=== PATIENT | male | born 1995 | race Two or more races ===

== ENCOUNTER 2019-10-04 07:34 | Inpatient (IN) | payer BC ==
[2019-10-04] VITALS (23 sets, daily range): BP systolic 122–168; BP diastolic 50–92
[~2019-10-04] VITALS: Ht 180.3 cm; Wt 71.7 kg
[2019-10-04] MEDS ORDERED: Bacitracin 50000 Units Vial ONE (09:02)
[2019-10-04] MEDS ORDERED: NeoSporin Gu Irrig 1ml Amp IRRIG ONE (09:02)
[2019-10-04] MEDS ORDERED: Lidocaine 1% 10mg/ml/Epi 0.005mg/ml 30ml vial INJ ONE ×4 (09:03→11:22)
[2019-10-04] MEDS ORDERED: fentaNYL 100 mcg/2 mL IV ONE ×2 (09:04→11:32)
[2019-10-04] MEDS ORDERED: Midazolam 2mg/2ml Inj ONE (09:05)
[2019-10-04] MEDS ORDERED: Lidocaine 1% MPF 10mg/ml 5ml ONE (09:07)
--- NOTE | 2019-10-04 09:14 | Pre-Procedure Note/Attestation ---
Pre-Procedure Note/Attestation Complete Prior to Procedure Planned Procedure: bilateral Procedure Narrative: Bilateral groin, perineal, thigh excision of hidradenitis and flap elevation. Attestation I attest that I discussed the nature of the procedure; its benefits; risks and complications; and alternatives (and the risks and benefits of such alternatives ), prior to the procedure, with the patient (or the patient's legal field service representative). I attest that, if there was a reasonable possibility of needing a blood transfusion, the patient (or the patient's legal field service representative) was given the [facility] standardized written summary, pursuant to the [place] Blood Safety Act ([place] Health and Safety Code # 1645, as amended). I attest that I re-evaluated the patient just prior to the surgery and that there has been no change in the patient's H&P, except as documented below: Jl Vazquez MD Oct 04, 2019 09:14
[2019-10-04] MEDS ORDERED: PCA Education Pamphlet MISC ONE ×2 (09:15→10:45)
[2019-10-04] MEDS ORDERED: Rate Change PCA 1 Each MISC PRN ×2 (09:15→10:45)
[2019-10-04] MEDS ORDERED: Zolpidem 5mg tab ORAL PRN (09:15)
[2019-10-04] MEDS ORDERED: Succinylcholine 20mg/ml 10ml vial ONE (09:18)
[2019-10-04] MEDS ORDERED: Rocuronium Bromide 100mg/10ml Inj IV ONE (09:18)
[2019-10-04] MEDS ORDERED: Acetaminophen (Non formulary) 100 ML IV ONE (09:30)
[2019-10-04] MEDS ORDERED: NS Irrig 2000ml IRRIG ONE (10:00)
[2019-10-04] MEDS ORDERED: NS Irrig 1000ml ONE (10:00)
[2019-10-04] MEDS ORDERED: Sterile Water Irrig 1000ml IRRIG ONE (10:00)
[2019-10-04] MEDS ORDERED: Neostigmine 1mg/ml 10ml Inj ONE (10:00)
[2019-10-04] MEDS ORDERED: NORCO 7.5-3251 EACH ORAL (10:17)
[2019-10-04] MEDS ORDERED: Sodium Chloride 10ml vial INJ ONE (10:31)
[2019-10-04] MEDS ORDERED: Glycopyrrolate 0.2mg/ml 1ml Vial ONE (10:31)
[2019-10-04] MEDS ORDERED: Morphine Sulfate 10mg/ml Inj ONE (10:31)
[2019-10-04] MEDS ORDERED: Ketorolac 30mg Inj ONE (10:32)
--- NOTE | 2019-10-04 10:43 | Anethesia Preoperative Eval ---
Anesthesia Pre-op PMH/ROS General Date of Evaluation: Oct 04, 2019 Time of Evaluation: 09:30 Anesthesiologist: Libby ASA Score: ASA 2 Mallampati Score Class I : Soft palate, uvula, fauces, pillars visible Class II: Soft palate, uvula, fauces visible Class III: Soft palate, base of uvula visible Class IV: Only hard plate visible Mallampati Classification: Class II Surgeon: Taylor Diagnosis: Bilateral groin HS Surgical Procedure: Excision of bilateral groin HS Anesthesia History: none Family History: no anesthesia problems Allergies: Coded Allergies: PEANUT (Verified Allergy, Severe, anaphylactic, 10/04/19) HYDROMORPHONE (Verified Allergy, Intermediate, severe nausea, 10/04/19) Medications: see eMAR Patient NPO?: Yes Past Medical History Cardiovascular: Denies: HTN, CAD, CT, valve dz, arrhythmia, other Pulmonary: Denies: asthma, COPD, DEBBIE, other Gastrointestinal/Genitourinary: Reports: GERD - mild; Denies: CRI, ESRD, other Neurologic/Psychiatric: Reports: depression/anxiety; Denies: dementia, CVA, TIA, other Endocrine: Denies: DM, hypothyroidism, steroids, other HEENT: Denies: cataract (L), cataract (R), glaucoma, [place] (L), [place] (R), other Hematology/Immune: Reports: anemia - mild; Denies: DVT, bleeding disorder, other Musculoskeletal/Integumentary: Reports: other - axillary and groin HS; Denies: OA, RA, DJD, DDD, edema PMH Narrative: as above PSxH Narrative: Surgical treatment of HS Anesthesia Pre-op Phys. Exam Physician Exam Last Vital Signs Date Time Temp Pulse Resp B/P (MAP) Pulse Ox O2 Delivery O2 Flow Rate FiO2 10/04/19 10:02 Room Air 10/04/19 09:27 97.5 97 18 128/50 (76) 97 Constitutional: NAD Neurologic: CN 2-12 intact Cardiovascular: RRR, no M/R/G Respiratory: CTA Gastrointestinal: S/NT/ND Airway Exam Mallampati Score: Class II MO: full Neck: flexible ROM: full Teeth: intact Dentures: no upper, no lower Anesthesia Pre-op A/P Risk Assessment & Plan Assessment: ASA 2 Plan: GA with ETT Status Change Before Surgery: No Pre-Antibiotics Drug: Ancef 1gr Given Within 1 Hr of Incision: Yes Time Given: 10:12 Jordon Souza MD Oct 04, 2019 10:43
[2019-10-04] MEDS ORDERED: LR 1000ml 1,000 ML IVLG SCH (10:44)
[2019-10-04] MEDS ORDERED: Meperidine 25mg/0.5ml Inj (FOR RIGORS ONLY) IV PRN (10:45)
[2019-10-04] MEDS ORDERED: Midazolam 2mg/2ml Inj IVP PRN (10:45)
[2019-10-04] MEDS ORDERED: fentaNYL 100 mcg/2 mL IV PRN (10:45)
[2019-10-04] MEDS ORDERED: DiphenhydrAMINE 50mg/ml Inj IVP PRN (10:45)
[2019-10-04] MEDS ORDERED: Ketorolac 30mg Inj IV PRN (10:45)
[2019-10-04] MEDS ORDERED: Metoclopramide 10mg/2ml Inj IVP PRN (10:45)
[2019-10-04] MEDS ORDERED: PCA Morphine 1mg/ml 30 ML IV PRN (12:18)
--- NOTE | 2019-10-04 12:24 | Operative Note - PDOC ---
Operative Note Operative Note Pre-op Diagnosis: Bilateral groin, thigh, and perineal hidradenitis Post-op Diagnosis: same as pre-op Surgeon: Taylor Floors Buffer: Jodee Anesthesia: general Specimen: yes Complications: none Condition: stable Estimated Blood Loss: none Drains: none Implant(s) used?: No Jl Vazquez MD Oct 04, 2019 12:24
[2019-10-04] MEDS ORDERED: Morphine Sulfate 2mg/ml Inj(IV/IM USE ONLY) IVP PRN (12:30)
[2019-10-04] MEDS ORDERED: Milk of Magnesia 30ml Ud ORAL PRN (12:30)
[2019-10-04] MEDS ORDERED: Miralax 17gm pkt ORAL PRN (12:30)
[2019-10-04 12:39] LABS: HEMATOCRIT 23.7 % (42.0-52.0); HEMOGLOBIN 7.3 G/DL (14.2-18.0); MEAN CORPUSCULAR VOLUME 73 FL (80-99); PLATELET COUNT 333 K/UL (150-450); RED BLOOD COUNT 3.23 M/UL (4.70-6.10); WHITE BLOOD COUNT 15.8 K/UL (4.8-10.8)
--- NOTE | 2019-10-04 12:44 | Immediate Post-Op Evaluation ---
Immediate Post-Op Evalulation Immediate Post-Op Evalulation Procedure: Excision of bilateral groin hydradenitis Date of Evaluation: Oct 04, 2019 Time of Evaluation: 12:42 IV Fluids: 1800 Blood Products: none Estimated Blood Loss: 200 Urinary Output: 150 Blood Pressure Systolic: 146 Blood Pressure Diastolic: 74 Pulse Rate: 73 Respiratory Rate: 18 O2 Sat by Pulse Oximetry: 99 Temperature (Fahrenheit): 97.6 Pain Score (1-10): 1 Nausea: No Vomiting: No Complications none Patient Status: reacts, patent, extubated, none Hydration Status: adequate Jordon Souza MD Oct 04, 2019 12:44
[2019-10-04 13:45] LABS: HEMATOCRIT 24.9 % (42.0-52.0); HEMOGLOBIN 7.6 G/DL (14.2-18.0); MEAN CORPUSCULAR VOLUME 74 FL (80-99); PLATELET COUNT 386 K/UL (150-450); RED BLOOD COUNT 3.35 M/UL (4.70-6.10); WHITE BLOOD COUNT 21.2 K/UL (4.8-10.8)
--- NOTE | 2019-10-04 14:07 | History and Physical ---
History of Present Illness General Date patient seen: Oct 04, 2019 Time patient seen: 13:41 Reason for Hospitalization: Acute blood loss anemia, intractable pain, SSTI Present Illness HPI 24 year old gentleman with no significant PMH present today with acute blood loss anemia after surgery with Dr. Vazquez for excision of bilateral hydradenitis with flap elevation. Estimated blood loss during the surgery was 200cc. CBC after surgery showed and a hemiglobin of 7.3 and a Hct of 23.7. Currently patient is in post of recovery resting comfortably and pain is well controlled. Pateint victor manuel be admitted to med surg floor for close monitoring of H/ H, pain control and IV antibiotics for SSTI s/p surgical intervention. Allergies: Coded Allergies: PEANUT (Verified Allergy, Severe, anaphylactic, 10/04/19) HYDROMORPHONE (Verified Allergy, Intermediate, severe nausea, 10/04/19) COVID-19 Screening Contact w/high risk pt: No Experienced COVID-19 symptoms?: No Medication History Scheduled PRN Hydrocodone Bit/Acetaminophen 7.5-325* ([place] 7.5-325*), 1 TAB ORAL Q6H PRN for For Pain, (Reported) Patient History History Provided By: Patient Healthcare decision maker Resuscitation status Advanced Directive on File Review of Systems Constitutional: Reports: no symptoms; Denies: chills, sweats, fever, malaise Eye: Reports: no symptoms ENT: Reports: no symptoms Respiratory: Reports: no symptoms; Denies: cough Cardiovascular: Reports: no symptoms; Denies: chest pain Gastrointestinal: Reports: no symptoms; Denies: abdominal pain Genitourinary: Denies: retention, incontinence, urgency Skin: Reports: lesions, other - surgical wound with drainage Psychiatric: Reports: no symptoms Neurological: Reports: no symptoms Endocrine: Reports: no symptoms Hematologic/Lymphatic: Reports: anemia All Other Systems: negative except mentioned in HPI Physical Exam General Appearance: no apparent distress, alert, lethargic, alert oriented x3 Lines, tubes and drains: peripheral HEENT: normocephalic, atraumatic Neck: normal alignment, supple, normal inspection Respiratory/Chest: lungs clear, normal breath sounds, no respiratory distress, no accessory muscle use Cardiovascular/Chest: normal peripheral pulses, normal rate, regularly irregular, no gallop/murmur Abdomen: non tender, soft, no organomegaly, no mass Genitourinary/Rectal: normal genital exam Extremities: non-tender, normal inspection Skin Exam: other - surgical wound in inguinal area Neurologic: cable television access coordinator II-XII grossly normal, alert, oriented x 3, responsive, normal mood/affect Last 24 Hour Vital Signs Date Time Temp Pulse Resp B/P (MAP) Pulse Ox O2 Delivery O2 Flow Rate FiO2 10/04/19 13:30 14 10/04/19 13:30 86 14 147/81 100 Nasal Cannula 3 10/04/19 13:25 75 12 156/80 100 Nasal Cannula 3 10/04/19 13:23 13 10/04/19 13:15 71 13 146/85 100 Nasal Cannula 3 10/04/19 13:05 65 11 158/80 100 Simple Mask 6 10/04/19 12:55 89 10 168/92 100 Simple Mask 6 10/04/19 12:45 68 10 141/73 100 Simple Mask 6 10/04/19 12:44 73 18 99 10/04/19 12:40 69 11 155/91 100 Simple Mask 6 10/04/19 12:35 97.4 69 10 144/88 100 Simple Mask 6 10/04/19 10:02 Room Air 10/04/19 09:27 97.5 97 18 128/50 (76) 97 Laboratory Tests Test 10/04/19 12:14 White Blood Count 15.8 K/UL (4.8-10.8) H Red Blood Count 3.23 M/UL (4.70-6.10) L Hemoglobin 7.3 G/DL (14.2-18.0) L Hematocrit 23.7 % (42.0-52.0) L Mean Corpuscular Volume 73 FL (80-99) L Mean Corpuscular Hemoglobin 22.6 PG (27.0-31.0) L Mean Corpuscular Hemoglobin Concent 30.8 G/DL (32.0-36.0) L Red Cell Distribution Width 16.0 % (11.6-14.8) H Platelet Count 333 K/UL (150-450) Mean Platelet Volume 7.5 FL (6.5-10.1) Neutrophils (%) (Auto) % (45.0-75.0) Lymphocytes (%) (Auto) % (20.0-45.0) Monocytes (%) (Auto) % (1.0-10.0) Eosinophils (%) (Auto) % (0.0-3.0) Basophils (%) (Auto) % (0.0-2.0) Differential Total Cells Counted 100 Neutrophils % (Manual) 60 % (45-75) Lymphocytes % (Manual) 30 % (20-45) Monocytes % (Manual) 7 % (1-10) Eosinophils % (Manual) 3 % (0-3) Basophils % (Manual) 0 % (0-2) Band Neutrophils 0 % (0-8) Platelet Estimate Adequate Platelet Morphology Normal Hypochromasia 1+ Anisocytosis 1+ Microcytosis 1+ Height (Feet): 6 Height (Inches): 0.00 Weight (Pounds): 150 Medications Current Medications Medications (Trade) Dose Ordered Sig/Flavia Route PRN Reason Start Time Stop Time Status Last Admin Dose Admin Acetaminophen (Tylenol) 325 mg ONCE ONCE ORAL 10/04/19 14:30 10/04/19 14:31 Acetaminophen (Tylenol) 650 mg Q4H PRN ORAL FEVER 10/04/19 09:15 11/03/19 09:14 Acetaminophen (Tylenol) 650 mg Q4H PRN ORAL Mild Pain (Pain Scale 1-3) 10/04/19 12:30 11/03/19 12:29 UNV Acetaminophen (Tylenol) 650 mg Q4H PRN ORAL Temp >100.5 10/04/19 12:30 11/03/19 12:29 UNV Bisacodyl (Dulcolax) 10 mg HSPRN PRN RECTAL Constipation 10/04/19 12:30 01/02/20 12:29 UNV Cefazolin Sodium (Ancef) 1 gm Q8HR IM 10/04/19 14:00 10/11/19 13:59 UNV Dextrose (Dextrose 50%) 25 ml Q30M PRN IV Hypoglycemia 10/04/19 12:30 01/02/20 12:29 UNV Dextrose (Dextrose 50%) 50 ml Q30M PRN IV Hypoglycemia 10/04/19 12:30 01/02/20 12:29 UNV Diphenhydramine HCl (Benadryl) 25 mg Q15M PRN IVP Itching 10/04/19 10:45 10/04/19 21:00 Famotidine (Pepcid) 40 mg DAILY ORAL 10/05/19 09:00 01/03/20 08:59 UNV Fentanyl Citrate (Sublimaze 100 mcg/2 mL) 50 mcg Q10M PRN IV Moderate Pain (Pain Scale 4-6) 10/04/19 10:45 10/04/19 21:00 Heparin Sodium (Porcine) (Heparin 5000 units/ml) 5,000 units EVERY 12 HOURS SUBQ 10/04/19 21:00 11/18/19 20:59 Ketorolac Tromethamine (Toradol 30mg) 30 mg Q1H PRN IV Severe Breakthru Pain (>7) 10/04/19 10:45 10/04/19 21:00 Magnesium Hydroxide (Mom) 30 ml HSPRN PRN ORAL Constipation 10/04/19 12:30 11/03/19 12:29 UNV Meperidine HCl (Demerol) 25 mg Q15M PRN IV Shivering 10/04/19 10:45 10/04/19 21:00 Metoclopramide HCl (Reglan) 10 mg Q1H PRN IVP Nausea & Vomiting 10/04/19 10:45 10/04/19 21:00 Midazolam HCl (Versed 2mg/2ml vial) 1 mg Q15M PRN IVP For Anxiety 10/04/19 10:45 10/04/19 21:00 Miscellaneous Medication (PHOTO LAB MANAGER Rate Change) 1 ea DAILY PRN MISC rate change 10/04/19 10:45 10/06/19 10:44 Miscellaneous Medication (PHOTO LAB MANAGER shift volume) 1 ea Q12HR@0700,1900 MISC 10/04/19 19:00 10/06/19 18:59 Morphine Sulfate 30 ml @ 0 mls/hr Q24H PRN IV For Pain 10/04/19 12:18 10/06/19 12:17 10/04/19 13:23 Morphine Sulfate (Morphine Sulfate) 2 mg EVERY 4 HOURS PRN IVP Moderate Pain (Pain Scale 4-6) 10/04/19 12:30 10/11/19 12:29 UNV Ondansetron HCl (Zofran) 4 mg Q6H PRN IVP Nausea & Vomiting 10/04/19 09:15 11/03/19 09:14 Ondansetron HCl (Zofran) 4 mg Q6H PRN IVP Nausea & Vomiting 10/04/19 12:30 11/03/19 12:29 UNV Polyethylene Glycol (Miralax) 17 gm HSPRN PRN ORAL Constipation 10/04/19 12:30 11/03/19 12:29 UNV Sodium Chloride 1,000 ml @ 10 mls/hr Q24H IV 10/04/19 14:20 11/03/19 14:19 Zolpidem Tartrate (Ambien) 5 mg DAILYPRN PRN ORAL Insomnia 10/04/19 09:15 10/11/19 09:14 Assessment/Plan Problem List: (1) Acute blood loss anemia ICD Codes: D62 - Acute posthemorrhagic anemia SNOMED: 669201119 (2) Uncontrolled pain ICD Codes: R52 - Pain, unspecified SNOMED: 97590417699370430 (3) Hidradenitis suppurativa ICD Codes: L73.2 - Hidradenitis suppurativa SNOMED: 11227138 (4) Hypoxia ICD Codes: R09.02 - Hypoxemia SNOMED: 768443648 (5) Hypoalbuminemia ICD Codes: E88.09 - Other disorders of plasma-protein metabolism, not elsewhere classified SNOMED: 974234390 (6) Hyperglycemia ICD Codes: R73.9 - Hyperglycemia, unspecified SNOMED: 39862577 Status: doing well, stable Assessment/Plan: 24 year old gentleman with no significant PMH presents with acute blood loss anemia after surgery for hydradenitis. #Acute blood loss anemia -Trend CBC closely - Transfuse 2 units pRBC 10/04/2019 - Iron studies - Holding DVT ppx till H/H stabilize #Hydradenitis s/p surgical intervention -Ancef 1g IV q8hrs -f/u intra op cultures -Wound care -Pain control with PCN pump -Surgical recommendations -Likely will return for second surgery in near future. #Hypoalbuminemia -Encourage high protein diet to promote wound healting -Neutrition consult for supplimentation #Hyperglycemia - Order HgA1c - ISS for accu checks - Tight glycemic control for wound healing #Post surgical hypoxia - likely lung atelectasis - Chest x-ray - O2 NC to keep sat above 92% - Incentive spirometry - Early ambulation with assist SCD given acute blood loss Regular diet I spent 75 min on this patient with face to face time and coordinating with the surgeon. Discussed plan of care with nursing and charge nurse. Literature review on Hydradenitis and SSTI. Dangelo Metzger M.D. Oct 04, 2019 14:07
[2019-10-04 14:30] LABS: ALANINE AMINOTRANSFERASE 15 U/L (12-78); ALBUMIN/GLOBULIN RATIO 0.4 (1.0-2.7); ALKALINE PHOSPHATASE 65 U/L (46-116); ANION GAP 7 mmol/L (5-15); ASPARTATE AMINO TRANSFERASE 18 U/L (15-37); BILIRUBIN,TOTAL < 0.1 MG/DL (0.2-1.0); BLOOD UREA NITROGEN 12 mg/dL (7-18); CALCIUM 7.9 MG/DL (8.5-10.1); CARBON DIOXIDE 26 MMOL/L (21-32); CHLORIDE 105 MMOL/L (98-107); POTASSIUM 4.1 MMOL/L (3.5-5.1); SODIUM 138 MMOL/L (136-145)
--- NOTE | 2019-10-04 15:35 | NUR ---
NURSE NOTES: Received pt from PACU and report from ADDIE [place]. Pt awake but drowsy verbally responsive, alert and oriented. Breathing even and unlabored. Pt on NC 2L. FLEXIBLE MACHINING SYSTEM MACHINIST setting checked. Surgical wound dressing clean, dry and intact. Two IV intact and patent. Flores cath noted. All belongings were accounted for. Vitals stable. siderails upx2. Bed in low position and loced. Call light within reach. Will continue to monitor
--- NOTE | 2019-10-04 16:14 | Operative Note - Dictated ---
DATE OF OPERATION: 10/04/2019 PREOPERATIVE DIAGNOSIS: Advanced Gomez stage III hidradenitis suppurativa affecting bilateral groin, bilateral thighs, and perineal regions. POSTOPERATIVE DIAGNOSIS: Advanced Gomez stage III hidradenitis suppurativa affecting bilateral groin, bilateral thighs, and perineal regions. PROCEDURES: 1. Radical excision of left groin and thigh tissue bearing hidradenitis suppurativa resulting in a defect that measured 20 x 15 cm. 2. Radical excision of right groin and thigh tissue bearing hidradenitis suppurativa resulting in a defect that measured 25 x 15 cm. 3. Radical excision of perineal hidradenitis suppurativa leaving a defect that resulted in the 10 x 8 cm wound. 4. Elevation of a fasciocutaneous anterior abdominal wall flap for a staged closure of groin and thigh wounds. 5. Elevation of a scrotal fasciocutaneous flap for staged closure of groin wounds. 6. Elevation of a medial thigh flap on the right side for a staged closure of right thigh and groin wounds. 7. Medial thigh flap elevation on the left side for staged closure of left thigh and groin wounds. SURGEON: Jl Vazquez MD. ELEMENTARY ART TEACHER: Alicia Ellsworth MD. ANESTHESIA: General. DRAINS: None. COMPLICATIONS: None. ESTIMATED BLOOD LOSS: Approximately 150 mL. DISPOSITION: Stable to the recovery room. INDICATIONS FOR SURGERY: This is a 24-year-old male, who presented to me last week with advanced Gomez stage III hidradenitis suppurativa involving his bilateral groin, thigh, and perineal regions as well as bilateral axillary regions. He has been a patient at [facility] where they were following him for his perineal and groin disease and apparently operated on his bilateral axillary disease; however, he persisted in having symptoms in the axilla as well as having terrible symptoms associated such as pain and drainage constantly from his perineal and groin region. We discussed the need for treatment of all regions including the axilla, which he had had taken care of at the outside hospital, but given the exorbitant amount of disease and infection present within his groin and thigh regions, we decided to first address that area with surgical treatment. The patient preoperatively had labs done, which revealed a white count of nearly 17 and an albumin of 3.5 and otherwise unremarkable labs. Given the level of disease and the widespread nature of the disease, I explained to him that it would be impossible to perform a 1 stage reconstruction as well as removal of the hidradenitis, and so we discussed that there would need to be a potential staged treatment for his condition. The level of the infection was quite significant in the wounds, which was consistent with elevated white count, which was seen preoperatively. As such, he was consented to undergo this operation of radical excision of disease bearing tissue in his left groin and right groin as well as perineum with flap elevations needed for eventual staged closure of these wounds. Given the size of the wound that we anticipated, we also discussed the possibility of the need for a spilt thickness skin graft in addition to the flaps that would be needed to allow for definitive wound closure of his groin wounds. He understood the risks and benefits of surgery. These risks include infection, bleeding, need for further surgery, the recurrence of hidradenitis, and the risks of anesthesia, but were not limited to these risks. He understood all of these and agreed to proceed. DETAILS OF THE OPERATION: The patient was brought to the operating room and laid in the lithotomy position on the operating room table. His groin and perineal regions were all prepped and draped in a sterile and usual fashion in addition to prepping his upper thighs and lower abdomen. Once this was done, a marking pen was used to delineate the extent of disease. This was a very intense level of disease present in this patient and there was a very irregular distribution of the disease noted. The marking pen was used to encompass the entire extent of the disease; however, traditionally where as unable to remove each side as 1 piece of en bloc tissue, this had to be divided into sub units to allow for complete excision of the tissue given the level of scarring and infection present. We first began on the left side by following the markings that were made on the left groin and thigh regions. A #10 blade was used to make the incision through the skin and then electrocautery was used to remove the first piece of the left thigh disease bearing tissue, which resulted in a large defect. Subsequent to that, we proceeded to use the #10 blade to remove the more medial tissue adjacent to the scrotum and that resulted in a larger defect. There was also disease involving the lateral aspects of the scrotum on that side, which also required excision with the #10 blade and electrocautery. All in all, the resulting defect in the left groin resulted in a defect that measured 20 x 15 cm. Subsequent to that, we proceeded to the right groin and thigh area where a marking pen was used to delineate the extent of the disease as well. In a similar fashion, using the concept of sub units, these areas of disease were removed. I first began on the medial thigh disease bearing skin. A #10 blade was used to make the incision around the disease resulting in a large defect and subsequent to that, a more medial part of the disease bearing tissue as well as the scrotal area that was affected were then subsequently removed using a #10 blade and electrocautery. This resulted in a large defect that measured 25 x 15 cm. Lastly with respect to the excision of the disease, the area and the perineum was also delineated using a marking pen and a #10 blade was then used to excise the tissue in its entirety leaving a defect that measured 10 x 8 cm. Once this was done, the wound was copiously irrigated with pulse lavage and hemostasis was achieved and this left a quite large defect that measured 20 x 15 on the left side, 25 x 15 cm on the right side as well as 10 x 8 cm defect in the perineum resulting in a defect that was nearly 800 square cm that required reconstruction. As such, it was pretty evident that this could not be definitively closed at this operation given the size of the defect as well as the infection present, but also it was apparent that given the size, that there would need to be a combination of flap elevation along with skin grafts to allow for definitive closure. Knowing this reconstructive approach, we first began by elevating an abdominal wall fasciocutaneous flap using the skin notes to elevate the abdominal flap just above the level of the Brigitte's fascia. This was based off of perforators of the superficial epigastric artery and as the flap was elevated further, we noted that we needed to make a counter incision just above the area of the mons to allow for further mobilization of the flap. As such, a triangular type of incision was created just in the region of the mons to allow for a bilateral abdominal flap elevation again both flaps based on the superficial epigastric artery as the source of perfusion. Once these bilateral flaps were elevated off the abdomen, we noted that there needed to be mobilization of medial thigh flaps as well. This was done with skin hooks using to elevate the medial thigh flap skin first on the left with dissection carried over the adductor fascia with significant mobilization of the flap based off of perforators of the superficial femoral artery. This was then followed by elevating the flap on the contralateral side where we were able to perform significant flap mobilization above the adductor fascia with blood supply coming from the superficial femoral artery as well. This flap elevation in conjunction with the bilateral abdominal flap elevations allowed us to tentatively be able to close the superior aspect of the thigh and groin wounds. The resulting perineal defect and the lower groin defects were not quite amenable for closure using the flaps and I feel that will likely require skin graft reconstruction in these areas. Lastly, we were able to elevate the scrotal flap on both the left and the right just above the tunica albuginea. A fasciocutaneous flap was elevated on both sides. This was based off of perforators off the pudendal artery emanating from just below the penile shaft. As far as the perforators perfusing the scrotal skin, these flaps were elevated on the left and the right to allow for closure of the medial aspects of the groin defects. All in all, we were able to elevate the bilateral abdominal flaps, scrotal flaps as well as medial thigh flaps for staged closure of the wound. The wound was again copiously irrigated with pulse lavage. Hemostasis was achieved and given the defect and the level of infection present as stated earlier it was not clinically prudent or safe to perform definitive closure of the wound at this time. As such, the patient will require a period of wound care with IV antibiotics followed by definitive complete closure of these wounds using a combination of flap advancement as well as skin grafting. The patient tolerated the procedure well. All needle and sponge counts were correct at the end of the case and there was no complications. Jl Vazquez M.D. DR: ASPEN JOB#: [id number] CC: JONATHON
[2019-10-04] MEDS: NovoLOG Insulin Flexpen SUBQ SCH ×2 (16:30→21:00)
[2019-10-04] MEDS ORDERED: PCA shift volume MISC SCH (19:00)
[2019-10-04] MEDS: PCA shift volume MISC SCH (19:00)
--- NOTE | 2019-10-04 19:46 | NUR ---
HAND-OFF: Report given to Veronika.
[2019-10-04] MEDS: Heparin 5000 units/ml inj SUBQ SCH ×2 (21:00→22:00)
--- NOTE | 2019-10-04 21:30 | NUR ---
NURSE NOTES: Patient refused Heparin SQ. Risks were discussed with patient.
[2019-10-04] MEDS: ceFAZolin 1gm in D5W 55ml IVPB SCH (22:17)
--- NOTE | 2019-10-04 22:30 | NUR ---
NURSE NOTES: Blood transfusion done. All VS post blood transfusion are stable. Patient denies any pain as of the moment. Dressings are clean and dry.
[2019-10-04 23:41] LABS: HEMATOCRIT 28.5 % (42.0-52.0); HEMOGLOBIN 9.3 G/DL (14.2-18.0); MEAN CORPUSCULAR VOLUME 76 FL (80-99); PLATELET COUNT 260 K/UL (150-450); RED BLOOD COUNT 3.75 M/UL (4.70-6.10); RED CELL DISTRIBUTION WIDTH 15.9 % (11.6-14.8); WHITE BLOOD COUNT 20.7 K/UL (4.8-10.8)
[2019-10-05] VITALS: BP 124/80
[2019-10-05 04:00] VITALS: BP 113/61
[2019-10-05] MEDS: ceFAZolin 1gm in D5W 55ml IVPB SCH ×3 (05:30→21:08)
[2019-10-05 05:49] LABS: HEMATOCRIT 28.9 % (42.0-52.0); HEMOGLOBIN 9.2 G/DL (14.2-18.0); MEAN CORPUSCULAR VOLUME 77 FL (80-99); PLATELET COUNT 254 K/UL (150-450); RED BLOOD COUNT 3.77 M/UL (4.70-6.10); WHITE BLOOD COUNT 17.9 K/UL (4.8-10.8)
[2019-10-05] MEDS: NovoLOG Insulin Flexpen SUBQ SCH (06:11)
[2019-10-05 07:05] LABS: ANION GAP 5 mmol/L (5-15); BLOOD UREA NITROGEN 9 mg/dL (7-18); CALCIUM 8.2 MG/DL (8.5-10.1); CARBON DIOXIDE 28 MMOL/L (21-32); CHLORIDE 104 MMOL/L (98-107); CREATININE 0.8 MG/DL (0.55-1.30); SODIUM 137 MMOL/L (136-145)
[2019-10-05 07:23] LABS: % IRON SATURATION 41 % (15-50); IRON 57 ug/dL (50-175); TOTAL IRON BINDING CAPACITY 139 ug/dL (250-450)
[2019-10-05] MEDS: PCA shift volume MISC SCH ×2 (07:24→19:00)
--- NOTE | 2019-10-05 07:26 | NUR ---
HAND-OFF: Report given to Lindsey Saenz. RN. Patient in stable condition .
--- NOTE | 2019-10-05 07:45 | NUR ---
NURSE NOTES: Received report from ADDIE Durán. Pt awake, alert and oriented. No acute distress noted. Breathing even and unlabored. Pain is manageable. two IV intact. Flores draining clear yellow urine. Dressing clean and intact. STUDENT OUTREACH COORDINATOR setting checked. Call light within reach. Will continue to monitor.
[2019-10-05 08:00] VITALS: BP 105/60
--- NOTE | 2019-10-05 08:51 | NUR ---
RD ASSESSMENT & RECOMMENDATIONS SEE CARE ACTIVITY FOR COMPLETE ASSESSMENT DAILY ESTIMATED NEEDS: Needs based on Surgery 72kg 25-35 kcals/kg 4395-7162 total kcals 1-2 g protein/kg 72-144 g total protein 25-30 mL/kg 9117-9413 total fluid mLs NUTRITION DIAGNOSIS: Increased protein needs r/t surgical wound healing as evidenced by pt w/ Hidradenitis suppurativa, s/p radical excision of HS sites. CURRENT DIET: Now Regular PO DIET RECOMMENDATIONS: Regular diet as tolerated ADDITIONAL RECOMMENDATIONS: 1) Maintain accuchecks, bedside BG checks to maintain good glycemic control for maximum wound healing 2) Wound care: add JUAN LUIS BID as tolerated, Vit C 500mg qdaily + MVI w/ min qdaily 3) Diet edu provided for appropriate pro intake 4) Bowel regimen
[2019-10-05] MEDS: Heparin 5000 units/ml inj SUBQ SCH ×2 (08:58→21:08)
--- NOTE | 2019-10-05 09:23 | NUR ---
CASE MANAGEMENT:Note CM recieved a call from Carlyle Marie [place] [facility] Jo T:[phone] ~Any D/C needs please communicate with [place] [facility]
--- NOTE | 2019-10-05 11:09 | Diagnostic Imaging Report ---
Indication: Chest pain. Postop Technique: XRAY Chest 1v Comparison: None Findings: Heart size and mediastinal contours are within normal limits for AP technique. There is no focal airspace consolidation, pneumothorax or pleural effusion. Osseous structures demonstrate no acute abnormality. Impression: No radiographic evidence of acute cardiopulmonary disease.
--- NOTE | 2019-10-05 11:11 | General Progress Note ---
Assessment/Plan Problem List: (1) Acute blood loss anemia ICD Codes: D62 - Acute posthemorrhagic anemia SNOMED: 561148150 (2) Uncontrolled pain ICD Codes: R52 - Pain, unspecified SNOMED: 75234542473013690 (3) Hidradenitis suppurativa ICD Codes: L73.2 - Hidradenitis suppurativa SNOMED: 40959210 (4) Hypoalbuminemia ICD Codes: E88.09 - Other disorders of plasma-protein metabolism, not elsewhere classified SNOMED: 942774134 Status: doing well, stable Assessment/Plan: 24 year old gentleman with no significant PMH presents with acute blood loss anemia after surgery for hydradenitis. #Acute blood loss anemia - improving -Trend CBC closely - S/P 2 units pRBC 10/04/2019 - Iron studies reviewd - Starting DVT ppx #Hydradenitis s/p surgical intervention -Ancef 1g IV q8hrs -f/u intra op cultures -Wound care -Pain control with PCN pump -Surgical recommendations -Likely will return for second surgery in near future. #Hypoalbuminemia -Encourage high protein diet to promote wound healting -Neutrition consult for supplimentation #Hyperglycemia - resolved -HgA1c 5.7 -DC ISS -Tight glycemic control for wound healing #Post surgical hypoxia - RESOLVED - Incentive spirometry - Early ambulation with assist SQ heparing 5000 q12 Advance diet as tolerated OOBTC I spent 40 min on this patient with 15 face to face time.Coordinating with the surgeon multiple times. Discussed plan of care with nursing and charge nurse. Subjective Date patient seen: Oct 05, 2019 Time patient seen: 08:30 ROS Limited/Unobtainable: No Constitutional: Denies: chills, diaphoresis, fever HEENT: Reports: no symptoms Cardiovascular: Denies: chest pain, edema, irregular heart rate Respiratory: Reports: no symptoms; Denies: cough, shortness of breath Gastrointestinal/Abdominal: Reports: no symptoms Genitourinary: Reports: no symptoms Neurologic/Psychiatric: Reports: no symptoms Endocrine: Reports: no symptoms Hematologic/Lymphatic: Reports: no symptoms, anemia Allergies: Coded Allergies: PEANUT (Verified Allergy, Severe, anaphylactic, 10/04/19) HYDROMORPHONE (Verified Allergy, Intermediate, severe nausea, 10/04/19) All Systems: reviewed and negative except above Subjective Patient say pain is well controlled on LEAD INFORMATICA DEVELOPER pump. His Flores is uncomfortable to him. Objective Last 24 Hour Vital Signs Date Time Temp Pulse Resp B/P (MAP) Pulse Ox O2 Delivery O2 Flow Rate FiO2 10/05/19 09:00 Room Air 10/05/19 08:00 99.2 81 18 105/60 (75) 97 10/05/19 08:00 75 15 97 10/05/19 04:00 75 15 98 10/05/19 04:00 98.5 75 18 113/61 (78) 98 10/05/19 00:00 98.6 69 15 124/80 (95) 100 10/05/19 00:00 69 14 99 10/04/19 21:00 Nasal Cannula 2.0 10/04/19 20:00 97.7 67 15 124/65 (84) 100 10/04/19 20:00 67 15 100 10/04/19 18:00 97.5 68 12 126/69 (88) 100 10/04/19 17:00 97.5 65 14 123/73 (90) 100 10/04/19 16:00 97.8 69 14 122/75 (91) 100 10/04/19 15:30 69 14 100 10/04/19 15:30 97.8 69 14 124/74 100 Nasal Cannula 3 10/04/19 15:30 97.6 69 14 126/72 (90) 100 10/04/19 15:15 62 12 142/69 100 Nasal Cannula 3 10/04/19 15:00 12 10/04/19 15:00 64 11 139/69 100 Nasal Cannula 3 10/04/19 14:50 62 12 138/77 100 Nasal Cannula 3 10/04/19 14:40 97.3 63 11 134/84 100 Nasal Cannula 3 10/04/19 14:35 68 10 135/81 100 Nasal Cannula 3 10/04/19 14:30 97.7 63 12 138/61 100 Nasal Cannula 3 10/04/19 14:30 12 10/04/19 14:15 62 12 135/74 100 Nasal Cannula 3 10/04/19 14:00 13 10/04/19 14:00 71 13 129/77 100 Nasal Cannula 3 10/04/19 13:53 97.3 10/04/19 13:45 17 10/04/19 13:45 77 17 156/83 100 Nasal Cannula 3 10/04/19 13:30 14 10/04/19 13:30 86 14 147/81 100 Nasal Cannula 3 10/04/19 13:25 75 12 156/80 100 Nasal Cannula 3 10/04/19 13:23 13 10/04/19 13:15 71 13 146/85 100 Nasal Cannula 3 10/04/19 13:05 65 11 158/80 100 Simple Mask 6 10/04/19 12:55 89 10 168/92 100 Simple Mask 6 10/04/19 12:45 68 10 141/73 100 Simple Mask 6 10/04/19 12:44 73 18 99 10/04/19 12:40 69 11 155/91 100 Simple Mask 6 10/04/19 12:35 97.4 69 10 144/88 100 Simple Mask 6 Intake and Output 10/04/19 10/05/19 19:00 07:00 Intake Total 2300 ml 650 ml Output Total 700 ml 450 ml Balance 1600 ml 200 ml Intake Oral 0 ml 650 ml IV Total 2300 ml Output Urine Total 500 ml 450 ml Estimated Blood Loss 200 ml # Voids 1 Laboratory Tests 10/04/19 12:14: White Blood Count 15.8H, Red Blood Count 3.23L, Hemoglobin 7.3L, Hematocrit 23.7L, Mean Corpuscular Volume 73L, Mean Corpuscular Hemoglobin 22.6L, Mean Corpuscular Hemoglobin Concent 30.8L, Red Cell Distribution Width 16.0H, Platelet Count 333, Mean Platelet Volume 7.5, Neutrophils (%) (Auto) , Lymphocytes (%) (Auto) , Monocytes (%) (Auto) , Eosinophils (%) (Auto) , Basophils (%) (Auto) , Differential Total Cells Counted 100, Neutrophils % ( Manual) 60, Lymphocytes % (Manual) 30, Monocytes % (Manual) 7, Eosinophils % ( Manual) 3, Basophils % (Manual) 0, Band Neutrophils 0, Platelet Estimate Adequate, Platelet Morphology Normal, Hypochromasia 1+, Anisocytosis 1+, Microcytosis 1+, Hemoglobin A1c 5.7 10/04/19 13:35: White Blood Count 21.2H, Red Blood Count 3.35L, Hemoglobin 7.6L, Hematocrit 24.9L, Mean Corpuscular Volume 74L, Mean Corpuscular Hemoglobin 22.7L, Mean Corpuscular Hemoglobin Concent 30.5L, Red Cell Distribution Width 16.0H, Platelet Count 386, Mean Platelet Volume 6.4L, Neutrophils (%) (Auto) , Lymphocytes (%) (Auto) , Monocytes (%) (Auto) , Eosinophils (%) (Auto) , Basophils (%) (Auto) , Differential Total Cells Counted 100, Neutrophils % ( Manual) 60, Lymphocytes % (Manual) 28, Monocytes % (Manual) 9, Eosinophils % ( Manual) 3, Basophils % (Manual) 0, Band Neutrophils 0, Platelet Estimate Adequate, Platelet Morphology Normal, Hypochromasia 1+, Anisocytosis 1+, Microcytosis 1+, Sodium Level 138, Potassium Level 4.1, Chloride Level 105, Carbon Dioxide Level 26, Anion Gap 7, Blood Urea Nitrogen 12, Creatinine 1.0, Estimat Glomerular Filtration Rate > 60, Glucose Level 190H, Calcium Level 7.9L , Total Bilirubin < 0.1L, Aspartate Amino Transf (AST/SGOT) 18, Alanine Aminotransferase (ALT/SGPT) 15, Alkaline Phosphatase 65, Total Protein 7.5, Albumin 2.0L, Globulin 5.5, Albumin/Globulin Ratio 0.4L 10/04/19 16:22: POC Whole Blood Glucose [Pending] 10/04/19 21:54: POC Whole Blood Glucose 71L 10/04/19 23:30: White Blood Count 20.7H, Red Blood Count 3.75L, Hemoglobin 9.3L, Hematocrit 28.5L, Mean Corpuscular Volume 76L, Mean Corpuscular Hemoglobin 24.7L, Mean Corpuscular Hemoglobin Concent 32.4, Red Cell Distribution Width 15.9H, Platelet Count 260, Mean Platelet Volume 7.3, Neutrophils (%) (Auto) , Lymphocytes (%) (Auto) , Monocytes (%) (Auto) , Eosinophils (%) (Auto) , Basophils (%) (Auto) , Differential Total Cells Counted 100, Neutrophils % ( Manual) 78H, Lymphocytes % (Manual) 18L, Monocytes % (Manual) 4, Eosinophils % ( Manual) 0, Basophils % (Manual) 0, Band Neutrophils 0, Platelet Estimate Adequate, Platelet Morphology Normal 10/05/19 05:10: White Blood Count 17.9H, Red Blood Count 3.77L, Hemoglobin 9.2L, Hematocrit 28.9L, Mean Corpuscular Volume 77L, Mean Corpuscular Hemoglobin 24.4L, Mean Corpuscular Hemoglobin Concent 31.9L, Red Cell Distribution Width 16.0H, Platelet Count 254, Mean Platelet Volume 7.7, Neutrophils (%) (Auto) , Lymphocytes (%) (Auto) , Monocytes (%) (Auto) , Eosinophils (%) (Auto) , Basophils (%) (Auto) , Differential Total Cells Counted 100, Neutrophils % ( Manual) 92H, Lymphocytes % (Manual) 3L, Monocytes % (Manual) 4, Eosinophils % ( Manual) 1, Basophils % (Manual) 0, Band Neutrophils 0, Platelet Estimate Adequate, Platelet Morphology Normal, Hypochromasia 2+, Anisocytosis 1+, Microcytosis 1+, Sodium Level 137, Potassium Level 4.0, Chloride Level 104, Carbon Dioxide Level 28, Anion Gap 5, Blood Urea Nitrogen 9, Creatinine 0.8, Estimat Glomerular Filtration Rate > 60, Glucose Level 84#, Calcium Level 8.2L, Magnesium Level 1.7L, Iron Level 57, Total Iron Binding Capacity 139L, Percent Iron Saturation 41, Unsaturated Iron Binding 82L 10/05/19 05:33: POC Whole Blood Glucose 85 Height (Feet): 6 Height (Inches): 0.00 Weight (Pounds): 150 General Appearance: no apparent distress, lethargic, alert oriented x3 EENT: PERRL/EOMI Neck: normal alignment, supple, normal inspection Cardiovascular: normal peripheral pulses, normal rate, regular rhythm, no gallop/murmur, no JVD Respiratory/Chest: chest wall non-tender, lungs clear, normal breath sounds, no respiratory distress, no accessory muscle use Abdomen: non tender, soft Pelvis: other - surgical wounds Extremities: normal inspection, other - surgical wounds Neurologic: golf club head former II-XII grossly normal, alert, oriented x 3, responsive, normal mood/affect Skin: normal pigmentation, warm/dry Dangelo Metzger M.D. Oct 05, 2019 11:11
--- NOTE | 2019-10-05 11:46 | General Progress Note ---
Progress Note Progress Note Pt seen and examined. POD#1 and stable. Dressings are clean and dry. Flores in place and pain is controlled. Received 2U of PRBCs last night and current HCT is 29. Patient had a huge burden of disease with purulent fluid within the excised tissue. The resulting defect was very large. Given these factors will need to delay definitve closure of the wounds until early next week. This will allow the patient to get some local wound care along with the IV abx in the interim. Continue current care and will have patient sit up in chair. MD Taylor Briceño Amir MD Oct 05, 2019 11:46
[2019-10-05 12:00] VITALS: BP 106/60
--- NOTE | 2019-10-05 15:46 | NUR ---
CASE MANAGEMENT: INITIAL REVIEW 24YR OLD MALE HERE FOR SCHEDULE SURGERY CC: HYDRADENITIS SI: BILATERAL GROIN HYDRADENITIS . ANEMIA 97.5 97 18 128/50 97% ON RA WBC 15.8-21.2 H/H 7.3/23.7 BG 190 CA+7.9 ALB 2.0 IS:IN SURGERY NOW BILATERAL GROIN, PERINEAL, THIGH EXCISION OF HIDRADENITIS AND FLAP ELEVATION \: 3E MED SURG UNIT DCP: HOME WHEN STABLE PLAN: ENCOURAGE AMULATION WHEN PERMITTED ENCOURAGE INCENTIVE SPIROMETER USE CASE MANAGEMENT:REVIEW 10/05/19 SI: S/P BILATERAL GROIN, PERINEAL, THIGH EXCISION OF HIDRADENITIS AND FLAP ELEVATION BILATERAL GROIN HYDRADENITIS . ANEMIA 99.2 81 18 105/60 97% ON RA WBC 17.9 H/H 9.2/28.9 CA+ 8.2 MG 1.7 IS:IV ANCEF TID METAL FURRER MORPHINE SULFATE \: 3E MED SURG UNIT DCP: HOME WHEN STABLE PLAN: ENCOURAGE AMULATION WHEN PERMITTED ENCOURAGE INCENTIVE SPIROMETER USE CONTROL PAIN MONITOR WBC
[2019-10-05 16:00] VITALS: BP_SYST 106; BP_SYST 99; BP_DIAS 52; BP_DIAS 60
--- NOTE | 2019-10-05 16:49 | NUR ---
NURSE NOTES: Spoke to regarding admitting doctor and Change admitting doctor to . Order noted and carried out.
--- NOTE | 2019-10-05 17:03 | NUR ---
NURSE NOTES: Temp. 100.5 Tylenol 650mg given as ordered. encouraged to drink more water. pt verbalized understanding. cool pack applied on forehead.
--- NOTE | 2019-10-05 19:20 | NUR ---
NURSE NOTES: received report from giselle bradfodr rn. patient is on bed, awake and verbally responsive. room air. no sob. afebrile. noted with electronics engineering technologist morphine running on the right hand. right forearm, saline lock. benavidez catheter draining well with light yellow urine. unable to check the dressing on the groin patient having a hard time moving and turning. with dressing on the bilateral armpits. reiterated to call and ask for assistance. call light and light button within easy reach. bed locked and in lowest position. will continue plan of care.
--- NOTE | 2019-10-05 19:30 | NUR ---
HAND-OFF: Report given to ADDIE Campo.
[2019-10-05 20:00] VITALS: BP 117/73
[2019-10-06] VITALS (7 sets, daily range): BP systolic 109–120; BP diastolic 66–76
[2019-10-06] MEDS: ceFAZolin 1gm in D5W 55ml IVPB SCH ×3 (05:17→21:10)
[2019-10-06] MEDS: PCA shift volume MISC SCH ×2 (07:00→19:06)
--- NOTE | 2019-10-06 07:16 | NUR ---
NURSE NOTES: Report received from Jahaira REAL, rounds made. Patient resting in semi-fowlers position in bed. No distress on RA. Respirations even/unlabored. Dressing to bilateral axillary CDI. Dressing to bilateral groin, perineal, thigh, buttocks area drainage noted to chux pad, will provide skin care and dressing change. IV NS TKO with LEAVE MANAGER (Morphine) to right hand. RFA heplock intact, IV sites asymptomatic. Bilateral SCDs on. Encouraged IS, ankle rotation. Call light in reach, bed in lowest position, will continue to monitor.
--- NOTE | 2019-10-06 07:31 | NUR ---
HAND-OFF: Report given to riky westbrook.
[2019-10-06] MEDS: Heparin 5000 units/ml inj SUBQ SCH ×2 (08:09→21:11)
--- NOTE | 2019-10-06 10:00 | NUR ---
NURSE NOTES: Temperature 100.4, administered Tylenol 650 mg at 0810, encouraged PO fluid intake. Instructed on purpose of IS, verbalized understanding. Rechecked temperature, 99.0, will continue to monitor.
--- NOTE | 2019-10-06 10:07 | General Progress Note ---
Progress Note Progress Note Pt seen and examined. POD# 2. Stable and pain controlled. Dressing intact. Patient is eating. Will check CBC today to assess WBC. Plan for definitive reconstruction of wounds with a combination of flap advancements and skin grafts. The patient also has very limited motion of the arms due to active disease in the bilateral axillae with more severe restriction on the R. Will need an excision of the disease in these areas with release of the contractures followed by outpatient PT or at a rehab facility. Plan for OR reconstruction of groin and perineal wounds on Tuesday. MD Taylor Briceño Amir MD Oct 06, 2019 10:07
[2019-10-06 11:23] LABS: BASOPHILS % (AUTO) 0.3 % (0.0-2.0); EOSINOPHILS % (AUTO) 1.8 % (0.0-3.0); HEMATOCRIT 28.8 % (42.0-52.0); HEMOGLOBIN 9.1 G/DL (14.2-18.0); LYMPHOCYTES % (AUTO) 10.9 % (20.0-45.0); MEAN CORPUSCULAR VOLUME 78 FL (80-99); MONOCYTES % (AUTO) 5.9 % (1.0-10.0); NEUTROPHILS % (AUTO) 81.1 % (45.0-75.0); PLATELET COUNT 256 K/UL (150-450); RED BLOOD COUNT 3.69 M/UL (4.70-6.10); RED CELL DISTRIBUTION WIDTH 16.6 % (11.6-14.8); WHITE BLOOD COUNT 17.7 K/UL (4.8-10.8)
--- NOTE | 2019-10-06 11:24 | General Progress Note ---
Assessment/Plan Problem List: (1) Acute blood loss anemia ICD Codes: D62 - Acute posthemorrhagic anemia SNOMED: 604962283 (2) Uncontrolled pain ICD Codes: R52 - Pain, unspecified SNOMED: 23356813622630069 (3) Hidradenitis suppurativa ICD Codes: L73.2 - Hidradenitis suppurativa SNOMED: 90225405 (4) Hypoalbuminemia ICD Codes: E88.09 - Other disorders of plasma-protein metabolism, not elsewhere classified SNOMED: 910962688 Status: doing well, stable Assessment/Plan: 24 year old gentleman with no significant PMH presents with acute blood loss anemia after surgery for hydradenitis. #Acute blood loss anemia - improving -Trend CBC closely - S/P 2 units pRBC 10/04/2019 - Iron studies reviewd - Starting DVT ppx #Hydradenitis s/p surgical intervention #Post-op fever -Ancef 1g IV q8hrs -f/u intra op cultures -Follow up UA -CXR unremarkable -Wound care -Pain control with PCN pump -Surgical recommendations -Likely will return for second surgery on Sunday 10/08 #Hypoalbuminemia - improving -Encourage high protein diet to promote wound healting -Neutrition consult for supplimentation #Hyperglycemia - resolved -HgA1c 5.7 -DC ISS -Tight glycemic control for wound healing #Post surgical hypoxia - RESOLVED - Incentive spirometry - Early ambulation with assist -CXR reviewed SQ heparing 5000 q12 Advance diet as tolerated OOBTC I spent 40 min on this patient with 15 face to face time.Coordinating with the surgeon. Discussed plan of care with nursing and charge nurse. Subjective Date patient seen: Oct 06, 2019 Time patient seen: 11:19 ROS Limited/Unobtainable: No Constitutional: Reports: chills, fever; Denies: no symptoms HEENT: Reports: no symptoms Cardiovascular: Reports: no symptoms Gastrointestinal/Abdominal: Reports: no symptoms Genitourinary: Reports: no symptoms Neurologic/Psychiatric: Reports: no symptoms Endocrine: Reports: no symptoms Hematologic/Lymphatic: Reports: no symptoms Allergies: Coded Allergies: PEANUT (Verified Allergy, Severe, anaphylactic, 10/04/19) HYDROMORPHONE (Verified Allergy, Intermediate, severe nausea, 10/04/19) Subjective Patient states he has night sweats. Has not had a bowel movement yet. Objective Last 24 Hour Vital Signs Date Time Temp Pulse Resp B/P (MAP) Pulse Ox O2 Delivery O2 Flow Rate FiO2 10/06/19 08:40 99.0 10/06/19 08:00 90 16 98 10/06/19 07:58 100.4 90 16 111/66 (81) 98 10/06/19 04:00 80 20 98 10/06/19 04:00 98.3 80 20 109/71 (84) 98 10/06/19 00:00 75 20 98 10/06/19 00:00 98.6 75 19 115/70 (85) 98 10/05/19 21:00 Room Air 10/05/19 20:00 79 19 98 10/05/19 20:00 98.7 79 18 117/73 (88) 98 10/05/19 16:58 100.0 10/05/19 16:00 100.5 75 18 99/52 (68) 98 10/05/19 16:00 75 13 98 10/05/19 12:00 99.1 81 18 106/60 (75) 98 10/05/19 12:00 75 13 98 Intake and Output 10/05/19 10/06/19 19:00 07:00 Intake Total 310 ml Output Total 390 ml 600 ml Balance -390 ml -290 ml Intake Oral 200 ml IV Total 110 ml Output Urine Total 390 ml 600 ml Laboratory Tests 10/06/19 11:00: White Blood Count [Pending], Red Blood Count [Pending], Hemoglobin [Pending], Hematocrit [Pending], Mean Corpuscular Volume [Pending], Mean Corpuscular Hemoglobin [Pending], Mean Corpuscular Hemoglobin Concent [Pending], Red Cell Distribution Width [Pending], Platelet Count [Pending], Mean Platelet Volume [ Pending], Neutrophils (%) (Auto) [Pending], Lymphocytes (%) (Auto) [Pending], Monocytes (%) (Auto) [Pending], Eosinophils (%) (Auto) [Pending], Basophils (%) (Auto) [Pending], Sodium Level [Pending], Potassium Level [Pending], Chloride Level [Pending], Carbon Dioxide Level [Pending], Blood Urea Nitrogen [Pending], Creatinine [Pending], Estimat Glomerular Filtration Rate [Pending], Glucose Level [Pending], Calcium Level [Pending], Magnesium Level [Pending], Total Bilirubin [Pending], Aspartate Amino Transf (AST/SGOT) [Pending], Alanine Aminotransferase (ALT/SGPT) [Pending], Alkaline Phosphatase [Pending], Total Protein [Pending], Albumin [Pending], Globulin [Pending] Height (Feet): 6 Height (Inches): 0.00 Weight (Pounds): 150 General Appearance: no apparent distress, alert EENT: PERRL/EOMI, normal ENT inspection Neck: non-tender, normal alignment, supple Cardiovascular: normal peripheral pulses, normal rate, regular rhythm, no gallop/murmur, no JVD Respiratory/Chest: chest wall non-tender, lungs clear, normal breath sounds, no respiratory distress Abdomen: non tender, soft, no organomegaly, no mass Genitourinary/Rectal: other - benavidez in place Extremities: normal range of motion, non-tender Neurologic: vocational rehabilitation counselor II-XII grossly normal, alert, oriented x 3 Skin: other - no drainage from wounds Dangelo Metzger M.D. Oct 06, 2019 11:24
[2019-10-06 11:57] LABS: ALANINE AMINOTRANSFERASE 11 U/L (12-78); ALBUMIN 1.9 G/DL (3.4-5.0); ALBUMIN/GLOBULIN RATIO 0.3 (1.0-2.7); ALKALINE PHOSPHATASE 60 U/L (46-116); ANION GAP 7 mmol/L (5-15); ASPARTATE AMINO TRANSFERASE 14 U/L (15-37); BILIRUBIN,TOTAL 0.3 MG/DL (0.2-1.0); BLOOD UREA NITROGEN 7 mg/dL (7-18); CALCIUM 8.1 MG/DL (8.5-10.1); CARBON DIOXIDE 28 MMOL/L (21-32); CHLORIDE 102 MMOL/L (98-107); CREATININE 0.9 MG/DL (0.55-1.30); POTASSIUM 3.7 MMOL/L (3.5-5.1); SODIUM 137 MMOL/L (136-145)
--- NOTE | 2019-10-06 14:15 | NUR ---
NURSE NOTES: Patient assisted to roll from side to side with x2 assist. Buttocks/perineal area dressing partial removed (due to medipore taping connected to groin dressing, which was not to be changed per Dr. Vazquez), old ABD saturated with serosanguineous drainage. Applied x4 new ABD with medipore to lower buttocks and perineal area, secured with medipore tape. Skin care provided. Encouraged AVIATION PROGRAM MANAGER use prior and during dressing change. Instructed patient to keep hydrated throughout shift, tolerating PO fluids well (drank all protein shake this AM with breakfast), no NV. Demonstrates IS use correctly, inspires 1500, encouraged coughing and to perform 10x/hr and ankle rotation (bilateral SCDs remain in place), verbalized understanding. Addendum: 10/06/19 at 1648 by Kim Spangler RN Urine specimen obtained from and sent down to lab at 1415.
[2019-10-06 14:23] LABS: APPEARANCE,URINE CLEAR; BILIRUBIN, URINE NEGATIVE (NEGATIVE); COLOR,URINE PALE YELLOW; GLUCOSE, URINE (UA) NEGATIVE (NEGATIVE); KETONES,URINE NEGATIVE (NEGATIVE); LEUKOCYTE ESTERASE ,URINE NEGATIVE (NEGATIVE); NITRITE,URINE NEGATIVE (NEGATIVE); PH,URINE 6 (4.5-8.0); PROTEIN,URINE NEGATIVE (NEGATIVE); UROBILINOGEN,URINE NORMAL MG/DL (0.0-1.0)
[2019-10-06] MEDS ORDERED: PCA Education Pamphlet MISC ONE (16:30)
[2019-10-06] MEDS ORDERED: Naloxone 0.4mg/ml Inj IVP PRN (16:30)
[2019-10-06] MEDS ORDERED: Rate Change PCA 1 Each MISC PRN (16:30)
--- NOTE | 2019-10-06 16:32 | NUR ---
NURSE NOTES: Dr. Vazquez notified that LICENSED VETERINARY TECHNICIAN Morphine order has , order received to renew as previously ordered.
--- NOTE | 2019-10-06 16:57 | NUR ---
CASE MANAGEMENT:REVIEW SI;ADVANCED JAMES STAGE III HIDRADENITIS SUPPURATIVA. POD #1 RADICAL EXCISION OF LEFT GROIN & THIGH TISSUE 100.4 90 18 120/66 97% ON RA WBC 17.7 H/H 9.1/28.8 ALB 1.9 IS;MEAT SEAFOOD ASSOCIATE FOR PAIN MANAGEMENT HEPARIN SUBQ Q12 CEFAZOLIN IV Q8 PEPCID PO 3E MED SURG STATUS DCP;FROM HOME
[2019-10-06] MEDS: PCA Morphine 1mg/ml 30 ML IV PRN (17:32)
--- NOTE | 2019-10-06 19:05 | NUR ---
HAND-OFF: Report given to Jahaira REAL, rounds made. Patient stable.
--- NOTE | 2019-10-06 19:20 | NUR ---
NURSE NOTES: received report from riky westbrook. patient is on bed, awake and verbally responsive. on room air. no sob. with iv line on the right forearm, saline locked and right hand. Noted with FAMILY DAY CARER. with benavidez catheter. denies any pain or discomfort at the moment. per dariana," dressing was changed today". noted with dry and intact dressing. re-heated the meal (dinner) of the patient. head of bed elevated. encouraged patient to drink a lot of water. patient verbalized understanding. reiterated to call and ask for assistance. call light and light button within easy reach. bed locked and in lowest position. encouraged to sit on the chair as ordered. patient states " not now, i just wanna rest at the moment". will continue plan of care.
[2019-10-07] VITALS (8 sets, daily range): BP systolic 106–116; BP diastolic 58–76
[2019-10-07] MEDS: ceFAZolin 1gm in D5W 55ml IVPB SCH ×3 (05:07→21:05)
--- NOTE | 2019-10-07 07:10 | NUR ---
NURSE NOTES: Report received from Jahaira REAL, rounds made. Patient sleeping in semi-fowlers position in bed, awakens easily. No distress on RA. Respirations even/unlabored. Dressing to bilateral axillary lightly stained. Dressing to bilateral groin, perineal, thigh, buttocks area remains CDI. IV NS TKO with CONTACT LENS BLOCKER (Morphine) to right hand. RFA heplock intact, IV sites asymptomatic. Bilateral SCDs on. Encouraged IS, ankle rotation. Call light in reach, bed in lowest position, will continue to monitor.
[2019-10-07] MEDS: PCA shift volume MISC SCH ×2 (07:15→19:13)
--- NOTE | 2019-10-07 07:17 | NUR ---
HAND-OFF: Report given to riky westbrook. patient is asleep. no sob. call light and light button within easy reach. plan of care endorsed.
[2019-10-07] MEDS: Heparin 5000 units/ml inj SUBQ SCH ×2 (10:29→21:18)
--- NOTE | 2019-10-07 10:57 | General Progress Note ---
Assessment/Plan Problem List: (1) Acute blood loss anemia ICD Codes: D62 - Acute posthemorrhagic anemia SNOMED: 182710653 (2) Uncontrolled pain ICD Codes: R52 - Pain, unspecified SNOMED: 76982204056154849 (3) Hidradenitis suppurativa ICD Codes: L73.2 - Hidradenitis suppurativa SNOMED: 11318767 (4) Hypoalbuminemia ICD Codes: E88.09 - Other disorders of plasma-protein metabolism, not elsewhere classified SNOMED: 683919325 Status: doing well, stable Assessment/Plan: 24 year old gentleman with no significant PMH presents with acute blood loss anemia after surgery for hydradenitis. #Acute blood loss anemia - improving -Trend CBC closely - S/P 2 units pRBC 10/04/2019 - Iron studies reviewd - Starting DVT ppx #Hydradenitis s/p surgical intervention #Post-op fever -Ancef 1g IV q8hrs -f/u intra op cultures -Follow up UA -CXR unremarkable -Wound care -Pain control with PCN pump -Surgical recommendations -Likely will return for second surgery on Sunday 10/08 #Hypoalbuminemia - improving -Encourage high protein diet to promote wound healting -Neutrition consult for supplimentation #Hyperglycemia - resolved -HgA1c 5.7 -DC ISS -Tight glycemic control for wound healing #Post surgical hypoxia - RESOLVED - Incentive spirometry - Early ambulation with assist -CXR reviewed SQ heparing 5000 q12 DC i day before surgery Advance diet as tolerated OOBTC I spent 40 min on this patient with 15 face to face time.Coordinating with the surgeon. Discussed plan of care with nursing and charge nurse. Subjective Date patient seen: Oct 07, 2019 Time patient seen: 10:54 Constitutional: Reports: no symptoms HEENT: Reports: no symptoms Cardiovascular: Reports: no symptoms Respiratory: Reports: no symptoms Gastrointestinal/Abdominal: Reports: no symptoms Genitourinary: Reports: no symptoms Neurologic/Psychiatric: Reports: no symptoms Endocrine: Reports: no symptoms Hematologic/Lymphatic: Reports: no symptoms Allergies: Coded Allergies: PEANUT (Verified Allergy, Severe, anaphylactic, 10/04/19) HYDROMORPHONE (Verified Allergy, Intermediate, severe nausea, 10/04/19) Subjective Patients pain is controlled. No night sweats today. Objective Last 24 Hour Vital Signs Date Time Temp Pulse Resp B/P (MAP) Pulse Ox O2 Delivery O2 Flow Rate FiO2 10/07/19 08:00 94 16 98 10/07/19 08:00 99.6 94 16 116/71 (86) 98 10/07/19 04:00 87 19 98 10/07/19 04:00 98.6 87 18 115/76 (89) 98 10/07/19 00:00 99.5 90 19 116/76 (89) 98 10/07/19 00:00 90 19 98 10/06/19 21:00 Room Air 10/06/19 20:00 89 19 98 10/06/19 20:00 99.7 89 18 117/73 (88) 98 10/06/19 16:00 86 18 97 10/06/19 16:00 98.9 86 18 119/76 (90) 97 10/06/19 12:00 80 17 99 10/06/19 12:00 98.5 80 17 120/66 (84) 99 Intake and Output 10/06/19 10/07/19 19:00 07:00 Intake Total 576 ml 910 ml Output Total 1270 ml 650 ml Balance -694 ml 260 ml Intake Oral 576 ml 800 ml IV Total 110 ml Output Urine Total 1270 ml 650 ml Laboratory Tests 10/06/19 11:00: White Blood Count 17.7H, Red Blood Count 3.69L, Hemoglobin 9.1L, Hematocrit 28.8L, Mean Corpuscular Volume 78L, Mean Corpuscular Hemoglobin 24.5L, Mean Corpuscular Hemoglobin Concent 31.4L, Red Cell Distribution Width 16.6H, Platelet Count 256, Mean Platelet Volume 7.5, Neutrophils (%) (Auto) 81.1H, Lymphocytes (%) (Auto) 10.9L, Monocytes (%) (Auto) 5.9, Eosinophils (%) (Auto) 1.8, Basophils (%) (Auto) 0.3, Sodium Level 137, Potassium Level 3.7, Chloride Level 102, Carbon Dioxide Level 28, Anion Gap 7, Blood Urea Nitrogen 7, Creatinine 0.9, Estimat Glomerular Filtration Rate > 60, Glucose Level 101, Calcium Level 8.1L, Magnesium Level 1.9, Total Bilirubin 0.3, Aspartate Amino Transf (AST/SGOT) 14L, Alanine Aminotransferase (ALT/SGPT) 11L, Alkaline Phosphatase 60, Total Protein 7.4, Albumin 1.9L, Globulin 5.5, Albumin/Globulin Ratio 0.3L 10/06/19 13:50: Urine Color Pale yellow, Urine Appearance Clear, Urine pH 6, Urine Specific [place] 1.015, Urine Protein Negative, Urine Glucose (UA) Negative, Urine Ketones Negative, Urine Blood 3+H, Urine Nitrite Negative, Urine Bilirubin Negative, Urine Urobilinogen Normal, Urine Leukocyte Esterase Negative, Urine RBC 20-30H, Urine WBC 2-4, Urine Squamous Epithelial Cells Occasional, Urine Bacteria Occasional Height (Feet): 6 Height (Inches): 0.00 Weight (Pounds): 150 General Appearance: no apparent distress, alert, thin, alert oriented x3 Cardiovascular: normal peripheral pulses, normal rate, regular rhythm, no gallop/murmur, no JVD Respiratory/Chest: chest wall non-tender, normal breath sounds, no respiratory distress, no accessory muscle use Abdomen: non tender, soft, no organomegaly, no mass Genitourinary/Rectal: other - minimal drainage fromsurgical site Extremities: non-tender, normal inspection Edema: no edema noted Arm (L), no edema noted Arm (R), no edema noted Leg (L), no edema noted Leg (R), no edema noted Pedal (L), no edema noted Pedal (R), no edema noted Generalized Skin: normal pigmentation, warm/dry, other - inquinl surgical wounds Dangelo Metzger M.D. Oct 07, 2019 10:56
[2019-10-07 11:42] LABS: HEMATOCRIT 28.5 % (42.0-52.0); HEMOGLOBIN 8.9 G/DL (14.2-18.0); MEAN CORPUSCULAR VOLUME 78 FL (80-99); PLATELET COUNT 288 K/UL (150-450); RED BLOOD COUNT 3.67 M/UL (4.70-6.10); RED CELL DISTRIBUTION WIDTH 16.9 % (11.6-14.8); WHITE BLOOD COUNT 20.8 K/UL (4.8-10.8)
--- NOTE | 2019-10-07 12:15 | NUR ---
NURSE NOTES: Patient repositioned with 2 assist to right side. Tolerated for 30 minutes, then returned to back laying position, pillow beneath calves.
--- NOTE | 2019-10-07 14:30 | NUR ---
NURSE NOTES: Encouraged patient to reposition again to right side (his preferred side), but refused. Reinforced IS and ankle rotations, bilateral SCDs remain in place.
[2019-10-07] MEDS ORDERED: Tubing IV Secondary IV ONE (17:36)
[2019-10-07] MEDS: PCA Morphine 1mg/ml 30 ML IV PRN (17:46)
--- NOTE | 2019-10-07 19:12 | NUR ---
HAND-OFF: Report given to Leila REAL, rounds made, patient stable.
--- NOTE | 2019-10-07 19:15 | NUR ---
NURSE NOTES: Report received from ADDIE Alvarez. AAO x 4, on room air. Pain controlled with FOURDRINIER WIRE WEAVER. Dressing on bilateral axillary, groin, perineal, thigh, buttocks area remains c/d/i. IV sites intact and patent. Bed locked, lowest position, alarm on, side rails up, call light within reach. will continue to monitor.
[2019-10-08] VITALS (10 sets, daily range): BP systolic 106–127; BP diastolic 60–72
--- NOTE | 2019-10-08 00:38 | NUR ---
NURSE NOTES: Pt has fever 101.7F and administered Tylenol. Left message Dr. Kebede. Awaiting for call back.
--- NOTE | 2019-10-08 00:45 | NUR ---
NURSE NOTES: No new order received.
[2019-10-08] MEDS: ceFAZolin 1gm in D5W 55ml IVPB SCH (05:14)
[2019-10-08 06:47] LABS: HEMATOCRIT 25.5 % (42.0-52.0); MEAN CORPUSCULAR VOLUME 78 FL (80-99); PLATELET COUNT 290 K/UL (150-450); RED BLOOD COUNT 3.26 M/UL (4.70-6.10); RED CELL DISTRIBUTION WIDTH 16.8 % (11.6-14.8); WHITE BLOOD COUNT 19.6 K/UL (4.8-10.8)
[2019-10-08] MEDS: PCA shift volume MISC SCH ×2 (07:00→19:19)
--- NOTE | 2019-10-08 07:16 | NUR ---
NURSE NOTES: Wound dressings were saturated a lot. Changed L arm dressings, reinforced on R arm, applied ABD on buttock. Pt denied to change R arm dressing.
--- NOTE | 2019-10-08 07:35 | NUR ---
HAND-OFF: Report given to ADDIE Mojica. Addendum: 10/08/19 at 0736 by NAVA VALERA RN RN Error. Report given to ADDIE Thomas
--- NOTE | 2019-10-08 08:43 | NUR ---
NURSE NOTES: Received report from Leila REAL. Patient is awake and oriented, in no apparent distress, reporting pain rated 4/10, per patient most of his pain is in right right axilla. Surgical site dressings assessed with serosanguinous drainage noted, dressings reinforced, benavidez catheter to gravity drainage. IV intact, patent, DELI BAKERY CLERK settings checked and verified against order. SCD's in place. Dr. Metzger notified of WBC 19.6, Hbg 8.0 and notified of surgical wound drainage, no new orders received. Patient updated on plan of care. Side rails upx2, bed low and locked, call light within reach.
--- NOTE | 2019-10-08 08:54 | NUR ---
NURSE NOTES: Patient has had no BM in 4 days. Patient was offered PRN milk of magnesia per order but patient refused medication. Dr. Metzger notified and aware.
[2019-10-08] MEDS: Heparin 5000 units/ml inj SUBQ SCH (09:09)
--- NOTE | 2019-10-08 09:47 | NUR ---
NURSE NOTES: Received call from Dr. Vazquez. MD gave order to remove surgical dressings from groin and leave open to air so MD can evaluate surgical site. Will carry out as ordered.
--- NOTE | 2019-10-08 11:33 | General Progress Note ---
Progress Note Progress Note Pt seen and examined. Dressings removed and groin wounds look clean with no evidence of infection. WBC elevated however to 19.6. He still has active disease in the bilateral axillae and this is the likely source. The initial plan was to reconstruct his groin and thigh wounds tomorrow, however given the leukocytosis and presence of infection in the axillae, will plan debriding/excising the active disease present in the axillae instead. The plan will be to delay the definitive groin reconstruction for a more few days. NPO after MN and consent. Jl Fletcher MD, MD Oct 08, 2019 11:33
--- NOTE | 2019-10-08 12:10 | General Progress Note ---
Assessment/Plan Problem List: (1) Acute blood loss anemia ICD Codes: D62 - Acute posthemorrhagic anemia SNOMED: 505012378 (2) Uncontrolled pain ICD Codes: R52 - Pain, unspecified SNOMED: 46739210294402538 (3) Hidradenitis suppurativa ICD Codes: L73.2 - Hidradenitis suppurativa SNOMED: 92812695 (4) Hypoalbuminemia ICD Codes: E88.09 - Other disorders of plasma-protein metabolism, not elsewhere classified SNOMED: 631736134 Status: doing well, stable Assessment/Plan: 24 year old gentleman with no significant PMH presents with acute blood loss anemia after surgery for hydradenitis. #Acute blood loss anemia -Trend CBC closely - S/P 2 units pRBC 10/04/2019 - Transfuse 1 unti 10/07 - Iron studies reviewd - Holding DVT ppx #Hydradenitis s/p surgical intervention #Fever #Leukocytosis #Post surgical wound drainage -Ancef 1g IV q8hrs discontinued on 10/07 -Start Vanco and Zosyn - ID consult appreciate recs -intra op cultures reviewed -Follow up UA -CXR unremarkable -Wound care -Pain control with PCN pump -Surgical recommendations -surgery on Sunday 10/08 for axillary dx #Hypoalbuminemia - improving -Encourage high protein diet to promote wound healting -Neutrition consult for supplimentation #Hyperglycemia - resolved -HgA1c 5.7 -DC ISS -Tight glycemic control for wound healing #Post surgical hypoxia - RESOLVED - Incentive spirometry - Early ambulation with assist -CXR reviewed SQ heparing 5000 q12 DC for surgery Advance diet as tolerated OOBTC I spent 40 min on this patient with 15 face to face time.Coordinating with the surgeon. Discussed plan of care with nursing and charge nurse. Subjective Date patient seen: Oct 08, 2019 Time patient seen: 07:30 Constitutional: Reports: chills, diaphoresis, fever HEENT: Reports: no symptoms Cardiovascular: Reports: no symptoms Respiratory: Reports: no symptoms Gastrointestinal/Abdominal: Reports: constipated Genitourinary: Reports: no symptoms Neurologic/Psychiatric: Reports: no symptoms Endocrine: Reports: no symptoms Hematologic/Lymphatic: Reports: anemia; Denies: no symptoms Allergies: Coded Allergies: PEANUT (Verified Allergy, Severe, anaphylactic, 10/04/19) HYDROMORPHONE (Verified Allergy, Intermediate, severe nausea, 10/04/19) Subjective Patients pain is controlled. Had fever and night sweats. No BM today. Objective Last 24 Hour Vital Signs Date Time Temp Pulse Resp B/P (MAP) Pulse Ox O2 Delivery O2 Flow Rate FiO2 10/08/19 08:00 18 10/08/19 08:00 97.5 75 18 110/61 (77) 99 10/08/19 04:00 98.7 83 22 114/69 (84) 98 10/08/19 04:00 83 22 98 10/08/19 00:44 99.6 10/08/19 00:00 97 16 98 10/07/19 23:55 101.7 97 20 106/61 (76) 98 10/07/19 20:55 Room Air 10/07/19 20:00 98.3 83 20 113/63 (80) 98 10/07/19 20:00 83 20 98 10/07/19 16:00 82 16 98 10/07/19 16:00 97.7 82 16 112/66 (81) 98 10/07/19 13:40 99.0 Intake and Output 10/07/19 10/08/19 19:00 07:00 Intake Total 600 ml Output Total 700 ml 650 ml Balance -100 ml -650 ml Intake Oral 600 ml Output Urine Total 700 ml 650 ml Laboratory Tests 10/08/19 05:00: Ferritin 275 10/08/19 05:20: White Blood Count 19.6H, Red Blood Count 3.26L, Hemoglobin 8.0L, Hematocrit 25.5L, Mean Corpuscular Volume 78L, Mean Corpuscular Hemoglobin 24.5L, Mean Corpuscular Hemoglobin Concent 31.4L, Red Cell Distribution Width 16.8H, Platelet Count 290, Mean Platelet Volume 7.3, Neutrophils (%) (Auto) , Lymphocytes (%) (Auto) , Monocytes (%) (Auto) , Eosinophils (%) (Auto) , Basophils (%) (Auto) , Differential Total Cells Counted 100, Neutrophils % ( Manual) 81H, Lymphocytes % (Manual) 14L, Monocytes % (Manual) 3, Eosinophils % ( Manual) 2, Basophils % (Manual) 0, Band Neutrophils 0, Platelet Estimate Adequate, Platelet Morphology Normal, Hypochromasia 1+, Anisocytosis 1+, Microcytosis 1+ Height (Feet): 6 Height (Inches): 0.00 Weight (Pounds): 150 General Appearance: no apparent distress, alert, alert oriented x3 EENT: PERRL/EOMI Neck: non-tender, normal inspection Cardiovascular: normal peripheral pulses, normal rate, regular rhythm, no gallop/murmur, no JVD Respiratory/Chest: chest wall non-tender, lungs clear, normal breath sounds, no respiratory distress Abdomen: non tender, soft, no organomegaly, no mass Pelvis: normal external exam Extremities: normal range of motion, non-tender Edema: no edema noted Arm (L), no edema noted Arm (R), no edema noted Leg (L), no edema noted Leg (R), no edema noted Pedal (L), no edema noted Pedal (R), no edema noted Generalized Neurologic: denture model maker II-XII grossly normal, no motor/sensory deficits, alert, oriented x 3, responsive, normal mood/affect Skin: normal pigmentation, warm/dry, other - drinage from wounds Dangelo Metzger M.D. Oct 08, 2019 12:10
[2019-10-08] MEDS ORDERED: Naloxone 0.4mg/ml Inj IVP PRN (12:19)
--- NOTE | 2019-10-08 12:22 | NUR ---
NURSE NOTES: Groin surgical site dressing was removed per order and Dr. Vazquez evaluated site. New orders received, read back, and entered for CATTLE FARMER renewal, blood transfusion, NPO, and dressing change. Will carry out as ordered.
--- NOTE | 2019-10-08 12:27 | Infectious Diseases Prog Note ---
Assessment/Plan Assessment/Plan Full consult dictated: A) 1) bilateral axilla/groin hidradenitis suppurativa and wound infection 2) significant leukocytosis 3) pmh noted P) 1) zosyn and vancomycin 2) monitor labs 3) debridement per Dr. Vazquez 4) will f/u 5) thanks Subjective Allergies: Coded Allergies: PEANUT (Verified Allergy, Severe, anaphylactic, 10/04/19) HYDROMORPHONE (Verified Allergy, Intermediate, severe nausea, 10/04/19) Objective Last 24 Hour Vital Signs Date Time Temp Pulse Resp B/P (MAP) Pulse Ox O2 Delivery O2 Flow Rate FiO2 10/08/19 08:00 18 10/08/19 08:00 97.5 75 18 110/61 (77) 99 10/08/19 04:00 98.7 83 22 114/69 (84) 98 10/08/19 04:00 83 22 98 10/08/19 00:44 99.6 10/08/19 00:00 97 16 98 10/07/19 23:55 101.7 97 20 106/61 (76) 98 10/07/19 20:55 Room Air 10/07/19 20:00 98.3 83 20 113/63 (80) 98 10/07/19 20:00 83 20 98 10/07/19 16:00 82 16 98 10/07/19 16:00 97.7 82 16 112/66 (81) 98 10/07/19 13:40 99.0 Height (Feet): 6 Height (Inches): 0.00 Weight (Pounds): 150 Laboratory Tests Test 10/08/19 05:00 10/08/19 05:20 Ferritin 275 NG/ML (8-388) White Blood Count 19.6 K/UL (4.8-10.8) H Red Blood Count 3.26 M/UL (4.70-6.10) L Hemoglobin 8.0 G/DL (14.2-18.0) L Hematocrit 25.5 % (42.0-52.0) L Mean Corpuscular Volume 78 FL (80-99) L Mean Corpuscular Hemoglobin 24.5 PG (27.0-31.0) L Mean Corpuscular Hemoglobin Concent 31.4 G/DL (32.0-36.0) L Red Cell Distribution Width 16.8 % (11.6-14.8) H Platelet Count 290 K/UL (150-450) Mean Platelet Volume 7.3 FL (6.5-10.1) Neutrophils (%) (Auto) % (45.0-75.0) Lymphocytes (%) (Auto) % (20.0-45.0) Monocytes (%) (Auto) % (1.0-10.0) Eosinophils (%) (Auto) % (0.0-3.0) Basophils (%) (Auto) % (0.0-2.0) Differential Total Cells Counted 100 Neutrophils % (Manual) 81 % (45-75) H Lymphocytes % (Manual) 14 % (20-45) L Monocytes % (Manual) 3 % (1-10) Eosinophils % (Manual) 2 % (0-3) Basophils % (Manual) 0 % (0-2) Band Neutrophils 0 % (0-8) Platelet Estimate Adequate Platelet Morphology Normal Hypochromasia 1+ Anisocytosis 1+ Microcytosis 1+ Current Medications Medications (Trade) Dose Ordered Sig/Flavia Route PRN Reason Start Time Stop Time Status Last Admin Dose Admin Acetaminophen (Tylenol) 650 mg Q4H PRN ORAL FEVER 10/04/19 09:15 11/03/19 09:14 10/08/19 00:14 Acetaminophen (Tylenol) 650 mg Q4H PRN ORAL Mild Pain (Pain Scale 1-3) 10/04/19 12:30 11/03/19 12:29 Acetaminophen (Tylenol) 650 mg Q4H PRN ORAL Temp >100.5 10/04/19 15:35 11/03/19 15:34 10/05/19 16:28 Bisacodyl (Dulcolax) 10 mg HSPRN PRN RECTAL Constipation 10/04/19 15:45 01/02/20 12:29 Dextrose (Dextrose 50%) 25 ml Q30M PRN IV Hypoglycemia 10/04/19 15:45 01/02/20 15:44 Dextrose (Dextrose 50%) 50 ml Q30M PRN IV Hypoglycemia 10/04/19 15:45 01/02/20 15:44 Famotidine (Pepcid) 40 mg DAILY ORAL 10/05/19 09:00 01/03/20 08:59 10/08/19 09:08 Magnesium Hydroxide (Mom) 30 ml HSPRN PRN ORAL Constipation 10/04/19 12:30 11/03/19 12:29 Ondansetron HCl (Zofran) 4 mg Q6H PRN IVP Nausea & Vomiting 10/04/19 09:15 11/03/19 09:14 10/04/19 17:28 Piperacillin Sod/ Tazobactam Sod 3.375 gm/Sodium Chloride 110 ml @ 27.5 mls/hr EVERY 8 HOURS IVPB 10/08/19 14:00 10/13/19 13:59 Polyethylene Glycol (Miralax) 17 gm HSPRN PRN ORAL Constipation 10/04/19 12:30 11/03/19 12:29 Vancomycin HCl (Vanco pharmacy to dose) 1 ea DAILY PRN MISC Per rx protocol 10/08/19 11:00 11/07/19 10:59 Vancomycin HCl 750 mg/Sodium Chloride 275 ml @ 183.333 mls/hr Q12H IVPB 10/09/19 00:30 10/14/19 00:29 Vancomycin/Sodium Chloride 275 ml @ 183.333 mls/hr ONCE ONCE IVPB 10/08/19 12:30 10/08/19 13:59 Zolpidem Tartrate (Ambien) 5 mg DAILYPRN PRN ORAL Insomnia 10/04/19 09:15 10/11/19 09:14 Cale Tsai MD Oct 08, 2019 12:27
[2019-10-08] MEDS ORDERED: Rate Change PCA 1 Each MISC PRN (12:30)
[2019-10-08] MEDS ORDERED: Vancomycin 1.25gm/NS Premix IVPB ONE (12:30)
--- NOTE | 2019-10-08 13:46 | NUR ---
NURSE NOTES: Groin surgical site dressing applied per MD order, patient tolerated well.
--- NOTE | 2019-10-08 14:14 | NUR ---
CASE MANAGEMENT:REVIEW SI:S/P RADICAL EXCISION OF BILATERAL GROIN, BILATER AL THIGH AND PERINEAL REGIONS ADVANCED JAMES STAGE III HIDRADENITIS SUPPURATIVA. 100.4 90 18 120/66 97% ON RA WBC 17.7 H/H 9.1/28.8 ALB 1.9 IS:IV ZOSYN TID IV VANCOMYCIN BID PIZZA DELIVERY DRIVER MORPHINE SULFATE \: 3E MED SURG STATUS DCP:HOME WHEN STABLE PLAN: CONT WOUND CARE SURGERY TUESDAY FOR CLOSURE OF WOUND FLAP
[2019-10-08] MEDS: Piperacillin/Tazobactam 3.375 GM in NS 110 ML IVPB SCH ×2 (14:40→22:48)
--- NOTE | 2019-10-08 16:39 | NUR ---
NURSE NOTES: Blood transfusion started at 1615. Patient had pre-transfusion fever of 101.3. Patient remains febrile 15 minutes post start of transfusion, temperature 102.1. No s/s transfusion reaction noted, blooding running at 125mL/hr via LAC IV. Tylenol given for fever. Will continue plan of care. Addendum: 10/08/19 at 1641 by Martha Cortes RN Edit: BLOOD running
--- NOTE | 2019-10-08 17:35 | NUR ---
NURSE NOTES: Patient remains febrile s/p Tylenol administration. Temperature 101.9, cooling measures implemented. Patient denies chills, patient stated "I just feel a little warm", patient remains in stable condition, blood transfusion ongoing.
[2019-10-08] MEDS: PCA Morphine 1mg/ml 30 ML IV PRN (18:19)
--- NOTE | 2019-10-08 18:55 | NUR ---
NURSE NOTES: Blood transfusion complete. Patient tolerated well. Patient still febrile at this time.
--- NOTE | 2019-10-08 19:18 | NUR ---
HAND-OFF: Report given to Joan REAL.
--- NOTE | 2019-10-08 19:30 | NUR ---
Nurse notes Report given by Martha Pt awake alert oriented x4 no acute distress noted. pt on room air. pt able to make needs known. GAME TRAPPER to RFA administered per doctors orders. teaching reinforced Flores intact to gravity. Dressing to the axillary and groin intact. NPO after midnight enforced. will continue to monitor condition and given medications and treatment as prescribed.
[2019-10-08 20:57] LABS: HEMOGLOBIN 9.4 G/DL (14.2-18.0); MEAN CORPUSCULAR VOLUME 78 FL (80-99); PLATELET COUNT 308 K/UL (150-450); RED BLOOD COUNT 3.71 M/UL (4.70-6.10); WHITE BLOOD COUNT 21.1 K/UL (4.8-10.8)
--- NOTE | 2019-10-08 22:00 | NUR ---
Nurses Notes Stat order for blood cultures @[address] Metzger. Per Arnold in lab blood cultures was done today at 10;[address] Dr[address] Guardado services for order clarification. Dr Sanchez called back with orders to d/c blood culture stat order for 2125.
--- NOTE | 2019-10-08 22:30 | NUR ---
NURSE NOTES: Clarified blood culture order with Dr Metzger, OK with him to hold for now.
[2019-10-09] VITALS (17 sets, daily range): BP systolic 110–149; BP diastolic 63–85
[2019-10-09] MEDS: Vancomycin 750mg/NS 275ml IVPB SCH ×4 (00:20→12:48)
[2019-10-09 05:25] LABS: HEMATOCRIT 29.2 % (42.0-52.0); HEMOGLOBIN 9.5 G/DL (14.2-18.0); MEAN CORPUSCULAR VOLUME 79 FL (80-99); PLATELET COUNT 312 K/UL (150-450); RED CELL DISTRIBUTION WIDTH 16.4 % (11.6-14.8); WHITE BLOOD COUNT 20.3 K/UL (4.8-10.8)
[2019-10-09] MEDS: Piperacillin/Tazobactam 3.375 GM in NS 110 ML IVPB SCH ×3 (05:35→21:38)
[2019-10-09 05:48] LABS: ALANINE AMINOTRANSFERASE 11 U/L (12-78); ALBUMIN 1.7 G/DL (3.4-5.0); ALBUMIN/GLOBULIN RATIO 0.3 (1.0-2.7); ALKALINE PHOSPHATASE 72 U/L (46-116); ANION GAP 7 mmol/L (5-15); ASPARTATE AMINO TRANSFERASE 12 U/L (15-37); BILIRUBIN,TOTAL 0.3 MG/DL (0.2-1.0); BLOOD UREA NITROGEN 10 mg/dL (7-18); CALCIUM 8.8 MG/DL (8.5-10.1); CARBON DIOXIDE 29 MMOL/L (21-32); CHLORIDE 99 MMOL/L (98-107); CREATININE 0.8 MG/DL (0.55-1.30); SODIUM 134 MMOL/L (136-145)
[2019-10-09] MEDS: PCA shift volume MISC SCH ×2 (07:20→19:15)
--- NOTE | 2019-10-09 07:26 | NUR ---
Nurses Notes Report given to Martha REAL
--- NOTE | 2019-10-09 07:33 | NUR ---
NURSE NOTES: Received report from Joan REAL. Patient is awake and oriented, in no apparent distress, reporting pain is well managed at this time, PROFESSOR OF FLORICULTURE settings checked and verified against order. Surgical dressings intact. IV's intact. SCD's in place. NPO maintained. Patient updated and in agreement with plan of care for the day. Side rails upx2, bed low and locked, call light within reach.
--- NOTE | 2019-10-09 08:32 | 48 Hour Post Anesthesia Eval ---
Post Anesthesia Evaluation Procedure: Excision of bilateral groin hydradenitis Date of Evaluation: Oct 05, 2019 Time of Evaluation: 10:10 Blood Pressure Systolic: 108 0: 62 Pulse Rate: 78 Respiratory Rate: 20 Temperature (Fahrenheit): 97.6 O2 Sat by Pulse Oximetry: 98 Airway: patent Nausea: No Vomiting: No Pain Intensity: 2 Hydration Status: adequate Cardiopulmonary Status: stable Mental Status/LOC: patient returned to baseline Follow-up Care/Observations: n/a Post-Anesthesia Complications: none Follow-up care needed: N/A Jordon Souza MD Oct 09, 2019 08:32
[2019-10-09] MEDS ORDERED: Lidocaine 1% 10mg/ml/Epi 0.005mg/ml 30ml vial INJ ONE (09:12)
[2019-10-09] MEDS ORDERED: NeoSporin Gu Irrig 1ml Amp IRRIG ONE (09:12)
[2019-10-09] MEDS ORDERED: Bacitracin 50000 Units Vial ONE (09:12)
[2019-10-09] MEDS ORDERED: Sterile Water Irrig 1000ml IRRIG ONE (09:30)
[2019-10-09] MEDS ORDERED: NS Irrig 1000ml ONE (09:30)
[2019-10-09] MEDS ORDERED: LR 1000ml ONE (09:30)
--- NOTE | 2019-10-09 09:33 | NUR ---
NURSE NOTES: Patient sent to surgery with IV Zosyn running, CONTINUOUS TOWEL ROLLER disconnected.
[2019-10-09] MEDS ORDERED: Ketamine 500mg/10ml vial ONE (09:41)
[2019-10-09] MEDS ORDERED: Midazolam 2mg/2ml Inj ONE (09:41)
[2019-10-09] MEDS ORDERED: Morphine Sulfate 10mg/ml Inj ONE ×2 (09:42→11:21)
[2019-10-09] MEDS ORDERED: Rocuronium Bromide 100mg/10ml Inj IV ONE (09:50)
--- NOTE | 2019-10-09 09:50 | Pre-Procedure Note/Attestation ---
Pre-Procedure Note/Attestation Complete Prior to Procedure Planned Procedure: bilateral Procedure Narrative: Bilateral axillary tissue excision Indications for Procedure Pre-Operative Diagnosis: Bilateral axillary hidradenitis Attestation I attest that I discussed the nature of the procedure; its benefits; risks and complications; and alternatives (and the risks and benefits of such alternatives ), prior to the procedure, with the patient (or the patient's legal installation service representative). I attest that, if there was a reasonable possibility of needing a blood transfusion, the patient (or the patient's legal installation service representative) was given the [facility] standardized written summary, pursuant to the [employer] Luis Horacio Blood Safety Act ([place] Health and Safety Code # 1645, as amended). I attest that I re-evaluated the patient just prior to the surgery and that there has been no change in the patient's H&P, except as documented below: Jl Vazquez MD Oct 09, 2019 09:50
[2019-10-09] MEDS ORDERED: Acetaminophen (Non formulary) 100 ML IV ONE (10:00)
[2019-10-09] MEDS ORDERED: PCA Education Pamphlet MISC ONE (10:00)
[2019-10-09] MEDS ORDERED: Metoclopramide 10mg/2ml Inj IVP PRN ×2 (10:00→11:30)
[2019-10-09] MEDS ORDERED: Rate Change PCA 1 Each MISC PRN (10:00)
[2019-10-09] MEDS ORDERED: EPINEPHrine 1mg/1ml Amp ONE (10:33)
--- NOTE | 2019-10-09 10:37 | General Progress Note ---
Assessment/Plan Problem List: (1) Acute blood loss anemia ICD Codes: D62 - Acute posthemorrhagic anemia SNOMED: 841860990 (2) Uncontrolled pain ICD Codes: R52 - Pain, unspecified SNOMED: 59219244754842562 (3) Hidradenitis suppurativa ICD Codes: L73.2 - Hidradenitis suppurativa SNOMED: 67620240 (4) Hypoalbuminemia ICD Codes: E88.09 - Other disorders of plasma-protein metabolism, not elsewhere classified SNOMED: 632692029 Status: doing well, stable Assessment/Plan: 24 year old gentleman with no significant PMH presents with acute blood loss anemia after surgery for hydradenitis. #Acute blood loss anemia -Trend CBC closely - S/P 2 units pRBC 10/04/2019 - Transfuse 1 unti 10/07 - Iron studies reviewd - Holding DVT ppx #Hydradenitis s/p surgical intervention #Fever #Leukocytosis #Post surgical wound drainage -Ancef 1g IV q8hrs discontinued on 10/07 -Start Vanco and Zosyn - ID consult appreciate recs -intra op cultures reviewed -UA reviewd -CXR unremarkable -Wound care -Pain control with PCN pump -Surgical recommendations -Axillary surgery today. #Hypoalbuminemia - improving -Encourage high protein diet to promote wound healting -Neutrition consult for supplimentation #Hyperglycemia - resolved -HgA1c 5.7 -DC ISS -Tight glycemic control for wound healing #Post surgical hypoxia - RESOLVED - Incentive spirometry - Early ambulation with assist -CXR reviewed SQ heparing 5000 q12 - DC for surgery I spent 40 min on this patient with 15 face to face time.Coordinating with the surgeon. Discussed plan of care with nursing and charge nurse. Subjective Date patient seen: Oct 09, 2019 Time patient seen: 08:30 ROS Limited/Unobtainable: No Constitutional: Reports: chills, diaphoresis, fever; Denies: no symptoms HEENT: Reports: no symptoms Cardiovascular: Reports: no symptoms Respiratory: Reports: no symptoms Gastrointestinal/Abdominal: Reports: constipated, poor appetite; Denies: black stools, tarry stools, difficulty swallowing, rectal bleeding Genitourinary: Reports: no symptoms Neurologic/Psychiatric: Reports: no symptoms Endocrine: Reports: no symptoms Hematologic/Lymphatic: Reports: anemia Allergies: Coded Allergies: PEANUT (Verified Allergy, Severe, anaphylactic, 10/04/19) HYDROMORPHONE (Verified Allergy, Intermediate, severe nausea, 10/04/19) Subjective Patients pain is controlled. Had fever and night sweats again. No BM today. Objective Last 24 Hour Vital Signs Date Time Temp Pulse Resp B/P (MAP) Pulse Ox O2 Delivery O2 Flow Rate FiO2 10/09/19 09:00 Room Air 10/09/19 08:32 78 20 98 10/09/19 08:00 97.7 84 16 110/65 (80) 98 10/09/19 08:00 16 10/09/19 04:27 100.0 10/09/19 04:00 101.0 100 18 114/69 (84) 100 10/09/19 04:00 100 18 97 10/09/19 00:00 98 18 97 10/09/19 00:00 99.0 92 19 114/70 (85) 97 10/08/19 21:00 Room Air 10/08/19 20:00 99.8 94 18 115/69 (84) 97 10/08/19 20:00 94 18 97 10/08/19 18:55 101.9 99 119/70 (86) 10/08/19 18:30 101.2 97 121/70 (87) 10/08/19 17:30 101.9 102 122/70 (87) 10/08/19 16:30 102.1 91 126/72 (90) 10/08/19 16:15 18 10/08/19 16:15 101.3 93 18 108/61 (77) 99 10/08/19 12:05 18 10/08/19 12:00 98.8 91 18 127/72 (90) 99 Intake and Output 10/08/19 10/09/19 19:00 07:00 Intake Total 1435 ml 100 ml Output Total 750 ml 800 ml Balance 685 ml -700 ml Intake Oral 800 ml 100 ml IV Total 385 ml Blood Product 250 ml Output Urine Total 750 ml 800 ml Laboratory Tests 10/08/19 20:52: White Blood Count 21.1H, Red Blood Count 3.71L, Hemoglobin 9.4L, Hematocrit 29.0L, Mean Corpuscular Volume 78L, Mean Corpuscular Hemoglobin 25.4L, Mean Corpuscular Hemoglobin Concent 32.5, Red Cell Distribution Width 18.0H, Platelet Count 308, Mean Platelet Volume 7.0, Neutrophils (%) (Auto) , Lymphocytes (%) (Auto) , Monocytes (%) (Auto) , Eosinophils (%) (Auto) , Basophils (%) (Auto) , Differential Total Cells Counted 100, Neutrophils % ( Manual) 82H, Lymphocytes % (Manual) 10L, Monocytes % (Manual) 5, Eosinophils % ( Manual) 3, Basophils % (Manual) 0, Band Neutrophils 0, Platelet Estimate Adequate, Platelet Morphology Normal, Polychromasia 1+, Anisocytosis 1+, Microcytosis 1+ 10/09/19 04:45: White Blood Count 20.3H, Red Blood Count 3.70L, Hemoglobin 9.5L, Hematocrit 29.2L, Mean Corpuscular Volume 79L, Mean Corpuscular Hemoglobin 25.6L, Mean Corpuscular Hemoglobin Concent 32.4, Red Cell Distribution Width 16.4H, Platelet Count 312, Mean Platelet Volume 6.9, Neutrophils (%) (Auto) , Lymphocytes (%) (Auto) , Monocytes (%) (Auto) , Eosinophils (%) (Auto) , Basophils (%) (Auto) , Differential Total Cells Counted 100, Neutrophils % ( Manual) 81H, Lymphocytes % (Manual) 11L, Monocytes % (Manual) 5, Eosinophils % ( Manual) 3, Basophils % (Manual) 0, Band Neutrophils 0, Platelet Estimate Adequate, Platelet Morphology Normal, Polychromasia 1+, Anisocytosis 1+, Hypochromasia 1+, Sodium Level 134L, Potassium Level 4.0, Chloride Level 99, Carbon Dioxide Level 29, Anion Gap 7, Blood Urea Nitrogen 10, Creatinine 0.8, Estimat Glomerular Filtration Rate > 60, Glucose Level 88, Calcium Level 8.8, Total Bilirubin 0.3, Aspartate Amino Transf (AST/SGOT) 12L, Alanine Aminotransferase (ALT/SGPT) 11L, Alkaline Phosphatase 72, Total Protein 7.4, Albumin 1.7L, Globulin 5.7, Albumin/Globulin Ratio 0.3L Height (Feet): 5 Height (Inches): 11.00 Weight (Pounds): 154 General Appearance: WD/WN, alert, alert oriented x3 EENT: normal ENT inspection, TMs normal Neck: non-tender, normal alignment, supple Cardiovascular: normal peripheral pulses, normal rate, regular rhythm, no gallop/murmur, no JVD Respiratory/Chest: lungs clear, normal breath sounds, no respiratory distress, no accessory muscle use Abdomen: non tender, soft, no organomegaly, no mass Genitourinary/Rectal: other - drainage from surgical wounds Extremities: non-tender, normal inspection Edema: no edema noted Arm (L), no edema noted Arm (R), no edema noted Leg (L), no edema noted Leg (R), no edema noted Pedal (L), no edema noted Pedal (R), no edema noted Generalized Neurologic: crib clerk II-XII grossly normal, alert, oriented x 3, responsive, normal mood/affect Skin: normal pigmentation, other - drainage from inguinal wounds Dangelo Metzger M.D. Oct 09, 2019 10:37
[2019-10-09] MEDS ORDERED: Surgicel 4in x 8in TOPIC ONE ×3 (10:50→11:15)
[2019-10-09] MEDS ORDERED: Glycopyrrolate 0.2mg/ml 1ml Vial ONE (11:13)
[2019-10-09] MEDS ORDERED: Lidocaine 1% MPF 10mg/ml 5ml ONE (11:13)
[2019-10-09] MEDS ORDERED: Neostigmine 1mg/ml 10ml Inj ONE (11:13)
[2019-10-09] MEDS ORDERED: DiphenhydrAMINE 50mg/ml Inj IVP PRN (11:30)
[2019-10-09] MEDS ORDERED: LORazepam Inj 2mg/ml 1ml IV PRN (11:30)
[2019-10-09] MEDS ORDERED: Morphine Sulfate 2mg/ml Inj(IV/IM USE ONLY) IVP PRN (11:30)
[2019-10-09] MEDS ORDERED: Meperidine 25mg/0.5ml Inj (FOR RIGORS ONLY) IV PRN (11:30)
[2019-10-09] MEDS ORDERED: fentaNYL 100 mcg/2 mL IV PRN (11:30)
--- NOTE | 2019-10-09 11:46 | Operative Note - PDOC ---
Operative Note Operative Note Pre-op Diagnosis: Bilateral axillary hidradenitis Post-op Diagnosis: same as pre-op Surgeon: Taylor Supervisor Shed Workers: Jodee Anesthesia: general Specimen: yes Complications: none Condition: stable Estimated Blood Loss: none Drains: none Implant(s) used?: No Jl Vazquez MD Oct 09, 2019 11:45
--- NOTE | 2019-10-09 12:12 | Anethesia Preoperative Eval ---
Anesthesia Pre-op PMH/ROS General Date of Evaluation: Oct 09, 2019 Time of Evaluation: 09:40 Anesthesiologist: mary ASA Score: ASA 2 Mallampati Score Class I : Soft palate, uvula, fauces, pillars visible Class II: Soft palate, uvula, fauces visible Class III: Soft palate, base of uvula visible Class IV: Only hard plate visible Mallampati Classification: Class II Surgeon: Taylor Diagnosis: Axillary HS Surgical Procedure: Bilateral HS excision Anesthesia History: none Family History: no anesthesia problems Allergies: Coded Allergies: PEANUT (Verified Allergy, Severe, anaphylactic, 10/04/19) HYDROMORPHONE (Verified Allergy, Intermediate, severe nausea, 10/04/19) Medications: see eMAR Patient NPO?: Yes NPO Date: Oct 09, 2019 NPO Time: 00:01 Past Medical History Cardiovascular: Denies: HTN, CAD, PR, valve dz, arrhythmia, other Pulmonary: Denies: asthma, COPD, DEBBIE, other Gastrointestinal/Genitourinary: Reports: GERD; Denies: CRI, ESRD, other Neurologic/Psychiatric: Reports: depression/anxiety; Denies: dementia, CVA, TIA, other Endocrine: Denies: DM, hypothyroidism, steroids, other HEENT: Denies: cataract (L), cataract (R), glaucoma, GULKANA (L), GULKANA (R), other Hematology/Immune: Reports: anemia; Denies: DVT, bleeding disorder, other Musculoskeletal/Integumentary: Denies: OA, RA, DJD, DDD, edema, other PSxH Narrative: Excision of HS 10/05/19 s/p blood transfusion Anesthesia Pre-op Phys. Exam Physician Exam Last Vital Signs Date Time Temp Pulse Resp B/P (MAP) Pulse Ox O2 Delivery O2 Flow Rate FiO2 10/09/19 12:00 104 13 123/68 100 Simple Mask 6 10/09/19 11:50 98.1 Constitutional: NAD Neurologic: CN 2-12 intact Cardiovascular: RRR Respiratory: CTA Gastrointestinal: S/NT/ND Airway Exam Mallampati Classification 2 Mallampati Score: Class II Neck: normal ROM: full Dentures: no upper, no lower Anesthesia Pre-op A/P Labs Hematology Test 10/08/19 20:52 10/09/19 04:45 White Blood Count 21.1 K/UL (4.8-10.8) H 20.3 K/UL (4.8-10.8) H Red Blood Count 3.71 M/UL (4.70-6.10) L 3.70 M/UL (4.70-6.10) L Hemoglobin 9.4 G/DL (14.2-18.0) L 9.5 G/DL (14.2-18.0) L Hematocrit 29.0 % (42.0-52.0) L 29.2 % (42.0-52.0) L Mean Corpuscular Volume 78 FL (80-99) L 79 FL (80-99) L Mean Corpuscular Hemoglobin 25.4 PG (27.0-31.0) L 25.6 PG (27.0-31.0) L Mean Corpuscular Hemoglobin Concent 32.5 G/DL (32.0-36.0) 32.4 G/DL (32.0-36.0) Red Cell Distribution Width 18.0 % (11.6-14.8) H 16.4 % (11.6-14.8) H Platelet Count 308 K/UL (150-450) 312 K/UL (150-450) Mean Platelet Volume 7.0 FL (6.5-10.1) 6.9 FL (6.5-10.1) Neutrophils (%) (Auto) % (45.0-75.0) % (45.0-75.0) Lymphocytes (%) (Auto) % (20.0-45.0) % (20.0-45.0) Monocytes (%) (Auto) % (1.0-10.0) % (1.0-10.0) Eosinophils (%) (Auto) % (0.0-3.0) % (0.0-3.0) Basophils (%) (Auto) % (0.0-2.0) % (0.0-2.0) Differential Total Cells Counted 100 100 Neutrophils % (Manual) 82 % (45-75) H 81 % (45-75) H Lymphocytes % (Manual) 10 % (20-45) L 11 % (20-45) L Monocytes % (Manual) 5 % (1-10) 5 % (1-10) Eosinophils % (Manual) 3 % (0-3) 3 % (0-3) Basophils % (Manual) 0 % (0-2) 0 % (0-2) Band Neutrophils 0 % (0-8) 0 % (0-8) Platelet Estimate Adequate Adequate Platelet Morphology Normal Normal Polychromasia 1+ 1+ Anisocytosis 1+ 1+ Microcytosis 1+ Hypochromasia 1+ Chemistry Test 10/09/19 04:45 Sodium Level 134 MMOL/L (136-145) L Potassium Level 4.0 MMOL/L (3.5-5.1) Chloride Level 99 MMOL/L (98-107) Carbon Dioxide Level 29 MMOL/L (21-32) Anion Gap 7 mmol/L (5-15) Blood Urea Nitrogen 10 mg/dL (7-18) Creatinine 0.8 MG/DL (0.55-1.30) Estimat Glomerular Filtration Rate > 60 mL/min (>60) Glucose Level 88 MG/DL (74-106) Calcium Level 8.8 MG/DL (8.5-10.1) Total Bilirubin 0.3 MG/DL (0.2-1.0) Aspartate Amino Transf (AST/SGOT) 12 U/L (15-37) L Alanine Aminotransferase (ALT/SGPT) 11 U/L (12-78) L Alkaline Phosphatase 72 U/L (46-116) Total Protein 7.4 G/DL (6.4-8.2) Albumin 1.7 G/DL (3.4-5.0) L Globulin 5.7 g/dL Albumin/Globulin Ratio 0.3 (1.0-2.7) L Studies Pre-op Studies: EKG - ST Risk Assessment & Plan Assessment: Increase WBC; Temp normal prior to OR Plan: General ETT; possible blood transfusion Status Change Before Surgery: No Pre-Antibiotics Drug: See chart Kamilla Lemus SUSTAINABLE COMMUNITIES DESIGNER Oct 09, 2019 12:12
--- NOTE | 2019-10-09 12:16 | Immediate Post-Op Evaluation ---
Immediate Post-Op Evalulation Immediate Post-Op Evalulation Procedure: Excision of bilateral groin hydradenitis Date of Evaluation: Oct 09, 2019 Time of Evaluation: 12:00 IV Fluids: 1500 Blood Products: 0 Estimated Blood Loss: 50 Urinary Output: 100 Blood Pressure Systolic: 134 Blood Pressure Diastolic: 60 Pulse Rate: 108 Respiratory Rate: 14 O2 Sat by Pulse Oximetry: 100 Temperature (Fahrenheit): 98.1 Nausea: No Vomiting: No Patient Status: awake, reacts, patent Hydration Status: adequate Drug: vanc Given Within 1 Hr of Incision: No Time Given: 11:30 Kamilla Lemus CRNA Oct 09, 2019 12:16
[2019-10-09] MEDS ORDERED: Esmolol 100mg/10ml Inj ONE (12:18)
[2019-10-09] MEDS: PCA Morphine 1mg/ml 30 ML IV PRN (12:57)
--- NOTE | 2019-10-09 13:23 | NUR ---
RD ASSESSMENT & RECOMMENDATIONS SEE CARE ACTIVITY FOR COMPLETE ASSESSMENT DAILY ESTIMATED NEEDS: Needs based on Surgery 72kg 25-35 kcals/kg 6058-8262 total kcals 1-2 g protein/kg 72-144 g total protein 25-30 mL/kg 7810-9769 total fluid mLs NUTRITION DIAGNOSIS: Increased protein needs r/t surgical wound healing as evidenced by pt w/ Hidradenitis suppurativa, s/p radical excision of HS sites, now s/p debridement. CURRENT DIET: Now Regular PO DIET RECOMMENDATIONS: Regular diet as tolerated ADDITIONAL RECOMMENDATIONS: 1) Maintain accuchecks, bedside BG checks to maintain good glycemic control for maximum wound healing 2) Wound care: add JUAN LUIS BID as tolerated, Vit C 500mg qdaily + MVI w/ min qdaily 3) Diet edu provided for appropriate pro intake 4) Bowel regimen
--- NOTE | 2019-10-09 13:38 | NUR ---
NURSE NOTES: Patient arrived back to unit at 1315 via bed from PACU. Received report from Bonnie REAL. Patient is asleep on arrival, in no apparent distress, RR even and unlabored. SHIP LABORER settings checked and verified against order, patient on 2L NC and EtC02 monitoring, on continuous pulseox. SCD's in place. IV's intact. Surgical site dressings clean, dry, intact. Flores catheter to gravity drainage. Side rails upx3, bed low and locked, call light within reach.
--- NOTE | 2019-10-09 15:05 | NUR ---
CASE MANAGEMENT:REVIEW 10/09/19 SI:S/P RADICAL EXCISION OF BILATERAL GROIN, BILATERAL THIGH AND PERINEAL REGIONS ADVANCED JAMES STAGE III HIDRADENITIS SUPPURATIVA. 101.0 100 18 114/69 97% ON RA WBC 20.3 H/H 9.5/29.2 NA+ 134 AST/ALT 02/28 ALB 1.7 IS:IN SURGERY NOW BILATERAL AXILLARY HIDRADENITIS EXCISION IV ZOSYN TID IV VANCOMYCIN BID CITRIX LEAD MORPHINE SULFATE \: 3E MED SURG STATUS DCP:HOME WHEN STABLE PLAN: CONT WOUND CARE CONTROL FEVERS
--- NOTE | 2019-10-09 15:06 | Infectious Diseases Prog Note ---
Assessment/Plan Assessment/Plan Full consult dictated: A) 1) bilateral axilla/groin hidradenitis suppurativa and wound infection 2) significant leukocytosis 3) pmh noted P) 1) zosyn and vancomycin 2) monitor labs, f/u on bc/uc 3) s/p debridement 4) will f/u 5) thanks Subjective Constitutional: Denies: fever HEENT: Denies: congestion Respiratory: Denies: shortness of breath Cardiovascular: Denies: chest pain Gastrointestinal/Abdominal: Denies: nausea, vomiting, diarrhea Genitourinary: Reports: other - + benavidez Allergies: Coded Allergies: PEANUT (Verified Allergy, Severe, anaphylactic, 10/04/19) HYDROMORPHONE (Verified Allergy, Intermediate, severe nausea, 10/04/19) Objective Last 24 Hour Vital Signs Date Time Temp Pulse Resp B/P (MAP) Pulse Ox O2 Delivery O2 Flow Rate FiO2 10/09/19 13:27 20 10/09/19 13:15 14 10/09/19 13:12 20 10/09/19 13:10 98.8 97 23 137/73 100 Simple Mask 6 10/09/19 13:02 98.5 10/09/19 12:57 20 10/09/19 12:50 92 19 129/75 100 Simple Mask 6 10/09/19 12:35 109 16 131/73 100 Simple Mask 6 10/09/19 12:20 106 17 128/82 100 Simple Mask 6 10/09/19 12:16 108 14 100 10/09/19 12:10 120 21 138/74 100 Simple Mask 6 10/09/19 12:00 104 13 123/68 100 Simple Mask 6 10/09/19 11:55 106 13 117/63 100 Simple Mask 6 10/09/19 11:50 98.1 114 23 134/64 100 Simple Mask 6 10/09/19 09:00 Room Air 10/09/19 08:32 78 20 98 10/09/19 08:00 97.7 84 16 110/65 (80) 98 10/09/19 08:00 16 10/09/19 04:27 100.0 10/09/19 04:00 101.0 100 18 114/69 (84) 100 10/09/19 04:00 100 18 97 10/09/19 00:00 98 18 97 10/09/19 00:00 99.0 92 19 114/70 (85) 97 10/08/19 21:00 Room Air 10/08/19 20:00 99.8 94 18 115/69 (84) 97 10/08/19 20:00 94 18 97 10/08/19 18:55 101.9 99 119/70 (86) 10/08/19 18:30 101.2 97 121/70 (87) 10/08/19 17:30 101.9 102 122/70 (87) 10/08/19 16:30 102.1 91 126/72 (90) 10/08/19 16:15 18 10/08/19 16:15 101.3 93 18 108/61 (77) 99 Height (Feet): 5 Height (Inches): 11.00 Weight (Pounds): 154 General Appearance: no acute distress HEENT: normocephalic, atraumatic Respiratory/Chest: lungs clear, normal breath sounds, no respiratory distress Cardiovascular: normal rate, regular rhythm Abdomen: normal bowel sounds, soft, non tender, no organomegaly Laboratory Tests Test 10/08/19 20:52 10/09/19 04:45 White Blood Count 21.1 K/UL (4.8-10.8) H 20.3 K/UL (4.8-10.8) H Red Blood Count 3.71 M/UL (4.70-6.10) L 3.70 M/UL (4.70-6.10) L Hemoglobin 9.4 G/DL (14.2-18.0) L 9.5 G/DL (14.2-18.0) L Hematocrit 29.0 % (42.0-52.0) L 29.2 % (42.0-52.0) L Mean Corpuscular Volume 78 FL (80-99) L 79 FL (80-99) L Mean Corpuscular Hemoglobin 25.4 PG (27.0-31.0) L 25.6 PG (27.0-31.0) L Mean Corpuscular Hemoglobin Concent 32.5 G/DL (32.0-36.0) 32.4 G/DL (32.0-36.0) Red Cell Distribution Width 18.0 % (11.6-14.8) H 16.4 % (11.6-14.8) H Platelet Count 308 K/UL (150-450) 312 K/UL (150-450) Mean Platelet Volume 7.0 FL (6.5-10.1) 6.9 FL (6.5-10.1) Neutrophils (%) (Auto) % (45.0-75.0) % (45.0-75.0) Lymphocytes (%) (Auto) % (20.0-45.0) % (20.0-45.0) Monocytes (%) (Auto) % (1.0-10.0) % (1.0-10.0) Eosinophils (%) (Auto) % (0.0-3.0) % (0.0-3.0) Basophils (%) (Auto) % (0.0-2.0) % (0.0-2.0) Differential Total Cells Counted 100 100 Neutrophils % (Manual) 82 % (45-75) H 81 % (45-75) H Lymphocytes % (Manual) 10 % (20-45) L 11 % (20-45) L Monocytes % (Manual) 5 % (1-10) 5 % (1-10) Eosinophils % (Manual) 3 % (0-3) 3 % (0-3) Basophils % (Manual) 0 % (0-2) 0 % (0-2) Band Neutrophils 0 % (0-8) 0 % (0-8) Platelet Estimate Adequate Adequate Platelet Morphology Normal Normal Polychromasia 1+ 1+ Anisocytosis 1+ 1+ Microcytosis 1+ Hypochromasia 1+ Sodium Level 134 MMOL/L (136-145) L Potassium Level 4.0 MMOL/L (3.5-5.1) Chloride Level 99 MMOL/L (98-107) Carbon Dioxide Level 29 MMOL/L (21-32) Anion Gap 7 mmol/L (5-15) Blood Urea Nitrogen 10 mg/dL (7-18) Creatinine 0.8 MG/DL (0.55-1.30) Estimat Glomerular Filtration Rate > 60 mL/min (>60) Glucose Level 88 MG/DL (74-106) Calcium Level 8.8 MG/DL (8.5-10.1) Total Bilirubin 0.3 MG/DL (0.2-1.0) Aspartate Amino Transf (AST/SGOT) 12 U/L (15-37) L Alanine Aminotransferase (ALT/SGPT) 11 U/L (12-78) L Alkaline Phosphatase 72 U/L (46-116) Total Protein 7.4 G/DL (6.4-8.2) Albumin 1.7 G/DL (3.4-5.0) L Globulin 5.7 g/dL Albumin/Globulin Ratio 0.3 (1.0-2.7) L Current Medications Medications (Trade) Dose Ordered Sig/Flavia Route PRN Reason Start Time Stop Time Status Last Admin Dose Admin Acetaminophen (Tylenol) 650 mg Q4H PRN ORAL Mild Pain (Pain Scale 1-3) 10/04/19 12:30 11/03/19 12:29 Acetaminophen (Tylenol) 650 mg Q4H PRN ORAL FEVER (T>100.5F) 10/09/19 10:00 11/08/19 09:59 Bisacodyl (Dulcolax) 10 mg HSPRN PRN RECTAL Constipation 10/04/19 15:45 01/02/20 12:29 Dextrose (Dextrose 50%) 25 ml Q30M PRN IV Hypoglycemia 10/04/19 15:45 01/02/20 15:44 Dextrose (Dextrose 50%) 50 ml Q30M PRN IV Hypoglycemia 10/04/19 15:45 01/02/20 15:44 Famotidine (Pepcid) 40 mg DAILY ORAL 10/05/19 09:00 01/03/20 08:59 10/09/19 09:04 Heparin Sodium (Porcine) (Heparin 5000 units/ml) 5,000 units EVERY 12 HOURS SUBQ 10/09/19 21:00 11/23/19 20:59 Magnesium Hydroxide (Mom) 30 ml HSPRN PRN ORAL Constipation 10/04/19 12:30 11/03/19 12:29 Metoclopramide HCl (Reglan) 10 mg Q6H PRN IVP Nausea & Vomiting 10/09/19 10:00 11/08/19 09:59 Miscellaneous Medication (IMAGING SCIENCE PROFESSOR Rate Change) 1 ea DAILY PRN MISC rate change 10/09/19 10:00 10/11/19 09:59 Miscellaneous Medication (IMAGING SCIENCE PROFESSOR shift volume) 1 ea Q12HR@0700,1900 MISC 10/09/19 19:00 10/11/19 18:59 Morphine Sulfate 30 ml @ 0 mls/hr Q24H PRN IV For Pain 10/08/19 12:30 10/10/19 12:29 10/09/19 12:57 Naloxone HCl (Narcan) 0.1 mg Q1M PRN IVP RR<10/min OR SBP<90 mmHg 10/08/19 12:19 10/10/19 12:17 Ondansetron HCl (Zofran) 4 mg Q6H PRN IVP Nausea & Vomiting 10/09/19 10:00 11/08/19 09:59 Piperacillin Sod/ Tazobactam Sod 3.375 gm/Sodium Chloride 110 ml @ 27.5 mls/hr EVERY 8 HOURS IVPB 10/08/19 14:00 10/13/19 13:59 10/09/19 14:04 Polyethylene Glycol (Miralax) 17 gm HSPRN PRN ORAL Constipation 10/04/19 12:30 11/03/19 12:29 Vancomycin HCl (Vanco pharmacy to dose) 1 ea DAILY PRN MISC Per rx protocol 10/08/19 11:00 11/07/19 10:59 Vancomycin HCl 750 mg/Sodium Chloride 275 ml @ 183.333 mls/hr Q12H IVPB 10/09/19 00:30 10/14/19 00:29 10/09/19 12:48 Zolpidem Tartrate (Ambien) 5 mg DAILYPRN PRN ORAL Insomnia 10/04/19 09:15 10/11/19 09:14 Cale Tsai MD Oct 09, 2019 15:06
[2019-10-09 15:36] LABS: APPEARANCE,URINE CLEAR; BILIRUBIN, URINE NEGATIVE (NEGATIVE); GLUCOSE, URINE (UA) NEGATIVE (NEGATIVE); KETONES,URINE 1+ (NEGATIVE); LEUKOCYTE ESTERASE ,URINE NEGATIVE (NEGATIVE); NITRITE,URINE NEGATIVE (NEGATIVE); PH,URINE 5 (4.5-8.0); PROTEIN,URINE NEGATIVE (NEGATIVE); UROBILINOGEN,URINE 4 MG/DL (0.0-1.0)
[2019-10-09 15:38] LABS: COLOR,URINE YELLOW
--- NOTE | 2019-10-09 16:15 | Operative Note - Dictated ---
DATE OF OPERATION: 10/09/2019 PREOPERATIVE DIAGNOSIS: Bilateral axillary hidradenitis, status post previous attempted excision. POSTOPERATIVE DIAGNOSIS: Bilateral axillary hidradenitis, status post previous attempted excision. PROCEDURES: 1. Radical excision of right-sided hidradenitis suppurativa resulting in a defect that measured 15 x 10 cm. 2. Radical excision of left axillary hidradenitis resulting in a defect that measured 14 x 9 cm. SURGEON: Jl Vazquez MD. BUFFER MACHINE: Alicia Ellsworth MD. ANESTHESIA: General. COMPLICATIONS: None. DRAINS: None. EBL: 50 mL. DISPOSITION: Stable to the recovery room. INDICATIONS FOR SURGERY: This is a 24-year-old male with an advanced history of hidradenitis involving both his axilla as well as his groin and perineal regions, who has previously been treated by an outside facility, specifically [facility] for his axillary disease. He has undergone previous surgery by me five days ago for radical excision of his groin disease as well as flap elevation. The anticipation was to perform the reconstruction of the groin today, however, the patient has had an elevated white blood cell count over the past several days in the presence of an active HS situation in his bilateral axilla, I felt that it would be appropriate to eliminate that as a possible source of infection before committing to a definitive reconstruction of his groin, which would potentially predispose his groin to becoming infected if there was a present infection still ongoing in his body. So as such, I discussed with the patient and his parents that it would be most prudent and save to eliminate another source of infection in his body, which in this case is the bilateral axillary hidradenitis. Of note, he also had a UA as per the medical doctor following the patient which has been negative and we also have Infectious Disease on board following the patient and he has tailored the antibiotics for the patient at this time. Therefore, the patient was consented to undergo bilateral axillary disease and excision with possible wound VAC placement. DETAILS OF THE OPERATION: The patient was brought to the operating room and laid in the supine position on the operating room table. His bilateral axilla were prepped and draped in a sterile and usual fashion. We first started on the left side. A marking pen was used to delineate the area of active disease as well as previous scarring from his last surgery with a marking pen used to make this delineation. We then injected 10 mL of lidocaine with epinephrine into the wound and disease-bearing tissue. Once this was done, a #10 blade was then used to make the skin incision and dissecting down with electrocautery all the way down to the level of the axillary fascia. Given the fact that the patient had previous surgery, there was significant scarring here and as such we spent a significant amount of time dissecting the tissues to make certain that there was no vital structures that were in the way of our dissection and added benefit of removing the scar tissue as well as the recurrent disease was the increased range of motion and mobility we were able to obtain for the patient. Preoperatively, the patient was unable to abduct is his arm on the left side more than about 25 cm the following the excision of the disease and scar we gained an additional 30 to 40 degrees of range of motion. Once the scar and the disease was completely excised, we noted there was some small spots of active disease in the wound bed which were also removed. We then proceeded to use pulse lavage irrigation to irrigate the wound copiously. Hemostasis was achieved and although initially my plan was to put a wound VAC on the wound bed. I felt that given the possibility of vessel erosion with a continuous suction, that here might be a bleeding risk and I felt that given this concern that I would bypass using the wound VAC in this place with wet-to-dry dressings on the wound. The wound was then packed and we turned our attention to the contralateral right axilla. In a similar fashion, the area of disease which was much more significant on this side was delineated and marked with a marking pen after injection of 15 mL of lidocaine with epinephrine. We used a #10 blade to make the skin incision. Dissection was carried down using electrocautery in the similar fashion given the previous procedure that was done. Scarring was a concern of ours and so meticulous dissection was done to avoid any injury to vital structures and in this process we were able to completely remove the diseased tissue along with the old scar leaving a large defect behind that measured 15 x 10 cm. Of note, there was also limited range of motion on this side prior to the excision of his disease similar to the other side we gained about 40 degrees of range of motion by removing the old scar and the active disease that was present. There was also active disease in the wound bed as was noted on the other side which had to be removed following the excision of the main tissue bearing of disease, and once this was done, the wound was copiously irrigated with pulse lavage and hemostasis was then achieved. Surgicel was placed on the wound and as was done on the other side we bypassed the use of the wound VAC lest the potential erosion of the blood vessel with continuous suction. We did not want to potentially have that complication as such wet-to-dry dressings were applied. All needle and sponge counts were correct at the end of the case. Given the fact the patient will undergo reconstruction of his groin and thighs during this hospital stay, we will bypass definitive reconstruction of his axillae until about six weeks from now to allow time for him to recover and heal the groin reconstruction as well as allow some time for the physical therapy to help improve his range of motion of his axilla as well as some wound care to help the overall condition of the axillary wounds prior to definitive closure. The patient tolerated the procedure well. There were no complications. Jl Vazquez M.D. DR: OLGA JOB#: [id number] CC: JONATHON
--- NOTE | 2019-10-09 16:17 | NUR ---
*-* INSURANCE *-* ALL AVAILABLE CLINICALS AND REVIEWS HAVE BEEN FAXED TO: HIRAL F:[phone]
--- NOTE | 2019-10-09 18:45 | Consultation ---
DATE OF CONSULTATION: 10/09/2019 INFECTIOUS DISEASE CONSULTATION CONSULTING PHYSICIAN: Cale Tsai MD. ATTENDING PHYSICIAN: Felicity Kebede MD. REFERRING PHYSICIANS: 1. Felicity Kebede MD. 2. Jl Vazquez MD. 3. Dangelo Metzger MD. REASON FOR CONSULTATION: Infected wounds in a patient with hidradenitis suppurativa of the bilateral axilla and groin area, also sepsis and elevated white count. CHIEF COMPLAINT: The patient's chief complaint coming in the hospital is infected bilateral groin and axilla wounds, elevated white count, and complicated hidradenitis suppurativa. HISTORY OF PRESENT ILLNESS: This is a very pleasant 24-year-old male who has hidradenitis suppurativa. The patient presents to [facility] with multiple hidradenitis suppurativa in the bilateral thighs and groin and also axilla area. The patient had an elevated white count on admission of 15.8 that progressed to 21.1. Infectious Disease consultation requested. The patient also is possibly septic with fevers and elevated white count. Multiple organisms grew out including Citrobacter, Proteus, and Bacteroides, and Fusobacterium. The patient was on Ancef, however, the patient was switched to vancomycin and Zosyn for polymicrobial coverage. Case was discussed with Dr. Vazquez and Dr. Dangelo Metzger. I saw the patient yesterday and today and the patient had surgery today, I believe debridement of the wounds and hidradenitis suppurativa. Full operative report is still pending. I saw preliminary operative report. The patient will continue on vancomycin and Zosyn for now. MAR was noted. Orders were noted. Notes and records were reviewed. Case was discussed with the patient and the RN also. REVIEW OF SYSTEMS: CONSTITUTIONAL: The patient's main issue is postoperatively he is somewhat tired and sedated. He is responsive. When I saw him yesterday, review of systems is as follows; he had some pain around the axilla and groin bilaterally with wounds. He had fever. No obvious chills or night sweats. No weight loss mentioned. HEAD AND NECK: No head pain or neck pain. CARDIAC: No chest pain. GASTROINTESTINAL: No nausea, vomiting, or diarrhea. GENITOURINARY: Currently, he has a Flores. PULMONARY: No shortness of breath. No hemoptysis or secretions. SKIN: He has multiple wounds. No itching. No rash. NEUROLOGIC: No seizures. No new focal changes. PAST MEDICAL HISTORY: The patient has past medical history of hidradenitis suppurativa, history of surgery for the hidradenitis suppurativa. He also has a history of anemia. No history of diabetes or hypertension. ALLERGIES: Include hydromorphone and peanuts. SOCIAL HISTORY: Negative for smoking, alcohol, and drug abuse. FAMILY HISTORY: Noncontributory. MEDICATIONS: Upon reviewing the MAR, he is on following medications; on heparin. He is on Zosyn and vancomycin. He is on acetaminophen, Reglan, and Zofran p.r.n. Antibiotics of vancomycin and Zosyn. He is on morphine, famotidine, IV fluids, acetaminophen, and zolpidem. Outside medications noted and reconciliated. PHYSICAL EXAMINATION: VITAL SIGNS: Temperature 98.8, pulse rate 97, respiratory rate 23, blood pressure 137/73. Saturation 100% on simple mask. O2 flow rate is six liters. GENERAL: Right now, he is sedated, but yesterday he was alert and oriented, in no acute distress. HEAD AND NECK: Oral exam, no thrush. Eye exam, no icterus. Normocephalic. Neck is supple. HEART: Regular. No gallop or murmur. No friction rub. ABDOMEN: Soft. Positive bowel sounds. Nontender. LUNGS: Clear bilaterally. No rhonchi or rales. SKIN: No rash. Yesterday, I did see the wounds and there were some slough noted in the groin wounds, axilla wounds were covered. MUSCULOSKELETAL: No sign effusions. Legs are without cellulitis. PERIPHERAL VASCULAR: No cyanosis or gangrene. GENITOURINARY: Currently, he has a Flores. Urine is slightly cloudy. LINE SITES: Without phlebitis. NEUROLOGIC: Intact. Alert and oriented. LABORATORY DATA: Today, white count 20.3 and hemoglobin 9.5. White count yesterday 21.1. Creatinine is 0.8. LFTs noted. UA had 2 to 4 white cells. He did have some hematuria. Cultures of the groin wounds had Proteus, Citrobacter, Bacteroides and Fusobacterium. Blood cultures are pending. IMAGING STUDIES: Chest x-ray showed no acute disease. No acute cardiopulmonary disease. ASSESSMENT AND PLAN: 1. The patient has bilateral groin and axillary hidradenitis suppurativa and wound infection. Complicated hidradenitis suppurative with wound infection. The patient's culture of the groin area bilaterally had anaerobes, Citrobacter, and Proteus. The patient was I believe on Ancef, but now switched to vancomycin and Zosyn as of yesterday. This will have MRSA coverage and also gram-negative and also anaerobic coverage. Continue vancomycin and Zosyn for now. Check blood cultures. The patient could be septic with fevers and elevated white count. We will check blood cultures. We will repeat UA. Continue vancomycin and Zosyn for possible sepsis, elevated white count, and fevers. This also cover the bilateral groin and axilla infected wound and hidradenitis suppurativa. Again, wound culture of the groin has Citrobacter, anaerobes, and Proteus. The patient, I believe, just had debridement. He also had initial surgery also. The patient had excision of the hidradenitis suppurativa. The surgery today I believe was debridement, but I have to get the final operative report. But, he also could have had a reconstruction of the groin and thigh wounds today. Continue vancomycin and Zosyn for now. Check followup labs. 2. The patient has history of hidradenitis suppurativa with history of surgery. 3. Anemia. 4. No diabetes or hypertension. 5. Blood sugars have been elevated, hyperglycemia. 6. Allergies to hydromorphone and peanuts. 7. Social history is negative. 8. Family history is noncontributory. 9. MAR was noted. 10. Case was discussed with RN. 11. Case was discussed with Dr. Vazquez. 12. Case was communicated with Dr. Metzger. 13. Continue treatment as per primary consultants. 14. Wound care protocol per Dr. Vazquez. 15. Orders were noted and entered. Cale Tsai M.D. DR: BENNIE JOB#: [id number] CC:
--- NOTE | 2019-10-09 19:15 | NUR ---
HAND-OFF: Report given to Herbert REAL.
--- NOTE | 2019-10-09 19:30 | NUR ---
NURSE NOTES: Pt. received from ADDIE Thomas. Pt. AAox4, on NC at 2L, breathing even and unlabored, pain controlled with KNIFE GLAZER. IVs noted L AC 20g, right hand 18g, and right FA 20g intact and patent. Bed is low and locked, side rails x2 up, bed alarm active, and call light in reach.
[2019-10-09] MEDS: Heparin 5000 units/ml inj SUBQ SCH (20:42)
[2019-10-10] VITALS: BP 125/81
[2019-10-10] MEDS: Vancomycin 750mg/NS 275ml IVPB SCH ×4 (01:22→12:28)
[2019-10-10 04:00] VITALS: BP 125/64
[2019-10-10] MEDS: Piperacillin/Tazobactam 3.375 GM in NS 110 ML IVPB SCH (05:05)
[2019-10-10 07:13] LABS: ALANINE AMINOTRANSFERASE 16 U/L (12-78); ALBUMIN 1.6 G/DL (3.4-5.0); ALBUMIN/GLOBULIN RATIO 0.3 (1.0-2.7); ALKALINE PHOSPHATASE 68 U/L (46-116); ANION GAP 6 mmol/L (5-15); ASPARTATE AMINO TRANSFERASE 15 U/L (15-37); BILIRUBIN,TOTAL 0.3 MG/DL (0.2-1.0); BLOOD UREA NITROGEN 5 mg/dL (7-18); CALCIUM 8.8 MG/DL (8.5-10.1); CARBON DIOXIDE 31 MMOL/L (21-32); CHLORIDE 99 MMOL/L (98-107); CREATININE 0.7 MG/DL (0.55-1.30); SODIUM 136 MMOL/L (136-145)
--- NOTE | 2019-10-10 07:24 | NUR ---
HAND-OFF: Report given to ADDIE Ahmadi.
[2019-10-10] MEDS: PCA shift volume MISC SCH ×2 (07:26→19:09)
--- NOTE | 2019-10-10 07:37 | NUR ---
NURSE NOTES: Received report from Herbert RN, rounds made , pt awake a/ox4 breaths regular unlabored on 2 L NC, pt c/o pain 5/10, pt states pain is manageable with the STITCH SEPARATOR morphine , dressing on the bilateral Axilla and bilateral groin dressing intact, Pt has a Flores catheter draining clear yellow urine and anchored. Pt has Lt AC 20G locked , RT for arm 18 G with IVF and R FA 20G locked , will continue to monitor
[2019-10-10 08:00] VITALS: BP 134/75
[2019-10-10] MEDS: Heparin 5000 units/ml inj SUBQ SCH ×2 (08:44→21:02)
[2019-10-10 08:57] LABS: HEMATOCRIT 26.6 % (42.0-52.0); HEMOGLOBIN 8.7 G/DL (14.2-18.0); MEAN CORPUSCULAR VOLUME 79 FL (80-99); PLATELET COUNT 325 K/UL (150-450); RED BLOOD COUNT 3.35 M/UL (4.70-6.10); RED CELL DISTRIBUTION WIDTH 18.9 % (11.6-14.8)
[2019-10-10 09:02] LABS: WHITE BLOOD COUNT 23.5 K/UL (4.8-10.8)
--- NOTE | 2019-10-10 10:00 | General Progress Note ---
Progress Note Progress Note Pt seen and examined. POD# 1 and # 5. Looks well and comfortable. Dressings intact. WBC up to 23.5 ID on board and patient on broad spectrum abx. Current plan is to perform definitive groin/thigh reconstruction on Tuesday, assuming the WBC is trending down. However if it persists at current level with no diminution, we may need to postpone the reconstruction based on recommendations we will get from the medical and ID teams.. ID on board and will make recs. MD Taylor Briceño Amir MD Oct 10, 2019 10:00
--- NOTE | 2019-10-10 10:12 | NUR ---
NURSE NOTES: MD Vazquez notified about the elevated WBC count
--- NOTE | 2019-10-10 10:40 | NUR ---
PT EVALUATION NOTE Patient seen for initial evaluation. Patient presents with pain B shoulders and limited ROM s/p bilateral axillary hidradenitis excision. Patient will benefit from skilled inpatient PT intervention to increase bilateral shoulder ROM and strength for improved use of UEs for ADLs. Recommend discharge to ARU for continued rehab once medically cleared by MD. DME needs to be determined based on patient's progress. Addendum: 10/10/19 at 1323 by SAFIA ROD PT Amended: Links added.
--- NOTE | 2019-10-10 10:59 | 48 Hour Post Anesthesia Eval ---
Post Anesthesia Evaluation Procedure: Excision of bilateral groin hydradenitis Date of Evaluation: Oct 10, 2019 Time of Evaluation: 10:58 Blood Pressure Systolic: 125 0: 70 Pulse Rate: 87 Respiratory Rate: 14 Temperature (Fahrenheit): 98.9 O2 Sat by Pulse Oximetry: 98 Airway: patent Nausea: No Vomiting: No Hydration Status: adequate Cardiopulmonary Status: stable at this time Mental Status/LOC: patient returned to baseline Post-Anesthesia Complications: none Follow-up care needed: N/A Kamilla Lemus CRNA Oct 10, 2019 10:59
--- NOTE | 2019-10-10 11:51 | NUR ---
RADIOLOGY DEPT., CHEST X-RAY DONE.-P.DYE
[2019-10-10 12:00] VITALS: BP 128/72
--- NOTE | 2019-10-10 12:06 | General Progress Note ---
Assessment/Plan Problem List: (1) Acute blood loss anemia ICD Codes: D62 - Acute posthemorrhagic anemia SNOMED: 659967497 (2) Uncontrolled pain ICD Codes: R52 - Pain, unspecified SNOMED: 34921544006881695 (3) Hidradenitis suppurativa ICD Codes: L73.2 - Hidradenitis suppurativa SNOMED: 81015175 (4) Hypoalbuminemia ICD Codes: E88.09 - Other disorders of plasma-protein metabolism, not elsewhere classified SNOMED: 799185700 Status: doing well, stable Assessment/Plan: 24 year old gentleman with no significant PMH presents with acute blood loss anemia after surgery for hydradenitis. #Acute blood loss anemia -Trend CBC closely - S/P 2 units pRBC 10/04/2019 - Transfused 1 unit pRBC 10/07 - Iron studies reviewed - Holding DVT ppx #Hydradenitis s/p surgical intervention #Fever -resolved #Leukocytosis - worsening #Post surgical wound drainage -Ancef 1g IV q8hrs discontinued on 10/07 -Started Vanco and Zosyn 10/07 - ID consult appreciate recs -intra op cultures reviewed -UA reviewd, UA reordered -CXR unremarkable will repeat for seconday cause of fevers -Wound care -Pain control with PCN pump -Surgical recommendations -Axillary surgery today. #Hypoalbuminemia - improving -Encourage high protein diet to promote wound healing -Nutrition consult for supplementation #Hyperglycemia - resolved -HgA1c 5.7 -DC ISS -Tight glycemic control for wound healing #Post surgical hypoxia - RESOLVED - Incentive spirometry - Early ambulation with assist -CXR reviewed SQ heparing 5000 q12 held for blood loss anemia I spent 40 min on this patient with 15 face to face time.Coordinating with the surgeon. Discussed plan of care with nursing and charge nurse. Subjective Date patient seen: Oct 10, 2019 Time patient seen: 08:30 ROS Limited/Unobtainable: No Constitutional: Reports: no symptoms HEENT: Reports: no symptoms Cardiovascular: Reports: no symptoms Gastrointestinal/Abdominal: Reports: no symptoms Genitourinary: Reports: pain Neurologic/Psychiatric: Reports: no symptoms Endocrine: Reports: no symptoms Allergies: Coded Allergies: PEANUT (Verified Allergy, Severe, anaphylactic, 10/04/19) HYDROMORPHONE (Verified Allergy, Intermediate, severe nausea, 10/04/19) Subjective Patients pain is controlled. No fever and night sweats again. No BM today. Objective Last 24 Hour Vital Signs Date Time Temp Pulse Resp B/P (MAP) Pulse Ox O2 Delivery O2 Flow Rate FiO2 10/10/19 10:59 87 14 98 10/10/19 09:00 Nasal Cannula 2.0 10/10/19 08:00 18 10/10/19 08:00 98.9 86 22 134/75 (94) 100 10/10/19 04:00 18 10/10/19 04:00 99.1 89 20 125/64 (84) 100 10/10/19 00:00 99.0 78 16 125/81 (96) 100 10/10/19 00:00 16 10/09/19 21:00 Nasal Cannula 2.0 10/09/19 20:00 98 Nasal Cannula 2.0 28 10/09/19 20:00 98.4 74 18 149/80 (103) 100 10/09/19 20:00 18 10/09/19 16:15 91 14 134/85 (101) 100 10/09/19 16:00 14 10/09/19 15:15 98.5 101 12 135/85 (102) 100 10/09/19 14:45 12 10/09/19 14:15 12 10/09/19 14:15 100 12 135/85 (102) 100 10/09/19 13:45 103 14 137/85 (102) 100 10/09/19 13:45 14 10/09/19 13:30 14 10/09/19 13:27 20 10/09/19 13:15 14 10/09/19 13:15 102 14 138/85 (102) 100 10/09/19 13:12 20 10/09/19 13:10 98.8 97 23 137/73 100 Simple Mask 6 10/09/19 13:02 98.5 10/09/19 12:57 20 10/09/19 12:50 92 19 129/75 100 Simple Mask 6 10/09/19 12:35 109 16 131/73 100 Simple Mask 6 10/09/19 12:20 106 17 128/82 100 Simple Mask 6 10/09/19 12:16 108 14 100 10/09/19 12:10 120 21 138/74 100 Simple Mask 6 Intake and Output 10/09/19 10/10/19 19:00 07:00 Intake Total 2060 ml 985.000 ml Output Total 1250 ml 1000 ml Balance 810 ml -15.000 ml Intake Oral 150 ml 600 ml IV Total 1910 ml 385.000 ml Output Urine Total 1200 ml 1000 ml Estimated Blood Loss 50 ml Laboratory Tests 10/09/19 15:10: Urine Color Yellow, Urine Appearance Clear, Urine pH 5, Urine Specific [place] 1.025, Urine Protein Negative, Urine Glucose (UA) Negative, Urine Ketones 1+H, Urine Blood Negative, Urine Nitrite Negative, Urine Bilirubin Negative, Urine Urobilinogen 4H, Urine Leukocyte Esterase Negative 10/10/19 05:05: White Blood Count 23.5*H, Red Blood Count 3.35L, Hemoglobin 8.7L, Hematocrit 26.6L, Mean Corpuscular Volume 79L, Mean Corpuscular Hemoglobin 25.9L, Mean Corpuscular Hemoglobin Concent 32.6, Red Cell Distribution Width 18.9H, Platelet Count 325, Mean Platelet Volume 7.0, Neutrophils (%) (Auto) , Lymphocytes (%) (Auto) , Monocytes (%) (Auto) , Eosinophils (%) (Auto) , Basophils (%) (Auto) , Differential Total Cells Counted 100, Neutrophils % ( Manual) 84H, Lymphocytes % (Manual) 9L, Monocytes % (Manual) 6, Eosinophils % ( Manual) 1, Basophils % (Manual) 0, Band Neutrophils 0, Platelet Estimate Adequate, Platelet Morphology Normal, Red Blood Cell Morphology Normal, Sodium Level 136, Potassium Level 4.0, Chloride Level 99, Carbon Dioxide Level 31, Anion Gap 6, Blood Urea Nitrogen 5L, Creatinine 0.7, Estimat Glomerular Filtration Rate > 60, Glucose Level 87, Calcium Level 8.8, Total Bilirubin 0.3, Aspartate Amino Transf (AST/SGOT) 15, Alanine Aminotransferase (ALT/SGPT) 16, Alkaline Phosphatase 68, Total Protein 7.0, Albumin 1.6L, Globulin 5.4, Albumin/ Globulin Ratio 0.3L Height (Feet): 5 Height (Inches): 11.00 Weight (Pounds): 160 General Appearance: no apparent distress, alert, thin, alert oriented x3 EENT: PERRL/EOMI Neck: non-tender, supple Cardiovascular: normal peripheral pulses, normal rate, regular rhythm, no gallop/murmur, no JVD Respiratory/Chest: chest wall non-tender, lungs clear, normal breath sounds, no respiratory distress, no accessory muscle use Abdomen: normal bowel sounds, non tender, soft, no organomegaly, no mass Genitourinary/Rectal: other - surgical wound site drainage Extremities: normal range of motion, non-tender Edema: no edema noted Arm (L), no edema noted Arm (R), no edema noted Leg (L), no edema noted Leg (R), no edema noted Pedal (L), no edema noted Pedal (R), no edema noted Generalized Neurologic: blank driller II-XII grossly normal, no motor/sensory deficits, alert, oriented x 3, responsive, normal mood/affect Dangelo Metzger M.D. Oct 10, 2019 12:06
--- NOTE | 2019-10-10 12:44 | NUR ---
*-* INSURANCE *-* UPDATED CLINICALS HAVE BEEN FAXED TO: HIRAL F:[phone]
--- NOTE | 2019-10-10 13:08 | Diagnostic Imaging Report ---
Indication: Cough Technique: One view of the chest Comparison: 10/05/2019 Findings: Lungs and pleural spaces are clear. The heart size is normal. There is no significant interim change Impression: Negative
--- NOTE | 2019-10-10 13:19 | Infectious Diseases Prog Note ---
Assessment/Plan Assessment/Plan A) 1) bilateral axilla/groin hidradenitis suppurativa and wound infection 2) significant leukocytosis - persists, ? source, bc-negative, ua-negative, chest x-ray - nad 3) pmh noted P) 1) change abx to meropenem, vancomycin and diflucan 2) monitor wbc 3) s/p debridement 4) communicated with Dr. Vazquez 5) will f/u Subjective Constitutional: Denies: fever HEENT: Denies: congestion Respiratory: Denies: shortness of breath Cardiovascular: Denies: chest pain Gastrointestinal/Abdominal: Denies: nausea, vomiting Genitourinary: Denies: dysuria Allergies: Coded Allergies: PEANUT (Verified Allergy, Severe, anaphylactic, 10/04/19) HYDROMORPHONE (Verified Allergy, Intermediate, severe nausea, 10/04/19) Objective Last 24 Hour Vital Signs Date Time Temp Pulse Resp B/P (MAP) Pulse Ox O2 Delivery O2 Flow Rate FiO2 10/10/19 12:00 99.0 89 19 128/72 (90) 100 10/10/19 12:00 19 10/10/19 10:59 87 14 98 10/10/19 09:00 Nasal Cannula 2.0 10/10/19 08:00 18 10/10/19 08:00 98.9 86 22 134/75 (94) 100 10/10/19 04:00 18 10/10/19 04:00 99.1 89 20 125/64 (84) 100 10/10/19 00:00 99.0 78 16 125/81 (96) 100 10/10/19 00:00 16 10/09/19 21:00 Nasal Cannula 2.0 10/09/19 20:00 98 Nasal Cannula 2.0 28 10/09/19 20:00 98.4 74 18 149/80 (103) 100 10/09/19 20:00 18 10/09/19 16:15 91 14 134/85 (101) 100 10/09/19 16:00 14 10/09/19 15:15 98.5 101 12 135/85 (102) 100 10/09/19 14:45 12 10/09/19 14:15 12 10/09/19 14:15 100 12 135/85 (102) 100 10/09/19 13:45 103 14 137/85 (102) 100 10/09/19 13:45 14 10/09/19 13:30 14 10/09/19 13:27 20 Height (Feet): 5 Height (Inches): 11.00 Weight (Pounds): 160 General Appearance: WD/WN HEENT: atraumatic, anicteric Respiratory/Chest: lungs clear, normal breath sounds, no respiratory distress Cardiovascular: normal rate, regular rhythm, no JVD Abdomen: normal bowel sounds, soft, non tender, no organomegaly Skin: other - wounds - covered Microbiology Date/Time Source Procedure Growth Status 10/08/19 10:25 Blood Blood Culture - Preliminary NO GROWTH AFTER 24 HOURS Resulted 10/08/19 10:10 Blood Blood Culture - Preliminary NO GROWTH AFTER 24 HOURS Resulted Laboratory Tests Test 10/09/19 15:10 10/10/19 05:05 Urine Color Yellow Urine Appearance Clear Urine pH 5 (4.5-8.0) Urine Specific [place] 1.025 (1.005-1.035) Urine Protein Negative (NEGATIVE) Urine Glucose (UA) Negative (NEGATIVE) Urine Ketones 1+ (NEGATIVE) H Urine Blood Negative (NEGATIVE) Urine Nitrite Negative (NEGATIVE) Urine Bilirubin Negative (NEGATIVE) Urine Urobilinogen 4 MG/DL (0.0-1.0) H Urine Leukocyte Esterase Negative (NEGATIVE) White Blood Count 23.5 K/UL (4.8-10.8) *H Red Blood Count 3.35 M/UL (4.70-6.10) L Hemoglobin 8.7 G/DL (14.2-18.0) L Hematocrit 26.6 % (42.0-52.0) L Mean Corpuscular Volume 79 FL (80-99) L Mean Corpuscular Hemoglobin 25.9 PG (27.0-31.0) L Mean Corpuscular Hemoglobin Concent 32.6 G/DL (32.0-36.0) Red Cell Distribution Width 18.9 % (11.6-14.8) H Platelet Count 325 K/UL (150-450) Mean Platelet Volume 7.0 FL (6.5-10.1) Neutrophils (%) (Auto) % (45.0-75.0) Lymphocytes (%) (Auto) % (20.0-45.0) Monocytes (%) (Auto) % (1.0-10.0) Eosinophils (%) (Auto) % (0.0-3.0) Basophils (%) (Auto) % (0.0-2.0) Differential Total Cells Counted 100 Neutrophils % (Manual) 84 % (45-75) H Lymphocytes % (Manual) 9 % (20-45) L Monocytes % (Manual) 6 % (1-10) Eosinophils % (Manual) 1 % (0-3) Basophils % (Manual) 0 % (0-2) Band Neutrophils 0 % (0-8) Platelet Estimate Adequate Platelet Morphology Normal Red Blood Cell Morphology Normal Sodium Level 136 MMOL/L (136-145) Potassium Level 4.0 MMOL/L (3.5-5.1) Chloride Level 99 MMOL/L (98-107) Carbon Dioxide Level 31 MMOL/L (21-32) Anion Gap 6 mmol/L (5-15) Blood Urea Nitrogen 5 mg/dL (7-18) L Creatinine 0.7 MG/DL (0.55-1.30) Estimat Glomerular Filtration Rate > 60 mL/min (>60) Glucose Level 87 MG/DL (74-106) Calcium Level 8.8 MG/DL (8.5-10.1) Total Bilirubin 0.3 MG/DL (0.2-1.0) Aspartate Amino Transf (AST/SGOT) 15 U/L (15-37) Alanine Aminotransferase (ALT/SGPT) 16 U/L (12-78) Alkaline Phosphatase 68 U/L (46-116) Total Protein 7.0 G/DL (6.4-8.2) Albumin 1.6 G/DL (3.4-5.0) L Globulin 5.4 g/dL Albumin/Globulin Ratio 0.3 (1.0-2.7) L Current Medications Medications (Trade) Dose Ordered Sig/Flavia Route PRN Reason Start Time Stop Time Status Last Admin Dose Admin Acetaminophen (Tylenol) 650 mg Q4H PRN ORAL Mild Pain (Pain Scale 1-3) 10/04/19 12:30 11/03/19 12:29 Acetaminophen (Tylenol) 650 mg Q4H PRN ORAL FEVER (T>100.5F) 10/09/19 10:00 11/08/19 09:59 Bisacodyl (Dulcolax) 10 mg HSPRN PRN RECTAL Constipation 7/16/20 15:45 01/02/20 12:29 Dextrose (Dextrose 50%) 25 ml Q30M PRN IV Hypoglycemia 10/04/19 15:45 01/02/20 15:44 Dextrose (Dextrose 50%) 50 ml Q30M PRN IV Hypoglycemia 10/04/19 15:45 01/02/20 15:44 Famotidine (Pepcid) 40 mg DAILY ORAL 10/05/19 09:00 01/03/20 08:59 10/10/19 08:42 Heparin Sodium (Porcine) (Heparin 5000 units/ml) 5,000 units EVERY 12 HOURS SUBQ 10/09/19 21:00 11/23/19 20:59 10/10/19 08:44 Magnesium Hydroxide (Mom) 30 ml HSPRN PRN ORAL Constipation 10/04/19 12:30 11/03/19 12:29 Metoclopramide HCl (Reglan) 10 mg Q6H PRN IVP Nausea & Vomiting 10/09/19 10:00 11/08/19 09:59 Miscellaneous Medication (ROUGH RICE GRADER Rate Change) 1 ea DAILY PRN MISC rate change 10/09/19 10:00 10/11/19 09:59 Miscellaneous Medication (ROUGH RICE GRADER shift volume) 1 ea Q12HR@0700,1900 MISC 10/09/19 19:00 10/11/19 18:59 10/10/19 07:26 Ondansetron HCl (Zofran) 4 mg Q6H PRN IVP Nausea & Vomiting 10/09/19 10:00 11/08/19 09:59 Piperacillin Sod/ Tazobactam Sod 3.375 gm/Sodium Chloride 110 ml @ 27.5 mls/hr EVERY 8 HOURS IVPB 10/08/19 14:00 10/13/19 13:59 10/10/19 05:05 Polyethylene Glycol (Miralax) 17 gm HSPRN PRN ORAL Constipation 10/04/19 12:30 11/03/19 12:29 Vancomycin HCl (Vanco pharmacy to dose) 1 ea DAILY PRN MISC Per rx protocol 10/08/19 11:00 11/07/19 10:59 Vancomycin HCl 750 mg/Sodium Chloride 275 ml @ 183.333 mls/hr Q12H IVPB 10/09/19 00:30 10/14/19 00:29 10/10/19 12:28 Zolpidem Tartrate (Ambien) 5 mg DAILYPRN PRN ORAL Insomnia 10/04/19 09:15 10/11/19 09:14 Cale Tsai MD Oct 10, 2019 13:19
--- NOTE | 2019-10-10 15:30 | NUR ---
NURSE NOTES: Bilateral Groin dressing changed , pt tolerated treatment well, will continue to monitor
[2019-10-10 16:00] VITALS: BP 123/74
--- NOTE | 2019-10-10 17:21 | NUR ---
CASE MANAGEMENT:REVIEW 10/10/19 SI:S/P BILATERAL AXILLARY HIDRADENITIS EXCISION S/P RADICAL EXCISION OF BILATERAL GROIN, BILATERAL THIGH AND PERINEAL REGIONS ADVANCED JAMES STAGE III HIDRADENITIS SUPPURATIVA. 99.0 89 19 128/72 100% ON 2L NC WBC 23.5 H/H 8.7/26.6 BUN 5 ALB 1.6 IS:IV DIFLUCAN QD IV MEROPENEM TID IV VANCOMYCIN BID STUDIO DESIGNER MORPHINE SULFATE HEPARIN SQ BID \: 3E MED SURG STATUS DCP:HOME WHEN STABLE PLAN: MONITOR WBC CONT WOUND CARE PT EVAL BLOOD CX IN PROCESS
[2019-10-10] MEDS ORDERED: Naloxone 0.4mg/ml Inj IVP PRN (19:30)
[2019-10-10] MEDS ORDERED: PCA Education Pamphlet MISC ONE (19:30)
[2019-10-10] MEDS ORDERED: Rate Change PCA 1 Each MISC PRN (19:30)
[2019-10-10] MEDS ORDERED: LORazepam 1mg tab ORAL PRN (19:30)
[2019-10-10] MEDS ORDERED: DiphenhydrAMINE 50mg/ml Inj IVP PRN (19:30)
--- NOTE | 2019-10-10 19:31 | NUR ---
HAND-OFF: Report given to Pamela REAL, pt stable.
[2019-10-10] MEDS: PCA Morphine 1mg/ml 30 ML IV PRN (19:38)
--- NOTE | 2019-10-10 19:44 | NUR ---
NURSE NOTES: Received report from ADDIE Ahmadi. Pt is awake, lying semi-conner's comfortably resting. No signs of acute distress noted. Pt reports 3/10 pain in the groin and axilla. AOx4; able to make needs known. Checked IV sites, line, and rate; patent and running. Bilateral axilla dressing dry and intact. Bilateral groin dressing dry and intact. Otherwise, no erythema, bleeding, or infiltration noted. Pt oriented to room. Bed at lowest position. Brakes on. Siderails up x3. Call light within reach. Will continue to monitor.
[2019-10-10 20:00] VITALS: BP 127/74
[2019-10-11] VITALS (9 sets, daily range): BP systolic 110–127; BP diastolic 62–74
[2019-10-11] MEDS: Vancomycin 1gm/D5W 275ml IVPB SCH ×6 (00:41→20:47)
[2019-10-11 05:12] LABS: HEMATOCRIT 27.1 % (42.0-52.0); HEMOGLOBIN 8.5 G/DL (14.2-18.0); MEAN CORPUSCULAR VOLUME 81 FL (80-99); PLATELET COUNT 342 K/UL (150-450); RED BLOOD COUNT 3.36 M/UL (4.70-6.10); RED CELL DISTRIBUTION WIDTH 17.7 % (11.6-14.8); WHITE BLOOD COUNT 19.4 K/UL (4.8-10.8)
[2019-10-11 05:35] LABS: ALANINE AMINOTRANSFERASE 16 U/L (12-78); ALBUMIN 1.6 G/DL (3.4-5.0); ALBUMIN/GLOBULIN RATIO 0.3 (1.0-2.7); ALKALINE PHOSPHATASE 79 U/L (46-116); ANION GAP 6 mmol/L (5-15); ASPARTATE AMINO TRANSFERASE 16 U/L (15-37); BILIRUBIN,TOTAL 0.2 MG/DL (0.2-1.0); BLOOD UREA NITROGEN 9 mg/dL (7-18); CALCIUM 8.4 MG/DL (8.5-10.1); CARBON DIOXIDE 31 MMOL/L (21-32); CHLORIDE 99 MMOL/L (98-107); CREATININE 0.8 MG/DL (0.55-1.30); POTASSIUM 3.9 MMOL/L (3.5-5.1); SODIUM 136 MMOL/L (136-145)
--- NOTE | 2019-10-11 07:23 | NUR ---
NURSE NOTES: Report received from Pamela REAL, rounds made. Patient sleeping in semi-fowlers position in bed, awakens easily. No distress on RA. Respirations even/unlabored. Dressing to bilateral axillary saturated, drainage noted on bedding, will notify Dr. Vazquez. Dressing to bilateral groin, perineal, thigh, buttocks area remains CDI. IV NS at 30 ml/hr with PAROLE SUPERVISOR (Morphine) to left AC. RFA, NS at TKO, IV sites asymptomatic. Bilateral SCDs on. Encouraged IS, ankle rotation. Call light in reach, bed in lowest position, will continue to monitor.
[2019-10-11] MEDS: PCA shift volume MISC SCH ×2 (07:29→19:00)
--- NOTE | 2019-10-11 07:36 | NUR ---
HAND-OFF: Report given to ADDIE Alvarez. Pt is sleeping and in stable condition. Plan of care endorsed.
--- NOTE | 2019-10-11 08:25 | NUR ---
NURSE NOTES: Noted blood sugar 57 on AM labs, patient denies dizziness, no s/s of hypoglycemia, provided orange juice, tolerated all, set up breakfast eating well, no NV. Last BM (10/03), reviewed eMAR with patient, requesting Miralax, will administer, see eMAR.
[2019-10-11] MEDS: Heparin 5000 units/ml inj SUBQ SCH (09:00)
--- NOTE | 2019-10-11 09:47 | General Progress Note ---
Assessment/Plan Problem List: (1) Hidradenitis suppurativa ICD Codes: L73.2 - Hidradenitis suppurativa SNOMED: 75147385 (2) Hypoxia ICD Codes: R09.02 - Hypoxemia SNOMED: 947945685 (3) Acute blood loss anemia ICD Codes: D62 - Acute posthemorrhagic anemia SNOMED: 901366667 (4) Hypoalbuminemia ICD Codes: E88.09 - Other disorders of plasma-protein metabolism, not elsewhere classified SNOMED: 931489695 (5) Hyperglycemia ICD Codes: R73.9 - Hyperglycemia, unspecified SNOMED: 01353656 (6) Leukocytosis ICD Codes: D72.829 - Elevated white blood cell count, unspecified SNOMED: 204627350, 824485149 Status: doing well, stable Assessment/Plan: 24 year old gentleman with no significant PMH presents with acute blood loss anemia after surgery for hydradenitis, now with elevated leukocytosis #Hydradenitis s/p surgical intervention #Fever -resolved #Leukocytosis - improving #Post surgical wound drainage - Continue Fluconazole, Meropenem, Vancomycin per ID recommendations given improving WBC - ID consult appreciate recs -Wound care -Pain control with PCN pump -Surgery following, appreciate recommendations. Tentative plan for groin/thigh reconstruction with Dr. Vazquez. Discussed with Surgery and ID, plan to proceed with surgery as long as leukocytosis continues to downtrend on antibiotic therapy - NPO after midnight 10/11/2019 in case patient proceeds with surgery 10/12/2019 #Acute blood loss anemia -Trend CBC closely - S/P 2 units pRBC 10/04/2019 - Transfused 1 unit pRBC 10/07 - Iron studies reviewed - Holding DVT ppx #Hypoalbuminemia - improving -Encourage high protein diet to promote wound healing -Nutrition consult for supplementation #Hyperglycemia - resolved -HgA1c 5.7 -DC ISS -Tight glycemic control for wound healing #Post surgical hypoxia - RESOLVED - Incentive spirometry - Early ambulation with assist -CXR reviewed I spent 40 min on this patient with 20 face to face time.Coordinating with Surgery and Infectious Diseases. Discussed plan of care with nursing and charge nurse. I also spent 30 minutes reviewing the patient's chart and prior surgeries. Subjective Date patient seen: Oct 11, 2019 Genitourinary: Reports: other - stable pain from known hidradenitis surgery Allergies: Coded Allergies: PEANUT (Verified Allergy, Severe, anaphylactic, 10/04/19) HYDROMORPHONE (Verified Allergy, Intermediate, severe nausea, 10/04/19) Subjective feels well this morning. had no fevers overnight. antibiotics adjusted by ID given leukocytosis. patient denied cough, shortness of breath, dysuria. pain at his surgical sites are stable and controlled at this time Objective Last 24 Hour Vital Signs Date Time Temp Pulse Resp B/P (MAP) Pulse Ox O2 Delivery O2 Flow Rate FiO2 10/11/19 08:00 81 16 100 10/11/19 08:00 97.9 81 16 116/66 (83) 100 10/11/19 04:00 18 10/11/19 04:00 98.9 96 18 127/74 (91) 99 10/11/19 00:00 18 10/11/19 00:00 99.6 95 18 126/73 (90) 99 10/10/19 23:17 99.6 10/10/19 21:00 Room Air 10/10/19 20:10 97 Nasal Cannula 2.0 28 10/10/19 20:00 20 10/10/19 20:00 100.5 97 20 127/74 (91) 100 10/10/19 16:00 99.3 94 20 123/74 (90) 100 10/10/19 16:00 22 10/10/19 12:00 99.0 89 19 128/72 (90) 100 10/10/19 12:00 19 10/10/19 10:59 87 14 98 Intake and Output 10/10/19 10/11/19 18:59 06:59 Intake Total 1200 ml 500 ml Output Total 900 ml 900 ml Balance 300 ml -400 ml Intake Oral 1200 ml 500 ml Output Urine Total 900 ml 900 ml Laboratory Tests 10/10/19 23:36: Vancomycin Level Trough 3.6L 10/11/19 04:35: White Blood Count 19.4H, Red Blood Count 3.36L, Hemoglobin 8.5L, Hematocrit 27.1L, Mean Corpuscular Volume 81, Mean Corpuscular Hemoglobin 25.5L, Mean Corpuscular Hemoglobin Concent 31.5L, Red Cell Distribution Width 17.7H, Platelet Count 342, Mean Platelet Volume 6.0L, Neutrophils (%) (Auto) , Lymphocytes (%) (Auto) , Monocytes (%) (Auto) , Eosinophils (%) (Auto) , Basophils (%) (Auto) , Differential Total Cells Counted 100, Neutrophils % ( Manual) 78H, Lymphocytes % (Manual) 8L, Monocytes % (Manual) 10, Eosinophils % ( Manual) 3, Basophils % (Manual) 1, Band Neutrophils 0, Platelet Estimate Adequate, Platelet Morphology Normal, Hypochromasia 2+, Anisocytosis 1+, Sodium Level 136, Potassium Level 3.9, Chloride Level 99, Carbon Dioxide Level 31, Anion Gap 6, Blood Urea Nitrogen 9, Creatinine 0.8, Estimat Glomerular Filtration Rate > 60, Glucose Level 57L, Calcium Level 8.4L, Total Bilirubin 0.2 , Aspartate Amino Transf (AST/SGOT) 16, Alanine Aminotransferase (ALT/SGPT) 16, Alkaline Phosphatase 79, Total Protein 7.0, Albumin 1.6L, Globulin 5.4, Albumin/ Globulin Ratio 0.3L Height (Feet): 5 Height (Inches): 11.00 Weight (Pounds): 160 General Appearance: WD/WN, no apparent distress, alert EENT: PERRL/EOMI, pharynx normal Neck: non-tender, normal alignment, supple, normal inspection Cardiovascular: normal peripheral pulses, normal rate, regular rhythm, no JVD Respiratory/Chest: chest wall non-tender, lungs clear, normal breath sounds, no respiratory distress Abdomen: normal bowel sounds, non tender, soft, no mass Extremities: normal range of motion, normal inspection, other - post-surgical sites with dressing clean, dry, intact Edema: no edema noted Arm (L), no edema noted Arm (R), no edema noted Leg (L), no edema noted Leg (R), no edema noted Pedal (L), no edema noted Pedal (R) Neurologic: no motor/sensory deficits, alert, oriented x 3 Skin: normal pigmentation, warm/dry Jacob Wolff M.D. Oct 11, 2019 09:47
--- NOTE | 2019-10-11 11:09 | General Progress Note ---
Progress Note Progress Note Pt seen and examined. Doing well. POD# 2 and POD# 6. WBC is down to 19. If it continues to trend in that way we will proceed as planned with surgery tomorrow. ID on board and appreciate their input. NPO after MN and consent to be signed. MD Taylor Briceño Amir MD Oct 11, 2019 11:09
--- NOTE | 2019-10-11 11:30 | NUR ---
NURSE NOTES: Dr. Wolff notified of blood sugar on AM labs, 57. No further orders.
--- NOTE | 2019-10-11 11:45 | NUR ---
NURSE NOTES: Consent for OR and order for NPO at midnight, reviewed with patient, signed, verbalized understanding.
--- NOTE | 2019-10-11 12:31 | NUR ---
NURSE NOTES: Attempted to remove right axillary dressing, encouraged CHILD DEVELOPMENT TEACHER use prior to dressing change, saturated axillary with almost one liter of NS to ease the packed gauze out, unsuccessful, patient complains of severe pain. Dr. Vazquez notified, orders to leave in place and will be changed in OR tomorrow, patient updated, verbalized understanding. Applied ABD pad with medipore tape to reinforce right axillary. Patient turned side to side with x2 assist, complete bed linen changed.
--- NOTE | 2019-10-11 14:40 | Infectious Diseases Prog Note ---
Assessment/Plan Assessment/Plan ASSESSMENT AND PLAN: 1. bilateral axilla/groin/thigh wound infection/hidradenitis suppurativa, leukocytosis, ? sepsis - polymicrobial infection - meropenem, vancomycin, diflucan - leukocytosis improving - blood cultures negative - s/p excision and debridement - plan on reconstruction surgery - monitor leukocytosis - if continues on downward trend then cleared/stable for surgery from ID standpoint - d/w Dr. Vazquez and Dr. Wolff 2. The patient has history of hidradenitis suppurativa with history of surgery. 3. Anemia. 4. No diabetes or hypertension. 5. Blood sugars have been elevated, hyperglycemia. 6. Allergies to hydromorphone and peanuts. 7. Social history is negative. 8. Family history is noncontributory. 9. MAR was noted. 10. Case was discussed with RN. 11. Case was discussed with Dr. Vazquez. 12. Case was communicated with Dr. Metzger. 13. Continue treatment as per primary consultants. 14. Wound care protocol per Dr. Vazquez. 15. Orders were noted and entered. Subjective Constitutional: Denies: fever HEENT: Denies: congestion Respiratory: Denies: shortness of breath Cardiovascular: Denies: chest pain Gastrointestinal/Abdominal: Denies: nausea, vomiting Genitourinary: Denies: dysuria Neurologic: Denies: headache Psychiatric: Denies: depression Skin: Denies: rash Hematologic: Denies: bleeding Musculoskeletal: Denies: pain Allergies: Coded Allergies: PEANUT (Verified Allergy, Severe, anaphylactic, 10/04/19) HYDROMORPHONE (Verified Allergy, Intermediate, severe nausea, 10/04/19) Objective Last 24 Hour Vital Signs Date Time Temp Pulse Resp B/P (MAP) Pulse Ox O2 Delivery O2 Flow Rate FiO2 10/11/19 12:00 99.0 86 20 123/69 (87) 100 10/11/19 12:00 86 20 100 10/11/19 08:00 81 16 100 10/11/19 08:00 97.9 81 16 116/66 (83) 100 10/11/19 04:00 18 10/11/19 04:00 98.9 96 18 127/74 (91) 99 10/11/19 00:00 18 10/11/19 00:00 99.6 95 18 126/73 (90) 99 10/10/19 23:17 99.6 10/10/19 21:00 Room Air 10/10/19 20:10 97 Nasal Cannula 2.0 28 10/10/19 20:00 20 10/10/19 20:00 100.5 97 20 127/74 (91) 100 10/10/19 16:00 99.3 94 20 123/74 (90) 100 10/10/19 16:00 22 Height (Feet): 5 Height (Inches): 11.00 Weight (Pounds): 160 General Appearance: no acute distress HEENT: normocephalic, atraumatic, anicteric Respiratory/Chest: lungs clear, normal breath sounds, no respiratory distress Cardiovascular: normal rate, regular rhythm, no gallop/murmur Abdomen: normal bowel sounds, soft, non tender, no organomegaly, non distended Genitourinary: other - no benavidez Extremities: no cyanosis Skin: no rash Neurologic/Psychiatric: trumpet teacher II-XII grossly normal, alert, responsive Lymphatic: no neck adenopathy Musculoskeletal: no effusion Chest x-ray - 10/10/19 - Procedure: XRAY Chest 1v Indication: Cough Technique: One view of the chest Comparison: 10/05/2019 Findings: Lungs and pleural spaces are clear. The heart size is normal. There is no significant interim change Impression: Negative Microbiology Date/Time Source Procedure Growth Status 10/08/19 10:25 Blood Blood Culture - Preliminary NO GROWTH AFTER 48 HOURS Resulted 10/02/19 12:00 Nasopharynx Coronavirus COVID-19 PCR ([facility]) - Final Complete 10/04/19 10:26 Groin Gram Stain - Final Complete 10/04/19 10:26 Aerobic Culture - Final Citrobacter Diversus Proteus Mirabilis Usual Skin Pinky Complete 10/04/19 10:26 Anaerobic Culture - Final Bacteroides Merdae Fusobacterium Varium Complete Laboratory Tests Test 10/10/19 23:36 10/11/19 04:35 Vancomycin Level Trough 3.6 ug/mL (5.0-12.0) L White Blood Count 19.4 K/UL (4.8-10.8) H Red Blood Count 3.36 M/UL (4.70-6.10) L Hemoglobin 8.5 G/DL (14.2-18.0) L Hematocrit 27.1 % (42.0-52.0) L Mean Corpuscular Volume 81 FL (80-99) Mean Corpuscular Hemoglobin 25.5 PG (27.0-31.0) L Mean Corpuscular Hemoglobin Concent 31.5 G/DL (32.0-36.0) L Red Cell Distribution Width 17.7 % (11.6-14.8) H Platelet Count 342 K/UL (150-450) Mean Platelet Volume 6.0 FL (6.5-10.1) L Neutrophils (%) (Auto) % (45.0-75.0) Lymphocytes (%) (Auto) % (20.0-45.0) Monocytes (%) (Auto) % (1.0-10.0) Eosinophils (%) (Auto) % (0.0-3.0) Basophils (%) (Auto) % (0.0-2.0) Differential Total Cells Counted 100 Neutrophils % (Manual) 78 % (45-75) H Lymphocytes % (Manual) 8 % (20-45) L Monocytes % (Manual) 10 % (1-10) Eosinophils % (Manual) 3 % (0-3) Basophils % (Manual) 1 % (0-2) Band Neutrophils 0 % (0-8) Platelet Estimate Adequate Platelet Morphology Normal Hypochromasia 2+ Anisocytosis 1+ Sodium Level 136 MMOL/L (136-145) Potassium Level 3.9 MMOL/L (3.5-5.1) Chloride Level 99 MMOL/L (98-107) Carbon Dioxide Level 31 MMOL/L (21-32) Anion Gap 6 mmol/L (5-15) Blood Urea Nitrogen 9 mg/dL (7-18) Creatinine 0.8 MG/DL (0.55-1.30) Estimat Glomerular Filtration Rate > 60 mL/min (>60) Glucose Level 57 MG/DL (74-106) L Calcium Level 8.4 MG/DL (8.5-10.1) L Total Bilirubin 0.2 MG/DL (0.2-1.0) Aspartate Amino Transf (AST/SGOT) 16 U/L (15-37) Alanine Aminotransferase (ALT/SGPT) 16 U/L (12-78) Alkaline Phosphatase 79 U/L (46-116) Total Protein 7.0 G/DL (6.4-8.2) Albumin 1.6 G/DL (3.4-5.0) L Globulin 5.4 g/dL Albumin/Globulin Ratio 0.3 (1.0-2.7) L Current Medications Medications (Trade) Dose Ordered Sig/Flavia Route PRN Reason Start Time Stop Time Status Last Admin Dose Admin Acetaminophen (Tylenol) 650 mg Q4H PRN ORAL Mild Pain (Pain Scale 1-3) 10/04/19 12:30 11/03/19 12:29 Acetaminophen (Tylenol) 650 mg Q4H PRN ORAL FEVER (T>100.5F) 10/09/19 10:00 11/08/19 09:59 10/10/19 21:03 Bisacodyl (Dulcolax) 10 mg HSPRN PRN RECTAL Constipation 10/04/19 15:45 01/02/20 12:29 Dextrose (Dextrose 50%) 25 ml Q30M PRN IV Hypoglycemia 10/04/19 15:45 01/02/20 15:44 Dextrose (Dextrose 50%) 50 ml Q30M PRN IV Hypoglycemia 10/04/19 15:45 01/02/20 15:44 Diphenhydramine HCl (Benadryl) 25 mg Q6H PRN IVP Itching/Pruritis 10/10/19 19:30 10/12/19 19:29 Famotidine (Pepcid) 40 mg DAILY ORAL 10/05/19 09:00 01/03/20 08:59 10/11/19 09:00 Fluconazole/ Sodium Chloride 100 ml @ 100 mls/hr Q24H IV 10/10/19 16:00 10/17/19 15:59 10/10/19 16:43 Heparin Sodium (Porcine) (Heparin 5000 units/ml) 5,000 units EVERY 12 HOURS SUBQ 10/11/19 21:00 10/11/19 23:00 Lorazepam (Ativan) 1 mg Q4H PRN ORAL Muscle Spasm 10/10/19 19:30 10/12/19 19:29 Magnesium Hydroxide (Mom) 30 ml HSPRN PRN ORAL Constipation 10/04/19 12:30 11/03/19 12:29 Meropenem 1 gm/ Sodium Chloride 100 ml @ 200 mls/hr Q8H IVPB 10/10/19 15:00 10/15/19 14:59 10/11/19 07:05 Metoclopramide HCl (Reglan) 10 mg Q6H PRN IVP Nausea & Vomiting 10/09/19 10:00 11/08/19 09:59 Miscellaneous Medication (PILOT CAN ROUTER Rate Change) 1 ea DAILY PRN MISC rate change 10/10/19 19:30 10/12/19 19:29 Miscellaneous Medication (PILOT CAN ROUTER shift volume) 1 ea Q12HR@0700,1900 MISC 10/11/19 07:00 10/13/19 06:59 10/11/19 07:29 Morphine Sulfate 30 ml @ 0 mls/hr Q24H PRN IV For Pain 10/10/19 19:30 10/12/19 19:29 10/10/19 19:38 Naloxone HCl (Narcan) 0.1 mg Q1M PRN IVP RR<10/min OR SBP<90 mmHg 10/10/19 19:30 10/12/19 19:29 Ondansetron HCl (Zofran) 4 mg Q6H PRN IVP Nausea & Vomiting 10/10/19 19:30 10/12/19 19:29 Polyethylene Glycol (Miralax) 17 gm HSPRN PRN ORAL Constipation 10/04/19 12:30 11/03/19 12:29 10/11/19 09:51 Vancomycin HCl (Vanco pharmacy to dose) 1 ea DAILY PRN MISC Per rx protocol 10/08/19 11:00 11/07/19 10:59 Vancomycin HCl 1 gm/Dextrose 275 ml @ 183.708 mls/hr Q8H IVPB 10/11/19 01:00 10/16/19 00:59 10/11/19 09:00 Cale Tsai MD Oct 11, 2019 14:40
--- NOTE | 2019-10-11 14:45 | NUR ---
CASE MANAGEMENT:REVIEW 10/11/19 SI:S/P BILATERAL AXILLARY HIDRADENITIS EXCISION S/P RADICAL EXCISION OF BILATERAL GROIN, BILATERAL THIGH AND PERINEAL REGIONS ADVANCED JAMES STAGE III HIDRADENITIS SUPPURATIVA. 99.0 86 20 123/69 100% ON RA WBC 19.4 H/H 8.5/27.1 BG 57 CA+8.4 ALB 1.6 IS:IV DIFLUCAN QD IV MEROPENEM TID IV VANCOMYCIN BID VITICULTURIST MORPHINE SULFATE HEPARIN SQ BID \: 3E MED SURG STATUS DCP:HOME WHEN STABLE PLAN: MONITOR WBC ~ DECREASING CONT WOUND CARE CONTROL FEVERS NPO RETURN TO OR IN AM ENCOURAGE INCENTIVE SPIROMETER USAGE AMBULATE WITH ASSISTANCE
[2019-10-11] MEDS ORDERED: Tubing IV Blood Pump IV ONE (16:15)
[2019-10-11] MEDS ORDERED: NS Irrig 1000ml ONE (16:15)
[2019-10-11] MEDS ORDERED: NS 500ML ONE (16:15)
--- NOTE | 2019-10-11 19:44 | NUR ---
HAND-OFF: Report given to Axel REAL, rounds made, patient stable. Endorsed patient has not had a BM yet. Plans for OR tomorrow at 1300, NPO at midnight tonight 10/10. PRBC transfusion completed at 1850, no adverse reaction, vitals remained stable. Addendum: 10/11/19 at 2031 by Kim Spangler RN Also last dose of Heparin tonight, then HOLD for 10/11 AM dose.
--- NOTE | 2019-10-11 20:00 | NUR ---
NURSE NOTES: Received patient in bed,aox4, surgical wound dressings are intact. On DETECTIVE CHIEF and IV abx are infusing. Old IV access on right forearm discontinued d/t tenderness New IV access on right forearm. Will continue with plan of care.
[2019-10-11] MEDS: PCA Morphine 1mg/ml 30 ML IV PRN (20:55)
[2019-10-11] MEDS ORDERED: Heparin 5000 units/ml inj SUBQ SCH (21:00)
[2019-10-11] MEDS ORDERED: Tubing IV Secondary IV ONE (21:58)
[2019-10-11] MEDS ORDERED: NS 275ml ONE (21:58)
--- NOTE | 2019-10-11 23:04 | NUR ---
NURSE NOTES: Patient was given MOM as ordered d/t constipation. Explained to patient indications, risks and benefits and s/e of the medication, verbalized understanding.
[2019-10-12] VITALS: BP 112/67
--- NOTE | 2019-10-12 | NUR ---
NURSE NOTES: Patient is placed as NPO for procedure. Food and drinks taken away from reach. Patient verbalized understanding.
[2019-10-12] MEDS: Vancomycin 1gm/D5W 275ml IVPB SCH ×8 (02:29→20:30)
[2019-10-12 04:00] VITALS: BP 132/82
--- NOTE | 2019-10-12 04:22 | NUR ---
NURSE NOTES: Patient had large formed bowel movement. Patient archana-anal was cleaned. Offered to re-do dressing again but patient stated he wants to wait if more will come out. In the mean time, wound was cleaned from stool and fresh ABDs were applied but not yet taped as patient requested, and to wait for more BM. Will continue to monitor. Addendum: 10/12/19 at 0629 by LENORA CAMERON RN RN Offered to change entire bed linen of patient due to wound drainage, patient only allowed RN to change pads underneath, gown and blankets, not fitted sheet. Per patient, "they gonna take it all out in surgery anyway." Explained to patient re: infection prevention and further risk of worsening wounds. Verbalized understanding. Patient was able to barely tolerate dressing change on buttocks/ posterior thigh/ after bowel movement. Encouraged to use DOCUMENTATION COORDINATOR bolus.
[2019-10-12 05:48] LABS: INR 1.1 (0.9-1.1)
[2019-10-12 05:53] LABS: HEMATOCRIT 29.1 % (42.0-52.0); HEMOGLOBIN 9.4 G/DL (14.2-18.0); MEAN CORPUSCULAR VOLUME 82 FL (80-99); PLATELET COUNT 360 K/UL (150-450); RED BLOOD COUNT 3.56 M/UL (4.70-6.10); RED CELL DISTRIBUTION WIDTH 17.4 % (11.6-14.8); WHITE BLOOD COUNT 19.3 K/UL (4.8-10.8)
[2019-10-12 06:09] LABS: ALANINE AMINOTRANSFERASE 15 U/L (12-78); ALBUMIN 1.5 G/DL (3.4-5.0); ALBUMIN/GLOBULIN RATIO 0.3 (1.0-2.7); ALKALINE PHOSPHATASE 104 U/L (46-116); ANION GAP 3 mmol/L (5-15); ASPARTATE AMINO TRANSFERASE 19 U/L (15-37); BILIRUBIN,TOTAL 0.2 MG/DL (0.2-1.0); BLOOD UREA NITROGEN 7 mg/dL (7-18); CALCIUM 8.4 MG/DL (8.5-10.1); CARBON DIOXIDE 32 MMOL/L (21-32); CHLORIDE 101 MMOL/L (98-107); CREATININE 0.8 MG/DL (0.55-1.30); POTASSIUM 3.8 MMOL/L (3.5-5.1); SODIUM 136 MMOL/L (136-145)
--- NOTE | 2019-10-12 07:11 | NUR ---
NURSE NOTES: Report received from Malka REAL, rounds made. Patient sleeping in semi-fowlers position in bed, awakens easily. No distress on RA. Respirations even/unlabored. Dressing to bilateral axillary remains unchanged, right reinforced with ABD, CDI, left soiled, intact. Dressing to bilateral groin, perineal, thigh, buttocks area remains CDI. IV NS at 30 ml/hr with BLUING OVEN TENDER (Morphine) to left AC. RFA, NS at TKO, IV sites asymptomatic. Bilateral SCDs on. Encouraged IS, ankle rotation. Call light in reach, bed in lowest position, will continue to monitor.
[2019-10-12] MEDS: PCA shift volume MISC SCH ×2 (07:20→19:00)
--- NOTE | 2019-10-12 07:21 | NUR ---
HAND-OFF: Report given to Kim REAL. Patient kept NPO p midnight for procedure.
[2019-10-12 08:00] VITALS: BP 115/71
--- NOTE | 2019-10-12 08:49 | General Progress Note ---
Assessment/Plan Problem List: (1) Hidradenitis suppurativa ICD Codes: L73.2 - Hidradenitis suppurativa SNOMED: 33133079 (2) Hypoxia ICD Codes: R09.02 - Hypoxemia SNOMED: 021359062 (3) Acute blood loss anemia ICD Codes: D62 - Acute posthemorrhagic anemia SNOMED: 158079007 (4) Hypoalbuminemia ICD Codes: E88.09 - Other disorders of plasma-protein metabolism, not elsewhere classified SNOMED: 161004165 (5) Hyperglycemia ICD Codes: R73.9 - Hyperglycemia, unspecified SNOMED: 09373392 (6) Leukocytosis ICD Codes: D72.829 - Elevated white blood cell count, unspecified SNOMED: 743635420, 639492446 Status: doing well, stable Assessment/Plan: 24 year old gentleman with no significant PMH presents with acute blood loss anemia after surgery for hydradenitis, now with elevated leukocytosis #Hydradenitis s/p surgical intervention #Fever -resolved #Leukocytosis #Post surgical wound drainage - Continue Fluconazole, Meropenem, Vancomycin per ID recommendations given improving WBC - ID consult appreciate recs - given ongoing leukocytosis not improving despite broad antibiotics and without other evidence of sepsis or other infection, consult Hematology Dr. John -Wound care -Pain control with PCN pump -Surgery following, appreciate recommendations. Tentative plan for groin/thigh reconstruction with Dr. Vazquez. Discussed with Surgery and ID, will hold off on surgery given persistent leukocytosis - NPO after midnight 10/14/2019 for possible reconstruction 10/15/2019 as long as patient's leukocytosis improves #Acute blood loss anemia -Trend CBC closely - S/P 2 units pRBC 10/04/2019 - Transfused 1 unit pRBC 10/07 - Transfused 1 unit pRBC 10/11/2019 in anticipation for possible surgery 2019 with appropriate rise - Iron studies reviewed - Holding DVT ppx #Severe protein deficiency malnutrition #Hypoalbuminemia -Encourage high protein diet to promote wound healing -Nutrition consult for supplementation #Hyperglycemia - resolved -HgA1c 5.7 -DC ISS -Tight glycemic control for wound healing #Post surgical hypoxia - RESOLVED - Incentive spirometry - Early ambulation with assist -CXR reviewed I spent 40 min on this patient with 20 face to face time.Coordinating with Surgery and Infectious Diseases. Discussed plan of care with nursing and charge nurse Subjective Date patient seen: Oct 12, 2019 Time patient seen: 08:45 Constitutional: Denies: chills, fever HEENT: Denies: eye pain, throat swelling Cardiovascular: Denies: chest pain, edema, irregular heart rate Respiratory: Denies: cough, orthopnea, shortness of breath Gastrointestinal/Abdominal: Reports: constipated; Denies: abdomen distended, abdominal pain Genitourinary: Denies: burning, discharge Neurologic/Psychiatric: Denies: weakness Endocrine: Denies: unexplained weight loss Hematologic/Lymphatic: Denies: easy bleeding, easy bruising Allergies: Coded Allergies: PEANUT (Verified Allergy, Severe, anaphylactic, 10/04/19) HYDROMORPHONE (Verified Allergy, Intermediate, severe nausea, 10/04/19) All Systems: reviewed and negative except above Subjective denied fevers, cough, dysuria still. had first BM in over week last evening. pain well controlled at this time Objective Last 24 Hour Vital Signs Date Time Temp Pulse Resp B/P (MAP) Pulse Ox O2 Delivery O2 Flow Rate FiO2 10/12/19 04:00 98.8 96 18 132/82 (99) 97 10/12/19 04:00 96 18 97 10/12/19 00:00 86 18 97 10/12/19 00:00 98.8 86 18 112/67 (82) 97 10/11/19 21:00 Room Air 10/11/19 20:55 18 10/11/19 20:00 89 18 100 10/11/19 20:00 99.8 89 18 111/65 (80) 100 10/11/19 19:10 99 Room Air 21 10/11/19 18:50 99.9 92 18 110/64 (79) 98 10/11/19 17:20 99.7 95 18 115/66 (82) 98 10/11/19 16:00 99.5 90 20 118/62 (80) 100 10/11/19 16:00 90 20 100 10/11/19 15:21 99.3 81 20 120/67 (84) 100 10/11/19 12:00 99.0 86 20 123/69 (87) 100 10/11/19 12:00 86 20 100 10/11/19 09:00 Room Air 10/11/19 08:52 98 Nasal Cannula 2.0 28 Intake and Output 7/23/20 7/24/20 19:00 07:00 Intake Total 1310 ml 1210.000 ml Output Total 2900 ml 1300 ml Balance -1590 ml -90.000 ml Intake Oral 1060 ml 360 ml IV Total 850.000 ml Blood Product 250 ml Output Urine Total 2900 ml 1300 ml # Bowel Movements 1 Laboratory Tests 10/12/19 04:45: White Blood Count 19.3H, Red Blood Count 3.56L, Hemoglobin 9.4L, Hematocrit 29.1L, Mean Corpuscular Volume 82, Mean Corpuscular Hemoglobin 26.3L, Mean Corpuscular Hemoglobin Concent 32.1, Red Cell Distribution Width 17.4H, Platelet Count 360, Mean Platelet Volume 7.0, Neutrophils (%) (Auto) , Lymphocytes (%) (Auto) , Monocytes (%) (Auto) , Eosinophils (%) (Auto) , Basophils (%) (Auto) , Neutrophils % (Manual) [Pending], Lymphocytes % (Manual) [Pending], Platelet Estimate [Pending], Platelet Morphology [Pending], Prothrombin Time 12.0H, Prothromb Time International Ratio 1.1, Activated Partial Thromboplast Time 32, Sodium Level 136, Potassium Level 3.8, Chloride Level 101, Carbon Dioxide Level 32, Anion Gap 3L, Blood Urea Nitrogen 7, Creatinine 0.8, Estimat Glomerular Filtration Rate > 60, Glucose Level 99, Calcium Level 8.4L, Total Bilirubin 0.2, Aspartate Amino Transf (AST/SGOT) 19, Alanine Aminotransferase (ALT/SGPT) 15, Alkaline Phosphatase 104, Total Protein 6.9, Albumin 1.5L, Globulin 5.4, Albumin/Globulin Ratio 0.3L Height (Feet): 5 Height (Inches): 11.00 Weight (Pounds): 160 General Appearance: WD/WN, no apparent distress, alert EENT: PERRL/EOMI, normal ENT inspection, pharynx normal Neck: non-tender, normal alignment, supple, normal inspection Cardiovascular: normal peripheral pulses, normal rate, regular rhythm, no JVD Respiratory/Chest: chest wall non-tender, lungs clear, normal breath sounds, no respiratory distress Abdomen: normal bowel sounds, non tender, soft Extremities: normal range of motion, normal inspection Edema: no edema noted Arm (L), no edema noted Arm (R), no edema noted Leg (L), no edema noted Pedal (L), no edema noted Pedal (R) Neurologic: no motor/sensory deficits, alert, oriented x 3 Skin: normal pigmentation, warm/dry, other - surgical sites dressings in place and clean, intact Jacob Wolff M.D. Oct 12, 2019 08:49
--- NOTE | 2019-10-12 09:30 | General Progress Note ---
Progress Note Progress Note Pt seen and examined. POD# 3 and POD# 8. Had a large BM yesterday. Clinically stable. Wounds look clean and no evidence of cellulitis. However the WBC is still att 19. Given this, will need to postpone the surgery until Tuesday. ID aware and making further recs. Will also get hematology onboard to get their input. Can shower today and will re-assess over the weekend. Jl Pastor MD, MD Oct 12, 2019 09:30
--- NOTE | 2019-10-12 10:16 | Consultation ---
History of Present Illness Present Illness Allergies: Coded Allergies: PEANUT (Verified Allergy, Severe, anaphylactic, 10/04/19) HYDROMORPHONE (Verified Allergy, Intermediate, severe nausea, 10/04/19) Medication History Scheduled PRN Hydrocodone Bit/Acetaminophen 7.5-325* ([place] 7.5-325*), 1 TAB ORAL Q6H PRN for For Pain, (Reported) Patient History Healthcare decision maker Resuscitation status Advanced Directive on File Physical Exam Last 24 Hour Vital Signs Date Time Temp Pulse Resp B/P (MAP) Pulse Ox O2 Delivery O2 Flow Rate FiO2 10/12/19 08:00 99.4 92 19 115/71 (86) 98 10/12/19 04:00 98.8 96 18 132/82 (99) 97 10/12/19 04:00 96 18 97 10/12/19 00:00 86 18 97 10/12/19 00:00 98.8 86 18 112/67 (82) 97 10/11/19 21:00 Room Air 10/11/19 20:55 18 10/11/19 20:00 89 18 100 10/11/19 20:00 99.8 89 18 111/65 (80) 100 10/11/19 19:10 99 Room Air 21 10/11/19 18:50 99.9 92 18 110/64 (79) 98 10/11/19 17:20 99.7 95 18 115/66 (82) 98 10/11/19 16:00 99.5 90 20 118/62 (80) 100 10/11/19 16:00 90 20 100 10/11/19 15:21 99.3 81 20 120/67 (84) 100 10/11/19 12:00 99.0 86 20 123/69 (87) 100 10/11/19 12:00 86 20 100 Intake and Output 10/11/19 10/12/19 19:00 07:00 Intake Total 1310 ml 1210.000 ml Output Total 2900 ml 1300 ml Balance -1590 ml -90.000 ml Intake Oral 1060 ml 360 ml IV Total 850.000 ml Blood Product 250 ml Output Urine Total 2900 ml 1300 ml # Bowel Movements 1 Laboratory Tests Test 10/12/19 04:45 White Blood Count 19.3 K/UL (4.8-10.8) H Red Blood Count 3.56 M/UL (4.70-6.10) L Hemoglobin 9.4 G/DL (14.2-18.0) L Hematocrit 29.1 % (42.0-52.0) L Mean Corpuscular Volume 82 FL (80-99) Mean Corpuscular Hemoglobin 26.3 PG (27.0-31.0) L Mean Corpuscular Hemoglobin Concent 32.1 G/DL (32.0-36.0) Red Cell Distribution Width 17.4 % (11.6-14.8) H Platelet Count 360 K/UL (150-450) Mean Platelet Volume 7.0 FL (6.5-10.1) Neutrophils (%) (Auto) % (45.0-75.0) Lymphocytes (%) (Auto) % (20.0-45.0) Monocytes (%) (Auto) % (1.0-10.0) Eosinophils (%) (Auto) % (0.0-3.0) Basophils (%) (Auto) % (0.0-2.0) Differential Total Cells Counted 100 Neutrophils % (Manual) 75 % (45-75) Lymphocytes % (Manual) 13 % (20-45) L Monocytes % (Manual) 5 % (1-10) Eosinophils % (Manual) 7 % (0-3) H Basophils % (Manual) 0 % (0-2) Band Neutrophils 0 % (0-8) Platelet Estimate Adequate Platelet Morphology Normal Hypochromasia 1+ Anisocytosis 1+ Prothrombin Time 12.0 SEC (9.30-11.50) H Prothromb Time International Ratio 1.1 (0.9-1.1) Activated Partial Thromboplast Time 32 SEC (23-33) Sodium Level 136 MMOL/L (136-145) Potassium Level 3.8 MMOL/L (3.5-5.1) Chloride Level 101 MMOL/L (98-107) Carbon Dioxide Level 32 MMOL/L (21-32) Anion Gap 3 mmol/L (5-15) L Blood Urea Nitrogen 7 mg/dL (7-18) Creatinine 0.8 MG/DL (0.55-1.30) Estimat Glomerular Filtration Rate > 60 mL/min (>60) Glucose Level 99 MG/DL (74-106) Calcium Level 8.4 MG/DL (8.5-10.1) L Total Bilirubin 0.2 MG/DL (0.2-1.0) Aspartate Amino Transf (AST/SGOT) 19 U/L (15-37) Alanine Aminotransferase (ALT/SGPT) 15 U/L (12-78) Alkaline Phosphatase 104 U/L (46-116) Total Protein 6.9 G/DL (6.4-8.2) Albumin 1.5 G/DL (3.4-5.0) L Globulin 5.4 g/dL Albumin/Globulin Ratio 0.3 (1.0-2.7) L Height (Feet): 5 Height (Inches): 11.00 Weight (Pounds): 160 Medications Current Medications Medications (Trade) Dose Ordered Sig/Flavia Route PRN Reason Start Time Stop Time Status Last Admin Dose Admin Acetaminophen (Tylenol) 650 mg Q4H PRN ORAL Mild Pain (Pain Scale 1-3) 10/04/19 12:30 11/03/19 12:29 Acetaminophen (Tylenol) 650 mg Q4H PRN ORAL FEVER (T>100.5F) 10/09/19 10:00 11/08/19 09:59 10/10/19 21:03 Bisacodyl (Dulcolax) 10 mg HSPRN PRN RECTAL Constipation 10/04/19 15:45 01/02/20 12:29 Dextrose (Dextrose 50%) 25 ml Q30M PRN IV Hypoglycemia 10/04/19 15:45 01/02/20 15:44 Dextrose (Dextrose 50%) 50 ml Q30M PRN IV Hypoglycemia 10/04/19 15:45 01/02/20 15:44 Diphenhydramine HCl (Benadryl) 25 mg Q6H PRN IVP Itching/Pruritis 10/10/19 19:30 10/12/19 19:29 Famotidine (Pepcid) 40 mg DAILY ORAL 10/05/19 09:00 01/03/20 08:59 10/11/19 09:00 Fluconazole/ Sodium Chloride 100 ml @ 100 mls/hr Q24H IV 10/10/19 16:00 10/17/19 15:59 10/11/19 19:13 Heparin Sodium (Porcine) (Heparin 5000 units/ml) 5,000 units EVERY 12 HOURS SUBQ 10/12/19 09:00 11/26/19 08:59 Lorazepam (Ativan) 1 mg Q4H PRN ORAL Muscle Spasm 10/10/19 19:30 10/12/19 19:29 Magnesium Hydroxide (Mom) 30 ml HSPRN PRN ORAL Constipation 10/04/19 12:30 11/03/19 12:29 10/11/19 22:25 Meropenem 1 gm/ Sodium Chloride 100 ml @ 200 mls/hr Q8H IVPB 10/10/19 15:00 10/15/19 14:59 10/12/19 06:15 Metoclopramide HCl (Reglan) 10 mg Q6H PRN IVP Nausea & Vomiting 10/09/19 10:00 11/08/19 09:59 Miscellaneous Medication (CIVIL CAD DESIGNER Rate Change) 1 ea DAILY PRN MISC rate change 10/10/19 19:30 10/12/19 19:29 Miscellaneous Medication (CIVIL CAD DESIGNER shift volume) 1 ea Q12HR@0700,1900 MISC 10/11/19 07:00 10/13/19 06:59 10/12/19 07:20 Morphine Sulfate 30 ml @ 0 mls/hr Q24H PRN IV For Pain 10/10/19 19:30 10/12/19 19:29 10/11/19 20:55 Naloxone HCl (Narcan) 0.1 mg Q1M PRN IVP RR<10/min OR SBP<90 mmHg 10/10/19 19:30 10/12/19 19:29 Ondansetron HCl (Zofran) 4 mg Q6H PRN IVP Nausea & Vomiting 10/10/19 19:30 10/12/19 19:29 Polyethylene Glycol (Miralax) 17 gm DAILY ORAL 10/13/19 09:00 11/12/19 08:59 Vancomycin HCl (Vanco pharmacy to dose) 1 ea DAILY PRN MISC Per rx protocol 10/08/19 11:00 11/07/19 10:59 Vancomycin HCl 1 gm/Dextrose 275 ml @ 183.708 mls/hr Q8H IVPB 10/11/19 01:00 10/16/19 00:59 10/12/19 02:29 Assessment/Plan Assessment/Plan: Hematology Consultaiton GERTRUDE TOUSSAINT: Jacob Vazquez [facility] [place] Acute blood loss anemia, leukocytosis HPI 24 year old gentleman with no significant PMH presented few days ago with ith acute blood loss anemia after surgery with Dr. Vazquez for excision of bilateral hydradenitis with flap elevation. Estimated blood loss during the surgery was 200cc. CBC after surgery showed and a hemiglobin of 7.3 and a Hct of 23.7. Currently patient is in post of recovery resting comfortably and pain is well controlled. Pateint victor manuel be admitted to med surg floor for close monitoring of H/H, pain control and IV antibiotics for SSTI s/p surgical intervention. At this time, noted to have a elevarted wbc that has persisted, reviewed initial counts as well and has been elevated since admission, heme consulted for eval and rx. Allergies: PEANUT (Verified Allergy, Severe, anaphylactic, 10/04/19) HYDROMORPHONE (Verified Allergy, Intermediate, severe nausea, 10/04/19) COVID-19 Screening Contact w/high risk pt: No Experienced COVID-19 symptoms?: No Medication History Scheduled PRN Hydrocodone Bit/Acetaminophen 7.5-325* ([place] 7.5-325*), 1 TAB ORAL Q6H PRN for For Pain, (Reported) Patient History History Provided By: Patient Healthcare decision maker Resuscitation status Advanced Directive on File Review of Systems Constitutional: Reports: no symptoms; Denies: chills, sweats, fever, malaise Eye: Reports: no symptoms ENT: Reports: no symptoms Respiratory: Reports: no symptoms; Denies: cough Cardiovascular: Reports: no symptoms; Denies: chest pain Gastrointestinal: Reports: no symptoms; Denies: abdominal pain Genitourinary: Denies: retention, incontinence, urgency Skin: Reports: lesions, other - surgical wound with drainage Psychiatric: Reports: no symptoms Neurological: Reports: no symptoms Endocrine: Reports: no symptoms Hematologic/Lymphatic: Reports: anemia All Other Systems: negative except mentioned in HPI Physical Exam: Vitals: reviewed General: NAD HEENT: nc, at Neck: supple Chest: clear breath sounds bilaterally Cardiovascular: RRR, no s3, s4 Abdomen: soft, nontender, nd Extremities: no cce, normal range of motion Skin: normal pigmentation, warm/dry, other - surgical sites dressings in place and clean, intact Neuro: alert and oriented Labs: noted Imaging: noted Assessment and Recs # Leukocytosis/elevated white blood cell count, unspecified likely related to underlying stress reaction, smoking v more likely is from surgery and may take 2 -3 weeks to resolve, par for the course --> have reviewed peripheral smear and bandemia/neutrophilia noted --> continue antibiotics if they have been started by ID team --> monitor for resolution --> flow cytometry has been ordered --> inflammatory markers are elevated --> ID recs noted # Anemia with Acute blood loss anemia ---> Trend CBC closely --> S/P 2 units pRBC 10/04/2019 --> Transfused 1 unit pRBC 10/07, 10/10 --> Iron studies reviewed # Hydradenitis s/p surgical intervention --> per surgery ==> Fever -resolved # Post surgical wound drainage --> abx per id --> wound care --> Pain control with PCN pump --> may need reconstruction 10/14 # Severe protein deficiency malnutrition # Hypoalbuminemia # Hyperglycemia - resolved # Post surgical hypoxia - RESOLVED # Dvt ppx ambulation The timing of this note does not necessarily reflect the time of the patient was seen. Greatly appreciate consultation. Juan Alberto John MD Oct 12, 2019 10:16
--- NOTE | 2019-10-12 10:20 | NUR ---
*-* INSURANCE *-* UPDATED CLINICALS HAVE BEEN FAXED TO: HIRAL F:[phone]
[2019-10-12] MEDS: Heparin 5000 units/ml inj SUBQ SCH ×2 (10:28→21:00)
[2019-10-12 12:00] VITALS: BP 135/77
[2019-10-12] MEDS ORDERED: Lidocaine 1% Plain 30 ml INJ PRN (13:20)
[2019-10-12] MEDS ORDERED: Heparin1,000 units/500ml Premix(Conc:2 units/ml) IV PRN (13:20)
[2019-10-12] MEDS: PCA Morphine 1mg/ml 30 ML IV PRN (13:47)
--- NOTE | 2019-10-12 14:00 | NUR ---
CASE MANAGEMENT:REVIEW SI;POD #3 BILATERAL AXILLA HIDRADENITIS EXCISION S/P RADICAL EXCISION OF BILATERAL GROIN, BILATERAL THIGH AND PERINEAL REGIONS ADVANCED JAMES STAGE III HIDRADENITIS SUPPURATIVA. 99.9 96 19 132/82 98% ON RA WBC 19.3 ESR 101 CRP 21.9 ALB 1.5 IS;VANCOMYCIN IV Q8 HEPARIN SUBQ Q12 MORPHINE IV PCN MEROPENEM IV Q24 FLUCONAZOLE IV Q24 REGLAN IV Q6 PRN PEPCID PO QD 3E MED SURG STATUS DCP;FROM HOME PLAN; REPEAT SURGERY WHEN WBC DECREASE INCENTIVE SPIROMETER ENCOURAGE HIGH PROTEIN DIET TO ENCOURAGE WOUND HEALING PAIN CONTROL CONTINUE BROAD SPECTRUM ABX
[2019-10-12 16:00] VITALS: BP 116/65
--- NOTE | 2019-10-12 17:00 | NUR ---
NURSE NOTES: All dressings removed as ordered by Dr. Vazquez, prior to his rounds (814). Dr. Vazquez attempted to remove bilateral axillary dressings, only able to do partial removal due to patient c/o pain. Patient sent to shower, as ordered, with mom's help (to assist the axillary dressing removal). Unsuccessful. RN attempted to saturate axillary sites with NS using sterile bulb syringe, unsuccessful. Will attempt again and complete dressings as ordered. Patient sent down for PICC line, but was not able to have placed due to location. Dr. Wolff notified. No further orders.
--- NOTE | 2019-10-12 17:13 | NUR ---
NURSE NOTES:DR. MEDINA INFORMED RE:RADIOLOGY UNABLE TO PLACE PICC LINE ORDERED BY DR. LANDEROS SECONDARY TO PT.HAS BILATERAL AXILLARY WOUND.
--- NOTE | 2019-10-12 17:50 | NUR ---
NURSE NOTES: Patient's mother was able to extract the remaining gauze from bilateral axillary. New dressings applied to bilateral axillary as ordered (xeroform, wet to dry, ABD, medipore). New dressings applied to bilateral groin/perineal area, as ordered (wet to dry, ABD, medipore). Patient encouraged to use SLOPE TENDER prior and throughout dressing change. Patient tolerated fair.
--- NOTE | 2019-10-12 19:36 | NUR ---
HAND-OFF: Report given to Mona RN, rounds made, patient stable.
[2019-10-12 20:00] VITALS: BP 117/68
[2019-10-12] MEDS: Dyna-Hex 2% Top Sol 2oz TOPIC SCH (20:00)
--- NOTE | 2019-10-12 20:29 | NUR ---
nurse's notes: received patient asleep but easily arousable; denies any pain; bilateral axillary and groin dressing recently changed and is CDI; on CW OPERATOR Morphine; VSS; in no apparent distress; plan of care discussed with patient who verbalized understanding and agreement,.
[2019-10-13] VITALS (7 sets, daily range): BP systolic 112–130; BP diastolic 59–68
[2019-10-13] MEDS: Vancomycin 1gm/D5W 275ml IVPB SCH ×6 (04:39→20:24)
[2019-10-13 05:54] LABS: BASOPHILS % (AUTO) 0.5 % (0.0-2.0); EOSINOPHILS % (AUTO) 3.8 % (0.0-3.0); HEMATOCRIT 30.1 % (42.0-52.0); HEMOGLOBIN 9.5 G/DL (14.2-18.0); MEAN CORPUSCULAR VOLUME 82 FL (80-99); NEUTROPHILS % (AUTO) 78.7 % (45.0-75.0); PLATELET COUNT 401 K/UL (150-450); RED BLOOD COUNT 3.67 M/UL (4.70-6.10); RED CELL DISTRIBUTION WIDTH 17.6 % (11.6-14.8); WHITE BLOOD COUNT 17.3 K/UL (4.8-10.8)
--- NOTE | 2019-10-13 06:47 | NUR ---
nurse's notes: no significant changes noted this shift; dressings on the bilateral axillary and bilateral groin remains CDI; pain managed well with CONSTRUCTION SALES REPRESENTATIVE morphine; did not require anything for breakthrough pain; encouraged patient to increase activity; patient verbalized understanding but seems quite hesitant to do so; all due meds given. will continue to monitor.
[2019-10-13] MEDS ORDERED: Rate Change PCA 1 Each MISC PRN (08:00)
[2019-10-13] MEDS ORDERED: PCA Morphine 1mg/ml 30 ML IV PRN (08:00)
[2019-10-13] MEDS ORDERED: Naloxone 0.4mg/ml Inj IVP PRN (08:00)
--- NOTE | 2019-10-13 08:30 | NUR ---
NURSE NOTES: Received report from Mona REAL. Patient is awake and oriented, in no apparent distress, reporting no pain at this time. Surgical site dressings clean, dry, intact. SCD's in place. IV's intact patent. Flores to gravity drainage. Notified Dr. Vaqzuez that MANAGER STORE order , received order from MD to renew MANAGER STORE morphine at same settings. Syringe changed 10/12/[address] with settings verified against order. Per pharmacist sathya Leon to use syringe that was placed 10/12/19 at 1347. Patient updated on plan of care. Side rails upx2, bed low and locked, call light within reach.
--- NOTE | 2019-10-13 09:10 | NUR ---
NURSE NOTES: Spoke to regarding patient and new operations research manager consult order received. Order read back and carried out.
--- NOTE | 2019-10-13 09:15 | General Progress Note ---
Progress Note Progress Note Pt seen and examined. Doing well. Dressings changed yesterday after patient showered.WBC down to 17. Will proceed to OR on Tuesday for definitive closure of the perineal and groin wounds. Appreciate ID an Marli consults NPO after MN tomorrow and consent in chart. MD Taylor Briceño Amir MD Oct 13, 2019 09:15
--- NOTE | 2019-10-13 09:16 | NUR ---
NURSE NOTES: Per Dr. Vazquez, sign/witness consent for bilateral groin surgery as ordered on 10/11/19, per MD consent is the same. Surgery scheduled 10/14 at 0700 per .
[2019-10-13] MEDS: Miralax 17gm pkt ORAL SCH (09:22)
[2019-10-13] MEDS: Heparin 5000 units/ml inj SUBQ SCH ×2 (09:23→20:23)
--- NOTE | 2019-10-13 09:33 | NUR ---
NURSE NOTES: Per Dr. Vazquez, cancel daily CBC. Order entered.
--- NOTE | 2019-10-13 09:39 | Anethesia Preoperative Eval ---
Anesthesia Pre-op PMH/ROS General Date of Evaluation: Oct 13, 2019 Time of Evaluation: 09:42 Anesthesiologist: Gretel ASA Score: ASA 2 Mallampati Score Class I : Soft palate, uvula, fauces, pillars visible Class II: Soft palate, uvula, fauces visible Class III: Soft palate, base of uvula visible Class IV: Only hard plate visible Mallampati Classification: Class II Surgeon: Taylor Diagnosis: Hidradenitis Surgical Procedure: Flap Closure of Groin and Perineal Wounds Family History: no anesthesia problems Allergies: Coded Allergies: PEANUT (Verified Allergy, Severe, anaphylactic, 10/04/19) HYDROMORPHONE (Verified Allergy, Intermediate, severe nausea, 10/04/19) Medications: see eMAR Patient NPO?: Yes NPO Date: Oct 09, 2019 NPO Time: 00:01 Past Medical History Pulmonary: Reports: asthma Gastrointestinal/Genitourinary: Reports: GERD Neurologic/Psychiatric: Reports: depression/anxiety Hematology/Immune: Reports: anemia Musculoskeletal/Integumentary: Reports: other - Hidradenitis Perineum Anesthesia Pre-op Phys. Exam Physician Exam Last Vital Signs Date Time Temp Pulse Resp B/P (MAP) Pulse Ox O2 Delivery O2 Flow Rate FiO2 10/13/19 06:30 97 Room Air 21 10/13/19 04:00 98.4 83 17 130/63 (85) 10/11/19 08:52 2.0 Constitutional: NAD Neurologic: CN 2-12 intact Cardiovascular: RRR Respiratory: CTA Gastrointestinal: S/NT/ND Airway Exam Mallampati Score: Class II MO: full ROM: full Teeth: intact Anesthesia Pre-op A/P Labs Hematology Test 10/13/19 04:50 White Blood Count 17.3 K/UL (4.8-10.8) H Red Blood Count 3.67 M/UL (4.70-6.10) L Hemoglobin 9.5 G/DL (14.2-18.0) L Hematocrit 30.1 % (42.0-52.0) L Mean Corpuscular Volume 82 FL (80-99) Mean Corpuscular Hemoglobin 25.8 PG (27.0-31.0) L Mean Corpuscular Hemoglobin Concent 31.5 G/DL (32.0-36.0) L Red Cell Distribution Width 17.6 % (11.6-14.8) H Platelet Count 401 K/UL (150-450) Mean Platelet Volume 7.1 FL (6.5-10.1) Neutrophils (%) (Auto) 78.7 % (45.0-75.0) H Lymphocytes (%) (Auto) 11.0 % (20.0-45.0) L Monocytes (%) (Auto) 6.0 % (1.0-10.0) Eosinophils (%) (Auto) 3.8 % (0.0-3.0) H Basophils (%) (Auto) 0.5 % (0.0-2.0) Risk Assessment & Plan Assessment: ASA 2 Plan: GA Status Change Before Surgery: No Pre-Antibiotics Drug: Gideon De Jesus MD Oct 13, 2019 09:39
[2019-10-13] MEDS ORDERED: NS Irrig 1000ml ONE (10:12)
[2019-10-13] MEDS ORDERED: NS 500ML ONE (10:12)
--- NOTE | 2019-10-13 10:41 | General Progress Note ---
Assessment/Plan Problem List: (1) Hidradenitis suppurativa ICD Codes: L73.2 - Hidradenitis suppurativa SNOMED: 88439794 (2) Hypoxia ICD Codes: R09.02 - Hypoxemia SNOMED: 516909834 (3) Acute blood loss anemia ICD Codes: D62 - Acute posthemorrhagic anemia SNOMED: 883307604 (4) Hypoalbuminemia ICD Codes: E88.09 - Other disorders of plasma-protein metabolism, not elsewhere classified SNOMED: 139313219 (5) Hyperglycemia ICD Codes: R73.9 - Hyperglycemia, unspecified SNOMED: 77476476 (6) Leukocytosis ICD Codes: D72.829 - Elevated white blood cell count, unspecified SNOMED: 761776031, 394298919 Status: doing well, stable Assessment/Plan: 24 year old gentleman with no significant PMH presents with acute blood loss anemia after surgery for hydradenitis, now with elevated leukocytosis #Hydradenitis s/p surgical intervention #Fever -resolved #Leukocytosis - improving #Post surgical wound drainage - Continue Fluconazole, Meropenem, Vancomycin per ID recommendations given improving WBC - WBC improved to 17 on 10/13/2019 - Hematology Dr. John consulted, appreciate recommendations. Likely stress reaction, but will follow up flow cytometry - will hold off on checking repeat CBC given clinical stability at this time as well as trend of improving stress reaction - ID consult appreciate recs -Wound care -Pain control with PCN pump -Surgery following, appreciate recommendations. Tentative plan for groin/thigh reconstruction with Dr. Vazquez. Discussed with Surgery, ID, Hematology- Oncology - NPO after midnight 10/14/2019 for reconstruction 10/15/2019, confirmed with Dr. Vazquez #Acute blood loss anemia : STABLE - S/P 2 units pRBC 10/04/2019 - Transfused 1 unit pRBC 10/07 - Transfused 1 unit pRBC 10/11/2019 in anticipation for possible surgery 2019 with appropriate rise - Iron studies reviewed - Holding DVT ppx - will repeat CBC post-operatively #Severe protein deficiency malnutrition #Hypoalbuminemia -Encourage high protein diet to promote wound healing -Nutrition consult for supplementation #Hyperglycemia - resolved -HgA1c 5.7 -DC ISS -Tight glycemic control for wound healing #Post surgical hypoxia - RESOLVED - Incentive spirometry - Early ambulation with assist -CXR reviewed I spent 40 min on this patient with 20 face to face time.Coordinating with Surgery and Infectious Diseases as well as Hematology-Oncology. Discussed plan of care with nursing Subjective Date patient seen: Oct 13, 2019 Time patient seen: 08:00 Constitutional: Denies: chills, diaphoresis, fever HEENT: Denies: eye pain, blurred vision, double vision Cardiovascular: Denies: chest pain, edema, irregular heart rate Respiratory: Denies: cough, orthopnea, shortness of breath Gastrointestinal/Abdominal: Denies: abdomen distended, abdominal pain, diarrhea , nausea, vomiting Genitourinary: Denies: burning, discharge, frequency Neurologic/Psychiatric: Denies: anxiety, depressed Endocrine: Denies: unexplained weight loss Hematologic/Lymphatic: Denies: easy bleeding, easy bruising Allergies: Coded Allergies: PEANUT (Verified Allergy, Severe, anaphylactic, 10/04/19) HYDROMORPHONE (Verified Allergy, Intermediate, severe nausea, 10/04/19) All Systems: reviewed and negative except above Subjective denied fevers, cough, dysuria still. pain well controlled Objective Last 24 Hour Vital Signs Date Time Temp Pulse Resp B/P (MAP) Pulse Ox O2 Delivery O2 Flow Rate FiO2 10/13/19 08:15 16 10/13/19 08:00 98.0 72 16 112/59 (76) 95 10/13/19 06:30 97 Room Air 21 10/13/19 04:00 98.4 83 17 130/63 (85) 99 10/13/19 04:00 83 17 99 10/13/19 00:00 80 18 98 10/13/19 00:00 98.8 85 18 120/65 (83) 98 10/12/19 21:00 Room Air 10/12/19 20:00 80 18 98 10/12/19 20:00 98.6 80 18 117/68 (84) 98 10/12/19 19:06 99 Room Air 21 10/12/19 16:00 89 20 98 10/12/19 16:00 97.7 89 20 116/65 (82) 98 10/12/19 14:49 99 Room Air 21 10/12/19 12:00 86 20 97 10/12/19 12:00 98.7 86 20 135/77 (96) 97 Intake and Output 10/12/19 10/13/19 19:00 07:00 Intake Total 600 ml 1190.000 ml Output Total 1800 ml 1050 ml Balance -1200 ml 140.000 ml Intake Oral 600 ml 240 ml IV Total 950.000 ml Output Urine Total 1800 ml 1050 ml Laboratory Tests 10/13/19 04:50: White Blood Count 17.3H, Red Blood Count 3.67L, Hemoglobin 9.5L, Hematocrit 30.1L, Mean Corpuscular Volume 82, Mean Corpuscular Hemoglobin 25.8L, Mean Corpuscular Hemoglobin Concent 31.5L, Red Cell Distribution Width 17.6H, Platelet Count 401, Mean Platelet Volume 7.1, Neutrophils (%) (Auto) 78.7H, Lymphocytes (%) (Auto) 11.0L, Monocytes (%) (Auto) 6.0, Eosinophils (%) (Auto) 3.8H, Basophils (%) (Auto) 0.5 Height (Feet): 5 Height (Inches): 11.00 Weight (Pounds): 160 General Appearance: WD/WN, no apparent distress, alert EENT: PERRL/EOMI, normal ENT inspection, pharynx normal Neck: non-tender, normal alignment, supple, normal inspection Cardiovascular: normal peripheral pulses, normal rate, regular rhythm, no gallop/murmur, no JVD Respiratory/Chest: chest wall non-tender, lungs clear, normal breath sounds Abdomen: normal bowel sounds, soft, no mass Pelvis: no active bleeding Extremities: normal range of motion, normal inspection, other - inguinal and axillary post-surgical sites with dressing intact are clean, dry Edema: no edema noted Arm (L), no edema noted Arm (R), no edema noted Leg (L), no edema noted Leg (R), no edema noted Pedal (L), no edema noted Pedal (R) Neurologic: no motor/sensory deficits, alert, oriented x 3, responsive Jacob Wolff M.D. Oct 13, 2019 10:41
--- NOTE | 2019-10-13 12:11 | Hematology/Onc Progress Note ---
Assessment/Plan Assessment/Plan Assessment and Recs # Leukocytosis/elevated white blood cell count, unspecified likely related to underlying stress reaction, smoking v more likely is from surgery and may take 2 -3 weeks to resolve, par for the course --> have reviewed peripheral smear and bandemia/neutrophilia noted --> continue antibiotics if they have been started by ID team --> monitor for resolution --> flow cytometry has been ordered --> inflammatory markers are elevated --> ID recs noted --> heme end cleared for surgery --> wbc 17 # Anemia with Acute blood loss anemia ---> Trend CBC closely --> S/P 2 units pRBC 10/04/2019 --> Transfused 1 unit pRBC 10/07, 10/10 --> Iron studies reviewed --> hgb 9.5 # Hydradenitis s/p surgical intervention --> per surgery ==> Fever -resolved, and cleared by heme # Post surgical wound drainage --> abx per id --> wound care --> Pain control with PCN pump --> may need reconstruction 10/14 # Severe protein deficiency malnutrition # Hypoalbuminemia # Hyperglycemia - resolved # Post surgical hypoxia - RESOLVED # Dvt ppx ambulation The timing of this note does not necessarily reflect the time of the patient was seen. Greatly appreciate consultation. Subjective Constitutional: Denies: no symptoms, chills, fever, malaise, weakness, other HEENT: Denies: no symptoms, eye pain, blurred vision, tearing, double vision, ear pain, ear discharge, nose pain, nose congestion, throat pain, throat swelling, mouth pain, mouth swelling, other Cardiovascular: Denies: no symptoms, chest pain, edema, irregular heart rate, lightheadedness, palpitations, syncope, other Respiratory: Denies: no symptoms, cough, shortness of breath, SOB with excertion, SOB at rest, sputum, wheezing, other Gastrointestinal/Abdominal: Denies: no symptoms, abdomen distended, abdominal pain, black stools, tarry stools, blood in stool, constipated, diarrhea, difficulty swallowing, nausea, poor appetite, poor fluid intake, rectal bleeding , vomiting, other Genitourinary: Denies: no symptoms, burning, discharge, frequency, flank pain, hematuria, incontinence, pain, urgency, other Neurologic/Psychiatric: Denies: no symptoms, anxiety, depressed, emotional problems, headache, numbness, paresthesia, pre-existing deficit, seizure, tingling, tremors, weakness, other Endocrine: Denies: no symptoms, excessive sweating, flushing, intolerance to cold, intolerance to heat, increased hunger, increased thirst, increased urine, unexplained weight gain, unexplained weight loss, other Hematologic/Lymphatic: Denies: no symptoms, anemia, easy bleeding, easy bruising, adenopathy, other Allergies: Coded Allergies: PEANUT (Verified Allergy, Severe, anaphylactic, 10/04/19) HYDROMORPHONE (Verified Allergy, Intermediate, severe nausea, 10/04/19) Subjective 10/12 labs noted, clear for surgery from heme end, seen by Taylor Objective Objective Current Medications Medications (Trade) Dose Ordered Sig/Flavia Route PRN Reason Start Time Stop Time Status Last Admin Dose Admin Acetaminophen (Tylenol) 650 mg Q4H PRN ORAL Mild Pain (Pain Scale 1-3) 10/04/19 12:30 11/03/19 12:29 Acetaminophen (Tylenol) 650 mg Q4H PRN ORAL FEVER (T>100.5F) 10/09/19 10:00 11/08/19 09:59 10/10/19 21:03 Bisacodyl (Dulcolax) 10 mg HSPRN PRN RECTAL Constipation 10/04/19 15:45 01/02/20 12:29 Chlorhexidine Gluconate (Lucrecia-Hex 2%) 1 applic DAILY@1999 TOPIC 10/12/19 20:00 01/10/20 19:59 Dextrose (Dextrose 50%) 25 ml Q30M PRN IV Hypoglycemia 10/04/19 15:45 01/02/20 15:44 Dextrose (Dextrose 50%) 50 ml Q30M PRN IV Hypoglycemia 10/04/19 15:45 01/02/20 15:44 Famotidine (Pepcid) 40 mg DAILY ORAL 10/05/19 09:00 01/03/20 08:59 10/13/19 09:22 Fluconazole/ Sodium Chloride 100 ml @ 100 mls/hr Q24H IV 10/10/19 16:00 10/17/19 15:59 10/12/19 17:43 Heparin Sodium (Porcine) (Heparin 5000 units/ml) 5,000 units EVERY 12 HOURS SUBQ 10/12/19 09:00 11/26/19 08:59 10/13/19 09:23 Magnesium Hydroxide (Mom) 30 ml HSPRN PRN ORAL Constipation 10/04/19 12:30 11/03/19 12:29 10/11/19 22:25 Meropenem 1 gm/ Sodium Chloride 100 ml @ 200 mls/hr Q8H IVPB 10/10/19 15:00 10/15/19 14:59 10/13/19 06:17 Metoclopramide HCl (Reglan) 10 mg Q6H PRN IVP Nausea & Vomiting 10/09/19 10:00 11/08/19 09:59 Miscellaneous Medication (COUNSELING AIDE Rate Change) 1 ea DAILY PRN MISC rate change 10/13/19 08:00 10/15/19 07:59 Miscellaneous Medication (COUNSELING AIDE shift volume) 1 ea Q12HR@0700,1900 MISC 10/13/19 19:00 10/15/19 18:59 Morphine Sulfate 30 ml @ 0 mls/hr Q24H PRN IV For Pain 10/13/19 08:00 10/15/19 07:59 Naloxone HCl (Narcan) 0.1 mg Q1M PRN IVP RR<10/min OR SBP<90 mmHg 10/13/19 08:00 10/15/19 07:59 Polyethylene Glycol (Miralax) 17 gm DAILY ORAL 10/13/19 09:00 11/12/19 08:59 10/13/19 09:22 Vancomycin HCl (Vanco pharmacy to dose) 1 ea DAILY PRN MISC Per rx protocol 10/08/19 11:00 11/07/19 10:59 Vancomycin HCl 1 gm/Dextrose 275 ml @ 183.708 mls/hr Q8H IVPB 10/12/19 20:30 10/16/19 23:59 10/13/19 04:39 Last 24 Hour Vital Signs Date Time Temp Pulse Resp B/P (MAP) Pulse Ox O2 Delivery O2 Flow Rate FiO2 10/13/19 09:00 Room Air 10/13/19 08:15 16 10/13/19 08:00 98.0 72 16 112/59 (76) 95 10/13/19 06:30 97 Room Air 21 10/13/19 04:00 98.4 83 17 130/63 (85) 99 10/13/19 04:00 83 17 99 10/13/19 00:00 80 18 98 10/13/19 00:00 98.8 85 18 120/65 (83) 98 10/12/19 21:00 Room Air 10/12/19 20:00 80 18 98 10/12/19 20:00 98.6 80 18 117/68 (84) 98 10/12/19 19:06 99 Room Air 21 10/12/19 16:00 89 20 98 10/12/19 16:00 97.7 89 20 116/65 (82) 98 10/12/19 14:49 99 Room Air 21 10/12/19 12:00 86 20 97 10/12/19 12:00 98.7 86 20 135/77 (96) 97 10/12/19 09:00 Room Air 10/12/19 08:00 92 19 98 10/12/19 08:00 99.4 92 19 115/71 (86) 98 10/12/19 04:00 98.8 96 18 132/82 (99) 97 10/12/19 04:00 96 18 97 10/12/19 00:00 86 18 97 10/12/19 00:00 98.8 86 18 112/67 (82) 97 10/11/19 21:00 Room Air 10/11/19 20:55 18 10/11/19 20:00 89 18 100 10/11/19 20:00 99.8 89 18 111/65 (80) 100 10/11/19 19:10 99 Room Air 21 10/11/19 18:50 99.9 92 18 110/64 (79) 98 10/11/19 17:20 99.7 95 18 115/66 (82) 98 10/11/19 16:00 99.5 90 20 118/62 (80) 100 10/11/19 16:00 90 20 100 10/11/19 15:21 99.3 81 20 120/67 (84) 100 Intake and Output 10/12/19 10/13/19 19:00 07:00 Intake Total 600 ml 1190.000 ml Output Total 1800 ml 1050 ml Balance -1200 ml 140.000 ml Intake Oral 600 ml 240 ml IV Total 950.000 ml Output Urine Total 1800 ml 1050 ml Labs Test 10/10/19 23:36 10/11/19 04:35 7/24/20 04:45 10/13/19 04:50 Vancomycin Level Trough 3.6 ug/mL (5.0-12.0) White Blood Count 19.4 K/UL (4.8-10.8) 19.3 K/UL (4.8-10.8) 17.3 K/UL (4.8-10.8) Red Blood Count 3.36 M/UL (4.70-6.10) 3.56 M/UL (4.70-6.10) 3.67 M/UL (4.70-6.10) Hemoglobin 8.5 G/DL (14.2-18.0) 9.4 G/DL (14.2-18.0) 9.5 G/DL (14.2-18.0) Hematocrit 27.1 % (42.0-52.0) 29.1 % (42.0-52.0) 30.1 % (42.0-52.0) Mean Corpuscular Volume 81 FL (80-99) 82 FL (80-99) 82 FL (80-99) Mean Corpuscular Hemoglobin 25.5 PG (27.0-31.0) 26.3 PG (27.0-31.0) 25.8 PG (27.0-31.0) Mean Corpuscular Hemoglobin Concent 31.5 G/DL (32.0-36.0) 32.1 G/DL (32.0-36.0) 31.5 G/DL (32.0-36.0) Red Cell Distribution Width 17.7 % (11.6-14.8) 17.4 % (11.6-14.8) 17.6 % (11.6-14.8) Platelet Count 342 K/UL (150-450) 360 K/UL (150-450) 401 K/UL (150-450) Mean Platelet Volume 6.0 FL (6.5-10.1) 7.0 FL (6.5-10.1) 7.1 FL (6.5-10.1) Neutrophils (%) (Auto) % (45.0-75.0) % (45.0-75.0) 78.7 % (45.0-75.0) Lymphocytes (%) (Auto) % (20.0-45.0) % (20.0-45.0) 11.0 % (20.0-45.0) Monocytes (%) (Auto) % (1.0-10.0) % (1.0-10.0) 6.0 % (1.0-10.0) Eosinophils (%) (Auto) % (0.0-3.0) % (0.0-3.0) 3.8 % (0.0-3.0) Basophils (%) (Auto) % (0.0-2.0) % (0.0-2.0) 0.5 % (0.0-2.0) Differential Total Cells Counted 100 100 Neutrophils % (Manual) 78 % (45-75) 75 % (45-75) Lymphocytes % (Manual) 8 % (20-45) 13 % (20-45) Monocytes % (Manual) 10 % (1-10) 5 % (1-10) Eosinophils % (Manual) 3 % (0-3) 7 % (0-3) Basophils % (Manual) 1 % (0-2) 0 % (0-2) Band Neutrophils 0 % (0-8) 0 % (0-8) Platelet Estimate Adequate Adequate Platelet Morphology Normal Normal Hypochromasia 2+ 1+ Anisocytosis 1+ 1+ Sodium Level 136 MMOL/L (136-145) 136 MMOL/L (136-145) Potassium Level 3.9 MMOL/L (3.5-5.1) 3.8 MMOL/L (3.5-5.1) Chloride Level 99 MMOL/L (98-107) 101 MMOL/L (98-107) Carbon Dioxide Level 31 MMOL/L (21-32) 32 MMOL/L (21-32) Anion Gap 6 mmol/L (5-15) 3 mmol/L (5-15) Blood Urea Nitrogen 9 mg/dL (7-18) 7 mg/dL (7-18) Creatinine 0.8 MG/DL (0.55-1.30) 0.8 MG/DL (0.55-1.30) Estimat Glomerular Filtration Rate > 60 mL/min (>60) > 60 mL/min (>60) Glucose Level 57 MG/DL (74-106) 99 MG/DL (74-106) Calcium Level 8.4 MG/DL (8.5-10.1) 8.4 MG/DL (8.5-10.1) Total Bilirubin 0.2 MG/DL (0.2-1.0) 0.2 MG/DL (0.2-1.0) Aspartate Amino Transf (AST/SGOT) 16 U/L (15-37) 19 U/L (15-37) Alanine Aminotransferase (ALT/SGPT) 16 U/L (12-78) 15 U/L (12-78) Alkaline Phosphatase 79 U/L (46-116) 104 U/L (46-116) Total Protein 7.0 G/DL (6.4-8.2) 6.9 G/DL (6.4-8.2) Albumin 1.6 G/DL (3.4-5.0) 1.5 G/DL (3.4-5.0) Globulin 5.4 g/dL 5.4 g/dL Albumin/Globulin Ratio 0.3 (1.0-2.7) 0.3 (1.0-2.7) Erythrocyte Sedimentation Rate 101 MM/HR (0-15) Prothrombin Time 12.0 SEC (9.30-11.50) Prothromb Time International Ratio 1.1 (0.9-1.1) Activated Partial Thromboplast Time 32 SEC (23-33) C-Reactive Protein, Quantitative 21.9 mg/dL (0.00-0.90) Height (Feet): 5 Height (Inches): 11.00 Weight (Pounds): 160 Objective Physical Exam: Vitals: reviewed General: NAD HEENT: nc, at Neck: supple Chest: clear breath sounds bilaterally Cardiovascular: RRR, no s3, s4 Abdomen: soft, nontender, nd Extremities: no cce, normal range of motion Skin: normal pigmentation, warm/dry, other - surgical sites dressings in place and clean, intact Neuro: alert and oriented Juan Alberto John MD Oct 13, 2019 12:11
--- NOTE | 2019-10-13 18:00 | NUR ---
NURSE NOTES: Patient had normal, formed BM. Patient turned, cleaned, groin dressing reinforced.
--- NOTE | 2019-10-13 18:16 | Infectious Diseases Prog Note ---
Assessment/Plan Assessment/Plan ASSESSMENT AND PLAN: 1. bilateral axilla/groin/thigh wound infection/hidradenitis suppurativa, leukocytosis, ? sepsis - polymicrobial infection - meropenem, vancomycin, diflucan -day # 3 - leukocytosis improving - downward trend to 17.3 - blood cultures negative - s/p excision and debridement - plan on reconstruction surgery - patient cleared/stable for surgery from ID standpoint - monitor creatinine on abx 2. The patient has history of hidradenitis suppurativa with history of surgery. 3. Anemia. 4. No diabetes or hypertension. 5. Blood sugars have been elevated, hyperglycemia. 6. Allergies to hydromorphone and peanuts. 7. Social history is negative. 8. Family history is noncontributory. 9. MAR was noted. 10. Case was discussed with RN. 11. Case was discussed with Dr. Vazquez. 12. Case was communicated with Dr. Metzger. 13. Continue treatment as per primary consultants. 14. Wound care protocol per Dr. Vazquez. 15. Orders were noted and entered. Subjective Constitutional: Denies: fever HEENT: Denies: congestion Respiratory: Denies: shortness of breath Cardiovascular: Denies: chest pain Gastrointestinal/Abdominal: Denies: nausea Genitourinary: Denies: dysuria, hematuria Neurologic: Denies: headache, numbness Psychiatric: Denies: depression Skin: Denies: rash Hematologic: Denies: bleeding Musculoskeletal: Denies: pain Allergies: Coded Allergies: PEANUT (Verified Allergy, Severe, anaphylactic, 10/04/19) HYDROMORPHONE (Verified Allergy, Intermediate, severe nausea, 10/04/19) Objective Last 24 Hour Vital Signs Date Time Temp Pulse Resp B/P (MAP) Pulse Ox O2 Delivery O2 Flow Rate FiO2 10/13/19 16:00 98.6 83 16 115/59 (77) 98 10/13/19 16:00 16 10/13/19 12:00 99.1 83 16 123/59 (80) 99 10/13/19 12:00 16 10/13/19 09:00 Room Air 10/13/19 08:15 16 10/13/19 08:00 98.0 72 16 112/59 (76) 95 10/13/19 06:30 97 Room Air 21 10/13/19 04:00 98.4 83 17 130/63 (85) 99 10/13/19 04:00 83 17 99 10/13/19 00:00 80 18 98 10/13/19 00:00 98.8 85 18 120/65 (83) 98 10/12/19 21:00 Room Air 10/12/19 20:00 80 18 98 10/12/19 20:00 98.6 80 18 117/68 (84) 98 10/12/19 19:06 99 Room Air 21 Height (Feet): 5 Height (Inches): 11.00 Weight (Pounds): 160 General Appearance: no acute distress HEENT: normocephalic, atraumatic, anicteric, mucous membranes moist Respiratory/Chest: lungs clear, normal breath sounds, no respiratory distress, no accessory muscle use Cardiovascular: normal rate, regular rhythm, no gallop/murmur, no JVD Abdomen: normal bowel sounds, soft, non tender, no organomegaly, non distended Genitourinary: other - + foely Extremities: no cyanosis Skin: no rash Neurologic/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 The heart size is normal. There is no significant interim change Impression: Negative Microbiology Date/Time Source Procedure Growth Status 10/10/19 10:15 Blood Blood Culture - Preliminary NO GROWTH AFTER 48 HOURS Resulted 10/02/19 12:00 Nasopharynx Coronavirus COVID-19 PCR ([facility]) - Final Complete 10/04/19 10:26 Groin Gram Stain - Final Complete 10/04/19 10:26 Aerobic Culture - Final Citrobacter Diversus Proteus Mirabilis Usual Skin Pinky Complete 10/04/19 10:26 Anaerobic Culture - Final Bacteroides Merdae Fusobacterium Varium Complete Labs Test 10/10/19 23:36 10/11/19 04:35 10/12/19 04:45 10/13/19 04:50 Vancomycin Level Trough 3.6 ug/mL (5.0-12.0) White Blood Count 19.4 K/UL (4.8-10.8) 19.3 K/UL (4.8-10.8) 17.3 K/UL (4.8-10.8) Red Blood Count 3.36 M/UL (4.70-6.10) 3.56 M/UL (4.70-6.10) 3.67 M/UL (4.70-6.10) Hemoglobin 8.5 G/DL (14.2-18.0) 9.4 G/DL (14.2-18.0) 9.5 G/DL (14.2-18.0) Hematocrit 27.1 % (42.0-52.0) 29.1 % (42.0-52.0) 30.1 % (42.0-52.0) Mean Corpuscular Volume 81 FL (80-99) 82 FL (80-99) 82 FL (80-99) Mean Corpuscular Hemoglobin 25.5 PG (27.0-31.0) 26.3 PG (27.0-31.0) 25.8 PG (27.0-31.0) Mean Corpuscular Hemoglobin Concent 31.5 G/DL (32.0-36.0) 32.1 G/DL (32.0-36.0) 31.5 G/DL (32.0-36.0) Red Cell Distribution Width 17.7 % (11.6-14.8) 17.4 % (11.6-14.8) 17.6 % (11.6-14.8) Platelet Count 342 K/UL (150-450) 360 K/UL (150-450) 401 K/UL (150-450) Mean Platelet Volume 6.0 FL (6.5-10.1) 7.0 FL (6.5-10.1) 7.1 FL (6.5-10.1) Neutrophils (%) (Auto) % (45.0-75.0) % (45.0-75.0) 78.7 % (45.0-75.0) Lymphocytes (%) (Auto) % (20.0-45.0) % (20.0-45.0) 11.0 % (20.0-45.0) Monocytes (%) (Auto) % (1.0-10.0) % (1.0-10.0) 6.0 % (1.0-10.0) Eosinophils (%) (Auto) % (0.0-3.0) % (0.0-3.0) 3.8 % (0.0-3.0) Basophils (%) (Auto) % (0.0-2.0) % (0.0-2.0) 0.5 % (0.0-2.0) Differential Total Cells Counted 100 100 Neutrophils % (Manual) 78 % (45-75) 75 % (45-75) Lymphocytes % (Manual) 8 % (20-45) 13 % (20-45) Monocytes % (Manual) 10 % (1-10) 5 % (1-10) Eosinophils % (Manual) 3 % (0-3) 7 % (0-3) Basophils % (Manual) 1 % (0-2) 0 % (0-2) Band Neutrophils 0 % (0-8) 0 % (0-8) Platelet Estimate Adequate Adequate Platelet Morphology Normal Normal Hypochromasia 2+ 1+ Anisocytosis 1+ 1+ Sodium Level 136 MMOL/L (136-145) 136 MMOL/L (136-145) Potassium Level 3.9 MMOL/L (3.5-5.1) 3.8 MMOL/L (3.5-5.1) Chloride Level 99 MMOL/L (98-107) 101 MMOL/L (98-107) Carbon Dioxide Level 31 MMOL/L (21-32) 32 MMOL/L (21-32) Anion Gap 6 mmol/L (5-15) 3 mmol/L (5-15) Blood Urea Nitrogen 9 mg/dL (7-18) 7 mg/dL (7-18) Creatinine 0.8 MG/DL (0.55-1.30) 0.8 MG/DL (0.55-1.30) Estimat Glomerular Filtration Rate > 60 mL/min (>60) > 60 mL/min (>60) Glucose Level 57 MG/DL (74-106) 99 MG/DL (74-106) Calcium Level 8.4 MG/DL (8.5-10.1) 8.4 MG/DL (8.5-10.1) Total Bilirubin 0.2 MG/DL (0.2-1.0) 0.2 MG/DL (0.2-1.0) Aspartate Amino Transf (AST/SGOT) 16 U/L (15-37) 19 U/L (15-37) Alanine Aminotransferase (ALT/SGPT) 16 U/L (12-78) 15 U/L (12-78) Alkaline Phosphatase 79 U/L (46-116) 104 U/L (46-116) Total Protein 7.0 G/DL (6.4-8.2) 6.9 G/DL (6.4-8.2) Albumin 1.6 G/DL (3.4-5.0) 1.5 G/DL (3.4-5.0) Globulin 5.4 g/dL 5.4 g/dL Albumin/Globulin Ratio 0.3 (1.0-2.7) 0.3 (1.0-2.7) Erythrocyte Sedimentation Rate 101 MM/HR (0-15) Prothrombin Time 12.0 SEC (9.30-11.50) Prothromb Time International Ratio 1.1 (0.9-1.1) Activated Partial Thromboplast Time 32 SEC (23-33) C-Reactive Protein, Quantitative 21.9 mg/dL (0.00-0.90) Laboratory Tests Test 10/13/19 04:50 White Blood Count 17.3 K/UL (4.8-10.8) H Red Blood Count 3.67 M/UL (4.70-6.10) L Hemoglobin 9.5 G/DL (14.2-18.0) L Hematocrit 30.1 % (42.0-52.0) L Mean Corpuscular Volume 82 FL (80-99) Mean Corpuscular Hemoglobin 25.8 PG (27.0-31.0) L Mean Corpuscular Hemoglobin Concent 31.5 G/DL (32.0-36.0) L Red Cell Distribution Width 17.6 % (11.6-14.8) H Platelet Count 401 K/UL (150-450) Mean Platelet Volume 7.1 FL (6.5-10.1) Neutrophils (%) (Auto) 78.7 % (45.0-75.0) H Lymphocytes (%) (Auto) 11.0 % (20.0-45.0) L Monocytes (%) (Auto) 6.0 % (1.0-10.0) Eosinophils (%) (Auto) 3.8 % (0.0-3.0) H Basophils (%) (Auto) 0.5 % (0.0-2.0) Current Medications Medications (Trade) Dose Ordered Sig/Flavia Route PRN Reason Start Time Stop Time Status Last Admin Dose Admin Acetaminophen (Tylenol) 650 mg Q4H PRN ORAL Mild Pain (Pain Scale 1-3) 10/04/19 12:30 11/03/19 12:29 Acetaminophen (Tylenol) 650 mg Q4H PRN ORAL FEVER (T>100.5F) 10/09/19 10:00 11/08/19 09:59 10/10/19 21:03 Bisacodyl (Dulcolax) 10 mg HSPRN PRN RECTAL Constipation 10/04/19 15:45 01/02/20 12:29 Chlorhexidine Gluconate (Lucrecia-Hex 2%) 1 applic DAILY@2000 TOPIC 10/12/19 20:00 01/10/20 19:59 Dextrose (Dextrose 50%) 25 ml Q30M PRN IV Hypoglycemia 10/04/19 15:45 01/02/20 15:44 Dextrose (Dextrose 50%) 50 ml Q30M PRN IV Hypoglycemia 10/04/19 15:45 01/02/20 15:44 Famotidine (Pepcid) 40 mg DAILY ORAL 10/05/19 09:00 01/03/20 08:59 10/13/19 09:22 Fluconazole/ Sodium Chloride 100 ml @ 100 mls/hr Q24H IV 10/10/19 16:00 10/17/19 15:59 10/13/19 16:23 Heparin Sodium (Porcine) (Heparin 5000 units/ml) 5,000 units EVERY 12 HOURS SUBQ 10/12/19 09:00 11/26/19 08:59 10/13/19 09:23 Magnesium Hydroxide (Mom) 30 ml HSPRN PRN ORAL Constipation 10/04/19 12:30 11/03/19 12:29 10/11/19 22:25 Meropenem 1 gm/ Sodium Chloride 100 ml @ 200 mls/hr Q8H IVPB 10/10/19 15:00 10/15/19 14:59 10/13/19 15:44 Metoclopramide HCl (Reglan) 10 mg Q6H PRN IVP Nausea & Vomiting 10/09/19 10:00 11/08/19 09:59 Miscellaneous Medication (SIGNAL WORKER HELPER Rate Change) 1 ea DAILY PRN MISC rate change 10/13/19 08:00 10/15/19 07:59 Miscellaneous Medication (SIGNAL WORKER HELPER shift volume) 1 ea Q12HR@0700,1900 MISC 10/13/19 19:00 10/15/19 18:59 Morphine Sulfate 30 ml @ 0 mls/hr Q24H PRN IV For Pain 10/13/19 08:00 10/15/19 07:59 Naloxone HCl (Narcan) 0.1 mg Q1M PRN IVP RR<10/min OR SBP<90 mmHg 10/13/19 08:00 10/15/19 07:59 Polyethylene Glycol (Miralax) 17 gm DAILY ORAL 10/13/19 09:00 11/12/19 08:59 10/13/19 09:22 Vancomycin HCl (Vanco pharmacy to dose) 1 ea DAILY PRN MISC Per rx protocol 10/08/19 11:00 11/07/19 10:59 Vancomycin HCl 1 gm/Dextrose 275 ml @ 183.708 mls/hr Q8H IVPB 10/12/19 20:30 10/16/19 23:59 10/13/19 13:50 Cale Tsai MD Oct 13, 2019 18:16
[2019-10-13] MEDS: PCA shift volume MISC SCH (19:14)
--- NOTE | 2019-10-13 19:28 | NUR ---
HAND-OFF: Report given to Mona REAL.
[2019-10-13] MEDS: Dyna-Hex 2% Top Sol 2oz TOPIC SCH (20:00)
[2019-10-14] VITALS: BP 115/61
[2019-10-14 04:00] VITALS: BP 124/65
[2019-10-14 04:50] LABS: ANION GAP 5 mmol/L (5-15); BLOOD UREA NITROGEN 7 mg/dL (7-18); CALCIUM 8.3 MG/DL (8.5-10.1); CARBON DIOXIDE 31 MMOL/L (21-32); CHLORIDE 102 MMOL/L (98-107); CREATININE 0.7 MG/DL (0.55-1.30); POTASSIUM 4.1 MMOL/L (3.5-5.1); SODIUM 138 MMOL/L (136-145)
[2019-10-14] MEDS: Vancomycin 1gm/D5W 275ml IVPB SCH ×2 (05:24)
--- NOTE | 2019-10-14 06:42 | NUR ---
nurse's notes: dressing of bilateral groin changed due to soilage and moderate amount of drainage;encouraged patient to use DEFENSE ATTORNEY during procedure; tolerated well; also noted a small amount of drainage in the bilateral axillary dressing but remains intact; no other complaints received; encouraged to increase activity; patient seems hesitant to do so due to pain; vss; will continue to monitor.
[2019-10-14] MEDS: PCA shift volume MISC SCH ×2 (07:00→19:12)
--- NOTE | 2019-10-14 07:15 | NUR ---
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 Pt has Lt AC 20G locked , RT AC 20 G with IVF , will continue to monitor
[2019-10-14 08:00] VITALS: BP 119/63
[2019-10-14] MEDS: Miralax 17gm pkt ORAL SCH ×2 (08:37→08:39)
[2019-10-14] MEDS: Heparin 5000 units/ml inj SUBQ SCH ×2 (08:38→20:20)
--- NOTE | 2019-10-14 09:00 | General Progress Note ---
Assessment/Plan Problem List: (1) Hidradenitis suppurativa ICD Codes: L73.2 - Hidradenitis suppurativa SNOMED: 92471808 (2) Hypoxia ICD Codes: R09.02 - Hypoxemia SNOMED: 534486180 (3) Acute blood loss anemia ICD Codes: D62 - Acute posthemorrhagic anemia SNOMED: 755710337 (4) Hypoalbuminemia ICD Codes: E88.09 - Other disorders of plasma-protein metabolism, not elsewhere classified SNOMED: 240506966 (5) Hyperglycemia ICD Codes: R73.9 - Hyperglycemia, unspecified SNOMED: 13887358 (6) Leukocytosis ICD Codes: D72.829 - Elevated white blood cell count, unspecified SNOMED: 757134496, 544894072 Status: doing well, stable Assessment/Plan: 24 year old gentleman with no significant PMH presents with acute blood loss anemia after surgery for hydradenitis, now with elevated leukocytosis #Hydradenitis s/p surgical intervention #Fever -resolved #Leukocytosis - improving #Post surgical wound drainage - Continue Fluconazole, Meropenem, Vancomycin per ID recommendations given improving WBC - WBC improved to 17 on 10/13/2019 - Hematology Dr. John consulted, appreciate recommendations. Likely stress reaction, but will follow up flow cytometry. He is cleared to proceed with surgery from a Hematology perspective - will hold off on checking repeat CBC given clinical stability at this time as well as trend of improving stress reaction - ID consult appreciate recs -Wound care -Pain control with PCN pump -Surgery following, appreciate recommendations. Tentative plan for groin/thigh reconstruction with Dr. Vazquez. Discussed with Surgery, ID, Hematology- Oncology - NPO after midnight 10/14/2019 for reconstruction 10/15/2019, confirmed with Dr. Vazquez - will need PT evaluation as well as placement for rehab following reconstruction #Acute blood loss anemia : STABLE - S/P 2 units pRBC 10/04/2019 - Transfused 1 unit pRBC 10/07 - Transfused 1 unit pRBC 10/11/2019 in anticipation for possible surgery 2019 with appropriate rise - Iron studies reviewed - Holding DVT ppx - will repeat CBC post-operatively #Severe protein deficiency malnutrition #Hypoalbuminemia -Encourage high protein diet to promote wound healing -Nutrition consult for supplementation #Hyperglycemia - resolved -HgA1c 5.7 -DC ISS -Tight glycemic control for wound healing #Post surgical hypoxia - RESOLVED - Incentive spirometry - Early ambulation with assist -CXR reviewed #FEN/GI - NPO after midnight for surgery 10/14 - hold subQ heparin morning of 10/14, will restart 12-24 hours after surgery pending progress I spent 38 min on this patient with 20 face to face time.Coordinating with Surgery and Infectious Diseases as well as Hematology-Oncology. Discussed plan of care with nursing Subjective Date patient seen: Oct 14, 2019 Time patient seen: 07:30 Constitutional: Denies: chills, fever HEENT: Denies: eye pain, blurred vision, double vision Cardiovascular: Denies: chest pain, edema, irregular heart rate Respiratory: Denies: cough, orthopnea, shortness of breath Gastrointestinal/Abdominal: Denies: abdomen distended, abdominal pain, nausea, vomiting Genitourinary: Denies: burning, discharge, frequency Neurologic/Psychiatric: Denies: depressed, headache Endocrine: Denies: excessive sweating, intolerance to cold, intolerance to heat Hematologic/Lymphatic: Denies: easy bleeding, easy bruising Allergies: Coded Allergies: PEANUT (Verified Allergy, Severe, anaphylactic, 10/04/19) HYDROMORPHONE (Verified Allergy, Intermediate, severe nausea, 10/04/19) All Systems: reviewed and negative except above Subjective denied fevers, cough, dysuria still. pain well controlled. understands plan for surgery tomorrow morning Objective Last 24 Hour Vital Signs Date Time Temp Pulse Resp B/P (MAP) Pulse Ox O2 Delivery O2 Flow Rate FiO2 10/14/19 08:00 99.3 78 18 119/63 (81) 98 10/14/19 04:00 98.1 83 16 124/65 (84) 99 10/14/19 04:00 16 10/14/19 00:00 18 10/14/19 00:00 98.3 83 19 115/61 (79) 98 10/13/19 21:00 Room Air 10/13/19 20:16 98 Room Air 21 10/13/19 20:01 98.9 88 17 117/66 (83) 100 10/13/19 20:00 17 10/13/19 16:00 98.6 83 16 115/59 (77) 98 10/13/19 16:00 16 10/13/19 12:00 99.1 83 16 123/59 (80) 99 10/13/19 12:00 16 10/13/19 09:00 Room Air Intake and Output 10/13/19 10/14/19 19:00 07:00 Intake Total 1275 ml 715.000 ml Output Total 1650 ml 750 ml Balance -375 ml -35.000 ml Intake Oral 800 ml 240 ml IV Total 475 ml 475.000 ml Output Urine Total 1650 ml 750 ml # Bowel Movements 1 Laboratory Tests 10/14/19 04:00: Sodium Level 138, Potassium Level 4.1, Chloride Level 102, Carbon Dioxide Level 31, Anion Gap 5, Blood Urea Nitrogen 7, Creatinine 0.7, Estimat Glomerular Filtration Rate > 60, Glucose Level 98, Calcium Level 8.3L, Vancomycin Level Trough 8.1 Height (Feet): 5 Height (Inches): 11.00 Weight (Pounds): 160 General Appearance: WD/WN, no apparent distress, alert EENT: PERRL/EOMI, normal ENT inspection, pharynx normal Neck: non-tender, normal alignment, supple, normal inspection Cardiovascular: normal peripheral pulses, normal rate, regular rhythm, no JVD Respiratory/Chest: chest wall non-tender, lungs clear, normal breath sounds, no respiratory distress Abdomen: normal bowel sounds, non tender, no mass Pelvis: no active bleeding Extremities: normal range of motion, no calf tenderness Edema: no edema noted Arm (L), no edema noted Arm (R), no edema noted Leg (L), no edema noted Leg (R), no edema noted Pedal (L), no edema noted Pedal (R) Neurologic: no motor/sensory deficits, alert, oriented x 3, responsive, normal mood/affect Skin: normal pigmentation, warm/dry Jacob Wolff M.D. Oct 14, 2019 09:00
[2019-10-14] MEDS: Vancomycin 1.25gm/NS Premix IVPB SCH ×2 (11:22→20:19)
[2019-10-14 12:00] VITALS: BP 127/61
--- NOTE | 2019-10-14 12:50 | Hematology/Onc Progress Note ---
Assessment/Plan Assessment/Plan Assessment and Recs # Leukocytosis/elevated white blood cell count, unspecified likely related to underlying stress reaction, smoking v more likely is from surgery and may take 2 -3 weeks to resolve, par for the course --> have reviewed peripheral smear and bandemia/neutrophilia noted --> continue antibiotics if they have been started by ID team --> monitor for resolution --> inflammatory markers are elevated, esr 101, crp 19!! --> ID recs noted --> flow cytometry has been ordered --> wbc 17->17 --> heme end cleared for surgery # Anemia with Acute blood loss anemia ---> Trend CBC closely --> S/P 2 units pRBC 10/04/2019 --> Transfused 1 unit pRBC 10/07, 10/10 --> Iron studies reviewed --> hgb 9.5 # Hydradenitis s/p surgical intervention --> per surgery ==> Fever -resolved, and cleared by heme # Post surgical wound drainage --> abx per id --> wound care --> Pain control with PCN pump --> may need reconstruction 10/14 # Severe protein deficiency malnutrition # Hypoalbuminemia # Hyperglycemia - resolved # Post surgical hypoxia - RESOLVED # Dvt ppx ambulation The timing of this note does not necessarily reflect the time of the patient was seen. Greatly appreciate consultation. Subjective Constitutional: Denies: no symptoms, chills, fever, malaise, weakness, other HEENT: Denies: no symptoms, eye pain, blurred vision, tearing, double vision, ear pain, ear discharge, nose pain, nose congestion, throat pain, throat swelling, mouth pain, mouth swelling, other Cardiovascular: Denies: no symptoms, chest pain, edema, irregular heart rate, lightheadedness, palpitations, syncope, other Genitourinary: Denies: no symptoms, burning, discharge, frequency, flank pain, hematuria, incontinence, pain, urgency, other Neurologic/Psychiatric: Denies: no symptoms, anxiety, depressed, emotional problems, headache, numbness, paresthesia, pre-existing deficit, seizure, tingling, tremors, weakness, other Endocrine: Denies: no symptoms, excessive sweating, flushing, intolerance to cold, intolerance to heat, increased hunger, increased thirst, increased urine, unexplained weight gain, unexplained weight loss, other Allergies: Coded Allergies: PEANUT (Verified Allergy, Severe, anaphylactic, 10/04/19) HYDROMORPHONE (Verified Allergy, Intermediate, severe nausea, 10/04/19) Subjective 10/12 labs noted, clear for surgery from heme end, seen by Taylor 10/13 labs noted, no bleeding, meds noted, no hemolysis for surgery shortly Objective Objective Current Medications Medications (Trade) Dose Ordered Sig/Flavia Route PRN Reason Start Time Stop Time Status Last Admin Dose Admin Acetaminophen (Tylenol) 650 mg Q4H PRN ORAL Mild Pain (Pain Scale 1-3) 10/04/19 12:30 11/03/19 12:29 Acetaminophen (Tylenol) 650 mg Q4H PRN ORAL FEVER (T>100.5F) 10/09/19 10:00 11/08/19 09:59 10/10/19 21:03 Bisacodyl (Dulcolax) 10 mg HSPRN PRN RECTAL Constipation 10/04/19 15:45 01/02/20 12:29 Chlorhexidine Gluconate (Lucrecia-Hex 2%) 1 applic DAILY@2000 TOPIC 10/12/19 20:00 01/10/20 19:59 Dextrose (Dextrose 50%) 25 ml Q30M PRN IV Hypoglycemia 10/04/19 15:45 01/02/20 15:44 Dextrose (Dextrose 50%) 50 ml Q30M PRN IV Hypoglycemia 10/04/19 15:45 01/02/20 15:44 Famotidine (Pepcid) 40 mg DAILY ORAL 10/05/19 09:00 01/03/20 08:59 10/14/19 08:37 Fluconazole/ Sodium Chloride 100 ml @ 100 mls/hr Q24H IV 10/10/19 16:00 10/17/19 15:59 10/13/19 16:23 Heparin Sodium (Porcine) (Heparin 5000 units/ml) 5,000 units EVERY 12 HOURS SUBQ 10/14/19 09:00 10/14/19 21:00 10/14/19 08:38 Magnesium Hydroxide (Mom) 30 ml HSPRN PRN ORAL Constipation 10/04/19 12:30 11/03/19 12:29 10/11/19 22:25 Meropenem 1 gm/ Sodium Chloride 100 ml @ 200 mls/hr Q8H IVPB 10/13/19 23:00 10/18/19 22:59 10/14/19 06:33 Metoclopramide HCl (Reglan) 10 mg Q6H PRN IVP Nausea & Vomiting 10/09/19 10:00 11/08/19 09:59 Miscellaneous Medication (SOFTWARE DEVELOPMENT COORDINATOR Rate Change) 1 ea DAILY PRN MISC rate change 10/13/19 08:00 10/15/19 07:59 Miscellaneous Medication (SOFTWARE DEVELOPMENT COORDINATOR shift volume) 1 ea Q12HR@0700,1900 MISC 10/13/19 19:00 10/15/19 18:59 10/14/19 07:00 Morphine Sulfate 30 ml @ 0 mls/hr Q24H PRN IV For Pain 10/13/19 08:00 10/15/19 07:59 10/13/19 22:40 Naloxone HCl (Narcan) 0.1 mg Q1M PRN IVP RR<10/min OR SBP<90 mmHg 10/13/19 08:00 10/15/19 07:59 Polyethylene Glycol (Miralax) 17 gm DAILY ORAL 10/13/19 09:00 11/12/19 08:59 10/14/19 08:37 Vancomycin HCl (Vanco pharmacy to dose) 1 ea DAILY PRN MISC Per rx protocol 10/08/19 11:00 11/07/19 10:59 Vancomycin/Sodium Chloride 275 ml @ 183.333 mls/hr Q8HR@0400,1200,2000 IVPB 10/14/19 12:00 10/19/19 11:59 10/14/19 11:22 Last 24 Hour Vital Signs Date Time Temp Pulse Resp B/P (MAP) Pulse Ox O2 Delivery O2 Flow Rate FiO2 10/14/19 08:00 99.3 78 18 119/63 (81) 98 10/14/19 08:00 18 10/14/19 04:00 98.1 83 16 124/65 (84) 99 10/14/19 04:00 16 10/14/19 00:00 18 10/14/19 00:00 98.3 83 19 115/61 (79) 98 10/13/19 21:00 Room Air 10/13/19 20:16 98 Room Air 21 10/13/19 20:01 98.9 88 17 117/66 (83) 100 10/13/19 20:00 17 10/13/19 16:00 98.6 83 16 115/59 (77) 98 10/13/19 16:00 16 10/13/19 12:00 99.1 83 16 123/59 (80) 99 10/13/19 12:00 16 10/13/19 09:00 Room Air 10/13/19 08:15 16 10/13/19 08:00 98.0 72 16 112/59 (76) 95 10/13/19 06:30 97 Room Air 21 10/13/19 04:00 98.4 83 17 130/63 (85) 99 10/13/19 04:00 83 17 99 10/13/19 00:00 80 18 98 10/13/19 00:00 98.8 85 18 120/65 (83) 98 10/12/19 21:00 Room Air 10/12/19 20:00 80 18 98 10/12/19 20:00 98.6 80 18 117/68 (84) 98 10/12/19 19:06 99 Room Air 21 10/12/19 16:00 89 20 98 10/12/19 16:00 97.7 89 20 116/65 (82) 98 10/12/19 14:49 99 Room Air 21 Intake and Output 10/13/19 10/14/19 19:00 07:00 Intake Total 1275 ml 715.000 ml Output Total 1650 ml 750 ml Balance -375 ml -35.000 ml Intake Oral 800 ml 240 ml IV Total 475 ml 475.000 ml Output Urine Total 1650 ml 750 ml # Bowel Movements 1 Labs Test 10/12/19 04:45 10/13/19 04:50 10/14/19 04:00 White Blood Count 19.3 K/UL (4.8-10.8) 17.3 K/UL (4.8-10.8) Red Blood Count 3.56 M/UL (4.70-6.10) 3.67 M/UL (4.70-6.10) Hemoglobin 9.4 G/DL (14.2-18.0) 9.5 G/DL (14.2-18.0) Hematocrit 29.1 % (42.0-52.0) 30.1 % (42.0-52.0) Mean Corpuscular Volume 82 FL (80-99) 82 FL (80-99) Mean Corpuscular Hemoglobin 26.3 PG (27.0-31.0) 25.8 PG (27.0-31.0) Mean Corpuscular Hemoglobin Concent 32.1 G/DL (32.0-36.0) 31.5 G/DL (32.0-36.0) Red Cell Distribution Width 17.4 % (11.6-14.8) 17.6 % (11.6-14.8) Platelet Count 360 K/UL (150-450) 401 K/UL (150-450) Mean Platelet Volume 7.0 FL (6.5-10.1) 7.1 FL (6.5-10.1) Neutrophils (%) (Auto) % (45.0-75.0) 78.7 % (45.0-75.0) Lymphocytes (%) (Auto) % (20.0-45.0) 11.0 % (20.0-45.0) Monocytes (%) (Auto) % (1.0-10.0) 6.0 % (1.0-10.0) Eosinophils (%) (Auto) % (0.0-3.0) 3.8 % (0.0-3.0) Basophils (%) (Auto) % (0.0-2.0) 0.5 % (0.0-2.0) Differential Total Cells Counted 100 Neutrophils % (Manual) 75 % (45-75) Lymphocytes % (Manual) 13 % (20-45) Monocytes % (Manual) 5 % (1-10) Eosinophils % (Manual) 7 % (0-3) Basophils % (Manual) 0 % (0-2) Band Neutrophils 0 % (0-8) Platelet Estimate Adequate Platelet Morphology Normal Hypochromasia 1+ Anisocytosis 1+ Erythrocyte Sedimentation Rate 101 MM/HR (0-15) Prothrombin Time 12.0 SEC (9.30-11.50) Prothromb Time International Ratio 1.1 (0.9-1.1) Activated Partial Thromboplast Time 32 SEC (23-33) Sodium Level 136 MMOL/L (136-145) 138 MMOL/L (136-145) Potassium Level 3.8 MMOL/L (3.5-5.1) 4.1 MMOL/L (3.5-5.1) Chloride Level 101 MMOL/L (98-107) 102 MMOL/L (98-107) Carbon Dioxide Level 32 MMOL/L (21-32) 31 MMOL/L (21-32) Anion Gap 3 mmol/L (5-15) 5 mmol/L (5-15) Blood Urea Nitrogen 7 mg/dL (7-18) 7 mg/dL (7-18) Creatinine 0.8 MG/DL (0.55-1.30) 0.7 MG/DL (0.55-1.30) Estimat Glomerular Filtration Rate > 60 mL/min (>60) > 60 mL/min (>60) Glucose Level 99 MG/DL (74-106) 98 MG/DL (74-106) Calcium Level 8.4 MG/DL (8.5-10.1) 8.3 MG/DL (8.5-10.1) Total Bilirubin 0.2 MG/DL (0.2-1.0) Aspartate Amino Transf (AST/SGOT) 19 U/L (15-37) Alanine Aminotransferase (ALT/SGPT) 15 U/L (12-78) Alkaline Phosphatase 104 U/L (46-116) C-Reactive Protein, Quantitative 21.9 mg/dL (0.00-0.90) Total Protein 6.9 G/DL (6.4-8.2) Albumin 1.5 G/DL (3.4-5.0) Globulin 5.4 g/dL Albumin/Globulin Ratio 0.3 (1.0-2.7) Vancomycin Level Trough 8.1 ug/mL (5.0-12.0) Height (Feet): 5 Height (Inches): 11.00 Weight (Pounds): 160 Objective Physical Exam: Vitals: reviewed General: NAD HEENT: nc, at Neck: supple Chest: clear breath sounds bilaterally Cardiovascular: RRR, no s3, s4 Abdomen: soft, nontender, nd Extremities: no cce, normal range of motion Skin: normal pigmentation, warm/dry, other - surgical sites dressings in place and clean, intact Neuro: alert and oriented Juan Alberto John MD Oct 14, 2019 12:50
--- NOTE | 2019-10-14 15:21 | NUR ---
CASE MANAGEMENT:REVIEW 10/14/19 SI: POLYMICROBIAL INFECTION POD #10....RADICAL INCISIONS OF BILATERAL GROINS AND PERINEAL HYDRADENITIS POD #5.....RADICAL INCISION OF AXILLARY HYDRADENITIS 99.3 78 18 119/63 98% ON RA IS: IV VANCOMYCIN Q8HRS IV MEROPENEM Q8HRS IV DIFLUCAN Q24 HEPARIN SQ Q12 HEAD START TEACHER MORPHINE : MED/SURG STATUS 3 EASY DCP: FROM HOME
--- NOTE | 2019-10-14 15:52 | NUR ---
PT Note Attempted to see patient for treatment but patient was unavailable.
[2019-10-14 16:00] VITALS: BP 127/69
--- NOTE | 2019-10-14 19:32 | NUR ---
NURSE NOTES: Received report from Daiana REAL. Rounding is done. Patient is a/o x4. c/o pain 3/10 at this time. Checked FOOD EQUIPMENT SERVICE TECHNICIAN setting. No distress noted at this time. IV site is intact and patent. Flores cath is in place and draining to gravity with yellow urine. Dressing on both groin and both axillary are c/d/i. Bed is on alarm, locked, and lowest position. Call light within reach. Will continue to monitor.
--- NOTE | 2019-10-14 19:58 | NUR ---
HAND-OFF: Report given to Carl REAL.
[2019-10-14 20:00] VITALS: BP_SYST 126; BP_SYST 136; BP_DIAS 68
[2019-10-14] MEDS: Dyna-Hex 2% Top Sol 2oz TOPIC SCH (20:00)
[2019-10-15] VITALS (18 sets, daily range): BP systolic 116–166; BP diastolic 60–93
[2019-10-15] MEDS: Vancomycin 1.25gm/NS Premix IVPB SCH ×3 (04:04→20:35)
[2019-10-15] MEDS ORDERED: fentaNYL 100 mcg/2 mL IV ONE ×2 (06:25→07:54)
[2019-10-15] MEDS ORDERED: Midazolam 2mg/2ml Inj ONE (06:25)
[2019-10-15] MEDS ORDERED: Rocuronium Bromide 50mg/5ml Inj IV ONE ×2 (06:44→07:56)
[2019-10-15] MEDS ORDERED: Succinylcholine 20mg/ml 10ml vial ONE (06:44)
[2019-10-15] MEDS ORDERED: Lidocaine 1% MPF 10mg/ml 5ml ONE (06:45)
--- NOTE | 2019-10-15 06:50 | NUR ---
NURSE NOTES: Patient left the unit for surgery with stable condition.
[2019-10-15] MEDS ORDERED: NeoSporin Gu Irrig 1ml Amp IRRIG ONE (06:51)
[2019-10-15] MEDS ORDERED: Lidocaine 1% 10mg/ml/Epi 0.005mg/ml 30ml vial INJ ONE ×2 (06:51→08:15)
[2019-10-15] MEDS ORDERED: Bacitracin 50000 Units Vial ONE (06:51)
[2019-10-15] MEDS ORDERED: LR 1000ml ONE (07:00)
[2019-10-15] MEDS ORDERED: NS Irrig 1000ml ONE (07:00)
[2019-10-15] MEDS ORDERED: NS Irrig 2000ml IRRIG ONE (07:00)
[2019-10-15] MEDS ORDERED: Sterile Water Irrig 1000ml IRRIG ONE (07:00)
[2019-10-15] MEDS: PCA shift volume MISC SCH ×2 (07:00→19:20)
[2019-10-15] MEDS ORDERED: Neostigmine 1mg/ml 10ml Inj ONE (07:00)
--- NOTE | 2019-10-15 07:01 | Pre-Procedure Note/Attestation ---
Pre-Procedure Note/Attestation Complete Prior to Procedure Planned Procedure: bilateral Procedure Narrative: Bilateral groin and thigh reconstruction with flap elevation and skin graft Indications for Procedure Pre-Operative Diagnosis: Bilateral axillary hidradenitis Attestation I attest that I discussed the nature of the procedure; its benefits; risks and complications; and alternatives (and the risks and benefits of such alternatives ), prior to the procedure, with the patient (or the patient's legal consumer sales representative). I attest that, if there was a reasonable possibility of needing a blood transfusion, the patient (or the patient's legal consumer sales representative) was given the [facility] standardized written summary, pursuant to the Pedro Luis Horacio Blood Safety Act ([place] Health and Safety Code # 1645, as amended). I attest that I re-evaluated the patient just prior to the surgery and that there has been no change in the patient's H&P, except as documented below: Jl Vazquez MD Oct 15, 2019 07:01
[2019-10-15] MEDS ORDERED: PCA Education Pamphlet MISC ONE (07:15)
[2019-10-15] MEDS ORDERED: Rate Change PCA 1 Each MISC PRN (07:15)
[2019-10-15] MEDS ORDERED: Zolpidem 5mg tab ORAL PRN (07:15)
[2019-10-15] MEDS ORDERED: Surgicel 4in x 8in TOPIC ONE (07:23)
--- NOTE | 2019-10-15 07:25 | NUR ---
HAND-OFF: Report given to Laura REAL. Patient in stable condition.
--- NOTE | 2019-10-15 07:30 | NUR ---
NURSE NOTES: Patient is off unit.
[2019-10-15] MEDS ORDERED: Muri-Lube ONE ×2 (08:15→10:52)
--- NOTE | 2019-10-15 08:28 | Anethesia Preoperative Eval ---
Anesthesia Pre-op PMH/ROS General Date of Evaluation: Oct 15, 2019 Time of Evaluation: 07:00 Anesthesiologist: Libby ASA Score: ASA 2 Mallampati Score Class I : Soft palate, uvula, fauces, pillars visible Class II: Soft palate, uvula, fauces visible Class III: Soft palate, base of uvula visible Class IV: Only hard plate visible Mallampati Classification: Class II Surgeon: Taylor Diagnosis: Recurrent HS Surgical Procedure: REvision and closure of bilateral groin wounds Anesthesia History: none Family History: no anesthesia problems Allergies: Coded Allergies: PEANUT (Verified Allergy, Severe, anaphylactic, 10/04/19) HYDROMORPHONE (Verified Allergy, Intermediate, severe nausea, 10/04/19) Medications: see eMAR Patient NPO?: Yes NPO Date: Oct 09, 2019 NPO Time: 00:01 Past Medical History Cardiovascular: Denies: HTN, CAD, [place], valve dz, arrhythmia, other Pulmonary: Denies: asthma, COPD, DEBBIE, other Gastrointestinal/Genitourinary: Reports: GERD; Denies: CRI, ESRD, other Neurologic/Psychiatric: Reports: depression/anxiety; Denies: dementia, CVA, TIA, other Endocrine: Denies: DM, hypothyroidism, steroids, other HEENT: Denies: cataract (L), cataract (R), glaucoma, TANANA (L), TANANA (R), other Hematology/Immune: Reports: anemia - of chronic d-s; Denies: DVT, bleeding disorder, other Musculoskeletal/Integumentary: Reports: other - recurrent HS; Denies: OA, RA, DJD, DDD, edema PMH Narrative: as above PSxH Narrative: See H&P Anesthesia Pre-op Phys. Exam Physician Exam Last Vital Signs Date Time Temp Pulse Resp B/P (MAP) Pulse Ox O2 Delivery O2 Flow Rate FiO2 10/15/19 04:00 80 18 98 10/15/19 04:00 98.5 137/67 (90) 10/14/19 21:00 Room Air 10/14/19 19:15 21 10/11/19 08:52 2.0 Constitutional: NAD Neurologic: CN 2-12 intact Cardiovascular: RRR, no M/R/G Respiratory: CTA Gastrointestinal: S/NT/ND Airway Exam Mallampati Score: Class II MO: full Neck: Flexible ROM: full Teeth: intact Dentures: no upper, no lower Anesthesia Pre-op A/P Labs see chart Risk Assessment & Plan Assessment: ASA 2 Plan: GA with ETT possible intraoperative blood transfusion Status Change Before Surgery: No Pre-Antibiotics Drug: as scheduled Jordon Souza MD Oct 15, 2019 08:28
[2019-10-15] MEDS ORDERED: Acetaminophen (Non formulary) 100 ML IV ONE (08:30)
[2019-10-15] MEDS: Miralax 17gm pkt ORAL SCH (09:00)
--- NOTE | 2019-10-15 09:17 | NUR ---
PT NOTE Patient off floor for surgery. Laura REAL notified that MD resume order for PT will be needed following surgery, will follow.
[2019-10-15] MEDS ORDERED: DiphenhydrAMINE 50mg/ml Inj IVP ONE (09:30)
[2019-10-15] MEDS ORDERED: Morphine Sulfate 10mg/ml Inj ONE (09:31)
[2019-10-15] MEDS ORDERED: Glycopyrrolate 0.2mg/ml 1ml Vial ONE (09:32)
[2019-10-15] MEDS ORDERED: Sodium Chloride 10ml vial INJ ONE (09:32)
[2019-10-15] MEDS ORDERED: Ketorolac 30mg Inj ONE (09:32)
[2019-10-15] MEDS ORDERED: LR 1000ml 1,000 ML IVLG SCH (09:39)
[2019-10-15] MEDS ORDERED: Midazolam 2mg/2ml Inj IVP PRN (09:45)
[2019-10-15] MEDS ORDERED: DiphenhydrAMINE 50mg/ml Inj IVP PRN (09:45)
[2019-10-15] MEDS ORDERED: Metoclopramide 10mg/2ml Inj IVP PRN (09:45)
[2019-10-15] MEDS ORDERED: Meperidine 25mg/0.5ml Inj (FOR RIGORS ONLY) IV PRN (09:45)
--- NOTE | 2019-10-15 11:09 | Operative Note - PDOC ---
Operative Note Operative Note Pre-op Diagnosis: Bilateral open groin wounds Procedure: Closure of bilateral groin wounds with STSG and Adjacent tissue transfer Post-op Diagnosis: same as pre-op Surgeon: Taylor Dry Transfer Man: Jodee Anesthesia: general Specimen: yes Complications: none Condition: stable Estimated Blood Loss: none Drains: none Implant(s) used?: No Jl Vazquez MD Oct 15, 2019 11:09
--- NOTE | 2019-10-15 11:28 | Immediate Post-Op Evaluation ---
Immediate Post-Op Evalulation Immediate Post-Op Evalulation Procedure: Revision and paertial closure of bilateral groin wounds with skin grafting Date of Evaluation: Oct 15, 2019 Time of Evaluation: 11:26 IV Fluids: 1200 Blood Products: Albumin 250, PRBC 1 unit Estimated Blood Loss: 100 Urinary Output: 500 Blood Pressure Systolic: 142 Blood Pressure Diastolic: 82 Pulse Rate: 76 Respiratory Rate: 20 O2 Sat by Pulse Oximetry: 99 Temperature (Fahrenheit): 97.5 Pain Score (1-10): 1 Nausea: No Vomiting: No Complications none Patient Status: reacts, patent, extubated Hydration Status: adequate Jordon Souza MD Oct 15, 2019 11:28
--- NOTE | 2019-10-15 11:45 | Hematology/Onc Progress Note ---
Assessment/Plan Assessment/Plan Assessment and Recs # Leukocytosis/elevated white blood cell count, unspecified likely related to underlying stress reaction, smoking v more likely is from surgery and may take 2 -3 weeks to resolve, par for the course --> have reviewed peripheral smear and bandemia/neutrophilia noted --> continue antibiotics if they have been started by ID team --> monitor for resolution --> inflammatory markers are elevated, esr 101, crp 19!! --> ID recs noted --> flow cytometry has been ordered --> wbc 17->17 --> heme end cleared for surgery # Anemia with Acute blood loss anemia ---> Trend CBC closely --> S/P 2 units pRBC 10/04/2019 --> Transfused 1 unit pRBC 10/07, 10/10 --> Iron studies reviewed --> hgb 9.5 # Hydradenitis s/p surgical intervention --> per surgery ==> Fever -resolved, and cleared by heme # Post surgical wound drainage --> abx per id --> wound care --> Pain control with PCN pump --> may need reconstruction 10/14 # Severe protein deficiency malnutrition # Hypoalbuminemia # Hyperglycemia - resolved # Post surgical hypoxia - RESOLVED # Dvt ppx ambulation The timing of this note does not necessarily reflect the time of the patient was seen. Greatly appreciate consultation. Subjective Constitutional: Denies: no symptoms, chills, fever, malaise, weakness, other HEENT: Denies: no symptoms, eye pain, blurred vision, tearing, double vision, ear pain, ear discharge, nose pain, nose congestion, throat pain, throat swelling, mouth pain, mouth swelling, other Cardiovascular: Denies: no symptoms, chest pain, edema, irregular heart rate, lightheadedness, palpitations, syncope, other Respiratory: Denies: no symptoms, cough, shortness of breath, SOB with excertion, SOB at rest, sputum, wheezing, other Gastrointestinal/Abdominal: Denies: no symptoms, abdomen distended, abdominal pain, black stools, tarry stools, blood in stool, constipated, diarrhea, difficulty swallowing, nausea, poor appetite, poor fluid intake, rectal bleeding , vomiting, other Genitourinary: Denies: no symptoms, burning, discharge, frequency, flank pain, hematuria, incontinence, pain, urgency, other Neurologic/Psychiatric: Denies: no symptoms, anxiety, depressed, emotional problems, headache, numbness, paresthesia, pre-existing deficit, seizure, tingling, tremors, weakness, other Hematologic/Lymphatic: Denies: no symptoms, anemia, easy bleeding, easy bruising, adenopathy, other Allergies: Coded Allergies: PEANUT (Verified Allergy, Severe, anaphylactic, 10/04/19) HYDROMORPHONE (Verified Allergy, Intermediate, severe nausea, 10/04/19) Subjective 10/12 labs noted, clear for surgery from heme end, seen by Taylor 10/13 labs noted, no bleeding, meds noted, no hemolysis for surgery shortly 10/14 for surgery today, cleared by hematology, no bleeding comfortable Objective Objective Current Medications Medications (Trade) Dose Ordered Sig/Flavia Route PRN Reason Start Time Stop Time Status Last Admin Dose Admin Acetaminophen (Tylenol) 650 mg Q4H PRN ORAL Mild Pain (Pain Scale 1-3) 10/04/19 12:30 11/03/19 12:29 Acetaminophen (Tylenol) 650 mg Q4H PRN ORAL FEVER (T>100.5F) 10/09/19 10:00 11/08/19 09:59 10/10/19 21:03 Acetaminophen (Tylenol) 650 mg Q4H PRN ORAL FEVER 10/15/19 07:15 11/14/19 07:14 UNV Bisacodyl (Dulcolax) 10 mg HSPRN PRN RECTAL Constipation 10/04/19 15:45 01/02/20 12:29 Chlorhexidine Gluconate (Lucrecia-Hex 2%) 1 applic DAILY@1999 TOPIC 10/12/19 20:00 01/10/20 19:59 Dextrose (Dextrose 50%) 25 ml Q30M PRN IV Hypoglycemia 10/04/19 15:45 01/02/20 15:44 Dextrose (Dextrose 50%) 50 ml Q30M PRN IV Hypoglycemia 10/04/19 15:45 01/02/20 15:44 Diphenhydramine HCl (Benadryl) 25 mg Q15M PRN IVP Itching 10/15/19 09:45 10/15/19 18:00 Famotidine (Pepcid) 40 mg DAILY ORAL 10/05/19 09:00 01/03/20 08:59 10/14/19 08:37 Fluconazole/ Sodium Chloride 100 ml @ 100 mls/hr Q24H IV 10/10/19 16:00 10/17/19 15:59 10/14/19 16:59 Heparin Sodium (Porcine) (Heparin 5000 units/ml) 5,000 units EVERY 12 HOURS SUBQ 10/15/19 09:00 11/29/19 08:59 UNV Magnesium Hydroxide (Mom) 30 ml HSPRN PRN ORAL Constipation 10/04/19 12:30 11/03/19 12:29 10/11/19 22:25 Meperidine HCl (Demerol) 25 mg Q15M PRN IV Shivering 10/15/19 09:45 10/15/19 18:00 Meropenem 1 gm/ Sodium Chloride 100 ml @ 200 mls/hr Q8H IVPB 10/13/19 23:00 10/18/19 22:59 10/15/19 06:10 Metoclopramide HCl (Reglan) 10 mg Q1H PRN IVP Nausea & Vomiting 10/15/19 09:45 10/15/19 18:00 Metoclopramide HCl (Reglan) 10 mg Q6H PRN IVP Nausea & Vomiting 10/09/19 10:00 11/08/19 09:59 Midazolam HCl (Versed 2mg/2ml vial) 1 mg Q15M PRN IVP For Anxiety 10/15/19 09:45 10/15/19 18:00 Miscellaneous Medication (ALUMNI RELATIONS OFFICER Education Pamphlet) 1 ea ONCE ONCE MISC 10/15/19 07:15 10/15/19 07:16 UNV Miscellaneous Medication (ALUMNI RELATIONS OFFICER Rate Change) 1 ea DAILY PRN MISC rate change 10/15/19 07:15 10/17/19 07:14 UNV Miscellaneous Medication (ALUMNI RELATIONS OFFICER shift volume) 1 ea Q12HR@0700,1900 MISC 10/13/19 19:00 10/15/19 18:59 10/15/19 07:00 Miscellaneous Medication (ALUMNI RELATIONS OFFICER shift volume) 1 ea Q12HR@0700,1900 MISC 10/15/19 19:00 10/17/19 18:59 UNV Morphine Sulfate 30 ml @ 0 mls/hr Q24H PRN IV For Pain 10/15/19 07:15 10/17/19 07:14 UNV Morphine Sulfate (Morphine Sulfate) 4 mg Q4H PRN IVP For Pain 10/15/19 11:30 10/22/19 11:29 UNV Ondansetron HCl (Zofran) 4 mg Q6H PRN IVP Nausea & Vomiting 10/15/19 07:15 11/14/19 07:14 UNV Polyethylene Glycol (Miralax) 17 gm DAILY ORAL 10/13/19 09:00 11/12/19 08:59 10/14/19 08:37 Sodium Chloride 1,000 ml @ 10 mls/hr Q24H IV 10/15/19 09:18 10/15/19 15:00 Temazepam (RestoriL) 7.5 mg DAILYPRN PRN ORAL Insomnia 10/15/19 07:15 10/22/19 07:14 UNV Vancomycin HCl (Vanco pharmacy to dose) 1 ea DAILY PRN MISC Per rx protocol 10/08/19 11:00 11/07/19 10:59 Vancomycin/Sodium Chloride 275 ml @ 183.333 mls/hr Q8HR@0400,1200,2000 IVPB 10/14/19 12:00 10/19/19 11:59 10/15/19 04:04 Zolpidem Tartrate (Ambien) 5 mg DAILYPRN PRN ORAL Insomnia 10/15/19 07:15 10/22/19 07:14 UNV Last 24 Hour Vital Signs Date Time Temp Pulse Resp B/P (MAP) Pulse Ox O2 Delivery O2 Flow Rate FiO2 10/15/19 11:40 78 21 154/81 100 Simple Mask 6 10/15/19 11:30 79 20 151/80 100 Simple Mask 6 10/15/19 11:28 76 20 99 10/15/19 11:25 75 22 158/80 100 Simple Mask 6 10/15/19 11:20 76 22 161/80 100 Simple Mask 6 10/15/19 11:16 97.5 86 24 166/93 100 Simple Mask 6 10/15/19 04:00 80 18 98 10/15/19 04:00 98.5 80 18 137/67 (90) 98 10/15/19 00:00 99.1 96 18 118/63 (81) 98 10/15/19 00:00 86 18 98 10/14/19 21:00 Room Air 10/14/19 20:00 100.1 87 18 126/68 (87) 97 10/14/19 20:00 87 18 97 10/14/19 19:15 99 Room Air 21 10/14/19 16:00 99.2 83 19 127/69 (88) 99 10/14/19 12:00 16 10/14/19 09:30 99 Room Air 21 10/14/19 09:00 Room Air 10/14/19 08:00 99.3 78 18 119/63 (81) 98 10/14/19 08:00 18 10/14/19 04:00 98.1 83 16 124/65 (84) 99 10/14/19 04:00 16 10/14/19 00:00 18 10/14/19 00:00 98.3 83 19 115/61 (79) 98 10/13/19 21:00 Room Air 10/13/19 20:16 98 Room Air 21 10/13/19 20:01 98.9 88 17 117/66 (83) 100 10/13/19 20:00 17 10/13/19 16:00 98.6 83 16 115/59 (77) 98 10/13/19 16:00 16 10/13/19 12:00 99.1 83 16 123/59 (80) 99 10/13/19 12:00 16 Intake and Output 10/14/19 10/15/19 19:00 07:00 Intake Total 1428 ml 890.000 ml Output Total 1800 ml 1400 ml Balance -372 ml -510.000 ml Intake Oral 1228 ml 240 ml IV Total 200 ml 650.000 ml Output Urine Total 1800 ml 1400 ml Labs Test 10/13/19 04:50 10/14/19 04:00 White Blood Count 17.3 K/UL (4.8-10.8) Red Blood Count 3.67 M/UL (4.70-6.10) Hemoglobin 9.5 G/DL (14.2-18.0) Hematocrit 30.1 % (42.0-52.0) Mean Corpuscular Volume 82 FL (80-99) Mean Corpuscular Hemoglobin 25.8 PG (27.0-31.0) Mean Corpuscular Hemoglobin Concent 31.5 G/DL (32.0-36.0) Red Cell Distribution Width 17.6 % (11.6-14.8) Platelet Count 401 K/UL (150-450) Mean Platelet Volume 7.1 FL (6.5-10.1) Neutrophils (%) (Auto) 78.7 % (45.0-75.0) Lymphocytes (%) (Auto) 11.0 % (20.0-45.0) Monocytes (%) (Auto) 6.0 % (1.0-10.0) Eosinophils (%) (Auto) 3.8 % (0.0-3.0) Basophils (%) (Auto) 0.5 % (0.0-2.0) Sodium Level 138 MMOL/L (136-145) Potassium Level 4.1 MMOL/L (3.5-5.1) Chloride Level 102 MMOL/L (98-107) Carbon Dioxide Level 31 MMOL/L (21-32) Anion Gap 5 mmol/L (5-15) Blood Urea Nitrogen 7 mg/dL (7-18) Creatinine 0.7 MG/DL (0.55-1.30) Estimat Glomerular Filtration Rate > 60 mL/min (>60) Glucose Level 98 MG/DL (74-106) Calcium Level 8.3 MG/DL (8.5-10.1) Vancomycin Level Trough 8.1 ug/mL (5.0-12.0) Height (Feet): 5 Height (Inches): 11.00 Weight (Pounds): 160 Objective Physical Exam: Vitals: reviewed General: NAD HEENT: nc, at Neck: supple Chest: clear breath sounds bilaterally Cardiovascular: RRR, no s3, s4 Abdomen: soft, nontender, nd Extremities: no cce, normal range of motion Skin: normal pigmentation, warm/dry, other - surgical sites dressings in place and clean, intact Neuro: alert and oriented Juan Alberto John MD Oct 15, 2019 11:45
[2019-10-15] MEDS ORDERED: Morphine Sulfate 4mg/ml Inj (IV USE ONLY) IVP PRN (12:00)
--- NOTE | 2019-10-15 13:00 | NUR ---
RD ASSESSMENT & RECOMMENDATIONS SEE CARE ACTIVITY FOR COMPLETE ASSESSMENT DAILY ESTIMATED NEEDS: Needs based on Surgery 72kg 25-35 kcals/kg 7812-4957 total kcals 1-2 g protein/kg 72-144 g total protein 25-30 mL/kg 3216-3937 total fluid mLs NUTRITION DIAGNOSIS: Increased protein needs r/t surgical wound healing as evidenced by pt w/ Hidradenitis suppurativa, s/p radical excision of HS sites, now s/p debridement and closure of wounds. CURRENT DIET: Now Regular PO DIET RECOMMENDATIONS: Regular diet as tolerated ADDITIONAL RECOMMENDATIONS: 1) Maintain accuchecks, bedside BG checks to maintain good glycemic control for maximum wound healing 2) Wound care: add JUAN LUIS BID as tolerated, Vit C 500mg qdaily + MVI w/ min qdaily 3) Diet edu provided for appropriate pro intake 4) Bowel regimen, bm noted 10/13
--- NOTE | 2019-10-15 13:09 | NUR ---
NURSE NOTES: Patient arrived on unit. Stable. Breathing is even and unlabored. No visible signs of distress noted. IV patent and running IVF and PRODUCTION BORING MACHINE OPERATOR as ordered. Pt on 2L oxygen via nc. Surgical dressing c/d/i. F/C patent and secured to leg. Patient is in bed in locked and lowest position with call light within reach. All safety measures provided. Will continue to monitor.
--- NOTE | 2019-10-15 13:20 | General Progress Note ---
Assessment/Plan Problem List: (1) Hidradenitis suppurativa ICD Codes: L73.2 - Hidradenitis suppurativa SNOMED: 07575545 (2) Hypoxia ICD Codes: R09.02 - Hypoxemia SNOMED: 054472773 (3) Acute blood loss anemia ICD Codes: D62 - Acute posthemorrhagic anemia SNOMED: 934943190 (4) Hypoalbuminemia ICD Codes: E88.09 - Other disorders of plasma-protein metabolism, not elsewhere classified SNOMED: 895572239 (5) Hyperglycemia ICD Codes: R73.9 - Hyperglycemia, unspecified SNOMED: 40419005 (6) Leukocytosis ICD Codes: D72.829 - Elevated white blood cell count, unspecified SNOMED: 820151628, 831404245 Status: doing well, stable Assessment/Plan: 24 year old gentleman with no significant PMH presents with acute blood loss anemia after surgery for hydradenitis, now with elevated leukocytosis #Hydradenitis s/p surgical intervention #Fever -resolved #Leukocytosis - improving #Post surgical wound drainage - Continue Fluconazole, Meropenem, Vancomycin per ID recommendations given improving WBC - WBC improved to 17 on 10/13/2019 - Hematology Dr. John consulted, appreciate recommendations. Likely stress reaction, but will follow up flow cytometry - returned from OR for groin reconstruction 10/15/19, doing well post-operatively - ID consult appreciate recs -Wound care -Pain control with PCN pump -Surgery following, appreciate recommendations - will need PT evaluation for placement for rehab, will reorder today - tentative plan for OR Tuesday to evaluate skin graft and wound healing - discussed with Case Management regarding plan for placement in rehab #Acute blood loss anemia : STABLE - S/P 2 units pRBC 10/04/2019 - Transfused 1 unit pRBC 10/07 - Transfused 1 unit pRBC 10/11/2019 in anticipation for possible surgery 2019 with appropriate rise - Iron studies reviewed - Holding DVT ppx - monitor CBC #Severe protein deficiency malnutrition #Hypoalbuminemia -Encourage high protein diet to promote wound healing -Nutrition consult for supplementation #Hyperglycemia - resolved -HgA1c 5.7 -DC ISS -Tight glycemic control for wound healing #Post surgical hypoxia - RESOLVED - Incentive spirometry - Early ambulation with assist -CXR reviewed #FEN/GI - resume regular diet - resume subQ heparin after surgery I spent 38 min on this patient with 20 face to face time which included direct counseling and discussion with patient.Coordinating with Surgery and Infectious Diseases as well as Hematology-Oncology. Discussed plan of care with nursing Subjective Date patient seen: Oct 15, 2019 Time patient seen: 13:18 Constitutional: Denies: chills, diaphoresis, fever HEENT: Denies: eye pain, blurred vision Cardiovascular: Denies: chest pain, edema, irregular heart rate, lightheadedness, palpitations Respiratory: Denies: cough, orthopnea, shortness of breath Gastrointestinal/Abdominal: Denies: abdominal pain, nausea, vomiting Genitourinary: Denies: burning, discharge, frequency Neurologic/Psychiatric: Denies: emotional problems Endocrine: Denies: intolerance to cold, intolerance to heat, increased hunger, increased thirst Hematologic/Lymphatic: Denies: anemia, easy bleeding, easy bruising Allergies: Coded Allergies: PEANUT (Verified Allergy, Severe, anaphylactic, 10/04/19) HYDROMORPHONE (Verified Allergy, Intermediate, severe nausea, 10/04/19) All Systems: reviewed and negative except above Subjective saw patient in room after return from OR. sleepy, but feeling well, reports pain in groin but that it is well controlled Objective Last 24 Hour Vital Signs Date Time Temp Pulse Resp B/P (MAP) Pulse Ox O2 Delivery O2 Flow Rate FiO2 10/15/19 12:35 70 12 146/72 100 Nasal Cannula 3 10/15/19 12:20 70 12 145/76 100 Nasal Cannula 3 10/15/19 12:05 72 21 146/74 100 Nasal Cannula 3 10/15/19 11:50 76 21 151/76 100 Simple Mask 6 10/15/19 11:40 78 21 154/81 100 Simple Mask 6 10/15/19 11:30 79 20 151/80 100 Simple Mask 6 10/15/19 11:28 76 20 99 10/15/19 11:25 75 22 158/80 100 Simple Mask 6 10/15/19 11:20 76 22 161/80 100 Simple Mask 6 10/15/19 11:16 97.5 86 24 166/93 100 Simple Mask 6 10/15/19 04:00 80 18 98 10/15/19 04:00 98.5 80 18 137/67 (90) 98 7/27/20 00:00 99.1 96 18 118/63 (81) 98 10/15/19 00:00 86 18 98 10/14/19 21:00 Room Air 10/14/19 20:00 100.1 87 18 126/68 (87) 97 10/14/19 20:00 87 18 97 10/14/19 19:15 99 Room Air 21 10/14/19 16:00 99.2 83 19 127/69 (88) 99 Intake and Output 10/14/19 10/15/19 19:00 07:00 Intake Total 1428 ml 890.000 ml Output Total 1800 ml 1400 ml Balance -372 ml -510.000 ml Intake Oral 1228 ml 240 ml IV Total 200 ml 650.000 ml Output Urine Total 1800 ml 1400 ml Height (Feet): 5 Height (Inches): 11.00 Weight (Pounds): 160 General Appearance: WD/WN, lethargic, other - but easily arousable EENT: PERRL/EOMI, normal ENT inspection, pharynx normal Neck: non-tender, normal alignment, supple, normal inspection Cardiovascular: normal peripheral pulses, normal rate, regular rhythm, no JVD Respiratory/Chest: chest wall non-tender, lungs clear, normal breath sounds, no respiratory distress Abdomen: non tender, soft, hypoactive bowel sounds Pelvis: no active bleeding Extremities: normal range of motion, normal inspection, other - surgical site with dressing intact appears clean, dry Edema: no edema noted Arm (L), no edema noted Arm (R), no edema noted Leg (L), no edema noted Leg (R), no edema noted Pedal (L), no edema noted Pedal (R) 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 Oct 15, 2019 13:20
--- NOTE | 2019-10-15 14:00 | Operative Note - Dictated ---
DATE OF OPERATION: 10/15/2019 PREOPERATIVE DIAGNOSIS: Bilateral open groin and perineal wounds. POSTOPERATIVE DIAGNOSIS: Bilateral open groin and perineal wounds. PROCEDURES: 1. Preparation of left groin wound for flap closure and skin grafting. 2. Preparation of right groin wound for flap closure and skin grafting. 3. Adjacent tissue transfer closure of left groin wound with flap advancement for closure of wound measuring 20 x 15 centimeters. 4. Adjacent tissue transfer closure with flap advancement for closure of right groin wound measuring 25 x 15 centimeters. 5. Split-thickness skin graft harvested from right anterior thigh for coverage of 13.5 centimeter defect of left groin. 6. Split-thickness skin graft harvested from right thigh to cover the defect that measured 12 x 6 cm in the right groin. 7. Secondary wound closure of a subscrotal wound that measures 6 x 4 cm. SURGEON: Jl Vazquez MD. MUSHROOM SORTER GRADER: Alicia Ellsworth MD. ANESTHESIA: General. COMPLICATIONS: None. DRAINS: None. EBL: 50 mL. DISPOSITION: Stable to the recovery room. INDICATIONS FOR SURGERY: This is a 24-year-old male, who has now been in the hospital for over a week due to an excision and planned reconstruction of a very advanced and complicated case of hidradenitis suppurativa. He has previously undergone excision of bilateral axillary hidradenitis during this hospitalization as well as his first surgery, which was a radical excision with flap elevation of his bilateral groin hidradenitis, which extended into the perineum as well. The plan was for the patient to go to the operating room last week; however, he had persistent leukocytosis which required continued observation. We had an input from the Infectious Disease doctor as well as the miller first who recommended watching the patient until the white blood cell count dropped. We followed this advice and over this weekend the white blood cell count did drop and the patient was clinically well, and we felt that it was appropriate for him to proceed to the operating room for definitive closure of his wounds today. He understood the risks and benefits of surgery and agreed to proceed. DETAILS OF THE OPERATION: The patient was brought to the operating room and laid supine on the operating room table. After induction of anesthesia, he was placed in the lithotomy position. His bilateral open groin wounds and perineal regions were prepped and draped in a sterile usual fashion. As was done previously, in the first excision case with flap elevation, the flaps that had been previously elevated were further mobilized on the abdomen as well as the medial thigh regions. We first began on the right groin. This wound measured 25 x 15 centimeters and although we had significant soft tissue coverage at the first operation with elevation of the flaps it was necessary to further mobilize the flaps by releasing the underlying attachments over the Brigitte's fascia and the abdomen for the abdominal flap and over the adductor fascia for the medial thigh flap that had been elevated. Upon further mobilization of these flap tissues, we were able to achieve further soft tissue coverage. However, the wound was quite large and was not amenable for definitive closure with the flap alone and so it was understood that the patient would need a combination of flap advancement with adjacent tissue transfer as well as split-thickness skin grafting. Once the flaps were re-mobilized and elevated further on the right side, some of the remaining tissue in the wound bed that did not look viable was debrided in preparation for flap transfer. Once this was done, hemostasis was achieved following pulse lavage irrigation and the flaps were then advanced, both the abdominal flap and the medial thigh flap were advanced, and then they were pexied down to the fascia to reduce the wound dimensions significantly from 25 x [address] down to approximately 13 x 5 centimeters with the accomplishment of the adjacent tissue transfer as well as the pexy, the wound dimensions were significantly smaller. The 13 x 5 centimeter wound measurements were then recorded and then we turned our attention to the contralateral left groin wound, which measured 20 x 15 centimeters in a similar fashion, as was done to the other side. The abdominal and medial thigh flaps required further mobilization which was done by releasing the attachments to the Brigitte's fascia superiorly and medial thigh flaps attachments to the adductor fascia. Once the flaps were fully mobilized, perfusion to the flaps were also noted to be quite good as there was bleeding at the flap edges. In a similar fashion, the adjacent tissue transfer was completed by advancing the flaps and pexing into the underlying fascia and reducing these wounds down from 20 x 15 centimeters to 12 x 6 cm. This was also recorded. Corresponding measurements were made for a split-thickness skin graft to be harvested from the right thigh taking into account the two measurements of the left and right groin wound. Once this was done, the dermatome was set to set to 14-one thousand of an inch. Mineral oil was applied to the thigh. Towel clips were applied to each end of the planned skin harvest site and the dermatome was then used to harvest the skin graft. The donor site was then covered with epinephrine-soaked gauze and the skin graft was then divided in two based on the measurements that we recorded and the skin grafts were then meshed to increase the surface area using a 1 to 1.5 cartridge. Once this was done, the skin graft was then inset using chromic sutures first on the right with multiple chromic sutures to both secure secure the skin graft as well as multiple chromic sutures were used to pexy the central portion of the skin graft that did not have complete contact with the wound bed. In a similar fashion, the contralateral left groin skin graft was also inset using chromic sutures and pexy sutures were also used to secure the skin graft central portion that were not having direct contact with the wound bed. Upon completion of this, all the skin grafts were secured and flap advances were done. The groin wound reconstructions were completed. What was left was a 6 x 4 centimeter subscrotal wound which also was the result of the excision of the hidradenitis in the first operation. This was closed using #0 Vicryl sutures to accomplish closure of the wound. There was a one central area that was adjacent and lateral to that on the right side, which did not seem to be in a location safe for definitive closure as it was right next to the anus and by safe I mean given the fact that it was by the anus it would most likely have resulting dehiscence of any type of closure as such this area that measured about 3 x 3 centimeters was left to heal by secondary intention. This completed the adjacent tissue transfer closure with flap advancement and split thickness skin grafting of the bilateral open groin wound as well as secondary closure of the subscrotal wound. All needle and sponge counts were correct at the end of the procedure. We also placed multiple bulky bolster dressings over all the skin graft sites and the plan would be to bring the patient back later this week on Tuesday, which would be postop day #4, to remove the bolster dressings and perform the exam under anesthesia to assess the viability of the skin graft. The patient tolerated the procedure well. There were no complications. Jl Vazquez M.D. DR: OLGA JOB#: [id number] CC:
--- NOTE | 2019-10-15 19:25 | NUR ---
HAND-OFF: Report given to Malka REAL. Patient is stable.
--- NOTE | 2019-10-15 19:26 | NUR ---
NURSE NOTES: Received report from Laura REAL. Rounding is done. Patient is a/o x4 and has fatigue. c/o pain 4/10 at this time. Checked BAG MACHINE OPERATOR setting. No distress noted at this time. IV site is intact and patent. Flores cath is in place and draining to gravity with yellow urine. Dressing on both groin, both axillary, Rt thigh are c/d/i. Bed is on alarm, locked, and lowest position. Call light within reach. Will continue to monitor.
--- NOTE | 2019-10-15 20:24 | Infectious Diseases Prog Note ---
Assessment/Plan Assessment/Plan ASSESSMENT AND PLAN: 1. bilateral axilla/groin/thigh wound infection/hidradenitis suppurativa, leukocytosis, ? sepsis - polymicrobial infection - meropenem, vancomycin, diflucan -day # 5 - leukocytosis improving - downward trend to 17.3 - blood cultures negative - s/p excision and debridement - s/p wound closure and reconstruction - monitor creatinine on abx 2. The patient has history of hidradenitis suppurativa with history of surgery. 3. Anemia. 4. No diabetes or hypertension. 5. Blood sugars have been elevated, hyperglycemia. 6. Allergies to hydromorphone and peanuts. 7. Social history is negative. 8. Family history is noncontributory. 9. MAR was noted. 10. Case was discussed with RN. 11. Case was discussed with Dr. Vazquez. 12. Case was communicated with Dr. Metzger. 13. Continue treatment as per primary consultants. 14. Wound care protocol per Dr. Vazquez. 15. Orders were noted and entered. Subjective Constitutional: Denies: fever, fatigue HEENT: Denies: congestion Respiratory: Denies: shortness of breath Cardiovascular: Denies: chest pain Gastrointestinal/Abdominal: Denies: nausea Genitourinary: Reports: other - + benavidez ; Denies: dysuria, hematuria Neurologic: Denies: headache, numbness Psychiatric: Denies: depression Skin: Denies: rash Hematologic: Denies: bleeding Musculoskeletal: Denies: pain Allergies: Coded Allergies: PEANUT (Verified Allergy, Severe, anaphylactic, 10/04/19) HYDROMORPHONE (Verified Allergy, Intermediate, severe nausea, 10/04/19) Objective Last 24 Hour Vital Signs Date Time Temp Pulse Resp B/P (MAP) Pulse Ox O2 Delivery O2 Flow Rate FiO2 10/15/19 16:00 82 21 100 10/15/19 16:00 97.4 82 19 134/67 (89) 100 10/15/19 14:15 97.8 79 18 116/60 (78) 100 10/15/19 13:45 97.7 71 16 132/68 (89) 100 10/15/19 13:32 Room Air 10/15/19 13:15 97.8 90 18 131/69 (89) 100 10/15/19 13:00 71 18 100 10/15/19 13:00 100 Nasal Cannula 2.0 28 10/15/19 12:45 97.6 69 14 141/64 100 Nasal Cannula 3 10/15/19 12:38 97.6 10/15/19 12:35 70 12 146/72 100 Nasal Cannula 3 10/15/19 12:20 70 12 145/76 100 Nasal Cannula 3 10/15/19 12:05 72 21 146/74 100 Nasal Cannula 3 10/15/19 11:50 76 21 151/76 100 Simple Mask 6 10/15/19 11:40 78 21 154/81 100 Simple Mask 6 10/15/19 11:30 79 20 151/80 100 Simple Mask 6 10/15/19 11:28 76 20 99 10/15/19 11:25 75 22 158/80 100 Simple Mask 6 10/15/19 11:20 76 22 161/80 100 Simple Mask 6 10/15/19 11:16 97.5 86 24 166/93 100 Simple Mask 6 10/15/19 04:00 80 18 98 10/15/19 04:00 98.5 80 18 137/67 (90) 98 10/15/19 00:00 99.1 96 18 118/63 (81) 98 10/15/19 00:00 86 18 98 10/14/19 21:00 Room Air Height (Feet): 5 Height (Inches): 11.00 Weight (Pounds): 160 General Appearance: no acute distress HEENT: normocephalic, atraumatic, anicteric, mucous membranes moist Respiratory/Chest: lungs clear, normal breath sounds, no respiratory distress, no accessory muscle use Cardiovascular: normal rate, regular rhythm, no gallop/murmur, no JVD Abdomen: normal bowel sounds, soft, non tender, no organomegaly, non distended Genitourinary: other - no benavidez Extremities: no cyanosis Skin: no rash, other - wounds - covered 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 The heart size is normal. There is no significant interim change Impression: Negative Microbiology Date/Time Source Procedure Growth Status 10/10/19 10:15 Blood Blood Culture - Preliminary NO GROWTH AFTER 4 DAYS Resulted 10/02/19 12:00 Nasopharynx Coronavirus COVID-19 PCR ([facility]) - Final Complete 10/04/19 10:26 Groin Gram Stain - Final Complete 10/04/19 10:26 Aerobic Culture - Final Citrobacter Diversus Proteus Mirabilis Usual Skin Pinky Complete 10/04/19 10:26 Anaerobic Culture - Final Bacteroides Merdae Fusobacterium Varium Complete Labs Test 10/13/19 04:50 10/14/19 04:00 10/15/19 19:25 White Blood Count 17.3 K/UL (4.8-10.8) Red Blood Count 3.67 M/UL (4.70-6.10) Hemoglobin 9.5 G/DL (14.2-18.0) Hematocrit 30.1 % (42.0-52.0) Mean Corpuscular Volume 82 FL (80-99) Mean Corpuscular Hemoglobin 25.8 PG (27.0-31.0) Mean Corpuscular Hemoglobin Concent 31.5 G/DL (32.0-36.0) Red Cell Distribution Width 17.6 % (11.6-14.8) Platelet Count 401 K/UL (150-450) Mean Platelet Volume 7.1 FL (6.5-10.1) Neutrophils (%) (Auto) 78.7 % (45.0-75.0) Lymphocytes (%) (Auto) 11.0 % (20.0-45.0) Monocytes (%) (Auto) 6.0 % (1.0-10.0) Eosinophils (%) (Auto) 3.8 % (0.0-3.0) Basophils (%) (Auto) 0.5 % (0.0-2.0) Sodium Level 138 MMOL/L (136-145) Potassium Level 4.1 MMOL/L (3.5-5.1) Chloride Level 102 MMOL/L (98-107) Carbon Dioxide Level 31 MMOL/L (21-32) Anion Gap 5 mmol/L (5-15) Blood Urea Nitrogen 7 mg/dL (7-18) Creatinine 0.7 MG/DL (0.55-1.30) Estimat Glomerular Filtration Rate > 60 mL/min (>60) Glucose Level 98 MG/DL (74-106) Calcium Level 8.3 MG/DL (8.5-10.1) Vancomycin Level Trough 8.1 ug/mL (5.0-12.0) 19.4 ug/mL (5.0-12.0) Laboratory Tests Test 10/15/19 19:25 Vancomycin Level Trough 19.4 ug/mL (5.0-12.0) H Current Medications Medications (Trade) Dose Ordered Sig/Flavia Route PRN Reason Start Time Stop Time Status Last Admin Dose Admin Acetaminophen (Tylenol) 650 mg Q4H PRN ORAL Mild Pain (Pain Scale 1-3) 10/04/19 12:30 11/03/19 12:29 Acetaminophen (Tylenol) 650 mg Q4H PRN ORAL FEVER 10/15/19 12:29 11/14/19 12:28 Bisacodyl (Dulcolax) 10 mg HSPRN PRN RECTAL Constipation 10/04/19 15:45 01/02/20 12:29 Dextrose (Dextrose 50%) 25 ml Q30M PRN IV Hypoglycemia 10/04/19 15:45 01/02/20 15:44 Dextrose (Dextrose 50%) 50 ml Q30M PRN IV Hypoglycemia 10/04/19 15:45 01/02/20 15:44 Famotidine (Pepcid) 40 mg DAILY ORAL 10/05/19 09:00 01/03/20 08:59 10/14/19 08:37 Fluconazole/ Sodium Chloride 100 ml @ 100 mls/hr Q24H IV 10/10/19 16:00 10/17/19 15:59 10/15/19 15:55 Heparin Sodium (Porcine) (Heparin 5000 units/ml) 5,000 units EVERY 12 HOURS SUBQ 10/15/19 21:00 11/29/19 20:59 Magnesium Hydroxide (Mom) 30 ml HSPRN PRN ORAL Constipation 10/04/19 12:30 11/03/19 12:29 10/11/19 22:25 Meropenem 1 gm/ Sodium Chloride 100 ml @ 200 mls/hr Q8H IVPB 10/13/19 23:00 10/18/19 22:59 10/15/19 15:15 Metoclopramide HCl (Reglan) 10 mg Q6H PRN IVP Nausea & Vomiting 10/09/19 10:00 11/08/19 09:59 Miscellaneous Medication (PATHOLOGY LABORATORY TECHNOLOGIST Rate Change) 1 ea DAILY PRN MISC rate change 10/15/19 07:15 10/17/19 07:14 Miscellaneous Medication (PATHOLOGY LABORATORY TECHNOLOGIST shift volume) 1 ea Q12HR@0700,1900 MISC 10/15/19 19:00 10/17/19 18:59 10/15/19 19:20 Morphine Sulfate 30 ml @ 0 mls/hr Q24H PRN IV For Pain 10/15/19 12:31 10/17/19 12:30 Ondansetron HCl (Zofran) 4 mg Q6H PRN IVP Nausea & Vomiting 10/15/19 07:15 11/14/19 07:14 Polyethylene Glycol (Miralax) 17 gm DAILY ORAL 10/13/19 09:00 11/12/19 08:59 10/14/19 08:37 Temazepam (RestoriL) 7.5 mg DAILYPRN PRN ORAL Insomnia 10/15/19 07:15 10/22/19 07:14 Vancomycin HCl ([facility] pharmacy to dose) 1 ea DAILY PRN MISC Per rx protocol 10/08/19 11:00 11/07/19 10:59 Vancomycin/Sodium Chloride 275 ml @ 183.333 mls/hr Q8HR@0400,1200,2000 IVPB 10/14/19 12:00 10/19/19 11:59 10/15/19 13:48 Zolpidem Tartrate (Ambien) 5 mg DAILYPRN PRN ORAL Insomnia 10/15/19 07:15 10/22/19 07:14 Cale Tsai MD Oct 15, 2019 20:24
[2019-10-15] MEDS: Heparin 5000 units/ml inj SUBQ SCH (20:36)
[2019-10-16] VITALS (7 sets, daily range): BP systolic 109–128; BP diastolic 64–79
[2019-10-16] MEDS: PCA Morphine 1mg/ml 30 ML IV PRN (02:24)
[2019-10-16] MEDS: Vancomycin 1.25gm/NS Premix IVPB SCH ×3 (03:32→19:57)
[2019-10-16 06:29] LABS: BASOPHILS % (AUTO) 0.3 % (0.0-2.0); EOSINOPHILS % (AUTO) 3.3 % (0.0-3.0); HEMATOCRIT 32.2 % (42.0-52.0); HEMOGLOBIN 10.3 G/DL (14.2-18.0); LYMPHOCYTES % (AUTO) 11.7 % (20.0-45.0); MEAN CORPUSCULAR VOLUME 83 FL (80-99); MONOCYTES % (AUTO) 6.7 % (1.0-10.0); PLATELET COUNT 437 K/UL (150-450); RED BLOOD COUNT 3.86 M/UL (4.70-6.10); RED CELL DISTRIBUTION WIDTH 17.3 % (11.6-14.8)
[2019-10-16 06:40] LABS: ANION GAP 8 mmol/L (5-15); BLOOD UREA NITROGEN 10 mg/dL (7-18); CALCIUM 8.4 MG/DL (8.5-10.1); CARBON DIOXIDE 29 MMOL/L (21-32); CHLORIDE 101 MMOL/L (98-107); CREATININE 0.8 MG/DL (0.55-1.30); POTASSIUM 4.5 MMOL/L (3.5-5.1); SODIUM 138 MMOL/L (136-145)
--- NOTE | 2019-10-16 07:19 | NUR ---
HAND-OFF: Report given to Laura REAL. Patient in stable condition.
[2019-10-16] MEDS: PCA shift volume MISC SCH ×2 (07:24→19:30)
--- NOTE | 2019-10-16 07:35 | NUR ---
NURSE NOTES: Patient is in bed asleep. Stable. Breathing is even and unlabored. No visible signs of distress noted. All safety measures provided. IV patent and running RIPPLER and NS TKO. Dressings c/d/i. Will continue to monitor.
[2019-10-16] MEDS: Miralax 17gm pkt ORAL SCH (09:04)
[2019-10-16] MEDS: Heparin 5000 units/ml inj SUBQ SCH ×2 (09:05→20:19)
--- NOTE | 2019-10-16 09:06 | 48 Hour Post Anesthesia Eval ---
Post Anesthesia Evaluation Procedure: Revision and paertial closure of bilateral groin wounds with skin grafting Date of Evaluation: Oct 16, 2019 Time of Evaluation: 09:05 Blood Pressure Systolic: 125 0: 74 Pulse Rate: 93 Respiratory Rate: 18 Temperature (Fahrenheit): 99.9 O2 Sat by Pulse Oximetry: 97 Airway: patent Nausea: No Vomiting: No Pain Intensity: 3 Hydration Status: adequate Cardiopulmonary Status: Stable Mental Status/LOC: patient returned to baseline Follow-up Care/Observations: 0 Post-Anesthesia Complications: 0 Follow-up care needed: N/A Gideon Majano MD Oct 16, 2019 09:06
--- NOTE | 2019-10-16 09:17 | NUR ---
*-DISCHARGE PLANNING*-* PATIENT HAS BEEN REFERRED TO: [facility] P: [phone] [facility] P: [phone] [facility] P: [phone] [facility] P: [phone] [facility] P: [phone] [facility] P: [phone] [facility] P: [phone] [facility] P: [facility] P: [phone] Addendum: 10/16/19 at 1404 by JESSENIA MARTÍNEZ CM *-*DISCHARGE PLANNING*-* PATIENT HAS BEEN REFERRED TO: [facility] P: [phone] S/ KASH, PATIENT IS TOO YOUNG [facility] P: [phone] S/W NAKUL, CANNOT ACCEPTED PATIENT DUE TO INSURANCE [facility] P: [phone] S/W ZBIGNIEW, NO BEDS AVAILABLE [facility] P: [phone] S/W TWIN, CANNOT ACCEPT PATIENT DUE TO INSURANCE. [facility] P: [phone] S/W CASANDRA, NOT ACCEPTING NEGATIVE -COVID PATIENTS, ONLY POSITIVE +COVID [facility] P: [phone] PLACED MULTIPLE CALLS, NO ANSWER. [facility] P: [phone] S/W DERIC, NOT ACCEPTING NEW PATIENTS [facility] P: [phone] S/W HENRIK, NOT ACCEPTING, DUE TO INSURANCE [facility] P: [phone] S/W SAMM, PATIENT IS TOO YOUNG.
--- NOTE | 2019-10-16 10:02 | General Progress Note ---
Assessment/Plan Problem List: (1) Hidradenitis suppurativa ICD Codes: L73.2 - Hidradenitis suppurativa SNOMED: 07846227 (2) Hypoxia ICD Codes: R09.02 - Hypoxemia SNOMED: 896721327 (3) Acute blood loss anemia ICD Codes: D62 - Acute posthemorrhagic anemia SNOMED: 327263729 (4) Hypoalbuminemia ICD Codes: E88.09 - Other disorders of plasma-protein metabolism, not elsewhere classified SNOMED: 062911488 (5) Hyperglycemia ICD Codes: R73.9 - Hyperglycemia, unspecified SNOMED: 03221963 (6) Leukocytosis ICD Codes: D72.829 - Elevated white blood cell count, unspecified SNOMED: 981052806, 088045303 Status: doing well, stable Assessment/Plan: 24 year old gentleman with no significant PMH presents with acute blood loss anemia after surgery for hydradenitis #Hydradenitis s/p surgical intervention #Fever -resolved #Leukocytosis - improving #Post surgical wound drainage - Continue Fluconazole, Meropenem, Vancomycin per ID recommendations given improving WBC - WBC improved to 17 on 10/13/2019, continually improving after OR 10/15/19 - Hematology Dr. John consulted, appreciate recommendations. Likely stress reaction, but will follow up flow cytometry - Plan for OR this coming Tuesday for wound and skin graft check with Dr. Vazquez -Wound care -Pain control with PCN pump -Surgery following, appreciate recommendations - will need PT/OT evaluation - discussed with Case Management regarding plan for placement in rehab after OR on Tuesday #Acute blood loss anemia : STABLE and IMPROVING - S/P 2 units pRBC 10/04/2019 - Transfused 1 unit pRBC 10/07 - Transfused 1 unit pRBC 10/11/2019 in anticipation for possible surgery 2019 with appropriate rise - Iron studies reviewed - Holding DVT ppx - monitor CBC #Severe protein deficiency malnutrition #Hypoalbuminemia -Encourage high protein diet to promote wound healing -Nutrition consult for supplementation #Hyperglycemia - resolved -HgA1c 5.7 -DC ISS -Tight glycemic control for wound healing #Post surgical hypoxia - RESOLVED - Incentive spirometry - Early ambulation with assist -CXR reviewed #FEN/GI - resume regular diet - resume subQ heparin #Dispo: Will go to OR on Tuesday for wound/skin graft check with Dr. Vazquez. If doing well, will plan on discharging to rehab as well as for wound care. Will have final wound care recommendations after Tuesday OR I spent 36 min on this patient with 20 face to face time which included direct counseling and discussion with patient.Coordinating with Surgery and Infectious Diseases as well as Hematology-Oncology. Discussed plan of care with nursing Subjective Date patient seen: Oct 16, 2019 Time patient seen: 08:05 Constitutional: Denies: chills, diaphoresis, fever HEENT: Denies: blurred vision, double vision Cardiovascular: Denies: chest pain, edema, irregular heart rate Respiratory: Denies: cough, orthopnea, shortness of breath Gastrointestinal/Abdominal: Denies: abdomen distended, nausea, vomiting Genitourinary: Denies: burning, discharge, frequency Neurologic/Psychiatric: Denies: emotional problems Endocrine: Denies: intolerance to cold, increased hunger, unexplained weight loss Hematologic/Lymphatic: Denies: anemia, easy bleeding, easy bruising Allergies: Coded Allergies: PEANUT (Verified Allergy, Severe, anaphylactic, 10/04/19) HYDROMORPHONE (Verified Allergy, Intermediate, severe nausea, 10/04/19) All Systems: reviewed and negative except above Subjective patient reports that he is feeling a bit more pain specifically at the skin harvest site but otherwise feels pain is overall controlled. he otherwise feels well and understands plan for OR Tuesday and discharge to rehab thereafter Objective Last 24 Hour Vital Signs Date Time Temp Pulse Resp B/P (MAP) Pulse Ox O2 Delivery O2 Flow Rate FiO2 10/16/19 09:06 93 18 97 10/16/19 08:00 98.6 95 18 125/78 (94) 96 10/16/19 08:00 95 18 96 10/16/19 07:48 Room Air 10/16/19 04:00 99.9 93 18 125/74 (91) 97 10/16/19 04:00 93 18 97 10/16/19 00:00 99.6 98 18 128/76 (93) 96 10/16/19 00:00 98 18 96 10/15/19 21:00 Room Air 10/15/19 20:00 97.8 83 16 140/76 (97) 95 10/15/19 20:00 83 16 95 10/15/19 19:00 98 Room Air 21 10/15/19 16:00 82 21 100 10/15/19 16:00 97.4 82 19 134/67 (89) 100 10/15/19 14:15 97.8 79 18 116/60 (78) 100 10/15/19 13:45 97.7 71 16 132/68 (89) 100 10/15/19 13:32 Room Air 10/15/19 13:15 97.8 90 18 131/69 (89) 100 10/15/19 13:00 71 18 100 10/15/19 13:00 100 Nasal Cannula 2.0 10/15/19 12:45 97.6 69 14 141/64 100 Nasal Cannula 3 10/15/19 12:38 97.6 10/15/19 12:35 70 12 146/72 100 Nasal Cannula 3 10/15/19 12:20 70 12 145/76 100 Nasal Cannula 3 10/15/19 12:05 72 21 146/74 100 Nasal Cannula 3 10/15/19 11:50 76 21 151/76 100 Simple Mask 6 10/15/19 11:40 78 21 154/81 100 Simple Mask 6 10/15/19 11:30 79 20 151/80 100 Simple Mask 6 10/15/19 11:28 76 20 99 10/15/19 11:25 75 22 158/80 100 Simple Mask 6 10/15/19 11:20 76 22 161/80 100 Simple Mask 6 10/15/19 11:16 97.5 86 24 166/93 100 Simple Mask 6 Intake and Output 10/15/19 10/16/19 19:00 07:00 Intake Total 2340 ml 1350.000 ml Output Total 775 ml 700 ml Balance 1565 ml 650.000 ml Intake Oral 240 ml 600 ml IV Total 1500 ml 750.000 ml Blood Product 350 ml Other 250 ml Output Urine Total 775 ml 700 ml Laboratory Tests 10/15/19 19:25: Vancomycin Level Trough 19.4H 10/16/19 05:40: White Blood Count 16.0H, Red Blood Count 3.86L, Hemoglobin 10.3L, Hematocrit 32.2L, Mean Corpuscular Volume 83, Mean Corpuscular Hemoglobin 26.8L, Mean Corpuscular Hemoglobin Concent 32.1, Red Cell Distribution Width 17.3H, Platelet Count 437, Mean Platelet Volume 7.5, Neutrophils (%) (Auto) 78.0H, Lymphocytes (%) (Auto) 11.7L, Monocytes (%) (Auto) 6.7, Eosinophils (%) (Auto) 3.3H, Basophils (%) (Auto) 0.3, Sodium Level 138, Potassium Level 4.5, Chloride Level 101, Carbon Dioxide Level 29, Anion Gap 8, Blood Urea Nitrogen 10, Creatinine 0.8, Estimat Glomerular Filtration Rate > 60, Glucose Level 92, Calcium Level 8.4L Height (Feet): 5 Height (Inches): 11.00 Weight (Pounds): 160 General Appearance: WD/WN, no apparent distress, alert EENT: PERRL/EOMI, normal ENT inspection, pharynx normal Neck: non-tender, normal alignment, supple, normal inspection Cardiovascular: normal peripheral pulses, normal rate, regular rhythm, no JVD Respiratory/Chest: chest wall non-tender, lungs clear, normal breath sounds, no respiratory distress Abdomen: normal bowel sounds, non tender, soft, no mass Pelvis: no active bleeding Extremities: other - surgical sites appear clean, dry, intact with dressing in place Edema: no edema noted Arm (L), no edema noted Arm (R), no edema noted Leg (L), no edema noted Leg (R), no edema noted Pedal (L), no edema noted Pedal (R) Neurologic: church administrator II-XII grossly normal, no motor/sensory deficits, alert, oriented x 3, responsive, normal mood/affect Skin: normal pigmentation, warm/dry Jacob Wolff M.D. Oct 16, 2019 10:02
--- NOTE | 2019-10-16 12:46 | Hematology/Onc Progress Note ---
Assessment/Plan Assessment/Plan Assessment and Recs # Leukocytosis/elevated white blood cell count, unspecified likely related to underlying stress reaction, smoking v more likely is from surgery and may take 2 -3 weeks to resolve, par for the course --> have reviewed peripheral smear and bandemia/neutrophilia noted --> continue antibiotics if they have been started by ID team --> monitor for resolution --> inflammatory markers are elevated, esr 101, crp 19!! --> ID recs noted --> flow cytometry has been ordered-->is negative for monoclonal population of cells --> wbc 17->17->16 --> heme end cleared for surgery--> has been completed # Anemia with Acute blood loss anemia ---> Trend CBC closely --> S/P 2 units pRBC 10/04/2019 --> Transfused 1 unit pRBC 10/07, 10/10 --> Iron studies reviewed --> hgb 9.5 # Hydradenitis s/p surgical intervention --> per surgery ==> Fever -resolved, and cleared by heme # Post surgical wound drainage --> abx per id --> wound care --> Pain control with PCN pump --> may need reconstruction 10/14 # Severe protein deficiency malnutrition # Hypoalbuminemia # Hyperglycemia - resolved # Post surgical hypoxia - RESOLVED # Dvt ppx ambulation The timing of this note does not necessarily reflect the time of the patient was seen. Greatly appreciate consultation. Subjective Constitutional: Denies: no symptoms, chills, fever, malaise, weakness, other HEENT: Denies: no symptoms, eye pain, blurred vision, tearing, double vision, ear pain, ear discharge, nose pain, nose congestion, throat pain, throat swelling, mouth pain, mouth swelling, other Cardiovascular: Denies: no symptoms, chest pain, edema, irregular heart rate, lightheadedness, palpitations, syncope, other Respiratory: Denies: no symptoms, cough, shortness of breath, SOB with excertion, SOB at rest, sputum, wheezing, other Gastrointestinal/Abdominal: Denies: no symptoms, abdomen distended, abdominal pain, black stools, tarry stools, blood in stool, constipated, diarrhea, difficulty swallowing, nausea, poor appetite, poor fluid intake, rectal bleeding , vomiting, other Genitourinary: Denies: no symptoms, burning, discharge, frequency, flank pain, hematuria, incontinence, pain, urgency, other Neurologic/Psychiatric: Denies: no symptoms, anxiety, depressed, emotional problems, headache, numbness, paresthesia, pre-existing deficit, seizure, tingling, tremors, weakness, other Hematologic/Lymphatic: Denies: no symptoms, anemia, easy bleeding, easy bruising, adenopathy, other Allergies: Coded Allergies: PEANUT (Verified Allergy, Severe, anaphylactic, 10/04/19) HYDROMORPHONE (Verified Allergy, Intermediate, severe nausea, 10/04/19) Subjective 10/12 labs noted, clear for surgery from heme end, seen by Taylor 10/13 labs noted, no bleeding, meds noted, no hemolysis for surgery shortly 10/14 for surgery today, cleared by hematology, no bleeding comfortable 10/15 labs noted, no bleeding, wbc 16, hgb 10.3, no hemolysis Objective Objective Current Medications Medications (Trade) Dose Ordered Sig/Flavia Route PRN Reason Start Time Stop Time Status Last Admin Dose Admin Acetaminophen (Tylenol) 650 mg Q4H PRN ORAL Mild Pain (Pain Scale 1-3) 10/04/19 12:30 11/03/19 12:29 Acetaminophen (Tylenol) 650 mg Q4H PRN ORAL FEVER 10/15/19 12:29 11/14/19 12:28 Bisacodyl (Dulcolax) 10 mg HSPRN PRN RECTAL Constipation 10/04/19 15:45 01/02/20 12:29 Dextrose (Dextrose 50%) 25 ml Q30M PRN IV Hypoglycemia 10/04/19 15:45 01/02/20 15:44 Dextrose (Dextrose 50%) 50 ml Q30M PRN IV Hypoglycemia 10/04/19 15:45 01/02/20 15:44 Famotidine (Pepcid) 40 mg DAILY ORAL 10/05/19 09:00 01/03/20 08:59 10/16/19 09:04 Fluconazole/ Sodium Chloride 100 ml @ 100 mls/hr Q24H IV 10/16/19 16:00 10/23/19 15:59 Heparin Sodium (Porcine) (Heparin 5000 units/ml) 5,000 units EVERY 12 HOURS SUBQ 10/15/19 21:00 11/29/19 20:59 10/16/19 09:05 Magnesium Hydroxide (Mom) 30 ml HSPRN PRN ORAL Constipation 10/04/19 12:30 11/03/19 12:29 10/11/19 22:25 Meropenem 1 gm/ Sodium Chloride 100 ml @ 200 mls/hr Q8H IVPB 10/13/19 23:00 10/18/19 22:59 10/16/19 06:03 Metoclopramide HCl (Reglan) 10 mg Q6H PRN IVP Nausea & Vomiting 10/09/19 10:00 11/08/19 09:59 Miscellaneous Medication (DRY CURER Rate Change) 1 ea DAILY PRN MISC rate change 10/15/19 07:15 10/17/19 07:14 Miscellaneous Medication (DRY CURER shift volume) 1 ea Q12HR@0700,1900 MISC 10/15/19 19:00 10/17/19 18:59 10/16/19 07:24 Morphine Sulfate 30 ml @ 0 mls/hr Q24H PRN IV For Pain 10/15/19 12:31 10/17/19 12:30 10/16/19 02:24 Ondansetron HCl (Zofran) 4 mg Q6H PRN IVP Nausea & Vomiting 10/15/19 07:15 11/14/19 07:14 Polyethylene Glycol (Miralax) 17 gm DAILY ORAL 10/13/19 09:00 11/12/19 08:59 10/16/19 09:04 Temazepam (RestoriL) 7.5 mg DAILYPRN PRN ORAL Insomnia 10/15/19 07:15 10/22/19 07:14 Vancomycin HCl (Vanco pharmacy to dose) 1 ea DAILY PRN MISC Per rx protocol 10/08/19 11:00 11/07/19 10:59 Vancomycin/Sodium Chloride 275 ml @ 183.333 mls/hr Q8HR@0400,1200,2000 IVPB 10/14/19 12:00 10/19/19 11:59 10/16/19 11:36 Zolpidem Tartrate (Ambien) 5 mg DAILYPRN PRN ORAL Insomnia 10/15/19 07:15 10/22/19 07:14 Last 24 Hour Vital Signs Date Time Temp Pulse Resp B/P (MAP) Pulse Ox O2 Delivery O2 Flow Rate FiO2 10/16/19 11:50 91 20 99 10/16/19 11:50 98.3 91 20 128/79 (95) 99 10/16/19 09:06 93 18 97 10/16/19 08:00 98.6 95 18 125/78 (94) 96 10/16/19 08:00 95 18 96 10/16/19 07:48 Room Air 10/16/19 04:00 99.9 93 18 125/74 (91) 97 10/16/19 04:00 93 18 97 10/16/19 00:00 99.6 98 18 128/76 (93) 96 10/16/19 00:00 98 18 96 10/15/19 21:00 Room Air 10/15/19 20:00 97.8 83 16 140/76 (97) 95 10/15/19 20:00 83 16 95 10/15/19 19:00 98 Room Air 21 10/15/19 16:00 82 21 100 10/15/19 16:00 97.4 82 19 134/67 (89) 100 10/15/19 14:15 97.8 79 18 116/60 (78) 100 10/15/19 13:45 97.7 71 16 132/68 (89) 100 10/15/19 13:32 Room Air 10/15/19 13:15 97.8 90 18 131/69 (89) 100 10/15/19 13:00 71 18 100 10/15/19 13:00 100 Nasal Cannula 2.0 10/15/19 12:45 97.6 69 14 141/64 100 Nasal Cannula 3 10/15/19 12:38 97.6 10/15/19 12:35 70 12 146/72 100 Nasal Cannula 3 10/15/19 12:20 70 12 145/76 100 Nasal Cannula 3 10/15/19 12:05 72 21 146/74 100 Nasal Cannula 3 10/15/19 11:50 76 21 151/76 100 Simple Mask 6 10/15/19 11:40 78 21 154/81 100 Simple Mask 6 10/15/19 11:30 79 20 151/80 100 Simple Mask 6 10/15/19 11:28 76 20 99 10/15/19 11:25 75 22 158/80 100 Simple Mask 6 10/15/19 11:20 76 22 161/80 100 Simple Mask 6 10/15/19 11:16 97.5 86 24 166/93 100 Simple Mask 6 10/15/19 04:00 80 18 98 10/15/19 04:00 98.5 80 18 137/67 (90) 98 10/15/19 00:00 99.1 96 18 118/63 (81) 98 10/15/19 00:00 86 18 98 10/14/19 21:00 Room Air 10/14/19 20:00 100.1 87 18 126/68 (87) 97 10/14/19 20:00 87 18 97 10/14/19 19:15 99 Room Air 21 10/14/19 16:00 99.2 83 19 127/69 (88) 99 Intake and Output 10/15/19 10/16/19 18:59 06:59 Intake Total 2340 ml 1350.000 ml Output Total 775 ml 700 ml Balance 1565 ml 650.000 ml Intake Oral 240 ml 600 ml IV Total 1500 ml 750.000 ml Blood Product 350 ml Other 250 ml Output Urine Total 775 ml 700 ml Labs Test 10/14/19 04:00 10/15/19 19:25 10/16/19 05:40 Sodium Level 138 MMOL/L (136-145) 138 MMOL/L (136-145) Potassium Level 4.1 MMOL/L (3.5-5.1) 4.5 MMOL/L (3.5-5.1) Chloride Level 102 MMOL/L (98-107) 101 MMOL/L (98-107) Carbon Dioxide Level 31 MMOL/L (21-32) 29 MMOL/L (21-32) Anion Gap 5 mmol/L (5-15) 8 mmol/L (5-15) Blood Urea Nitrogen 7 mg/dL (7-18) 10 mg/dL (7-18) Creatinine 0.7 MG/DL (0.55-1.30) 0.8 MG/DL (0.55-1.30) Estimat Glomerular Filtration Rate > 60 mL/min (>60) > 60 mL/min (>60) Glucose Level 98 MG/DL (74-106) 92 MG/DL (74-106) Calcium Level 8.3 MG/DL (8.5-10.1) 8.4 MG/DL (8.5-10.1) Vancomycin Level Trough 8.1 ug/mL (5.0-12.0) 19.4 ug/mL (5.0-12.0) White Blood Count 16.0 K/UL (4.8-10.8) Red Blood Count 3.86 M/UL (4.70-6.10) Hemoglobin 10.3 G/DL (14.2-18.0) Hematocrit 32.2 % (42.0-52.0) Mean Corpuscular Volume 83 FL (80-99) Mean Corpuscular Hemoglobin 26.8 PG (27.0-31.0) Mean Corpuscular Hemoglobin Concent 32.1 G/DL (32.0-36.0) Red Cell Distribution Width 17.3 % (11.6-14.8) Platelet Count 437 K/UL (150-450) Mean Platelet Volume 7.5 FL (6.5-10.1) Neutrophils (%) (Auto) 78.0 % (45.0-75.0) Lymphocytes (%) (Auto) 11.7 % (20.0-45.0) Monocytes (%) (Auto) 6.7 % (1.0-10.0) Eosinophils (%) (Auto) 3.3 % (0.0-3.0) Basophils (%) (Auto) 0.3 % (0.0-2.0) Height (Feet): 5 Height (Inches): 11.00 Weight (Pounds): 160 Objective Physical Exam: Vitals: reviewed General: NAD HEENT: nc, at Neck: supple Chest: clear breath sounds bilaterally Cardiovascular: RRR, no s3, s4 Abdomen: soft, nontender, nd Extremities: no cce, normal range of motion Skin: normal pigmentation, warm/dry, other - surgical sites dressings in place and clean, intact Neuro: alert and oriented Juan Alberto John MD Oct 16, 2019 12:46
--- NOTE | 2019-10-16 13:42 | General Progress Note ---
Progress Note Progress Note Pt seen and examined. POD# 1 from reconstruction of groin and thigh. Doing well and pain is well controlled. Working on rehab placement and will need an exam under anesthesia on Tuesday to remove the groin dressings and evaluate the reconstruction. Continue antibiotics and pain pump. MD Taylor Briceño Amir MD Oct 16, 2019 13:42
--- NOTE | 2019-10-16 13:45 | NUR ---
NURSE NOTES: SCD on. RN spoke to welfare case worker regarding [facility] at [facility].
--- NOTE | 2019-10-16 17:18 | NUR ---
*-*DISCHARGE PLANNING*-* PATIENT HAS BEEN REFERRED TO: [facility] P: [phone] S/W CARIN BRISENO, PATIENT MEETS CRITERIA TO BE AT [facility], WILL FOLLOW UP AFTER SURGERY ON TUESDAY REGRADING DISCHARGE PLAN. Addendum: 10/19/19 at 1216 by RAYNA MORENO LVN ~CONOR ogden/ Ajay from [facility] Provided CM alin/ Carin Briseno cell: T: [phone] CM left a VM for Carin to call back CM to f/u
--- NOTE | 2019-10-16 17:20 | NUR ---
CASE MANAGEMENT:REVIEW 10/15/19 SI: POLYMICROBIAL INFECTION S/P RADICAL INCISIONS OF BILATERAL GROINS AND PERINEAL HYDRADENITIS S/P RADICAL INCISION OF AXILLARY HYDRADENITIS 98.1 87 20 120/64 97% ON RA WBC 17.3 H/H 9.5/30.1 VANCO TR 19.4 IS: IN SURGERY REVISION AND PARTIAL CLOSURE OF BILATERAL GROIN WOUND SKIN GRAFTING IV VANCOMYCIN TID IV MEROPENEM TID IV DIFLUCAN QD HEPARIN SQ BID AUTO ELECTRICAL TECHNICIAN MORPHINE \: MED/SURG STATUS 3 EASY DCP: FROM HOME PLAN: SURGERY F/U ON TUESDAY [facility]
--- NOTE | 2019-10-16 19:32 | NUR ---
HAND-OFF: Report given to Alexys REAL. Patient is stable.
--- NOTE | 2019-10-16 19:40 | NUR ---
NURSE NOTES: Patient awake in bed, no complaints of SOB at this time. With GIRL FRIDAY Morphine. With dressings on bilateral axilla and bilateral groin. Dry and intact. With Flores catheter intact and draining well. IV access on the left foot. Instructed to use call light for assistance. Bed in lowest, lock engaged and alarm on. Will continue to monitor.
--- NOTE | 2019-10-16 20:30 | NUR ---
NURSE NOTES: Pt was visited by a family member.
[2019-10-17] VITALS: BP 105/60
[2019-10-17] MEDS: Vancomycin 1.25gm/NS Premix IVPB SCH ×2 (03:26→12:13)
[2019-10-17 04:00] VITALS: BP 106/63
[2019-10-17 05:57] LABS: BASOPHILS % (AUTO) 0.7 % (0.0-2.0); EOSINOPHILS % (AUTO) 4.8 % (0.0-3.0); HEMATOCRIT 30.1 % (42.0-52.0); HEMOGLOBIN 9.6 G/DL (14.2-18.0); LYMPHOCYTES % (AUTO) 15.8 % (20.0-45.0); MEAN CORPUSCULAR VOLUME 84 FL (80-99); MONOCYTES % (AUTO) 4.6 % (1.0-10.0); NEUTROPHILS % (AUTO) 74.2 % (45.0-75.0); PLATELET COUNT 401 K/UL (150-450); RED BLOOD COUNT 3.58 M/UL (4.70-6.10); RED CELL DISTRIBUTION WIDTH 17.8 % (11.6-14.8); WHITE BLOOD COUNT 15.6 K/UL (4.8-10.8)
--- NOTE | 2019-10-17 06:00 | NUR ---
NURSE NOTES: Offered to change bed cover but patient refused. He verbalized, "Not this time."
[2019-10-17 06:03] LABS: ANION GAP 4 mmol/L (5-15); BLOOD UREA NITROGEN 8 mg/dL (7-18); CALCIUM 8.3 MG/DL (8.5-10.1); CARBON DIOXIDE 32 MMOL/L (21-32); CHLORIDE 116 MMOL/L (98-107); CREATININE 0.7 MG/DL (0.55-1.30); POTASSIUM 4.7 MMOL/L (3.5-5.1); SODIUM 152 MMOL/L (136-145)
--- NOTE | 2019-10-17 07:21 | NUR ---
NURSE NOTES: Report received from Angelique RN, rounds made. Patient sleeping in semi-fowlers position in bed, awakens easily. No distress on RA. Respirations even/unlabored. Dressing to bilateral axillary, bilateral groin soiled, intact. Right thigh dressing remains CDI, will provide skin care/linen change. IV NS at 30 ml/hr with CLUB WAITER/WAITRESS (Morphine) to left foot, IV site asymptomatic. FC draining y/cl urine to gravity. Bilateral SCDs on. Encouraged IS, ankle rotation. Call light in reach, bed in lowest position, will continue to monitor.
[2019-10-17] MEDS: PCA shift volume MISC SCH ×2 (07:28→19:49)
--- NOTE | 2019-10-17 07:32 | NUR ---
HAND-OFF: Report given to ADDIE Alvarez.
[2019-10-17 08:00] VITALS: BP 104/58
[2019-10-17] MEDS: Miralax 17gm pkt ORAL SCH (09:00)
[2019-10-17] MEDS: Heparin 5000 units/ml inj SUBQ SCH ×2 (09:09→20:34)
[2019-10-17] MEDS: PCA Morphine 1mg/ml 30 ML IV PRN (09:11)
--- NOTE | 2019-10-17 09:18 | General Progress Note ---
Assessment/Plan Problem List: (1) Hidradenitis suppurativa ICD Codes: L73.2 - Hidradenitis suppurativa SNOMED: 11232929 (2) Hypoxia ICD Codes: R09.02 - Hypoxemia SNOMED: 771425820 (3) Acute blood loss anemia ICD Codes: D62 - Acute posthemorrhagic anemia SNOMED: 863063898 (4) Hypoalbuminemia ICD Codes: E88.09 - Other disorders of plasma-protein metabolism, not elsewhere classified SNOMED: 082874703 (5) Hyperglycemia ICD Codes: R73.9 - Hyperglycemia, unspecified SNOMED: 99187270 (6) Leukocytosis ICD Codes: D72.829 - Elevated white blood cell count, unspecified SNOMED: 319264599, 115922040 Status: doing well, stable Assessment/Plan: 24 year old gentleman with no significant PMH presents with acute blood loss anemia after surgery for hydradenitis #Hydradenitis s/p surgical intervention #Fever -resolved #Leukocytosis - improving #Post surgical wound drainage - Continue Fluconazole, Meropenem, Vancomycin per ID recommendations given improving WBC. Given that patient has no access for PICC due to his surgical sites, will discuss final antibiotic end-date for discharge planning - WBC improving - Hematology Dr. John consulted, appreciate recommendations. Likely stress reaction, flow cytometry without monoclonal cells - Plan for OR this coming Tuesday for wound and skin graft check with Dr. Vazquez -Wound care -Pain control with PCN pump -Surgery following, appreciate recommendations - will need PT/OT evaluation - discussed with Case Management regarding plan for placement in rehab after OR on Tuesday #Acute blood loss anemia : STABLE and IMPROVING - S/P 2 units pRBC 10/04/2019 - Transfused 1 unit pRBC 10/07 - Transfused 1 unit pRBC 10/11/2019 in anticipation for possible surgery 2019 with appropriate rise - Iron studies reviewed - Holding DVT ppx - monitor CBC #Severe protein deficiency malnutrition #Hypoalbuminemia -Encourage high protein diet to promote wound healing -Nutrition consult for supplementation #Hyperglycemia - resolved -HgA1c 5.7 -DC ISS -Tight glycemic control for wound healing #Post surgical hypoxia - RESOLVED - Incentive spirometry - Early ambulation with assist -CXR reviewed #FEN/GI - resume regular diet - resume subQ heparin #Dispo: Will go to OR on Tuesday for wound/skin graft check with Dr. Vazquez. If doing well, will plan on discharging to rehab as well as for wound care. Will have final wound care recommendations after Tuesday OR I spent 36 min on this patient with 20 minutes face to face time which included direct counseling and discussion with patient.Coordinating with Surgery and Infectious Diseases as well as Hematology-Oncology. Discussed plan of care with nursing Subjective Date patient seen: Oct 17, 2019 Time patient seen: 08:30 Constitutional: Denies: chills, diaphoresis, fever HEENT: Denies: blurred vision, tearing, double vision Cardiovascular: Denies: chest pain, edema, irregular heart rate Respiratory: Denies: cough, orthopnea, shortness of breath Gastrointestinal/Abdominal: Denies: abdominal pain, nausea, vomiting Genitourinary: Denies: burning, discharge, frequency Neurologic/Psychiatric: Denies: emotional problems Endocrine: Denies: flushing, intolerance to cold, intolerance to heat Hematologic/Lymphatic: Denies: easy bleeding, easy bruising Allergies: Coded Allergies: PEANUT (Verified Allergy, Severe, anaphylactic, 10/04/19) HYDROMORPHONE (Verified Allergy, Intermediate, severe nausea, 10/04/19) All Systems: reviewed and negative except above Subjective reports feeling well today, no complaints or requests. pain controlled Objective Last 24 Hour Vital Signs Date Time Temp Pulse Resp B/P (MAP) Pulse Ox O2 Delivery O2 Flow Rate FiO2 10/17/19 08:35 98 Room Air 21 10/17/19 04:00 98.5 81 20 106/63 (77) 98 10/17/19 04:00 81 20 98 10/17/19 00:00 99.0 81 18 105/60 (75) 99 10/17/19 00:00 81 18 99 10/16/19 21:00 Room Air 10/16/19 20:23 98 Room Air 21 10/16/19 20:00 99.8 86 18 109/69 (82) 98 10/16/19 20:00 86 18 98 10/16/19 16:00 87 20 97 10/16/19 15:52 98.1 87 20 120/64 (82) 97 10/16/19 11:50 91 20 99 10/16/19 11:50 98.3 91 20 128/79 (95) 99 Intake and Output 10/16/19 10/17/19 19:00 07:00 Intake Total 120 ml 650.000 ml Output Total 1300 ml 2000 ml Balance -1180 ml -1350.000 ml Intake Oral 120 ml IV Total 650.000 ml Output Urine Total 1300 ml 2000 ml Laboratory Tests 10/17/19 04:45: White Blood Count 15.6H, Red Blood Count 3.58L, Hemoglobin 9.6L, Hematocrit 30.1L, Mean Corpuscular Volume 84, Mean Corpuscular Hemoglobin 26.8L, Mean Corpuscular Hemoglobin Concent 31.9L, Red Cell Distribution Width 17.8H, Platelet Count 401, Mean Platelet Volume 7.3, Neutrophils (%) (Auto) 74.2, Lymphocytes (%) (Auto) 15.8L, Monocytes (%) (Auto) 4.6, Eosinophils (%) (Auto) 4.8H, Basophils (%) (Auto) 0.7, Sodium Level 152#H, Potassium Level 4.7, Chloride Level 116H, Carbon Dioxide Level 32, Anion Gap 4L, Blood Urea Nitrogen 8, Creatinine 0.7, Estimat Glomerular Filtration Rate > 60, Glucose Level 83, Calcium Level 8.3L Height (Feet): 5 Height (Inches): 11.00 Weight (Pounds): 160 General Appearance: WD/WN, no apparent distress, alert EENT: PERRL/EOMI, normal ENT inspection, pharynx normal Neck: non-tender, normal alignment, supple, normal inspection Cardiovascular: normal peripheral pulses, normal rate, regular rhythm, no gallop/murmur, no JVD Respiratory/Chest: chest wall non-tender, lungs clear, normal breath sounds, no respiratory distress Abdomen: normal bowel sounds, non tender, soft, no mass Pelvis: no active bleeding Extremities: normal range of motion, non-tender, no calf tenderness, other - surgical sites with dressing in place appears clean, dry, intact Edema: no edema noted Arm (L), no edema noted Arm (R), no edema noted Leg (L), no edema noted Leg (R), no edema noted Pedal (L), no edema noted Pedal (R) 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 Oct 17, 2019 09:18
[2019-10-17 12:00] VITALS: BP 108/59
--- NOTE | 2019-10-17 15:00 | NUR ---
NURSE NOTES: Provided partial sponge bed bath/skin care and complete linen change. Dressings remain intact.
--- NOTE | 2019-10-17 15:54 | NUR ---
*-* INSURANCE *-* UPDATED CLINICALS AND REVIEWS HAVE BEEN FAXED TO: [facility] Edie FAX: [phone] AND FAX: [phone] [facility]# [id number] CM spoke to Edie from [facility] CM informed that case has been denied d/t lack of communication from MD PERDOMO instructed to fax all clinicals to overturn result CM also instructed that a peer to peer may be needed if no clinicals received Phone was disconnected prior to obtaining call back phone number to communicate back T: [phone]~ For requesting peer to peer if needed CM will request call back on fax cover sheet
[2019-10-17 16:00] VITALS: BP 119/63
--- NOTE | 2019-10-17 16:14 | Infectious Diseases Prog Note ---
Assessment/Plan Assessment/Plan ASSESSMENT AND PLAN: 1. bilateral axilla/groin/thigh wound infection/hidradenitis suppurativa, leukocytosis, ? sepsis - polymicrobial infection - meropenem, vancomycin, diflucan -day # 7 - leukocytosis improving - downward trend to 15.6 - blood cultures negative - s/p excision and debridement - s/p wound closure and reconstruction - monitor creatinine on abx 2. The patient has history of hidradenitis suppurativa with history of surgery. 3. Anemia. 4. No diabetes or hypertension. 5. Blood sugars have been elevated, hyperglycemia. 6. Allergies to hydromorphone and peanuts. 7. Social history is negative. 8. Family history is noncontributory. 9. MAR was noted. 10. Case was discussed with RN. 11. Case was discussed with Dr. Vazquez. 12. Case was communicated with Dr. Metzger. 13. Continue treatment as per primary consultants. 14. Wound care protocol per Dr. Vazquez. 15. Orders were noted and entered. Subjective Constitutional: Denies: fever HEENT: Denies: congestion Respiratory: Denies: shortness of breath Cardiovascular: Denies: chest pain Gastrointestinal/Abdominal: Denies: nausea, vomiting, diarrhea Genitourinary: Reports: other - no benavidez Neurologic: Denies: headache Psychiatric: Denies: depression Skin: Denies: rash Hematologic: Denies: bleeding Musculoskeletal: Denies: pain Allergies: Coded Allergies: PEANUT (Verified Allergy, Severe, anaphylactic, 10/04/19) HYDROMORPHONE (Verified Allergy, Intermediate, severe nausea, 10/04/19) Objective Last 24 Hour Vital Signs Date Time Temp Pulse Resp B/P (MAP) Pulse Ox O2 Delivery O2 Flow Rate FiO2 10/17/19 12:00 91 16 96 10/17/19 12:00 98.1 91 16 108/59 (75) 96 10/17/19 08:35 98 Room Air 21 10/17/19 08:00 98.4 81 16 104/58 (73) 97 10/17/19 08:00 81 16 97 10/17/19 04:00 98.5 81 20 106/63 (77) 98 10/17/19 04:00 81 20 98 10/17/19 00:00 99.0 81 18 105/60 (75) 99 10/17/19 00:00 81 18 99 10/16/19 21:00 Room Air 10/16/19 20:23 98 Room Air 21 10/16/19 20:00 99.8 86 18 109/69 (82) 98 10/16/19 20:00 86 18 98 Height (Feet): 5 Height (Inches): 11.00 Weight (Pounds): 160 General Appearance: no acute distress HEENT: normocephalic, atraumatic, anicteric, mucous membranes moist Respiratory/Chest: lungs clear, normal breath sounds, no respiratory distress, no accessory muscle use Cardiovascular: normal rate, regular rhythm, no gallop/murmur, no JVD Abdomen: normal bowel sounds, soft, non tender, no organomegaly, non distended Genitourinary: other - + benavidez Extremities: no cyanosis Skin: no rash 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 The heart size is normal. There is no significant interim change Impression: Negative Microbiology Date/Time Source Procedure Growth Status 10/10/19 10:15 Blood Blood Culture - Final NO GROWTH AFTER 5 DAYS Complete 10/02/19 12:00 Nasopharynx Coronavirus COVID-19 PCR (ROSANNA) - Final Complete 10/04/19 10:26 Groin Gram Stain - Final Complete 10/04/19 10:26 Aerobic Culture - Final Citrobacter Diversus Proteus Mirabilis Usual Skin Pinky Complete 10/04/19 10:26 Anaerobic Culture - Final Bacteroides Merdae Fusobacterium Varium Complete Laboratory Tests Test 10/17/19 04:45 White Blood Count 15.6 K/UL (4.8-10.8) H Red Blood Count 3.58 M/UL (4.70-6.10) L Hemoglobin 9.6 G/DL (14.2-18.0) L Hematocrit 30.1 % (42.0-52.0) L Mean Corpuscular Volume 84 FL (80-99) Mean Corpuscular Hemoglobin 26.8 PG (27.0-31.0) L Mean Corpuscular Hemoglobin Concent 31.9 G/DL (32.0-36.0) L Red Cell Distribution Width 17.8 % (11.6-14.8) H Platelet Count 401 K/UL (150-450) Mean Platelet Volume 7.3 FL (6.5-10.1) Neutrophils (%) (Auto) 74.2 % (45.0-75.0) Lymphocytes (%) (Auto) 15.8 % (20.0-45.0) L Monocytes (%) (Auto) 4.6 % (1.0-10.0) Eosinophils (%) (Auto) 4.8 % (0.0-3.0) H Basophils (%) (Auto) 0.7 % (0.0-2.0) Sodium Level 152 MMOL/L (136-145) #H Potassium Level 4.7 MMOL/L (3.5-5.1) Chloride Level 116 MMOL/L (98-107) H Carbon Dioxide Level 32 MMOL/L (21-32) Anion Gap 4 mmol/L (5-15) L Blood Urea Nitrogen 8 mg/dL (7-18) Creatinine 0.7 MG/DL (0.55-1.30) Estimat Glomerular Filtration Rate > 60 mL/min (>60) Glucose Level 83 MG/DL (74-106) Calcium Level 8.3 MG/DL (8.5-10.1) L Current Medications Medications (Trade) Dose Ordered Sig/Flavia Route PRN Reason Start Time Stop Time Status Last Admin Dose Admin Acetaminophen (Tylenol) 650 mg Q4H PRN ORAL Mild Pain (Pain Scale 1-3) 10/04/19 12:30 11/03/19 12:29 Acetaminophen (Tylenol) 650 mg Q4H PRN ORAL FEVER 10/15/19 12:29 11/14/19 12:28 Bisacodyl (Dulcolax) 10 mg HSPRN PRN RECTAL Constipation 10/04/19 15:45 01/02/20 12:29 Dextrose 1,000 ml @ 75 mls/hr [id number] IV 10/17/19 08:00 10/18/19 07:59 10/17/19 09:12 Dextrose (Dextrose 50%) 25 ml Q30M PRN IV Hypoglycemia 10/04/19 15:45 01/02/20 15:44 Dextrose (Dextrose 50%) 50 ml Q30M PRN IV Hypoglycemia 10/04/19 15:45 01/02/20 15:44 Famotidine (Pepcid) 40 mg DAILY ORAL 10/05/19 09:00 01/03/20 08:59 10/17/19 09:12 Fluconazole/ Sodium Chloride 100 ml @ 100 mls/hr Q24H IV 10/16/19 16:00 10/23/19 15:59 10/16/19 15:31 Heparin Sodium (Porcine) (Heparin 5000 units/ml) 5,000 units EVERY 12 HOURS SUBQ 10/15/19 21:00 11/29/19 20:59 10/17/19 09:09 Magnesium Hydroxide (Mom) 30 ml HSPRN PRN ORAL Constipation 10/04/19 12:30 11/03/19 12:29 10/11/19 22:25 Meropenem 1 gm/ Sodium Chloride 100 ml @ 200 mls/hr Q8H IVPB 10/13/19 23:00 10/18/19 22:59 10/17/19 06:19 Metoclopramide HCl (Reglan) 10 mg Q6H PRN IVP Nausea & Vomiting 10/09/19 10:00 11/08/19 09:59 Miscellaneous Medication (PAIN MANAGEMENT PHYSICIAN shift volume) 1 ea Q12HR@0700,1900 MISC 10/15/19 19:00 10/17/19 18:59 10/17/19 07:28 Ondansetron HCl (Zofran) 4 mg Q6H PRN IVP Nausea & Vomiting 10/15/19 07:15 11/14/19 07:14 Polyethylene Glycol (Miralax) 17 gm DAILY ORAL 10/13/19 09:00 11/12/19 08:59 10/16/19 09:04 Temazepam (RestoriL) 7.5 mg DAILYPRN PRN ORAL Insomnia 10/15/19 07:15 10/22/19 07:14 Vancomycin HCl (Vanco pharmacy to dose) 1 ea DAILY PRN MISC Per rx protocol 10/08/19 11:00 11/07/19 10:59 Vancomycin/Sodium Chloride 275 ml @ 183.333 mls/hr Q8HR@0400,1200,2000 IVPB 10/14/19 12:00 10/19/19 11:59 10/17/19 12:13 Zolpidem Tartrate (Ambien) 5 mg DAILYPRN PRN ORAL Insomnia 10/15/19 07:15 10/22/19 07:14 Cale Tsai MD Oct 17, 2019 16:13
--- NOTE | 2019-10-17 19:17 | NUR ---
HAND-OFF: Report given to Luis Armando REAL, rounds made, patient stable.
[2019-10-17] MEDS ORDERED: Rate Change PCA 1 Each MISC PRN (19:30)
[2019-10-17] MEDS ORDERED: PCA Education Pamphlet MISC ONE (19:30)
[2019-10-17] MEDS ORDERED: PCA Morphine 1mg/ml 30 ML IV PRN (19:47)
[2019-10-17 20:00] VITALS: BP 119/60
[2019-10-17] MEDS ORDERED: Vancomycin 1.25gm/NS Premix 275 ML IVPB SCH (20:00)
--- NOTE | 2019-10-17 21:21 | Hematology/Onc Progress Note ---
Assessment/Plan Assessment/Plan Assessment and Recs # Leukocytosis/elevated white blood cell count, unspecified likely related to underlying stress reaction, smoking v more likely is from surgery and may take 2 -3 weeks to resolve, par for the course --> have reviewed peripheral smear and bandemia/neutrophilia noted --> continue antibiotics if they have been started by ID team --> monitor for resolution --> inflammatory markers are elevated, esr 101, crp 19!! --> ID recs noted --> flow cytometry has been ordered-->is negative for monoclonal population of cells --> wbc 17->17->16 --> heme end cleared for surgery--> has been completed # Anemia with Acute blood loss anemia ---> Trend CBC closely --> S/P 2 units pRBC 10/04/2019 --> Transfused 1 unit pRBC 10/07, 10/10 --> Iron studies reviewed --> hgb 9.5 # Hydradenitis s/p surgical intervention --> per surgery ==> Fever -resolved, and cleared by heme # Post surgical wound drainage --> abx per id --> wound care --> Pain control with PCN pump --> may need reconstruction 10/14 # Severe protein deficiency malnutrition # Hypoalbuminemia # Hyperglycemia - resolved # Post surgical hypoxia - RESOLVED # Dvt ppx ambulation The timing of this note does not necessarily reflect the time of the patient was seen. Greatly appreciate consultation. Subjective Constitutional: Denies: no symptoms, chills, fever, malaise, weakness, other HEENT: Denies: no symptoms, eye pain, blurred vision, tearing, double vision, ear pain, ear discharge, nose pain, nose congestion, throat pain, throat swelling, mouth pain, mouth swelling, other Cardiovascular: Denies: no symptoms, chest pain, edema, irregular heart rate, lightheadedness, palpitations, syncope, other Respiratory: Denies: no symptoms, cough, shortness of breath, SOB with excertion, SOB at rest, sputum, wheezing, other Gastrointestinal/Abdominal: Denies: no symptoms, abdomen distended, abdominal pain, black stools, tarry stools, blood in stool, constipated, diarrhea, difficulty swallowing, nausea, poor appetite, poor fluid intake, rectal bleeding , vomiting, other Genitourinary: Denies: no symptoms, burning, discharge, frequency, flank pain, hematuria, incontinence, pain, urgency, other Neurologic/Psychiatric: Denies: no symptoms, anxiety, depressed, emotional problems, headache, numbness, paresthesia, pre-existing deficit, seizure, tingling, tremors, weakness, other Endocrine: Denies: no symptoms, excessive sweating, flushing, intolerance to cold, intolerance to heat, increased hunger, increased thirst, increased urine, unexplained weight gain, unexplained weight loss, other Allergies: Coded Allergies: PEANUT (Verified Allergy, Severe, anaphylactic, 10/04/19) HYDROMORPHONE (Verified Allergy, Intermediate, severe nausea, 10/04/19) Subjective 10/12 labs noted, clear for surgery from heme end, seen by Taylor 10/13 labs noted, no bleeding, meds noted, no hemolysis for surgery shortly 10/14 for surgery today, cleared by hematology, no bleeding comfortable 10/15 labs noted, no bleeding, wbc 16, hgb 10.3, no hemolysis 10/16 meds are noted, no bleeding, labs reviewed, no night sweats Objective Objective Current Medications Medications (Trade) Dose Ordered Sig/Flavia Route PRN Reason Start Time Stop Time Status Last Admin Dose Admin Acetaminophen (Tylenol) 650 mg Q4H PRN ORAL Mild Pain (Pain Scale 1-3) 10/04/19 12:30 11/03/19 12:29 Acetaminophen (Tylenol) 650 mg Q4H PRN ORAL FEVER 10/15/19 12:29 11/14/19 12:28 10/17/19 20:37 Bisacodyl (Dulcolax) 10 mg HSPRN PRN RECTAL Constipation 10/04/19 15:45 01/02/20 12:29 Dextrose 1,000 ml @ 75 mls/hr [id number] IV 10/17/19 08:00 10/18/19 07:59 10/17/19 20:33 Dextrose (Dextrose 50%) 25 ml Q30M PRN IV Hypoglycemia 10/04/19 15:45 01/02/20 15:44 Dextrose (Dextrose 50%) 50 ml Q30M PRN IV Hypoglycemia 10/04/19 15:45 01/02/20 15:44 Famotidine (Pepcid) 40 mg DAILY ORAL 10/05/19 09:00 01/03/20 08:59 10/17/19 09:12 Fluconazole/ Sodium Chloride 100 ml @ 100 mls/hr Q24H IV 10/16/19 16:00 10/23/19 15:59 10/17/19 17:33 Heparin Sodium (Porcine) (Heparin 5000 units/ml) 5,000 units EVERY 12 HOURS SUBQ 10/15/19 21:00 11/29/19 20:59 10/17/19 20:34 Magnesium Hydroxide (Mom) 30 ml HSPRN PRN ORAL Constipation 10/04/19 12:30 11/03/19 12:29 10/11/19 22:25 Meropenem 1 gm/ Sodium Chloride 100 ml @ 200 mls/hr Q8H IVPB 10/17/19 23:00 10/22/19 22:59 Metoclopramide HCl (Reglan) 10 mg Q6H PRN IVP Nausea & Vomiting 10/09/19 10:00 11/08/19 09:59 Miscellaneous Medication (EXTRUDER OPERATOR HELPER Rate Change) 1 ea DAILY PRN MISC rate change 10/17/19 19:30 10/19/19 19:29 Miscellaneous Medication (EXTRUDER OPERATOR HELPER shift volume) 1 ea Q12HR@0700,1900 MISC 10/17/19 19:48 10/19/19 19:47 10/17/19 19:49 Morphine Sulfate 30 ml @ 0 mls/hr Q24H PRN IV For Pain 10/17/19 19:47 10/19/19 19:46 Ondansetron HCl (Zofran) 4 mg Q6H PRN IVP Nausea & Vomiting 10/15/19 07:15 11/14/19 07:14 Polyethylene Glycol (Miralax) 17 gm DAILY ORAL 10/13/19 09:00 11/12/19 08:59 10/16/19 09:04 Temazepam (RestoriL) 7.5 mg DAILYPRN PRN ORAL Insomnia 10/15/19 07:15 10/22/19 07:14 Vancomycin HCl (Vanco pharmacy to dose) 1 ea DAILY PRN MISC Per rx protocol 10/08/19 11:00 11/07/19 10:59 Vancomycin HCl 1 gm/Sodium Chloride 275 ml @ 183.708 mls/hr Q8H IVPB 10/18/19 00:00 8/4/20 00:00 Zolpidem Tartrate (Ambien) 5 mg DAILYPRN PRN ORAL Insomnia 10/15/19 07:15 10/22/19 07:14 Last 24 Hour Vital Signs Date Time Temp Pulse Resp B/P (MAP) Pulse Ox O2 Delivery O2 Flow Rate FiO2 10/17/19 19:02 99 Room Air 21 10/17/19 16:00 78 18 96 10/17/19 16:00 98.3 78 18 119/63 (81) 96 10/17/19 12:00 91 16 96 10/17/19 12:00 98.1 91 16 108/59 (75) 96 10/17/19 09:00 Room Air 10/17/19 08:35 98 Room Air 21 10/17/19 08:00 98.4 81 16 104/58 (73) 97 10/17/19 08:00 81 16 97 10/17/19 04:00 98.5 81 20 106/63 (77) 98 10/17/19 04:00 81 20 98 10/17/19 00:00 99.0 81 18 105/60 (75) 99 10/17/19 00:00 81 18 99 10/16/19 21:00 Room Air 10/16/19 20:23 98 Room Air 21 10/16/19 20:00 99.8 86 18 109/69 (82) 98 10/16/19 20:00 86 18 98 10/16/19 16:00 87 20 97 10/16/19 15:52 98.1 87 20 120/64 (82) 97 10/16/19 11:50 91 20 99 10/16/19 11:50 98.3 91 20 128/79 (95) 99 10/16/19 09:06 93 18 97 10/16/19 08:00 98.6 95 18 125/78 (94) 96 10/16/19 08:00 95 18 96 10/16/19 07:48 Room Air 10/16/19 04:00 99.9 93 18 125/74 (91) 97 10/16/19 04:00 93 18 97 10/16/19 00:00 99.6 98 18 128/76 (93) 96 10/16/19 00:00 98 18 96 Intake and Output 10/16/19 10/17/19 19:00 07:00 Intake Total 120 ml 650.000 ml Output Total 1300 ml 2000 ml Balance -1180 ml -1350.000 ml Intake Oral 120 ml IV Total 650.000 ml Output Urine Total 1300 ml 2000 ml Labs Test 10/15/19 19:25 10/16/19 05:40 10/17/19 04:45 10/17/19 18:45 Vancomycin Level Trough 19.4 ug/mL (5.0-12.0) 19.4 ug/mL (5.0-12.0) White Blood Count 16.0 K/UL (4.8-10.8) 15.6 K/UL (4.8-10.8) Red Blood Count 3.86 M/UL (4.70-6.10) 3.58 M/UL (4.70-6.10) Hemoglobin 10.3 G/DL (14.2-18.0) 9.6 G/DL (14.2-18.0) Hematocrit 32.2 % (42.0-52.0) 30.1 % (42.0-52.0) Mean Corpuscular Volume 83 FL (80-99) 84 FL (80-99) Mean Corpuscular Hemoglobin 26.8 PG (27.0-31.0) 26.8 PG (27.0-31.0) Mean Corpuscular Hemoglobin Concent 32.1 G/DL (32.0-36.0) 31.9 G/DL (32.0-36.0) Red Cell Distribution Width 17.3 % (11.6-14.8) 17.8 % (11.6-14.8) Platelet Count 437 K/UL (150-450) 401 K/UL (150-450) Mean Platelet Volume 7.5 FL (6.5-10.1) 7.3 FL (6.5-10.1) Neutrophils (%) (Auto) 78.0 % (45.0-75.0) 74.2 % (45.0-75.0) Lymphocytes (%) (Auto) 11.7 % (20.0-45.0) 15.8 % (20.0-45.0) Monocytes (%) (Auto) 6.7 % (1.0-10.0) 4.6 % (1.0-10.0) Eosinophils (%) (Auto) 3.3 % (0.0-3.0) 4.8 % (0.0-3.0) Basophils (%) (Auto) 0.3 % (0.0-2.0) 0.7 % (0.0-2.0) Sodium Level 138 MMOL/L (136-145) 152 MMOL/L (136-145) Potassium Level 4.5 MMOL/L (3.5-5.1) 4.7 MMOL/L (3.5-5.1) Chloride Level 101 MMOL/L (98-107) 116 MMOL/L (98-107) Carbon Dioxide Level 29 MMOL/L (21-32) 32 MMOL/L (21-32) Anion Gap 8 mmol/L (5-15) 4 mmol/L (5-15) Blood Urea Nitrogen 10 mg/dL (7-18) 8 mg/dL (7-18) Creatinine 0.8 MG/DL (0.55-1.30) 0.7 MG/DL (0.55-1.30) Estimat Glomerular Filtration Rate > 60 mL/min (>60) > 60 mL/min (>60) Glucose Level 92 MG/DL (74-106) 83 MG/DL (74-106) Calcium Level 8.4 MG/DL (8.5-10.1) 8.3 MG/DL (8.5-10.1) Height (Feet): 5 Height (Inches): 11.00 Weight (Pounds): 160 Objective Physical Exam: Vitals: reviewed General: NAD HEENT: nc, at Neck: supple Chest: clear breath sounds bilaterally Cardiovascular: RRR, no s3, s4 Abdomen: soft, nontender, nd Extremities: no cce, normal range of motion Skin: normal pigmentation, warm/dry, other - surgical sites dressings in place and clean, intact Neuro: alert and oriented Juan Alberto John MD Oct 17, 2019 21:21
[2019-10-17] MEDS: Vancomycin 1 GM in NS 275 ML IVPB SCH (23:22)
[2019-10-18] VITALS (7 sets, daily range): BP systolic 108–128; BP diastolic 59–73
[2019-10-18 05:56] LABS: BASOPHILS % (AUTO) 0.8 % (0.0-2.0); EOSINOPHILS % (AUTO) 4.2 % (0.0-3.0); HEMATOCRIT 35.8 % (42.0-52.0); HEMOGLOBIN 11.2 G/DL (14.2-18.0); LYMPHOCYTES % (AUTO) 19.6 % (20.0-45.0); MEAN CORPUSCULAR VOLUME 84 FL (80-99); MONOCYTES % (AUTO) 4.5 % (1.0-10.0); NEUTROPHILS % (AUTO) 70.9 % (45.0-75.0); PLATELET COUNT 475 K/UL (150-450); RED BLOOD COUNT 4.24 M/UL (4.70-6.10); WHITE BLOOD COUNT 15.6 K/UL (4.8-10.8)
[2019-10-18 06:11] LABS: ALANINE AMINOTRANSFERASE 18 U/L (12-78); ALBUMIN 1.5 G/DL (3.4-5.0); ALBUMIN/GLOBULIN RATIO 0.3 (1.0-2.7); ALKALINE PHOSPHATASE 69 U/L (46-116); ANION GAP 4 mmol/L (5-15); ASPARTATE AMINO TRANSFERASE 19 U/L (15-37); BILIRUBIN,TOTAL 0.3 MG/DL (0.2-1.0); BLOOD UREA NITROGEN 7 mg/dL (7-18); CALCIUM 8.6 MG/DL (8.5-10.1); CARBON DIOXIDE 33 MMOL/L (21-32); CHLORIDE 102 MMOL/L (98-107); CREATININE 0.8 MG/DL (0.55-1.30); POTASSIUM 3.8 MMOL/L (3.5-5.1); SODIUM 139 MMOL/L (136-145)
[2019-10-18] MEDS: PCA shift volume MISC SCH ×2 (07:23→19:11)
--- NOTE | 2019-10-18 07:30 | NUR ---
NURSE NOTES: Patient lying in bed sleeping. Complain of pain 4/10 on surgical site and on BANBURY OPERATOR for pain management. Will continue to monitor. Surgical dressing intact and dry. IV dressing intact and dry. Flores catheter patent and draining well. Bed lowest position. Call light within reach. Will continue to monitor.
--- NOTE | 2019-10-18 07:57 | Anethesia Preoperative Eval ---
Anesthesia Pre-op PMH/ROS General Date of Evaluation: Oct 18, 2019 Time of Evaluation: 07:01 Anesthesiologist: Gretel ASA Score: ASA 2 Mallampati Score Class I : Soft palate, uvula, fauces, pillars visible Class II: Soft palate, uvula, fauces visible Class III: Soft palate, base of uvula visible Class IV: Only hard plate visible Mallampati Classification: Class II Surgeon: Taylor Diagnosis: Hidradenitis Perineum Surgical Procedure: Exam Under Anesthesia Groin Anesthesia History: none Family History: no anesthesia problems Allergies: Coded Allergies: PEANUT (Verified Allergy, Severe, anaphylactic, 10/04/19) HYDROMORPHONE (Verified Allergy, Intermediate, severe nausea, 10/04/19) Medications: see eMAR Patient NPO?: Yes NPO Date: Oct 09, 2019 NPO Time: 00:01 Past Medical History Pulmonary: Reports: asthma Gastrointestinal/Genitourinary: Reports: GERD Neurologic/Psychiatric: Reports: depression/anxiety Hematology/Immune: Reports: anemia Musculoskeletal/Integumentary: Reports: other - Hidradenitis Perineum Anesthesia Pre-op Phys. Exam Physician Exam Last Vital Signs Date Time Temp Pulse Resp B/P (MAP) Pulse Ox O2 Delivery O2 Flow Rate FiO2 10/18/19 04:00 79 20 100 10/18/19 04:00 97.8 117/69 (85) 10/17/19 21:00 Room Air 10/17/19 19:02 21 10/15/19 13:00 2.0 Constitutional: NAD Neurologic: CN 2-12 intact Cardiovascular: RRR Respiratory: CTA Gastrointestinal: S/NT/ND Airway Exam Mallampati Score: Class II MO: full ROM: full Teeth: intact Anesthesia Pre-op A/P Labs Hematology Test 10/18/19 04:50 White Blood Count 15.6 K/UL (4.8-10.8) H Red Blood Count 4.24 M/UL (4.70-6.10) L Hemoglobin 11.2 G/DL (14.2-18.0) L Hematocrit 35.8 % (42.0-52.0) L Mean Corpuscular Volume 84 FL (80-99) Mean Corpuscular Hemoglobin 26.4 PG (27.0-31.0) L Mean Corpuscular Hemoglobin Concent 31.3 G/DL (32.0-36.0) L Red Cell Distribution Width 18.0 % (11.6-14.8) H Platelet Count 475 K/UL (150-450) H Mean Platelet Volume 6.5 FL (6.5-10.1) Neutrophils (%) (Auto) 70.9 % (45.0-75.0) Lymphocytes (%) (Auto) 19.6 % (20.0-45.0) L Monocytes (%) (Auto) 4.5 % (1.0-10.0) Eosinophils (%) (Auto) 4.2 % (0.0-3.0) H Basophils (%) (Auto) 0.8 % (0.0-2.0) Chemistry Test 10/18/19 04:50 Sodium Level 139 MMOL/L (136-145) Potassium Level 3.8 MMOL/L (3.5-5.1) Chloride Level 102 MMOL/L (98-107) Carbon Dioxide Level 33 MMOL/L (21-32) H Anion Gap 4 mmol/L (5-15) L Blood Urea Nitrogen 7 mg/dL (7-18) Creatinine 0.8 MG/DL (0.55-1.30) Estimat Glomerular Filtration Rate > 60 mL/min (>60) Glucose Level 93 MG/DL (74-106) Calcium Level 8.6 MG/DL (8.5-10.1) Total Bilirubin 0.3 MG/DL (0.2-1.0) Aspartate Amino Transf (AST/SGOT) 19 U/L (15-37) Alanine Aminotransferase (ALT/SGPT) 18 U/L (12-78) Alkaline Phosphatase 69 U/L (46-116) Total Protein 7.2 G/DL (6.4-8.2) Albumin 1.5 G/DL (3.4-5.0) L Globulin 5.7 g/dL Albumin/Globulin Ratio 0.3 (1.0-2.7) L Risk Assessment & Plan Assessment: ASA 2 Plan: GA Status Change Before Surgery: No Pre-Antibiotics Drug: TBA Given Within 1 Hr of Incision: Yes Gideon Majano MD Oct 18, 2019 07:57
[2019-10-18] MEDS: Vancomycin 1 GM in NS 275 ML IVPB SCH ×3 (08:36→23:57)
[2019-10-18] MEDS: Heparin 5000 units/ml inj SUBQ SCH (08:47)
[2019-10-18] MEDS: Miralax 17gm pkt ORAL SCH (08:52)
--- NOTE | 2019-10-18 09:34 | General Progress Note ---
Assessment/Plan Problem List: (1) Hidradenitis suppurativa ICD Codes: L73.2 - Hidradenitis suppurativa SNOMED: 04804857 (2) Hypoxia ICD Codes: R09.02 - Hypoxemia SNOMED: 508057712 (3) Acute blood loss anemia ICD Codes: D62 - Acute posthemorrhagic anemia SNOMED: 919732917 (4) Hypoalbuminemia ICD Codes: E88.09 - Other disorders of plasma-protein metabolism, not elsewhere classified SNOMED: 030852824 (5) Hyperglycemia ICD Codes: R73.9 - Hyperglycemia, unspecified SNOMED: 26429927 (6) Leukocytosis ICD Codes: D72.829 - Elevated white blood cell count, unspecified SNOMED: 749296560, 790306554 Status: doing well, stable Assessment/Plan: 24 year old gentleman with no significant PMH presents with acute blood loss anemia after surgery for hydradenitis #Hydradenitis s/p surgical intervention #Fever -resolved #Leukocytosis - stable #Post surgical wound drainage - Continue Fluconazole, Meropenem, Vancomycin per ID recommendations given improving WBC. Given that patient has no access for PICC due to his surgical sites, will discuss final antibiotic end-date for discharge planning. Per ID, recommend 7 days of antibiotics from surgery (last surgery done , 7 days of antibiotics to be completed 10/22/2019) - WBC stable - Hematology Dr. John consulted, appreciate recommendations. Likely stress reaction, flow cytometry without monoclonal cells - Plan for OR tomorrow for wound and skin graft check with Dr. Vazquez -Wound care -Pain control with PCN pump -Surgery following, appreciate recommendations PT/OT - discussed with Case Management regarding plan for placement in rehab, understand goal of discharge by Tuesday10/22/2019 #Acute blood loss anemia : STABLE and IMPROVING - S/P 2 units pRBC 10/04/2019 - Transfused 1 unit pRBC 10/07 - Transfused 1 unit pRBC 10/11/2019 in anticipation for possible surgery 2019 with appropriate rise - Iron studies reviewed - monitor CBC #Severe protein deficiency malnutrition #Hypoalbuminemia -Encourage high protein diet to promote wound healing -Nutrition consult for supplementation #Hyperglycemia - resolved -HgA1c 5.7 -DC ISS -Tight glycemic control for wound healing #Post surgical hypoxia - RESOLVED - Incentive spirometry - Early ambulation with assist -CXR reviewed #FEN/GI - resume regular diet, NPO after MN for OR and resume after - resume subQ heparin, hold for OR tomorrow AM then resume after #Dispo: Will go to OR tomorrow or wound/skin graft check with Dr. Vazquez. If doing well, will plan on discharging to rehab as well as for wound care. Will have final wound care recommendations after Tuesday OR. Will also need antibiotics through 10/22/[address] Tsai. Goal discharge to rehab on 10/22/2019 I spent 40 min on this patient with 20 minutes face to face time which included direct counseling and discussion with patient.Coordinating with Surgery and Infectious Diseases as well as Hematology-Oncology. Discussed plan of care with nursing Subjective Date patient seen: Oct 18, 2019 Time patient seen: 08:30 Constitutional: Denies: chills, diaphoresis, fever HEENT: Denies: eye pain, blurred vision, double vision Cardiovascular: Denies: chest pain, edema, irregular heart rate Respiratory: Denies: cough, orthopnea, shortness of breath Gastrointestinal/Abdominal: Reports: constipated; Denies: abdominal pain, nausea, vomiting Genitourinary: Denies: burning, discharge, frequency Neurologic/Psychiatric: Denies: emotional problems Endocrine: Denies: flushing, increased hunger, increased thirst Hematologic/Lymphatic: Denies: easy bleeding, easy bruising Allergies: Coded Allergies: PEANUT (Verified Allergy, Severe, anaphylactic, 10/04/19) HYDROMORPHONE (Verified Allergy, Intermediate, severe nausea, 10/04/19) All Systems: reviewed and negative except above Subjective reports feeling well today, no complaints or requests. pain controlled. understands plan for OR wound check tomorrow and also discharge soon thereafter to rehab Objective Last 24 Hour Vital Signs Date Time Temp Pulse Resp B/P (MAP) Pulse Ox O2 Delivery O2 Flow Rate FiO2 10/18/19 09:23 97 Room Air 21 10/18/19 08:00 98.0 83 16 112/62 (79) 99 10/18/19 08:00 83 16 99 10/18/19 04:00 79 20 100 10/18/19 04:00 97.8 82 16 117/69 (85) 98 7/30/20 00:00 98.9 82 16 119/60 (79) 98 10/18/19 00:00 98.9 84 18 110/59 (76) 98 10/18/19 00:00 84 18 98 10/17/19 21:07 98.9 10/17/19 21:00 Room Air 10/17/19 20:00 100.8 82 16 119/60 (79) 98 10/17/19 20:00 82 16 98 10/17/19 19:02 99 Room Air 21 10/17/19 16:00 78 18 96 10/17/19 16:00 98.3 78 18 119/63 (81) 96 10/17/19 12:00 91 16 96 10/17/19 12:00 98.1 91 16 108/59 (75) 96 Intake and Output 10/17/19 10/18/19 19:00 07:00 Intake Total 1135 ml 480 ml Output Total 1900 ml 1900 ml Balance -765 ml -1420 ml Intake Oral 460 ml 480 ml IV Total 675 ml Output Urine Total 1900 ml 1900 ml Laboratory Tests 10/17/19 18:45: Vancomycin Level Trough 19.4H 10/18/19 04:50: White Blood Count 15.6H, Red Blood Count 4.24L, Hemoglobin 11.2L, Hematocrit 35.8L, Mean Corpuscular Volume 84, Mean Corpuscular Hemoglobin 26.4L, Mean Corpuscular Hemoglobin Concent 31.3L, Red Cell Distribution Width 18.0H, Platelet Count 475H, Mean Platelet Volume 6.5, Neutrophils (%) (Auto) 70.9, Lymphocytes (%) (Auto) 19.6L, Monocytes (%) (Auto) 4.5, Eosinophils (%) (Auto) 4.2H, Basophils (%) (Auto) 0.8, Sodium Level 139, Potassium Level 3.8, Chloride Level 102, Carbon Dioxide Level 33H, Anion Gap 4L, Blood Urea Nitrogen 7, Creatinine 0.8, Estimat Glomerular Filtration Rate > 60, Glucose Level 93, Calcium Level 8.6, Total Bilirubin 0.3, Aspartate Amino Transf (AST/SGOT) 19, Alanine Aminotransferase (ALT/SGPT) 18, Alkaline Phosphatase 69, Total Protein 7.2, Albumin 1.5L, Globulin 5.7, Albumin/Globulin Ratio 0.3L Height (Feet): 5 Height (Inches): 11.00 Weight (Pounds): 160 General Appearance: WD/WN, no apparent distress, alert EENT: PERRL/EOMI, normal ENT inspection, pharynx normal Neck: non-tender, normal alignment, supple, normal inspection Cardiovascular: normal peripheral pulses, normal rate, regular rhythm, no gallop/murmur, no JVD Respiratory/Chest: chest wall non-tender, lungs clear, normal breath sounds, no respiratory distress Abdomen: normal bowel sounds, non tender, soft, no mass Pelvis: no active bleeding Extremities: normal range of motion, normal inspection, no calf tenderness, other - groin and axillary surgical sites with dressing in place are clean, dry , intact Edema: no edema noted Arm (L), no edema noted Arm (R), no edema noted Leg (L), no edema noted Leg (R), no edema noted Pedal (L), no edema noted Pedal (R) Neurologic: net software developer II-XII grossly normal, no motor/sensory deficits, alert, oriented x 3 Skin: normal pigmentation, warm/dry Jacob Wolff M.D. Oct 18, 2019 09:34
--- NOTE | 2019-10-18 10:41 | NUR ---
NURSE NOTES: Dressing change order received from Dr. Vazquez. Order read back and entered. Relayed to primary nurse Jack.
--- NOTE | 2019-10-18 12:49 | Hematology/Onc Progress Note ---
Assessment/Plan Assessment/Plan Assessment and Recs # Leukocytosis/elevated white blood cell count, unspecified likely related to underlying stress reaction, smoking v more likely is from surgery and may take 2 -3 weeks to resolve, par for the course --> have reviewed peripheral smear and bandemia/neutrophilia noted --> continue antibiotics if they have been started by ID team --> monitor for resolution --> inflammatory markers are elevated, esr 101, crp 19!! --> ID recs noted --> flow cytometry has been ordered-->is negative for monoclonal population of cells --> wbc 17->17->16 --> heme end cleared for surgery--> has been completed # Anemia with Acute blood loss anemia ---> Trend CBC closely --> S/P 2 units pRBC 10/04/2019 --> Transfused 1 unit pRBC 10/07, 10/10 --> Iron studies reviewed --> hgb 9.5 # Hydradenitis s/p surgical intervention --> per surgery ==> Fever -resolved, and cleared by heme # Post surgical wound drainage --> abx per id --> wound care --> Pain control with PCN pump --> may need reconstruction 10/14 # Severe protein deficiency malnutrition # Hypoalbuminemia # Hyperglycemia - resolved # Post surgical hypoxia - RESOLVED # Dvt ppx ambulation The timing of this note does not necessarily reflect the time of the patient was seen. Greatly appreciate consultation. Subjective Constitutional: Denies: no symptoms, chills, fever, malaise, weakness, other HEENT: Denies: no symptoms, eye pain, blurred vision, tearing, double vision, ear pain, ear discharge, nose pain, nose congestion, throat pain, throat swelling, mouth pain, mouth swelling, other Cardiovascular: Denies: no symptoms, chest pain, edema, irregular heart rate, lightheadedness, palpitations, syncope, other Respiratory: Denies: no symptoms, cough, shortness of breath, SOB with excertion, SOB at rest, sputum, wheezing, other Neurologic/Psychiatric: Denies: no symptoms, anxiety, depressed, emotional problems, headache, numbness, paresthesia, pre-existing deficit, seizure, tingling, tremors, weakness, other Endocrine: Denies: no symptoms, excessive sweating, flushing, intolerance to cold, intolerance to heat, increased hunger, increased thirst, increased urine, unexplained weight gain, unexplained weight loss, other Hematologic/Lymphatic: Denies: no symptoms, anemia, easy bleeding, easy bruising, adenopathy, other Allergies: Coded Allergies: PEANUT (Verified Allergy, Severe, anaphylactic, 10/04/19) HYDROMORPHONE (Verified Allergy, Intermediate, severe nausea, 10/04/19) Subjective 10/12 labs noted, clear for surgery from heme end, seen by Taylor 10/13 labs noted, no bleeding, meds noted, no hemolysis for surgery shortly 10/14 for surgery today, cleared by hematology, no bleeding comfortable 10/15 labs noted, no bleeding, wbc 16, hgb 10.3, no hemolysis 10/16 meds are noted, no bleeding, labs reviewed, no night sweats 10/17 labs are noted, no bleeding, meds reviewed, no hemolysis Objective Objective Current Medications Medications (Trade) Dose Ordered Sig/Flavia Route PRN Reason Start Time Stop Time Status Last Admin Dose Admin Acetaminophen (Tylenol) 650 mg Q4H PRN ORAL Mild Pain (Pain Scale 1-3) 10/04/19 12:30 11/03/19 12:29 Acetaminophen (Tylenol) 650 mg Q4H PRN ORAL FEVER 10/15/19 12:29 11/14/19 12:28 10/17/19 20:37 Bisacodyl (Dulcolax) 10 mg HSPRN PRN RECTAL Constipation 10/04/19 15:45 01/02/20 12:29 Dextrose (Dextrose 50%) 25 ml Q30M PRN IV Hypoglycemia 10/04/19 15:45 01/02/20 15:44 Dextrose (Dextrose 50%) 50 ml Q30M PRN IV Hypoglycemia 10/04/19 15:45 01/02/20 15:44 Famotidine (Pepcid) 40 mg DAILY ORAL 10/05/19 09:00 01/03/20 08:59 10/18/19 08:36 Fluconazole/ Sodium Chloride 100 ml @ 100 mls/hr Q24H IV 10/16/19 16:00 10/23/19 15:59 10/17/19 17:33 Heparin Sodium (Porcine) (Heparin 5000 units/ml) 5,000 units EVERY 12 HOURS SUBQ 10/18/19 21:00 10/18/19 23:59 Magnesium Hydroxide (Mom) 30 ml HSPRN PRN ORAL Constipation 10/04/19 12:30 11/03/19 12:29 10/11/19 22:25 Meropenem 1 gm/ Sodium Chloride 100 ml @ 200 mls/hr Q8H IVPB 10/17/19 23:00 10/22/19 22:59 10/18/19 06:02 Metoclopramide HCl (Reglan) 10 mg Q6H PRN IVP Nausea & Vomiting 10/09/19 10:00 11/08/19 09:59 Miscellaneous Medication (PATTERN DATA OPERATOR Rate Change) 1 ea DAILY PRN MISC rate change 10/17/19 19:30 10/19/19 19:29 Miscellaneous Medication (PATTERN DATA OPERATOR shift volume) 1 ea Q12HR@0700,1900 MISC 10/17/19 19:48 10/19/19 19:47 10/18/19 07:23 Morphine Sulfate 30 ml @ 0 mls/hr Q24H PRN IV For Pain 10/17/19 19:47 10/19/19 19:46 Ondansetron HCl (Zofran) 4 mg Q6H PRN IVP Nausea & Vomiting 10/15/19 07:15 11/14/19 07:14 Polyethylene Glycol (Miralax) 17 gm DAILY ORAL 10/13/19 09:00 11/12/19 08:59 10/16/19 09:04 Temazepam (RestoriL) 7.5 mg DAILYPRN PRN ORAL Insomnia 10/15/19 07:15 10/22/19 07:14 Vancomycin HCl (Vanco pharmacy to dose) 1 ea DAILY PRN MISC Per rx protocol 10/08/19 11:00 11/07/19 10:59 Vancomycin HCl 1 gm/Sodium Chloride 275 ml @ 183.708 mls/hr Q8H IVPB 10/18/19 00:00 10/23/19 00:00 10/18/19 08:36 Zolpidem Tartrate (Ambien) 5 mg DAILYPRN PRN ORAL Insomnia 10/15/19 07:15 10/22/19 07:14 Last 24 Hour Vital Signs Date Time Temp Pulse Resp B/P (MAP) Pulse Ox O2 Delivery O2 Flow Rate FiO2 10/18/19 12:00 82 16 98 10/18/19 12:00 98.9 82 16 108/61 (77) 98 10/18/19 09:23 97 Room Air 21 10/18/19 09:00 Room Air 10/18/19 08:00 98.0 83 16 112/62 (79) 99 10/18/19 08:00 83 16 99 10/18/19 04:00 79 20 100 10/18/19 04:00 97.8 82 16 117/69 (85) 98 10/18/19 00:00 98.9 82 16 119/60 (79) 98 10/18/19 00:00 98.9 84 18 110/59 (76) 98 10/18/19 00:00 84 18 98 10/17/19 21:07 98.9 10/17/19 21:00 Room Air 10/17/19 20:00 100.8 82 16 119/60 (79) 98 10/17/19 20:00 82 16 98 10/17/19 19:02 99 Room Air 21 10/17/19 16:00 78 18 96 10/17/19 16:00 98.3 78 18 119/63 (81) 96 10/17/19 12:00 91 16 96 10/17/19 12:00 98.1 91 16 108/59 (75) 96 10/17/19 09:00 Room Air 10/17/19 08:35 98 Room Air 21 10/17/19 08:00 98.4 81 16 104/58 (73) 97 10/17/19 08:00 81 16 97 10/17/19 04:00 98.5 81 20 106/63 (77) 98 10/17/19 04:00 81 20 98 10/17/19 00:00 99.0 81 18 105/60 (75) 99 10/17/19 00:00 81 18 99 10/16/19 21:00 Room Air 10/16/19 20:23 98 Room Air 21 10/16/19 20:00 99.8 86 18 109/69 (82) 98 10/16/19 20:00 86 18 98 10/16/19 16:00 87 20 97 10/16/19 15:52 98.1 87 20 120/64 (82) 97 Intake and Output 10/17/19 10/18/19 19:00 07:00 Intake Total 1135 ml 480 ml Output Total 1900 ml 1900 ml Balance -765 ml -1420 ml Intake Oral 460 ml 480 ml IV Total 675 ml Output Urine Total 1900 ml 1900 ml Labs Test 10/15/19 19:25 10/16/19 05:40 10/17/19 04:45 10/17/19 18:45 Vancomycin Level Trough 19.4 ug/mL (5.0-12.0) 19.4 ug/mL (5.0-12.0) White Blood Count 16.0 K/UL (4.8-10.8) 15.6 K/UL (4.8-10.8) Red Blood Count 3.86 M/UL (4.70-6.10) 3.58 M/UL (4.70-6.10) Hemoglobin 10.3 G/DL (14.2-18.0) 9.6 G/DL (14.2-18.0) Hematocrit 32.2 % (42.0-52.0) 30.1 % (42.0-52.0) Mean Corpuscular Volume 83 FL (80-99) 84 FL (80-99) Mean Corpuscular Hemoglobin 26.8 PG (27.0-31.0) 26.8 PG (27.0-31.0) Mean Corpuscular Hemoglobin Concent 32.1 G/DL (32.0-36.0) 31.9 G/DL (32.0-36.0) Red Cell Distribution Width 17.3 % (11.6-14.8) 17.8 % (11.6-14.8) Platelet Count 437 K/UL (150-450) 401 K/UL (150-450) Mean Platelet Volume 7.5 FL (6.5-10.1) 7.3 FL (6.5-10.1) Neutrophils (%) (Auto) 78.0 % (45.0-75.0) 74.2 % (45.0-75.0) Lymphocytes (%) (Auto) 11.7 % (20.0-45.0) 15.8 % (20.0-45.0) Monocytes (%) (Auto) 6.7 % (1.0-10.0) 4.6 % (1.0-10.0) Eosinophils (%) (Auto) 3.3 % (0.0-3.0) 4.8 % (0.0-3.0) Basophils (%) (Auto) 0.3 % (0.0-2.0) 0.7 % (0.0-2.0) Sodium Level 138 MMOL/L (136-145) 152 MMOL/L (136-145) Potassium Level 4.5 MMOL/L (3.5-5.1) 4.7 MMOL/L (3.5-5.1) Chloride Level 101 MMOL/L (98-107) 116 MMOL/L (98-107) Carbon Dioxide Level 29 MMOL/L (21-32) 32 MMOL/L (21-32) Anion Gap 8 mmol/L (5-15) 4 mmol/L (5-15) Blood Urea Nitrogen 10 mg/dL (7-18) 8 mg/dL (7-18) Creatinine 0.8 MG/DL (0.55-1.30) 0.7 MG/DL (0.55-1.30) Estimat Glomerular Filtration Rate > 60 mL/min (>60) > 60 mL/min (>60) Glucose Level 92 MG/DL (74-106) 83 MG/DL (74-106) Calcium Level 8.4 MG/DL (8.5-10.1) 8.3 MG/DL (8.5-10.1) Test 10/18/19 04:50 White Blood Count 15.6 K/UL (4.8-10.8) Red Blood Count 4.24 M/UL (4.70-6.10) Hemoglobin 11.2 G/DL (14.2-18.0) Hematocrit 35.8 % (42.0-52.0) Mean Corpuscular Volume 84 FL (80-99) Mean Corpuscular Hemoglobin 26.4 PG (27.0-31.0) Mean Corpuscular Hemoglobin Concent 31.3 G/DL (32.0-36.0) Red Cell Distribution Width 18.0 % (11.6-14.8) Platelet Count 475 K/UL (150-450) Mean Platelet Volume 6.5 FL (6.5-10.1) Neutrophils (%) (Auto) 70.9 % (45.0-75.0) Lymphocytes (%) (Auto) 19.6 % (20.0-45.0) Monocytes (%) (Auto) 4.5 % (1.0-10.0) Eosinophils (%) (Auto) 4.2 % (0.0-3.0) Basophils (%) (Auto) 0.8 % (0.0-2.0) Sodium Level 139 MMOL/L (136-145) Potassium Level 3.8 MMOL/L (3.5-5.1) Chloride Level 102 MMOL/L (98-107) Carbon Dioxide Level 33 MMOL/L (21-32) Anion Gap 4 mmol/L (5-15) Blood Urea Nitrogen 7 mg/dL (7-18) Creatinine 0.8 MG/DL (0.55-1.30) Estimat Glomerular Filtration Rate > 60 mL/min (>60) Glucose Level 93 MG/DL (74-106) Calcium Level 8.6 MG/DL (8.5-10.1) Total Bilirubin 0.3 MG/DL (0.2-1.0) Aspartate Amino Transf (AST/SGOT) 19 U/L (15-37) Alanine Aminotransferase (ALT/SGPT) 18 U/L (12-78) Alkaline Phosphatase 69 U/L (46-116) Total Protein 7.2 G/DL (6.4-8.2) Albumin 1.5 G/DL (3.4-5.0) Globulin 5.7 g/dL Albumin/Globulin Ratio 0.3 (1.0-2.7) Height (Feet): 5 Height (Inches): 11.00 Weight (Pounds): 160 Objective Physical Exam: Vitals: reviewed General: NAD HEENT: nc, at Neck: supple Chest: clear breath sounds bilaterally Cardiovascular: RRR, no s3, s4 Abdomen: soft, nontender, nd Extremities: no cce, normal range of motion Skin: normal pigmentation, warm/dry, other - surgical sites dressings in place and clean, intact Neuro: alert and oriented Juan Alberto John MD Oct 18, 2019 12:49
--- NOTE | 2019-10-18 13:09 | NUR ---
SUPERVISOR NUT PROCESSING NOTE CM placed a call and refaxed a request to call back from insurance CM called [phone] CM transfer to nurses; unable to leave D/T mail box full CM will attempt to call again Addendum: 10/18/19 at 1657 by RAYNA MORENO LVN CM called insurance again CM spoke to Paula Mitchell stated faxes have been received Paula informed [facility] that previous faxed also received; Edie was mistaken and did not look in correct location Paula submitted request to inform Edie again that [facility] would like to speak to her regarding outpatient services Paula able to generate authorization for outpatient services rehab (auth # [id number])
--- NOTE | 2019-10-18 13:14 | NUR ---
NURSE NOTES: Spoke to regarding D5W order and no need IV fluid for now. Order noted and carried out.
--- NOTE | 2019-10-18 14:49 | General Progress Note ---
Progress Note Progress Note Pt seen and examined. Doing well. To OR for EUA tomorrow and dc to rehab shortly after. Jl Pastor MD, MD Oct 18, 2019 14:49
--- NOTE | 2019-10-18 16:38 | NUR ---
CASE MANAGEMENT:REVIEW SI;POLYMICROBIAL INFECTION S/P RADICAL INCISIONS OF BILATERAL GROINS AND PERINEAL HYDRADENITIS S/P RADICAL INCISION OF AXILLARY HYDRADENITIS 100.0 83 20 117/69 94% ON RA WBC 15.6 PLT 475 CO2 33 ALB 1.5 IS;VANCOMYCIN IV Q8 MEROPENEM IV Q8 FLUCONAZOLE IV Q24 PEPCID PO 3E MED SURG STATUS DCP;FROM HOME PLAN; SURGERY ON Tue10/19/19 DC TO [facility] FOR WOUND CARE WHEN STABLE
--- NOTE | 2019-10-18 16:46 | NUR ---
*-* INSURANCE *-* UPDATED CLINICALS AND REVIEWS HAVE BEEN FAXED TO: Carlyle gustafson out [facility] Edie FAX: [phone] AND FAX: [phone] [facility]# [id number]
[2019-10-18] MEDS ORDERED: Tubing IV Secondary IV ONE (18:38)
--- NOTE | 2019-10-18 19:28 | NUR ---
HAND-OFF: Report given to Carter REAL. Patient in stable condition.
--- NOTE | 2019-10-18 19:29 | NUR ---
NURSE NOTES: Received report from ADDIE Flanagan. Pt is A/Ox4 , No signs distress noted. Pt on DIGITAL MARKETING MANAGER Morphine. Surgical dressing are dry and intact. Flores is intact and draining to gravity. IV access on the left foot. Call light within reach. Bed in low and locked position. Will continue to monitor.
[2019-10-18] MEDS ORDERED: Heparin 5000 units/ml inj SUBQ SCH (21:00)
[2019-10-19] VITALS (15 sets, daily range): BP systolic 104–149; BP diastolic 60–87
[2019-10-19 06:34] LABS: BASOPHILS % (AUTO) 0.3 % (0.0-2.0); EOSINOPHILS % (AUTO) 3.1 % (0.0-3.0); HEMATOCRIT 31.2 % (42.0-52.0); HEMOGLOBIN 9.7 G/DL (14.2-18.0); MEAN CORPUSCULAR VOLUME 84 FL (80-99); MONOCYTES % (AUTO) 6.4 % (1.0-10.0); NEUTROPHILS % (AUTO) 74.2 % (45.0-75.0); PLATELET COUNT 455 K/UL (150-450); RED BLOOD COUNT 3.73 M/UL (4.70-6.10); RED CELL DISTRIBUTION WIDTH 17.8 % (11.6-14.8); WHITE BLOOD COUNT 14.3 K/UL (4.8-10.8)
[2019-10-19 06:47] LABS: ANION GAP 4 mmol/L (5-15); BLOOD UREA NITROGEN 7 mg/dL (7-18); CALCIUM 8.4 MG/DL (8.5-10.1); CARBON DIOXIDE 31 MMOL/L (21-32); CHLORIDE 102 MMOL/L (98-107); CREATININE 0.8 MG/DL (0.55-1.30); POTASSIUM 4.2 MMOL/L (3.5-5.1); SODIUM 137 MMOL/L (136-145)
--- NOTE | 2019-10-19 07:16 | NUR ---
HAND-OFF: Report given to ADDIE Sanchez. Pt stable.
[2019-10-19] MEDS: PCA shift volume MISC SCH ×2 (07:19→19:00)
--- NOTE | 2019-10-19 07:30 | NUR ---
NURSE NOTES: Patient is in bed asleep. Breathing is even and unlabored. No visible signs of distress noted. READING TUTOR running as ordered. Patient is in bed in locked and lowest position with call light within reach. All safety measures provided. Will continue to monitor.
[2019-10-19] MEDS: Miralax 17gm pkt ORAL SCH (08:20)
[2019-10-19] MEDS: Vancomycin 1 GM in NS 275 ML IVPB SCH ×2 (08:20→16:48)
--- NOTE | 2019-10-19 08:53 | General Progress Note ---
Assessment/Plan Problem List: (1) Hidradenitis suppurativa ICD Codes: L73.2 - Hidradenitis suppurativa SNOMED: 15240478 (2) Hypoxia ICD Codes: R09.02 - Hypoxemia SNOMED: 007260222 (3) Acute blood loss anemia ICD Codes: D62 - Acute posthemorrhagic anemia SNOMED: 046794492 (4) Hypoalbuminemia ICD Codes: E88.09 - Other disorders of plasma-protein metabolism, not elsewhere classified SNOMED: 715494566 (5) Hyperglycemia ICD Codes: R73.9 - Hyperglycemia, unspecified SNOMED: 25691631 (6) Leukocytosis ICD Codes: D72.829 - Elevated white blood cell count, unspecified SNOMED: 512116606, 269172170 Status: doing well, stable, progressing Assessment/Plan: 24 year old gentleman with no significant PMH presents with acute blood loss anemia after surgery for hydradenitis #Hydradenitis s/p surgical intervention #Fever -resolved #Leukocytosis - improving #Post surgical wound drainage - Continue Fluconazole, Meropenem, Vancomycin per ID recommendations given improving WBC. Given that patient has no access for PICC due to his surgical sites, will discuss final antibiotic end-date for discharge planning. Per ID, recommend 7 days of IV antibiotics from surgery (last surgery done , 7 days of antibiotics to be completed 10/21/2019). May be discharged on oral antibiotics, will follow up with ID Dr. Tsai - WBC stable - Hematology Dr. John consulted for leukocytosis, appreciate recommendations. Likely stress reaction, flow cytometry without monoclonal cells - Plan for OR tomorrow today and skin graft check with Dr. Vazquez, will follow up final wound care recommendations -Wound care -Pain control with FIRE ASSISTANT -Surgery following, appreciate recommendations PT/OT - discussed with Case Management regarding plan for placement in rehab, understand goal of discharge by Tuesday10/22/2019 #Acute blood loss anemia : STABLE and IMPROVING - S/P 2 units pRBC 10/04/2019 - Transfused 1 unit pRBC 10/07 - Transfused 1 unit pRBC 10/11/2019 in anticipation for possible surgery 2019 with appropriate rise - Iron studies reviewed - monitor CBC #Severe protein deficiency malnutrition #Hypoalbuminemia -Encourage high protein diet to promote wound healing -Nutrition consult for supplementation #Hyperglycemia - resolved -HgA1c 5.7 -DC ISS -Tight glycemic control for wound healing #Post surgical hypoxia - RESOLVED - Incentive spirometry - Early ambulation with assist -CXR reviewed #FEN/GI - resume regular diet after returns from OR - resume subQ heparin after returns from OR #Dispo: Will go to OR today for wound/skin graft check with Dr. Vazquez. If doing well, will plan on discharging to rehab as well as for wound care. Will have final wound care recommendations after Tuesday OR. Will also need antibiotics through 10/21/[address] Tsai. Goal discharge to rehab on 10/22/2019 I spent 40 min on this patient with 20 minutes face to face time which included direct counseling and discussion with patient.Coordinating with Surgery and Infectious Diseases as well as Hematology-Oncology. Discussed plan of care with nursing Subjective Date patient seen: Oct 19, 2019 Time patient seen: 08:15 Constitutional: Denies: chills, diaphoresis, fever HEENT: Denies: eye pain, blurred vision, double vision, mouth pain, mouth swelling Cardiovascular: Denies: chest pain, edema, irregular heart rate Respiratory: Denies: cough, orthopnea, shortness of breath Gastrointestinal/Abdominal: Reports: constipated; Denies: abdominal pain, diarrhea, nausea, vomiting Genitourinary: Denies: discharge, frequency, flank pain Neurologic/Psychiatric: Denies: emotional problems, headache Endocrine: Denies: intolerance to cold, intolerance to heat, increased thirst Hematologic/Lymphatic: Denies: anemia, easy bleeding, easy bruising Allergies: Coded Allergies: PEANUT (Verified Allergy, Severe, anaphylactic, 10/04/19) HYDROMORPHONE (Verified Allergy, Intermediate, severe nausea, 10/04/19) All Systems: reviewed and negative except above Subjective reports feeling well today, no complaints or requests. pain controlled. understands plan for OR wound check today and to discharge to rehab after completion of IV antibiotics Objective Last 24 Hour Vital Signs Date Time Temp Pulse Resp B/P (MAP) Pulse Ox O2 Delivery O2 Flow Rate FiO2 10/19/19 07:41 97 Room Air 21 10/19/19 04:00 98.3 83 18 119/68 (85) 97 10/19/19 04:00 83 18 97 10/19/19 00:00 98.6 86 18 116/66 (83) 97 10/19/19 00:00 86 18 97 10/18/19 21:00 Room Air 10/18/19 20:17 98 Room Air 21 10/18/19 20:00 84 18 98 10/18/19 19:51 99.8 84 18 128/73 (91) 98 10/18/19 18:30 99.6 10/18/19 16:00 100.0 80 20 114/62 (79) 94 10/18/19 16:00 80 20 94 10/18/19 12:00 82 16 98 10/18/19 12:00 98.9 82 16 108/61 (77) 98 10/18/19 09:23 97 Room Air 21 10/18/19 09:00 Room Air Intake and Output 10/18/19 10/19/19 19:00 07:00 Intake Total 500 ml Output Total 1600 ml 1620 ml Balance -1100 ml -1620 ml Intake Oral 500 ml Output Urine Total 1600 ml 1620 ml Laboratory Tests 10/18/19 23:00: Vancomycin Level Trough 12.8H 10/19/19 05:25: White Blood Count 14.3H, Red Blood Count 3.73L, Hemoglobin 9.7L, Hematocrit 31.2L, Mean Corpuscular Volume 84, Mean Corpuscular Hemoglobin 26.0L, Mean Corpuscular Hemoglobin Concent 31.1L, Red Cell Distribution Width 17.8H, Platelet Count 455H, Mean Platelet Volume 7.5, Neutrophils (%) (Auto) 74.2, Lymphocytes (%) (Auto) 16.0L, Monocytes (%) (Auto) 6.4, Eosinophils (%) (Auto) 3.1H, Basophils (%) (Auto) 0.3, Sodium Level 137, Potassium Level 4.2, Chloride Level 102, Carbon Dioxide Level 31, Anion Gap 4L, Blood Urea Nitrogen 7, Creatinine 0.8, Estimat Glomerular Filtration Rate > 60, Glucose Level 92, Calcium Level 8.4L Height (Feet): 5 Height (Inches): 11.00 Weight (Pounds): 160 General Appearance: WD/WN, no apparent distress, alert EENT: PERRL/EOMI, normal ENT inspection, pharynx normal Neck: non-tender, normal alignment, supple, normal inspection Cardiovascular: normal peripheral pulses, normal rate, regular rhythm, no gallop/murmur, no JVD Respiratory/Chest: chest wall non-tender, lungs clear, normal breath sounds, no respiratory distress Abdomen: normal bowel sounds, non tender, soft, no mass Pelvis: no active bleeding Extremities: normal range of motion, non-tender, other - surgical incision sites at axilla and groin with dressing in place clean, dry, intact Edema: no edema noted Arm (L), no edema noted Arm (R), no edema noted Leg (L), no edema noted Leg (R), no edema noted Pedal (L), no edema noted Pedal (R) Neurologic: mechanical maintenance supervisor II-XII grossly normal, no motor/sensory deficits, alert, oriented x 3, responsive, normal mood/affect Skin: normal pigmentation, warm/dry, no diaphoresis Jacob Wolff M.D. Oct 19, 2019 08:53
--- NOTE | 2019-10-19 09:24 | Hematology/Onc Progress Note ---
Assessment/Plan Assessment/Plan Assessment and Recs # Leukocytosis/elevated white blood cell count, unspecified likely related to underlying stress reaction, smoking v more likely is from surgery and may take 2 -3 weeks to resolve, par for the course --> have reviewed peripheral smear and bandemia/neutrophilia noted --> continue antibiotics if they have been started by ID team --> monitor for resolution --> inflammatory markers are elevated, esr 101, crp 19!! --> ID recs noted --> flow cytometry has been ordered-->is negative for monoclonal population of cells --> wbc 17->17->16-->14 --> heme end cleared for surgery--> has been completed # Anemia with Acute blood loss anemia ---> Trend CBC closely --> S/P 2 units pRBC 10/04/2019 --> Transfused 1 unit pRBC 10/07, 10/10 --> Iron studies reviewed --> hgb 9.5-->9.7 # Hydradenitis s/p surgical intervention --> per surgery ==> Fever -resolved, and cleared by heme # Post surgical wound drainage --> abx per id --> wound care --> Pain control with PCN pump --> may need reconstruction 10/14 # Severe protein deficiency malnutrition # Hypoalbuminemia # Hyperglycemia - resolved # Post surgical hypoxia - RESOLVED # Dvt ppx ambulation The timing of this note does not necessarily reflect the time of the patient was seen. Greatly appreciate consultation. Subjective Constitutional: Denies: no symptoms, chills, fever, malaise, weakness, other HEENT: Denies: no symptoms, eye pain, blurred vision, tearing, double vision, ear pain, ear discharge, nose pain, nose congestion, throat pain, throat swelling, mouth pain, mouth swelling, other Cardiovascular: Denies: no symptoms, chest pain, edema, irregular heart rate, lightheadedness, palpitations, syncope, other Gastrointestinal/Abdominal: Denies: no symptoms, abdomen distended, abdominal pain, black stools, tarry stools, blood in stool, constipated, diarrhea, difficulty swallowing, nausea, poor appetite, poor fluid intake, rectal bleeding , vomiting, other Genitourinary: Denies: no symptoms, burning, discharge, frequency, flank pain, hematuria, incontinence, pain, urgency, other Neurologic/Psychiatric: Denies: no symptoms, anxiety, depressed, emotional problems, headache, numbness, paresthesia, pre-existing deficit, seizure, tingling, tremors, weakness, other Endocrine: Denies: no symptoms, excessive sweating, flushing, intolerance to cold, intolerance to heat, increased hunger, increased thirst, increased urine, unexplained weight gain, unexplained weight loss, other Hematologic/Lymphatic: Denies: no symptoms, anemia, easy bleeding, easy bruising, adenopathy, other Allergies: Coded Allergies: PEANUT (Verified Allergy, Severe, anaphylactic, 10/04/19) HYDROMORPHONE (Verified Allergy, Intermediate, severe nausea, 10/04/19) Subjective 10/12 labs noted, clear for surgery from heme end, seen by Taylor 10/13 labs noted, no bleeding, meds noted, no hemolysis for surgery shortly 10/14 for surgery today, cleared by hematology, no bleeding comfortable 10/15 labs noted, no bleeding, wbc 16, hgb 10.3, no hemolysis 10/16 meds are noted, no bleeding, labs reviewed, no night sweats 10/17 labs are noted, no bleeding, meds reviewed, no hemolysis 10/18 meds reviewed, no bleeding, labs noted, no night sweats Objective Objective Current Medications Medications (Trade) Dose Ordered Sig/Flavia Route PRN Reason Start Time Stop Time Status Last Admin Dose Admin Acetaminophen (Tylenol) 650 mg Q4H PRN ORAL Mild Pain (Pain Scale 1-3) 10/04/19 12:30 11/03/19 12:29 Acetaminophen (Tylenol) 650 mg Q4H PRN ORAL FEVER 10/15/19 12:29 11/14/19 12:28 10/17/19 20:37 Bisacodyl (Dulcolax) 10 mg HSPRN PRN RECTAL Constipation 10/04/19 15:45 01/02/20 12:29 Dextrose (Dextrose 50%) 25 ml Q30M PRN IV Hypoglycemia 10/04/19 15:45 01/02/20 15:44 Dextrose (Dextrose 50%) 50 ml Q30M PRN IV Hypoglycemia 10/04/19 15:45 01/02/20 15:44 Famotidine (Pepcid) 40 mg DAILY ORAL 10/05/19 09:00 01/03/20 08:59 10/19/19 08:20 Fluconazole/ Sodium Chloride 100 ml @ 100 mls/hr Q24H IV 10/16/19 16:00 10/23/19 15:59 10/18/19 16:40 Magnesium Hydroxide (Mom) 30 ml HSPRN PRN ORAL Constipation 10/04/19 12:30 11/03/19 12:29 10/11/19 22:25 Meropenem 1 gm/ Sodium Chloride 100 ml @ 200 mls/hr Q8H IVPB 10/17/19 23:00 10/22/19 22:59 10/19/19 06:00 Metoclopramide HCl (Reglan) 10 mg Q6H PRN IVP Nausea & Vomiting 10/09/19 10:00 11/08/19 09:59 Miscellaneous Medication (NET DEVELOPER Rate Change) 1 ea DAILY PRN MISC rate change 10/17/19 19:30 10/19/19 19:29 Miscellaneous Medication (NET DEVELOPER shift volume) 1 ea Q12HR@0700,1900 MISC 10/17/19 19:48 10/19/19 19:47 10/19/19 07:19 Morphine Sulfate 30 ml @ 0 mls/hr Q24H PRN IV For Pain 10/17/19 19:47 10/19/19 19:46 10/18/19 17:13 Naloxone HCl (Narcan) 0.1 mg Q1M PRN IV RR<10/min OR SBP<90 mmHg 10/18/19 13:30 10/20/19 13:29 Ondansetron HCl (Zofran) 4 mg Q6H PRN IVP Nausea & Vomiting 10/15/19 07:15 11/14/19 07:14 Polyethylene Glycol (Miralax) 17 gm DAILY ORAL 10/13/19 09:00 11/12/19 08:59 10/16/19 09:04 Temazepam (RestoriL) 7.5 mg DAILYPRN PRN ORAL Insomnia 10/15/19 07:15 10/22/19 07:14 Vancomycin HCl (Vanco pharmacy to dose) 1 ea DAILY PRN MISC Per rx protocol 10/08/19 11:00 11/07/19 10:59 Vancomycin HCl 1 gm/Sodium Chloride 275 ml @ 183.708 mls/hr Q8H IVPB 7/30/20 00:00 10/23/19 00:00 10/19/19 08:20 Zolpidem Tartrate (Ambien) 5 mg DAILYPRN PRN ORAL Insomnia 10/15/19 07:15 10/22/19 07:14 Last 24 Hour Vital Signs Date Time Temp Pulse Resp B/P (MAP) Pulse Ox O2 Delivery O2 Flow Rate FiO2 10/19/19 09:00 Room Air 10/19/19 08:00 77 18 97 10/19/19 08:00 98.2 77 18 113/62 (79) 97 10/19/19 07:41 97 Room Air 21 10/19/19 04:00 98.3 83 18 119/68 (85) 97 10/19/19 04:00 83 18 97 10/19/19 00:00 98.6 86 18 116/66 (83) 97 10/19/19 00:00 86 18 97 10/18/19 21:00 Room Air 10/18/19 20:17 98 Room Air 21 10/18/19 20:00 84 18 98 10/18/19 19:51 99.8 84 18 128/73 (91) 98 10/18/19 18:30 99.6 10/18/19 16:00 100.0 80 20 114/62 (79) 94 10/18/19 16:00 80 20 94 10/18/19 12:00 82 16 98 10/18/19 12:00 98.9 82 16 108/61 (77) 98 10/18/19 09:23 97 Room Air 21 10/18/19 09:00 Room Air 10/18/19 08:00 98.0 83 16 112/62 (79) 99 10/18/19 08:00 83 16 99 10/18/19 04:00 79 20 100 10/18/19 04:00 97.8 82 16 117/69 (85) 98 10/18/19 00:00 98.9 82 16 119/60 (79) 98 10/18/19 00:00 98.9 84 18 110/59 (76) 98 10/18/19 00:00 84 18 98 10/17/19 21:07 98.9 10/17/19 21:00 Room Air 10/17/19 20:00 100.8 82 16 119/60 (79) 98 10/17/19 20:00 82 16 98 10/17/19 19:02 99 Room Air 21 10/17/19 16:00 78 18 96 10/17/19 16:00 98.3 78 18 119/63 (81) 96 10/17/19 12:00 91 16 96 10/17/19 12:00 98.1 91 16 108/59 (75) 96 Intake and Output 10/18/19 10/19/19 19:00 07:00 Intake Total 500 ml Output Total 1600 ml 1620 ml Balance -1100 ml -1620 ml Intake Oral 500 ml Output Urine Total 1600 ml 1620 ml Labs Test 10/17/19 04:45 10/17/19 18:45 10/18/19 04:50 10/18/19 23:00 White Blood Count 15.6 K/UL (4.8-10.8) 15.6 K/UL (4.8-10.8) Red Blood Count 3.58 M/UL (4.70-6.10) 4.24 M/UL (4.70-6.10) Hemoglobin 9.6 G/DL (14.2-18.0) 11.2 G/DL (14.2-18.0) Hematocrit 30.1 % (42.0-52.0) 35.8 % (42.0-52.0) Mean Corpuscular Volume 84 FL (80-99) 84 FL (80-99) Mean Corpuscular Hemoglobin 26.8 PG (27.0-31.0) 26.4 PG (27.0-31.0) Mean Corpuscular Hemoglobin Concent 31.9 G/DL (32.0-36.0) 31.3 G/DL (32.0-36.0) Red Cell Distribution Width 17.8 % (11.6-14.8) 18.0 % (11.6-14.8) Platelet Count 401 K/UL (150-450) 475 K/UL (150-450) Mean Platelet Volume 7.3 FL (6.5-10.1) 6.5 FL (6.5-10.1) Neutrophils (%) (Auto) 74.2 % (45.0-75.0) 70.9 % (45.0-75.0) Lymphocytes (%) (Auto) 15.8 % (20.0-45.0) 19.6 % (20.0-45.0) Monocytes (%) (Auto) 4.6 % (1.0-10.0) 4.5 % (1.0-10.0) Eosinophils (%) (Auto) 4.8 % (0.0-3.0) 4.2 % (0.0-3.0) Basophils (%) (Auto) 0.7 % (0.0-2.0) 0.8 % (0.0-2.0) Sodium Level 152 MMOL/L (136-145) 139 MMOL/L (136-145) Potassium Level 4.7 MMOL/L (3.5-5.1) 3.8 MMOL/L (3.5-5.1) Chloride Level 116 MMOL/L (98-107) 102 MMOL/L (98-107) Carbon Dioxide Level 32 MMOL/L (21-32) 33 MMOL/L (21-32) Anion Gap 4 mmol/L (5-15) 4 mmol/L (5-15) Blood Urea Nitrogen 8 mg/dL (7-18) 7 mg/dL (7-18) Creatinine 0.7 MG/DL (0.55-1.30) 0.8 MG/DL (0.55-1.30) Estimat Glomerular Filtration Rate > 60 mL/min (>60) > 60 mL/min (>60) Glucose Level 83 MG/DL (74-106) 93 MG/DL (74-106) Calcium Level 8.3 MG/DL (8.5-10.1) 8.6 MG/DL (8.5-10.1) Vancomycin Level Trough 19.4 ug/mL (5.0-12.0) 12.8 ug/mL (5.0-12.0) Total Bilirubin 0.3 MG/DL (0.2-1.0) Aspartate Amino Transf (AST/SGOT) 19 U/L (15-37) Alanine Aminotransferase (ALT/SGPT) 18 U/L (12-78) Alkaline Phosphatase 69 U/L (46-116) Total Protein 7.2 G/DL (6.4-8.2) Albumin 1.5 G/DL (3.4-5.0) Globulin 5.7 g/dL Albumin/Globulin Ratio 0.3 (1.0-2.7) Test 10/19/19 05:25 White Blood Count 14.3 K/UL (4.8-10.8) Red Blood Count 3.73 M/UL (4.70-6.10) Hemoglobin 9.7 G/DL (14.2-18.0) Hematocrit 31.2 % (42.0-52.0) Mean Corpuscular Volume 84 FL (80-99) Mean Corpuscular Hemoglobin 26.0 PG (27.0-31.0) Mean Corpuscular Hemoglobin Concent 31.1 G/DL (32.0-36.0) Red Cell Distribution Width 17.8 % (11.6-14.8) Platelet Count 455 K/UL (150-450) Mean Platelet Volume 7.5 FL (6.5-10.1) Neutrophils (%) (Auto) 74.2 % (45.0-75.0) Lymphocytes (%) (Auto) 16.0 % (20.0-45.0) Monocytes (%) (Auto) 6.4 % (1.0-10.0) Eosinophils (%) (Auto) 3.1 % (0.0-3.0) Basophils (%) (Auto) 0.3 % (0.0-2.0) Sodium Level 137 MMOL/L (136-145) Potassium Level 4.2 MMOL/L (3.5-5.1) Chloride Level 102 MMOL/L (98-107) Carbon Dioxide Level 31 MMOL/L (21-32) Anion Gap 4 mmol/L (5-15) Blood Urea Nitrogen 7 mg/dL (7-18) Creatinine 0.8 MG/DL (0.55-1.30) Estimat Glomerular Filtration Rate > 60 mL/min (>60) Glucose Level 92 MG/DL (74-106) Calcium Level 8.4 MG/DL (8.5-10.1) Height (Feet): 5 Height (Inches): 11.00 Weight (Pounds): 160 Objective Physical Exam: Vitals: reviewed General: NAD HEENT: nc, at Neck: supple Chest: clear breath sounds bilaterally Cardiovascular: RRR, no s3, s4 Abdomen: soft, nontender, nd Extremities: no cce, normal range of motion Skin: normal pigmentation, warm/dry, other - surgical sites dressings in place and clean, intact Neuro: alert and oriented Juan Alberto John MD Oct 19, 2019 09:24
--- NOTE | 2019-10-19 10:19 | NUR ---
*-* INSURANCE *-*/dc planning CM received a call from Sabas [phone]; Sabas identified himself as the CM assigned to case [place] Ref# for Hospital stay: [id number] FAX: [phone] CM stated to Sabas that this CM was informed by a [employer] pharmaceutical specialty representative Edie case possibly being denied for lack of medical documentation sent to BS. Sabas was able to find records after this CM provided multiple reference numbers. Ref# for SNF and acute rehab~case has been denied d/t lack of medical information sent, CM had to help Sabas navigated through his system and give specific date and ref# to identify that [facility] has been faxing correctly and on time, CM explained to Sabas that case should not be denied because [facility] staff are unable to navigate system to find fax and clinicals that [facility] sent. CM provided Sabas with [facility] institution information: [facility] CARIN BRISENO P: [phone] ~Per Sabas level of care needs to be established; Sabas to establish communication with [facility] rehab and call CM back to verify case was authorized. CM cannot transfer patient w/o authorization form insurance; CM aware process take multiple days to resolve. CM started process 10/16/19 ~[facility] fax machine unreliable; multiple faxes needed to be sent from multiple machines; but after multiple attempts BS received multiple faxes which was confirmed by Paula 10/18/19 All reference# BS has provided: Ref# [id number] Ref# [id number] Ref# [id number]
--- NOTE | 2019-10-19 10:40 | NUR ---
RD ASSESSMENT & RECOMMENDATIONS SEE CARE ACTIVITY FOR COMPLETE ASSESSMENT DAILY ESTIMATED NEEDS: Needs based on Surgery 72kg 25-35 kcals/kg 2599-0609 total kcals 1-2 g protein/kg 72-144 g total protein 25-30 mL/kg 7426-6371 total fluid mLs NUTRITION DIAGNOSIS: Increased protein needs r/t surgical wound healing as evidenced by pt w/ Hidradenitis suppurativa, s/p radical excision of HS sites, now s/p debridement and closure of wounds. CURRENT DIET: Regular-> now NPO PO DIET RECOMMENDATIONS: Regular diet as tolerated ADDITIONAL RECOMMENDATIONS: 1) Maintain accuchecks, bedside BG checks to maintain good glycemic control for maximum wound healing 2) Wound care: add JUAN LUIS BID as tolerated, Vit C 500mg qdaily + MVI w/ min qdaily 3) Diet edu provided for appropriate pro intake 4) Bowel regimen, last bm noted 10/13
--- NOTE | 2019-10-19 11:00 | NUR ---
NURSE NOTES: Pt had a small BM. We cleaned the pt but the wound dressing soaked with the BM. We cut half the dressing but we couldn't changed the full dressing because pt complained a lot of pain. Called Doctor Jl Spencer and left voice mail. plus, we found a new open wound on his buttock. We took a picture and did initial assessment
--- NOTE | 2019-10-19 13:10 | NUR ---
NURSE NOTES: Patient taken to surgery by transporter. Patient is stable.
--- NOTE | 2019-10-19 13:24 | Pre-Procedure Note/Attestation ---
Pre-Procedure Note/Attestation Complete Prior to Procedure Planned Procedure: bilateral Procedure Narrative: Exam under anesthesia Indications for Procedure Pre-Operative Diagnosis: Bilateral groin wounds Attestation I attest that I discussed the nature of the procedure; its benefits; risks and complications; and alternatives (and the risks and benefits of such alternatives ), prior to the procedure, with the patient (or the patient's legal technical service representative). I attest that, if there was a reasonable possibility of needing a blood transfusion, the patient (or the patient's legal technical service representative) was given the [facility] standardized written summary, pursuant to the [employer] [place] Blood Safety Act ([place] Health and Safety Code # 1645, as amended). I attest that I re-evaluated the patient just prior to the surgery and that there has been no change in the patient's H&P, except as documented below: Jl Vazquez MD Oct 19, 2019 13:24
[2019-10-19] MEDS ORDERED: Lidocaine 1% 10mg/ml/Epi 0.005mg/ml 30ml vial INJ ONE (13:25)
[2019-10-19] MEDS ORDERED: EPINEPHrine 1mg/1ml Amp ONE ×2 (13:26→14:09)
[2019-10-19] MEDS ORDERED: Bacitracin 50000 Units Vial ONE (13:26)
[2019-10-19] MEDS ORDERED: NeoSporin Gu Irrig 1ml Amp IRRIG ONE (13:26)
[2019-10-19] MEDS ORDERED: Sterile Water Irrig 1000ml IRRIG ONE (13:30)
[2019-10-19] MEDS ORDERED: NS Irrig 1000ml ONE (13:30)
[2019-10-19] MEDS ORDERED: PCA Education Pamphlet MISC ONE (13:30)
[2019-10-19] MEDS ORDERED: fentaNYL 100 mcg/2 mL IV ONE (13:31)
[2019-10-19] MEDS ORDERED: Midazolam 2mg/2ml Inj ONE (13:31)
[2019-10-19] MEDS ORDERED: NS Irrig 1000ml IRRIG ONE ×2 (13:40→13:51)
--- NOTE | 2019-10-19 13:40 | NUR ---
WOUND CARE PLAN: BILATERAL AXILLARY: Daily dressing change 1.Apply zeroform first; followed by wet to dry dressing BILATERAL GROIN: Daily dressing changes 1.Dry dressing over staple line 2.ADAPTIC dressing over skin graft
[2019-10-19] MEDS ORDERED: Hydrogen Peroxide 473ml Bottle TOPIC ONE (14:04)
[2019-10-19] MEDS ORDERED: Ketorolac 30mg Inj IV PRN (14:30)
[2019-10-19] MEDS ORDERED: Meperidine 25mg/0.5ml Inj (FOR RIGORS ONLY) IV PRN (14:30)
[2019-10-19] MEDS ORDERED: Midazolam 2mg/2ml Inj IVP PRN (14:30)
--- NOTE | 2019-10-19 14:30 | Operative Note - PDOC ---
Operative Note Operative Note Pre-op Diagnosis: Bilateral groin wounds Procedure: Exam under anesthesia Post-op Diagnosis: same as pre-op Surgeon: Taylor Hot Billet Shear Operator: Jodee Anesthesia: general Specimen: yes Complications: none Condition: stable Estimated Blood Loss: none Drains: other Implant(s) used?: No Jl Vazquez MD Oct 19, 2019 14:30
--- NOTE | 2019-10-19 14:43 | Immediate Post-Op Evaluation ---
Immediate Post-Op Evalulation Immediate Post-Op Evalulation Procedure: Dressing change under anesthesia Date of Evaluation: Oct 19, 2019 Time of Evaluation: 14:42 IV Fluids: 300 Blood Products: none Estimated Blood Loss: 50 Urinary Output: 100 Blood Pressure Systolic: 142 Blood Pressure Diastolic: 58 Pulse Rate: 72 Respiratory Rate: 20 O2 Sat by Pulse Oximetry: 99 Temperature (Fahrenheit): 98.1 Pain Score (1-10): 2 Nausea: No Vomiting: No Complications none Patient Status: reacts, patent Hydration Status: adequate Jordon Souza MD Oct 19, 2019 14:43
--- NOTE | 2019-10-19 14:45 | 48 Hour Post Anesthesia Eval ---
Post Anesthesia Evaluation Procedure: Dressing change under anesthesia Date of Evaluation: Oct 19, 2019 Time of Evaluation: 15:02 Blood Pressure Systolic: 136 0: 72 Pulse Rate: 68 Respiratory Rate: 20 Temperature (Fahrenheit): 97.6 O2 Sat by Pulse Oximetry: 99 Airway: patent Nausea: No Vomiting: No Hydration Status: adequate Cardiopulmonary Status: stable Mental Status/LOC: patient returned to baseline Follow-up Care/Observations: n/a Post-Anesthesia Complications: none Follow-up care needed: N/A Jordon Souza MD Oct 19, 2019 14:45
--- NOTE | 2019-10-19 15:14 | NUR ---
WOUND CARE PLAN: Wound measurements: Axillary: [id number] Groin: [id number] BILATERAL AXILLARY: ~Daily dressing change 1.Apply zeroform first; followed by wet to dry dressing BILATERAL GROIN: ~Daily dressing changes 1.Dry dressing over staple line 2.ADAPTIC dressing over skin graft
--- NOTE | 2019-10-19 16:00 | Operative Note - Dictated ---
DATE OF OPERATION: 10/19/2019 PREOPERATIVE DIAGNOSIS: Bilateral groin wounds, status post split-thickness skin graft reconstruction and flap advancement. POSTOPERATIVE DIAGNOSIS: Bilateral groin wounds, status post split-thickness skin graft reconstruction and flap advancement. PROCEDURE: Examination under anesthesia with dressing change. SURGEON: Jl Vazquez MD. PRIMARY COUNSELOR: Alicia Ellsworth MD. ANESTHESIA: General. COMPLICATIONS: None. DRAINS: None. DISPOSITION: Stable to the recovery room. INDICATIONS FOR SURGERY: This is a 24-year-old male, who is now four days status post bilateral groin reconstruction with flap advancement and split-thickness skin grafting. He had been on IV antibiotics with bolster dressings on the skin graft, on the floor for the past four days. He was brought back to the operating room today for exam under anesthesia to assess the take of the skin graft and overall condition of the wound to the groins. He understood the risks and benefits of surgery and agreed to proceed. DETAILS OF THE OPERATION: The patient was brought to the operating room and laid in the lithotomy position on the operating room table. Following induction of anesthesia, the bolster dressings that were on the skin graft were all removed and upon inspection of the flaps, the flaps all looked to be quite viable with suture line folding and skin graft on the right side had about 85% take and on the left groin was about 80% take with some small areas by the base of the scrotum which had suboptimal graft take. But overall both sides had a very nice overall viability to the skin graft and the dressings were then reapplied to the open areas as well as over the skin graft. Adaptic was used for this purpose. PLAN: The plan will be to perform daily dressing changes for this patient and the patient is now ready for discharge to a rehabilitation facility either this or on Tuesday. He will go undergo daily dressing changes to his bilateral axilla that are open as well as bilateral groins status post reconstruction and the plan will be to perform a definitive reconstruction of his axillary regions in about five to six weeks once he has recovered from his groin surgery and has also had better nutrition with some contraction of his axillary wounds prior to definitive reconstruction. The patient tolerated the procedure well. There were no complications. Jl Vazquez M.D. DR: OLGA JOB#: [id number] CC: JONATHON
--- NOTE | 2019-10-19 16:00 | NUR ---
NURSE NOTES: Patient arrived on unit. Stable. Breathing is even and unlabored. No visible signs of distress noted. Surgical dressing c/d/i. F/C patent and draining yellow urine. Patient instructed to use call light for assistance, verbalized understanding. Patient is in bed in locked and lowest position with call light within reach. All needs met at this time. Will continue to monitor.
[2019-10-19] MEDS ORDERED: Metoclopramide 10mg/2ml Inj IVP PRN (16:30)
[2019-10-19] MEDS ORDERED: Zolpidem 5mg tab ORAL PRN (16:30)
[2019-10-19] MEDS ORDERED: Rate Change PCA 1 Each MISC PRN (16:30)
--- NOTE | 2019-10-19 16:36 | NUR ---
CASE MANAGEMENT:REVIEW 10/19/19 SI: POLYMICROBIAL INFECTION S/P REVISION AND PARTIAL CLOSURE OF BILATERAL GROIN WOUND SKIN GRAFTING S/P RADICAL INCISIONS OF BILATERAL GROINS AND PERINEAL HYDRADENITIS S/P RADICAL INCISION OF AXILLARY HYDRADENITIS 98.2 77 18 113/62 97% ON RA WBC 14.3 H/H 9.7/31.2 CA+ 8.4 IS: IN SURGERY FOR F/U IV VANCOMYCIN TID IV MEROPENEM TID IV DIFLUCAN QD \: MED/SURG STATUS 3 EASY DCP: FROM HOME PLAN: REHAB TUESDAY VERIFICATION OF ACCEPTANCE TO [facility] T: [phone] CELL: [phone] W/ CARIN BRISENO
--- NOTE | 2019-10-19 16:48 | NUR ---
*-* INSURANCE *-* UPDATED CLINICALS AND REVIEWS HAVE BEEN FAXED TO: Carlyle gustafson out [facility] Edie FAX: [phone] AND FAX: [phone] [facility]# [id number]
[2019-10-19] MEDS: PCA Morphine 1mg/ml 30 ML IV PRN (18:51)
--- NOTE | 2019-10-19 19:00 | NUR ---
NURSE NOTES: RHYTHMIC GYMNASTICS COACH morphine syringe and tubing changed. Previous syringe wasted with pharmacist.
--- NOTE | 2019-10-19 19:33 | NUR ---
HAND-OFF: Report given to Larisa REAL. Patient is stable.
--- NOTE | 2019-10-19 19:34 | NUR ---
NURSE NOTES: Received Patient awake, verbal and A&Ox4. Pt is breathing even and unlabored. Pt has no pain,cough and fever at the moment. Pt has F/C draining yellow. Surgical dressing c/d/i. Bed is in the lowest position,locked and call light within reach. We will continue monitoring the pt.
--- NOTE | 2019-10-19 19:50 | Infectious Diseases Prog Note ---
Assessment/Plan Assessment/Plan ASSESSMENT AND PLAN: 1. bilateral axilla/groin/thigh wound infection/hidradenitis suppurativa, leukocytosis, ? sepsis - polymicrobial infection - meropenem, vancomycin, diflucan -day # 9, day # 4 post-op - leukocytosis improving - downward trend noted - blood cultures negative - s/p excision and debridement - s/p wound closure and reconstruction - monitor creatinine on abx 2. The patient has history of hidradenitis suppurativa with history of surgery. 3. Anemia. 4. No diabetes or hypertension. 5. Blood sugars have been elevated, hyperglycemia. 6. Allergies to hydromorphone and peanuts. 7. Social history is negative. 8. Family history is noncontributory. 9. MAR was noted. 10. Case was discussed with RN. 11. Case was discussed with Dr. Vazquez. 12. Case was communicated with Dr. Metzger. 13. Continue treatment as per primary consultants. 14. Wound care protocol per Dr. Vazquez. 15. Orders were noted and entered. Subjective Constitutional: Reports: fatigue; Denies: fever HEENT: Denies: congestion Respiratory: Denies: shortness of breath Cardiovascular: Denies: chest pain Gastrointestinal/Abdominal: Denies: nausea, vomiting, diarrhea Genitourinary: Reports: other - + benavidez Neurologic: Denies: headache Psychiatric: Denies: depression Skin: Denies: rash Hematologic: Denies: bleeding Musculoskeletal: Denies: pain Allergies: Coded Allergies: PEANUT (Verified Allergy, Severe, anaphylactic, 10/04/19) HYDROMORPHONE (Verified Allergy, Intermediate, severe nausea, 10/04/19) Objective Last 24 Hour Vital Signs Date Time Temp Pulse Resp B/P (MAP) Pulse Ox O2 Delivery O2 Flow Rate FiO2 10/19/19 19:17 100 Nasal Cannula 2.0 28 10/19/19 16:00 97.6 71 105/60 (75) 10/19/19 15:45 67 17 133/64 100 Nasal Cannula 3 10/19/19 15:36 97.6 10/19/19 15:35 68 18 125/61 100 Nasal Cannula 3 10/19/19 15:25 68 17 130/65 100 Nasal Cannula 3 10/19/19 15:15 87 16 140/72 100 Nasal Cannula 3 10/19/19 15:00 81 18 147/79 100 Simple Mask 6 10/19/19 14:45 74 17 147/74 100 Simple Mask 6 10/19/19 14:45 68 20 99 10/19/19 14:43 72 20 99 10/19/19 14:40 78 15 149/87 100 Simple Mask 6 10/19/19 14:35 79 16 147/87 100 Simple Mask 6 10/19/19 14:32 97.4 97 18 142/84 100 Simple Mask 6 10/19/19 12:00 98.1 75 18 105/71 (82) 97 10/19/19 12:00 75 18 97 10/19/19 09:00 Room Air 10/19/19 08:00 77 18 97 10/19/19 08:00 98.2 77 18 113/62 (79) 97 10/19/19 07:41 97 Room Air 21 10/19/19 04:00 98.3 83 18 119/68 (85) 97 10/19/19 04:00 83 18 97 10/19/19 00:00 98.6 86 18 116/66 (83) 97 10/19/19 00:00 86 18 97 10/18/19 21:00 Room Air 10/18/19 20:17 98 Room Air 21 10/18/19 20:00 84 18 98 10/18/19 19:51 99.8 84 18 128/73 (91) 98 Height (Feet): 5 Height (Inches): 11.00 Weight (Pounds): 158 General Appearance: no acute distress HEENT: normocephalic, atraumatic, anicteric, mucous membranes moist Respiratory/Chest: lungs clear, normal breath sounds, no respiratory distress, no accessory muscle use Cardiovascular: normal rate, regular rhythm, no gallop/murmur, no JVD Abdomen: normal bowel sounds, soft, non tender, no organomegaly, non distended Genitourinary: other - + benavidez - urine clear Extremities: no cyanosis Skin: no rash Neurologic/Psychiatric: 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 The heart size is normal. There is no significant interim change Impression: Negative Microbiology Date/Time Source Procedure Growth Status 10/10/19 10:15 Blood Blood Culture - Final NO GROWTH AFTER 5 DAYS Complete 10/02/19 12:00 Nasopharynx Coronavirus COVID-19 PCR (ROSANNA) - Final Complete 10/04/19 10:26 Groin Gram Stain - Final Complete 10/04/19 10:26 Aerobic Culture - Final Citrobacter Diversus Proteus Mirabilis Usual Skin Pinky Complete 10/04/19 10:26 Anaerobic Culture - Final Bacteroides Merdae Fusobacterium Varium Complete Laboratory Tests Test 10/18/19 23:00 10/19/19 05:25 Vancomycin Level Trough 12.8 ug/mL (5.0-12.0) H White Blood Count 14.3 K/UL (4.8-10.8) H Red Blood Count 3.73 M/UL (4.70-6.10) L Hemoglobin 9.7 G/DL (14.2-18.0) L Hematocrit 31.2 % (42.0-52.0) L Mean Corpuscular Volume 84 FL (80-99) Mean Corpuscular Hemoglobin 26.0 PG (27.0-31.0) L Mean Corpuscular Hemoglobin Concent 31.1 G/DL (32.0-36.0) L Red Cell Distribution Width 17.8 % (11.6-14.8) H Platelet Count 455 K/UL (150-450) H Mean Platelet Volume 7.5 FL (6.5-10.1) Neutrophils (%) (Auto) 74.2 % (45.0-75.0) Lymphocytes (%) (Auto) 16.0 % (20.0-45.0) L Monocytes (%) (Auto) 6.4 % (1.0-10.0) Eosinophils (%) (Auto) 3.1 % (0.0-3.0) H Basophils (%) (Auto) 0.3 % (0.0-2.0) Sodium Level 137 MMOL/L (136-145) Potassium Level 4.2 MMOL/L (3.5-5.1) Chloride Level 102 MMOL/L (98-107) Carbon Dioxide Level 31 MMOL/L (21-32) Anion Gap 4 mmol/L (5-15) L Blood Urea Nitrogen 7 mg/dL (7-18) Creatinine 0.8 MG/DL (0.55-1.30) Estimat Glomerular Filtration Rate > 60 mL/min (>60) Glucose Level 92 MG/DL (74-106) Calcium Level 8.4 MG/DL (8.5-10.1) L Current Medications Medications (Trade) Dose Ordered Sig/Flavia Route PRN Reason Start Time Stop Time Status Last Admin Dose Admin Acetaminophen (Tylenol) 650 mg Q4H PRN ORAL Mild Pain (Pain Scale 1-3) 10/04/19 12:30 11/03/19 12:29 Acetaminophen (Tylenol) 650 mg Q4H PRN ORAL FEVER 10/15/19 12:29 11/14/19 12:28 10/17/19 20:37 Acetaminophen (Tylenol) 650 mg Q4H PRN ORAL FEVER 10/19/19 16:30 11/18/19 16:29 Bisacodyl (Dulcolax) 10 mg HSPRN PRN RECTAL Constipation 10/04/19 15:45 01/02/20 12:29 Dextrose (Dextrose 50%) 25 ml Q30M PRN IV Hypoglycemia 10/04/19 15:45 01/02/20 15:44 Dextrose (Dextrose 50%) 50 ml Q30M PRN IV Hypoglycemia 10/04/19 15:45 01/02/20 15:44 Famotidine (Pepcid) 40 mg DAILY ORAL 10/05/19 09:00 01/03/20 08:59 10/19/19 08:20 Fluconazole/ Sodium Chloride 100 ml @ 100 mls/hr Q24H IV 10/16/19 16:00 10/23/19 15:59 10/19/19 16:47 Heparin Sodium (Porcine) (Heparin 5000 units/ml) 5,000 units EVERY 12 HOURS SUBQ 10/19/19 21:00 12/03/19 20:59 Magnesium Hydroxide (Mom) 30 ml HSPRN PRN ORAL Constipation 10/04/19 12:30 11/03/19 12:29 10/11/19 22:25 Meropenem 1 gm/ Sodium Chloride 100 ml @ 200 mls/hr Q8H IVPB 10/17/19 23:00 10/22/19 22:59 10/19/19 06:00 Metoclopramide HCl (Reglan) 10 mg Q6H PRN IVP Nausea & Vomiting 10/09/19 10:00 11/08/19 09:59 Metoclopramide HCl (Reglan) 10 mg Q6H PRN IVP Nausea & Vomiting 10/19/19 16:30 11/18/19 16:29 Miscellaneous Medication (RN HYPERBARIC Rate Change) 1 ea DAILY PRN MISC rate change 10/19/19 16:30 10/21/19 16:29 Miscellaneous Medication (RN HYPERBARIC shift volume) 1 ea Q12HR@0700,1900 MISC 10/19/19 19:00 10/21/19 18:59 10/19/19 19:00 Morphine Sulfate 30 ml @ 0 mls/hr Q24H PRN IV For Pain 10/19/19 16:30 10/21/19 16:29 10/19/19 18:51 Naloxone HCl (Narcan) 0.1 mg Q1M PRN IV RR<10/min OR SBP<90 mmHg 10/19/19 16:30 01/17/20 16:29 Ondansetron HCl (Zofran) 4 mg Q6H PRN IVP Nausea & Vomiting 10/15/19 07:15 11/14/19 07:14 Polyethylene Glycol (Miralax) 17 gm DAILY ORAL 10/13/19 09:00 11/12/19 08:59 10/16/19 09:04 Temazepam (RestoriL) 7.5 mg DAILYPRN PRN ORAL Insomnia 10/15/19 07:15 10/22/19 07:14 Vancomycin HCl ([facility] pharmacy to dose) 1 ea DAILY PRN MISC Per rx protocol 10/08/19 11:00 11/07/19 10:59 Vancomycin HCl 1 gm/Sodium Chloride 275 ml @ 183.708 mls/hr Q8H IVPB 10/18/19 00:00 10/23/19 00:00 10/19/19 16:48 Zolpidem Tartrate (Ambien) 5 mg DAILYPRN PRN ORAL Insomnia 10/15/19 07:15 10/22/19 07:14 Zolpidem Tartrate (Ambien) 5 mg DAILYPRN PRN ORAL Insomnia 10/19/19 16:30 10/26/19 16:29 Cale Tsai MD Oct 19, 2019 19:50
[2019-10-19] MEDS: Heparin 5000 units/ml inj SUBQ SCH (20:26)
[2019-10-20] VITALS: BP 113/62
[2019-10-20] MEDS: Vancomycin 1 GM in NS 275 ML IVPB SCH ×4 (00:13→23:05)
--- NOTE | 2019-10-20 00:57 | 48 Hour Post Anesthesia Eval ---
Post Anesthesia Evaluation Procedure: Dressing change under anesthesia Date of Evaluation: Oct 20, 2019 Time of Evaluation: 00:56 Blood Pressure Systolic: 113 0: 69 Pulse Rate: 57 Respiratory Rate: 14 O2 Sat by Pulse Oximetry: 98 Airway: patent Nausea: No Vomiting: No Mental Status/LOC: patient returned to baseline Follow-up Care/Observations: none Post-Anesthesia Complications: none Follow-up care needed: N/A Kamilla Lemus CRNA Oct 20, 2019 00:57
[2019-10-20 04:00] VITALS: BP 108/61
[2019-10-20 06:22] LABS: HEMATOCRIT 31.1 % (42.0-52.0); HEMOGLOBIN 9.8 G/DL (14.2-18.0); MEAN CORPUSCULAR VOLUME 83 FL (80-99); PLATELET COUNT 449 K/UL (150-450); RED BLOOD COUNT 3.76 M/UL (4.70-6.10); RED CELL DISTRIBUTION WIDTH 17.6 % (11.6-14.8); WHITE BLOOD COUNT 18.1 K/UL (4.8-10.8)
[2019-10-20 06:49] LABS: ANION GAP 3 mmol/L (5-15); BLOOD UREA NITROGEN 6 mg/dL (7-18); CALCIUM 8.5 MG/DL (8.5-10.1); CARBON DIOXIDE 32 MMOL/L (21-32); CHLORIDE 98 MMOL/L (98-107); CREATININE 0.8 MG/DL (0.55-1.30); SODIUM 133 MMOL/L (136-145)
[2019-10-20] MEDS: PCA shift volume MISC SCH ×2 (07:00→19:00)
--- NOTE | 2019-10-20 07:20 | NUR ---
HAND-OFF: Report given to ADDIE Saenz.
--- NOTE | 2019-10-20 07:45 | NUR ---
NURSE NOTES: Received report from ADDIE Gardiner. Patient awake in bed in RA. A&Ox4. Breathing even and unlabored. WOUND CARE SPECIALIST noted, setting checked. Pt said pain is manageable. Flores cath intact and patent draining clear yellow urine. Surgical wound dressing clean and dry. Endorsed by outgoing nurse that skin breakdown noted on buttocks and some part of dressing on groins stained and soaked from stool. However, pt refused to turn and look at the buttocks and wound dressing back. Pt stated that he was tired and he would show it later. Bed is in the lowest position,locked and call light within reach. Will continue to monitor.
[2019-10-20 08:00] VITALS: BP 105/58
[2019-10-20] MEDS: Heparin 5000 units/ml inj SUBQ SCH ×2 (08:22→20:40)
[2019-10-20] MEDS: Miralax 17gm pkt ORAL SCH (08:26)
--- NOTE | 2019-10-20 09:50 | NUR ---
DISCHARGE PLANNING: NOTE CALL PLACED TO CARIN BRISENO P: [phone] TO F/U ON DC PLAN ACCORDING TO CARIN TARGETED DC DATE IS TUESDAY TOLD TO HER BY PRIMARY [address] NO AUTH HAS BEEN REQUESTED BY CARIN FROM INSURANCE REP/CM [address] TO F/U ON DC PLANNING TOMORROW AND TUESDAY PER HER NOTES DC PLAN INITIATED 10/15 Addendum: 10/20/19 at 0955 by Ana Norris CM "CM cannot transfer patient w/o authorization form insurance; CM aware process take multiple days to resolve. CM started process 10/16/19" Addendum: 10/20/19 at 0956 by Ana Norris CM CM ORDER FOR REHAB CONSULT 10/12 AND 10/15
--- NOTE | 2019-10-20 11:29 | General Progress Note ---
Progress Note Progress Note Pt seen and examined. S/p EUA yesterday. Skin grafts and flaps to the groins with good viability. Woundcare nurse saw patient today and noticed a wound at the gluteal cleft. Pressure sore vs open pilonidal cyst. Will put patient on an air mattress for now and dress the wound and continue to observe. The patient is scheduled for transfer to rehab facility on Tuesday, if cleared medically. MD Taylor Briceño Amir MD Oct 20, 2019 11:29
[2019-10-20 12:00] VITALS: BP 105/61
--- NOTE | 2019-10-20 14:25 | General Progress Note ---
Assessment/Plan Status: doing well, stable, progressing Assessment/Plan: 24 year old gentleman with no significant PMH presents with acute blood loss anemia after surgery for hydradenitis #Hydradenitis s/p surgical intervention #Fever -resolved #Leukocytosis - improving #Post surgical wound drainage - Continue Fluconazole, Meropenem, Vancomycin per ID recommendations - Hematology Dr. John consulted for leukocytosis, appreciate recommendations. Likely stress reaction, flow cytometry without monoclonal cells - Wound care per surgery - Pain control - Surgery following, appreciate recommendations - PT/OT - discussed with Case Management regarding plan for placement in rehab, understand goal of discharge by Tuesday10/22/2019 #Acute blood loss anemia - S/P 2 units pRBC 10/04/2019 - Transfused 1 unit pRBC 10/07 - Transfused 1 unit pRBC 10/11/2019 in anticipation for possible surgery 2019 with appropriate rise - Iron studies reviewed - monitor CBC periodically #Severe protein deficiency malnutrition #Hypoalbuminemia -Encourage high protein diet to promote wound healing -Nutrition consult for supplementation #Hyperglycemia - resolved -HgA1c 5.7 -DC ISS -Tight glycemic control for wound healing #Post surgical hypoxia - RESOLVED - Incentive spirometry - Early ambulation with assist -CXR reviewed #FEN/GI - resume regular diet after returns from OR - resume subQ heparin after returns from OR #Dispo:. Goal discharge to rehab on 10/22/2019 I spent 35 min on this patient with 20 minutes face to face time which included direct counseling and discussion with patient.Coordinating with Surgery and Infectious Diseases as well as Hematology-Oncology. Discussed plan of care with nursing Subjective Date patient seen: Oct 20, 2019 Time patient seen: 13:00 ROS Limited/Unobtainable: No Constitutional: Denies: chills, fever Cardiovascular: Denies: chest pain Respiratory: Denies: cough Gastrointestinal/Abdominal: Denies: abdomen distended, abdominal pain Allergies: Coded Allergies: PEANUT (Verified Allergy, Severe, anaphylactic, 10/04/19) HYDROMORPHONE (Verified Allergy, Intermediate, severe nausea, 10/04/19) Subjective Follow up for hidradenitis suppurativa - no new complaints today WBC noted to be 18K Objective Last 24 Hour Vital Signs Date Time Temp Pulse Resp B/P (MAP) Pulse Ox O2 Delivery O2 Flow Rate FiO2 10/20/19 12:00 93 98 10/20/19 12:00 98.0 94 20 105/61 (76) 98 10/20/19 09:00 Room Air 10/20/19 08:00 93 98 10/20/19 08:00 98.8 93 18 105/58 (74) 98 10/20/19 04:00 98.4 99 20 108/61 (77) 100 10/20/19 00:57 57 14 98 10/20/19 00:00 98.0 91 18 113/62 (79) 100 10/19/19 21:00 Room Air 10/19/19 20:00 98.1 70 18 104/60 (75) 100 10/19/19 19:17 100 Nasal Cannula 2.0 28 10/19/19 16:00 97.6 71 105/60 (75) 10/19/19 15:45 67 17 133/64 100 Nasal Cannula 3 10/19/19 15:36 97.6 10/19/19 15:35 68 18 125/61 100 Nasal Cannula 3 10/19/19 15:25 68 17 130/65 100 Nasal Cannula 3 10/19/19 15:15 87 16 140/72 100 Nasal Cannula 3 10/19/19 15:00 81 18 147/79 100 Simple Mask 6 10/19/19 14:45 74 17 147/74 100 Simple Mask 6 10/19/19 14:45 68 20 99 10/19/19 14:43 72 20 99 10/19/19 14:40 78 15 149/87 100 Simple Mask 6 10/19/19 14:35 79 16 147/87 100 Simple Mask 6 10/19/19 14:32 97.4 97 18 142/84 100 Simple Mask 6 Intake and Output 10/19/19 10/20/19 19:00 07:00 Intake Total 650 ml Output Total 350 ml 1400 ml Balance 300 ml -1400 ml IV Total 650 ml Output Urine Total 300 ml 1400 ml Estimated Blood Loss 50 ml # Bowel Movements 1 Laboratory Tests 10/20/19 05:10: White Blood Count 18.1H, Red Blood Count 3.76L, Hemoglobin 9.8L, Hematocrit 31.1L, Mean Corpuscular Volume 83, Mean Corpuscular Hemoglobin 26.2L, Mean Corpuscular Hemoglobin Concent 31.6L, Red Cell Distribution Width 17.6H, Platelet Count 449, Mean Platelet Volume 7.1, Neutrophils (%) (Auto) , Lymphocytes (%) (Auto) , Monocytes (%) (Auto) , Eosinophils (%) (Auto) , Basophils (%) (Auto) , Differential Total Cells Counted 100, Neutrophils % ( Manual) 82H, Lymphocytes % (Manual) 8L, Monocytes % (Manual) 9, Eosinophils % ( Manual) 0, Basophils % (Manual) 1, Band Neutrophils 0, Platelet Estimate Adequate, Platelet Morphology Normal, Hypochromasia 2+, Anisocytosis 1+, Sodium Level 133L, Potassium Level 4.0, Chloride Level 98, Carbon Dioxide Level 32, Anion Gap 3L, Blood Urea Nitrogen 6L, Creatinine 0.8, Estimat Glomerular Filtration Rate > 60, Glucose Level 101, Calcium Level 8.5 Height (Feet): 5 Height (Inches): 11.00 Weight (Pounds): 158 General Appearance: alert Neck: supple Cardiovascular: normal rate, regular rhythm Respiratory/Chest: lungs clear, normal breath sounds Abdomen: non tender Skin: other - Surgical dressings in place Adair Mederos MD Oct 20, 2019 14:25
--- NOTE | 2019-10-20 14:28 | NUR ---
CASE MANAGEMENT: REVIEW 10/20/2019 SI:acute blood loss anemia. Bilateral groin wounds VS: 98 HR 94 RR 20 B/P 105/61 SATS 98% ON RA LABS: WBC 18.1 NA 133 BUN 6 IS;POWDERER PER SHIFT VOLUME FLUCONAZOLE IV Q24H MEROPENEM IV Q8H VANCO IV Q8H MED/SURG DCP: ARU >> scheduled for transfer to rehab facility on Tuesday, if cleared medically PLAN OF CARE: WOUND CARE EVAL >> wound at the gluteal cleft air mattress for now and dress the wound and continue to observe
--- NOTE | 2019-10-20 14:44 | Infectious Diseases Prog Note ---
Assessment/Plan Assessment/Plan ASSESSMENT AND PLAN: 1. bilateral axilla/groin/thigh wound infection/hidradenitis suppurativa, leukocytosis, ? sepsis - polymicrobial infection - meropenem, vancomycin, diflucan -day # 11, day # 6 post-op - leukocytosis worse today - monitor - blood cultures negative - s/p excision and debridement - s/p wound closure and reconstruction - monitor creatinine on abx 2. The patient has history of hidradenitis suppurativa with history of surgery. 3. Anemia. 4. No diabetes or hypertension. 5. Blood sugars have been elevated, hyperglycemia. 6. Allergies to hydromorphone and peanuts. 7. Social history is negative. 8. Family history is noncontributory. 9. MAR was noted. 10. Case was discussed with RN. 11. Case was discussed with Dr. Vazquez. 12. Case was communicated with Dr. Metzger. 13. Continue treatment as per primary consultants. 14. Wound care protocol per Dr. Vazquez. 15. Orders were noted and entered. Subjective Constitutional: Denies: fever HEENT: Denies: congestion Respiratory: Denies: shortness of breath Cardiovascular: Denies: chest pain Gastrointestinal/Abdominal: Denies: nausea, vomiting, diarrhea Allergies: Coded Allergies: PEANUT (Verified Allergy, Severe, anaphylactic, 10/04/19) HYDROMORPHONE (Verified Allergy, Intermediate, severe nausea, 10/04/19) Objective Last 24 Hour Vital Signs Date Time Temp Pulse Resp B/P (MAP) Pulse Ox O2 Delivery O2 Flow Rate FiO2 10/20/19 12:00 93 98 10/20/19 12:00 98.0 94 20 105/61 (76) 98 10/20/19 09:00 Room Air 10/20/19 08:00 93 98 10/20/19 08:00 98.8 93 18 105/58 (74) 98 10/20/19 04:00 98.4 99 20 108/61 (77) 100 10/20/19 00:57 57 14 98 10/20/19 00:00 98.0 91 18 113/62 (79) 100 10/19/19 21:00 Room Air 10/19/19 20:00 98.1 70 18 104/60 (75) 100 10/19/19 19:17 100 Nasal Cannula 2.0 28 10/19/19 16:00 97.6 71 105/60 (75) 10/19/19 15:45 67 17 133/64 100 Nasal Cannula 3 10/19/19 15:36 97.6 10/19/19 15:35 68 18 125/61 100 Nasal Cannula 3 10/19/19 15:25 68 17 130/65 100 Nasal Cannula 3 10/19/19 15:15 87 16 140/72 100 Nasal Cannula 3 10/19/19 15:00 81 18 147/79 100 Simple Mask 6 10/19/19 14:45 74 17 147/74 100 Simple Mask 6 10/19/19 14:45 68 20 99 Height (Feet): 5 Height (Inches): 11.00 Weight (Pounds): 158 General Appearance: no acute distress HEENT: normocephalic, atraumatic, anicteric, mucous membranes moist Respiratory/Chest: lungs clear, normal breath sounds, no respiratory distress, no accessory muscle use Cardiovascular: normal rate, regular rhythm, no gallop/murmur Chest x-ray - 10/10/19 - Procedure: XRAY Chest 1v Indication: Cough Technique: One view of the chest Comparison: 10/05/2019 Findings: Lungs and pleural spaces are clear. The heart size is normal. There is no significant interim change Impression: Negative Laboratory Tests Test 10/20/19 05:10 White Blood Count 18.1 K/UL (4.8-10.8) H Red Blood Count 3.76 M/UL (4.70-6.10) L Hemoglobin 9.8 G/DL (14.2-18.0) L Hematocrit 31.1 % (42.0-52.0) L Mean Corpuscular Volume 83 FL (80-99) Mean Corpuscular Hemoglobin 26.2 PG (27.0-31.0) L Mean Corpuscular Hemoglobin Concent 31.6 G/DL (32.0-36.0) L Red Cell Distribution Width 17.6 % (11.6-14.8) H Platelet Count 449 K/UL (150-450) Mean Platelet Volume 7.1 FL (6.5-10.1) Neutrophils (%) (Auto) % (45.0-75.0) Lymphocytes (%) (Auto) % (20.0-45.0) Monocytes (%) (Auto) % (1.0-10.0) Eosinophils (%) (Auto) % (0.0-3.0) Basophils (%) (Auto) % (0.0-2.0) Differential Total Cells Counted 100 Neutrophils % (Manual) 82 % (45-75) H Lymphocytes % (Manual) 8 % (20-45) L Monocytes % (Manual) 9 % (1-10) Eosinophils % (Manual) 0 % (0-3) Basophils % (Manual) 1 % (0-2) Band Neutrophils 0 % (0-8) Platelet Estimate Adequate Platelet Morphology Normal Hypochromasia 2+ Anisocytosis 1+ Sodium Level 133 MMOL/L (136-145) L Potassium Level 4.0 MMOL/L (3.5-5.1) Chloride Level 98 MMOL/L (98-107) Carbon Dioxide Level 32 MMOL/L (21-32) Anion Gap 3 mmol/L (5-15) L Blood Urea Nitrogen 6 mg/dL (7-18) L Creatinine 0.8 MG/DL (0.55-1.30) Estimat Glomerular Filtration Rate > 60 mL/min (>60) Glucose Level 101 MG/DL (74-106) Calcium Level 8.5 MG/DL (8.5-10.1) Current Medications Medications (Trade) Dose Ordered Sig/Flavia Route PRN Reason Start Time Stop Time Status Last Admin Dose Admin Acetaminophen (Tylenol) 650 mg Q4H PRN ORAL Mild Pain (Pain Scale 1-3) 10/04/19 12:30 11/03/19 12:29 Acetaminophen (Tylenol) 650 mg Q4H PRN ORAL FEVER 10/19/19 16:30 11/18/19 16:29 Bisacodyl (Dulcolax) 10 mg HSPRN PRN RECTAL Constipation 10/04/19 15:45 01/02/20 12:29 Dextrose (Dextrose 50%) 25 ml Q30M PRN IV Hypoglycemia 10/04/19 15:45 01/02/20 15:44 Dextrose (Dextrose 50%) 50 ml Q30M PRN IV Hypoglycemia 10/04/19 15:45 01/02/20 15:44 Famotidine (Pepcid) 40 mg DAILY ORAL 10/05/19 09:00 01/03/20 08:59 10/20/19 08:20 Fluconazole/ Sodium Chloride 100 ml @ 100 mls/hr Q24H IV 10/16/19 16:00 10/23/19 15:59 10/19/19 16:47 Heparin Sodium (Porcine) (Heparin 5000 units/ml) 5,000 units EVERY 12 HOURS SUBQ 10/19/19 21:00 12/03/19 20:59 10/20/19 08:22 Magnesium Hydroxide (Mom) 30 ml HSPRN PRN ORAL Constipation 10/04/19 12:30 11/03/19 12:29 10/11/19 22:25 Meropenem 1 gm/ Sodium Chloride 100 ml @ 200 mls/hr Q8H IVPB 10/17/19 23:00 10/22/19 22:59 10/20/19 06:18 Metoclopramide HCl (Reglan) 10 mg Q6H PRN IVP Nausea & Vomiting 10/09/19 10:00 11/08/19 09:59 Metoclopramide HCl (Reglan) 10 mg Q6H PRN IVP Nausea & Vomiting 10/19/19 16:30 11/18/19 16:29 Miscellaneous Medication (ELECTRON BEAM MACHINE WELDER SETTER Rate Change) 1 ea DAILY PRN MISC rate change 10/19/19 16:30 10/21/19 16:29 Miscellaneous Medication (ELECTRON BEAM MACHINE WELDER SETTER shift volume) 1 ea Q12HR@0700,1900 MISC 10/19/19 19:00 10/21/19 18:59 10/20/19 07:00 Morphine Sulfate 30 ml @ 0 mls/hr Q24H PRN IV For Pain 10/19/19 16:30 10/21/19 16:29 10/19/19 18:51 Naloxone HCl (Narcan) 0.1 mg Q1M PRN IV RR<10/min OR SBP<90 mmHg 10/19/19 16:30 01/17/20 16:29 Ondansetron HCl (Zofran) 4 mg Q6H PRN IVP Nausea & Vomiting 10/15/19 07:15 11/14/19 07:14 Polyethylene Glycol (Miralax) 17 gm DAILY ORAL 10/13/19 09:00 11/12/19 08:59 10/16/19 09:04 Temazepam (RestoriL) 7.5 mg DAILYPRN PRN ORAL Insomnia 10/15/19 07:15 10/22/19 07:14 [facility]comycin [facility] ([facility]) 1 ea DAILY PRN MISC Per rx protocol 10/08/19 11:00 11/07/19 10:59 Vancomycin HCl 1 gm/Sodium Chloride 275 ml @ 183.708 mls/hr Q8H IVPB 10/18/19 00:00 10/23/19 00:00 10/20/19 08:18 Zolpidem Tartrate (Ambien) 5 mg DAILYPRN PRN ORAL Insomnia 10/19/19 16:30 10/26/19 16:29 Cael Tsai MD Oct 20, 2019 14:44
[2019-10-20 16:00] VITALS: BP_SYST 108; BP_SYST 110; BP_DIAS 59; BP_DIAS 70
--- NOTE | 2019-10-20 16:30 | NUR ---
NURSE NOTES:WOUND CARE NOTES: Pt noted by staff to have a full thickness wound Sacrum. Base of wound is beefy red with tunneled area at 12o'clock (L)4.3cm x (W)1.5cm x (D)3cm, tunneling clockwise @12o'clock by 3.7cm.Greates depth of wound is at sacrococcygeal area. No exudate or odor noted. At L gluteal cleft is an indurated area with small cluster of pustules. Sacral wound cleansed with Saline and packed with Saline moistened Kerlix. and covered with Optifoam drsg until further instructed by . sent for Taylor regarding wound. Pt was seen by Taylor whom stated wound is a Pilonidal Cyst. Pt also stated he has had wound for a while. wet to dry packing to be continued per . An APM/RICHARD Mattress ordered for pt.
[2019-10-20] MEDS: PCA Morphine 1mg/ml 30 ML IV PRN (18:58)
[2019-10-20 20:00] VITALS: BP_SYST 113; BP_DIAS 60; BP_DIAS 61
--- NOTE | 2019-10-20 20:02 | NUR ---
HAND-OFF: Report given to ADDIE Santiago.
[2019-10-21] VITALS (7 sets, daily range): BP systolic 96–113; BP diastolic 54–71
[2019-10-21] MEDS: PCA shift volume MISC SCH (07:09)
--- NOTE | 2019-10-21 07:38 | NUR ---
HAND-OFF: Report given to Lindsey Saenz RN
--- NOTE | 2019-10-21 07:38 | NUR ---
HAND-OFF: Report given to Lindsey Saenz RN
--- NOTE | 2019-10-21 07:45 | NUR ---
NURSE NOTES: Received report from ADDIE Durán. Patient awake in bed in RA. A&Ox4. No acute distress noted. JAVA J2EE APPLICATION DEVELOPER noted, setting checked. Denies pain at this time. Flores cath intact and patent draining clear yellow urine. Surgical wound dressing intact. IV site intact and patent. Bed is in the lowest position,locked and call light within reach. Will continue to monitor.
[2019-10-21] MEDS ORDERED: Tubing IV Secondary IV ONE (08:29)
[2019-10-21] MEDS: Vancomycin 1 GM in NS 275 ML IVPB SCH ×2 (08:36→16:30)
[2019-10-21] MEDS: Heparin 5000 units/ml inj SUBQ SCH ×2 (08:43→20:30)
[2019-10-21] MEDS ORDERED: Rate Change PCA 1 Each MISC PRN (08:45)
[2019-10-21] MEDS: Miralax 17gm pkt ORAL SCH (08:47)
[2019-10-21] MEDS ORDERED: PCA Morphine 1mg/ml 30 ML IV PRN (09:00)
[2019-10-21] MEDS ORDERED: Metoclopramide 10mg/2ml Inj IVP PRN (09:00)
--- NOTE | 2019-10-21 10:58 | General Progress Note ---
Progress Note Progress Note Pt seen and examined. Doing well. Got up with PT today. Plan for discharge to rehab tomorrow. Will Dc benavidez, MIDDLE SCHOOL HUMANITIES TEACHER today and change dressings. MD Taylor Briceño Amir MD Oct 21, 2019 10:58
[2019-10-21] MEDS ORDERED: HYDROcodone/Acetamin 5/325 tab ORAL PRN (11:00)
[2019-10-21] MEDS ORDERED: HYDROcodone/Acetamin 10/325 tab ORAL PRN (11:00)
[2019-10-21 11:38] LABS: BASOPHILS % (AUTO) 0.5 % (0.0-2.0); EOSINOPHILS % (AUTO) 4.4 % (0.0-3.0); HEMATOCRIT 30.4 % (42.0-52.0); HEMOGLOBIN 9.6 G/DL (14.2-18.0); MEAN CORPUSCULAR VOLUME 83 FL (80-99); MONOCYTES % (AUTO) 4.9 % (1.0-10.0); NEUTROPHILS % (AUTO) 78.1 % (45.0-75.0); PLATELET COUNT 421 K/UL (150-450); RED BLOOD COUNT 3.66 M/UL (4.70-6.10); RED CELL DISTRIBUTION WIDTH 17.6 % (11.6-14.8); WHITE BLOOD COUNT 15.3 K/UL (4.8-10.8)
--- NOTE | 2019-10-21 12:27 | NUR ---
DISCHARGE PLANNING: CM LEFT A VM FOR [facility] T: [phone] REQUESTING STATUS OF ADMISSION Addendum: 10/21/19 at 1239 by RAYNA MORENO LVN CM LEFT VM AND FAX REQUEST TO CALLED CM REGARDING AUTH FOR ADMISSION FOR REHAB [facility] T:[phone] DEPARTMENT Addendum: 10/21/19 at 1424 by RAYNA MORENO LVN CM able to communicate w/ [facility] Tracy MOLINA requesting PT notes and latest progress notes CM to F/U
--- NOTE | 2019-10-21 12:33 | Hematology/Onc Progress Note ---
Assessment/Plan Assessment/Plan Assessment and Recs # Leukocytosis/elevated white blood cell count, unspecified likely related to underlying stress reaction, smoking v more likely is from surgery and may take 2 -3 weeks to resolve, par for the course --> have reviewed peripheral smear and bandemia/neutrophilia noted --> continue antibiotics if they have been started by ID team --> monitor for resolution --> inflammatory markers are elevated, esr 101, crp 19!! --> ID recs noted --> flow cytometry has been ordered-->is negative for monoclonal population of cells --> wbc 17->17->16-->14->15 --> heme end cleared for surgery--> has been completed # Anemia with Acute blood loss anemia ---> Trend CBC closely --> S/P 2 units pRBC 10/04/2019 --> Transfused 1 unit pRBC 10/07, 10/10 --> Iron studies reviewed --> hgb 9.5-->9.7-->9.6 # Hydradenitis s/p surgical intervention --> per surgery ==> Fever -resolved, and cleared by heme # Post surgical wound drainage --> abx per id --> wound care --> Pain control with PCN pump --> may need reconstruction 10/14 # Severe protein deficiency malnutrition # Hypoalbuminemia # Hyperglycemia - resolved # Post surgical hypoxia - RESOLVED # Dvt ppx ambulation The timing of this note does not necessarily reflect the time of the patient was seen. Greatly appreciate consultation. Subjective Constitutional: Denies: no symptoms, chills, fever, malaise, weakness, other HEENT: Denies: no symptoms, eye pain, blurred vision, tearing, double vision, ear pain, ear discharge, nose pain, nose congestion, throat pain, throat swelling, mouth pain, mouth swelling, other Cardiovascular: Denies: no symptoms, chest pain, edema, irregular heart rate, lightheadedness, palpitations, syncope, other Gastrointestinal/Abdominal: Denies: no symptoms, abdomen distended, abdominal pain, black stools, tarry stools, blood in stool, constipated, diarrhea, difficulty swallowing, nausea, poor appetite, poor fluid intake, rectal bleeding , vomiting, other Genitourinary: Denies: no symptoms, burning, discharge, frequency, flank pain, hematuria, incontinence, pain, urgency, other Neurologic/Psychiatric: Denies: no symptoms, anxiety, depressed, emotional problems, headache, numbness, paresthesia, pre-existing deficit, seizure, tingling, tremors, weakness, other Endocrine: Denies: no symptoms, excessive sweating, flushing, intolerance to cold, intolerance to heat, increased hunger, increased thirst, increased urine, unexplained weight gain, unexplained weight loss, other Allergies: Coded Allergies: PEANUT (Verified Allergy, Severe, anaphylactic, 10/04/19) HYDROMORPHONE (Verified Allergy, Intermediate, severe nausea, 10/04/19) Subjective 10/12 labs noted, clear for surgery from heme end, seen by Taylor 10/13 labs noted, no bleeding, meds noted, no hemolysis for surgery shortly 10/14 for surgery today, cleared by hematology, no bleeding comfortable 10/15 labs noted, no bleeding, wbc 16, hgb 10.3, no hemolysis 10/16 meds are noted, no bleeding, labs reviewed, no night sweats 10/17 labs are noted, no bleeding, meds reviewed, no hemolysis 10/18 meds reviewed, no bleeding, labs noted, no night sweats 10/20 labs are noted, no bleeding, dw rn, no hemolysis Objective Objective Current Medications Medications (Trade) Dose Ordered Sig/Flavia Route PRN Reason Start Time Stop Time Status Last Admin Dose Admin Acetaminophen (Tylenol) 650 mg Q4H PRN ORAL Mild Pain (Pain Scale 1-3) 10/04/19 12:30 11/03/19 12:29 Acetaminophen (Tylenol) 650 mg Q4H PRN ORAL FEVER 10/19/19 16:30 11/18/19 16:29 Acetaminophen/ Hydrocodone Bitart ([place] 10/325) 1 tab Q4H PRN ORAL Pain Scale (6-10) 10/21/19 11:00 10/28/19 10:59 Acetaminophen/ Hydrocodone Bitart ([place] 5/325) 1 tab Q4H PRN ORAL Moderate Pain (Pain Scale 4-6) 10/21/19 11:00 10/28/19 10:59 Bisacodyl (Dulcolax) 10 mg HSPRN PRN RECTAL Constipation 10/04/19 15:45 01/02/20 12:29 Dextrose (Dextrose 50%) 25 ml Q30M PRN IV Hypoglycemia 10/04/19 15:45 01/02/20 15:44 Dextrose (Dextrose 50%) 50 ml Q30M PRN IV Hypoglycemia 10/04/19 15:45 01/02/20 15:44 Famotidine (Pepcid) 40 mg DAILY ORAL 10/05/19 09:00 01/03/20 08:59 10/21/19 08:42 Fluconazole/ Sodium Chloride 100 ml @ 100 mls/hr Q24H IV 10/16/19 16:00 10/23/19 15:59 10/20/19 17:26 Heparin Sodium (Porcine) (Heparin 5000 units/ml) 5,000 units EVERY 12 HOURS SUBQ 10/19/19 21:00 12/03/19 20:59 10/21/19 08:43 Magnesium Hydroxide (Mom) 30 ml HSPRN PRN ORAL Constipation 10/04/19 12:30 11/03/19 12:29 10/11/19 22:25 Meropenem 1 gm/ Sodium Chloride 100 ml @ 200 mls/hr Q8H IVPB 10/17/19 23:00 10/23/19 22:59 10/21/19 06:15 Metoclopramide HCl (Reglan) 10 mg Q6H PRN IVP Nausea & Vomiting 10/21/19 09:00 11/18/19 16:29 Naloxone HCl (Narcan) 0.1 mg Q1M PRN IV RR<10/min OR SBP<90 mmHg 10/19/19 16:30 01/17/20 16:29 Ondansetron HCl (Zofran) 4 mg Q6H PRN IVP Nausea & Vomiting 10/15/19 07:15 11/14/19 07:14 Polyethylene Glycol (Miralax) 17 gm DAILY ORAL 10/13/19 09:00 11/12/19 08:59 10/16/19 09:04 Temazepam (RestoriL) 7.5 mg DAILYPRN PRN ORAL Insomnia 10/15/19 07:15 10/22/19 07:14 Vancomycin HCl ([facility] pharmacy to dose) 1 ea DAILY PRN MISC Per rx protocol 10/08/19 11:00 11/07/19 10:59 Vancomycin HCl 1 gm/Sodium Chloride 275 ml @ 183.708 mls/hr Q8H IVPB 10/18/19 00:00 8/4/20 00:00 10/21/19 08:36 Zolpidem Tartrate (Ambien) 5 mg DAILYPRN PRN ORAL Insomnia 10/19/19 16:30 10/26/19 16:29 Last 24 Hour Vital Signs Date Time Temp Pulse Resp B/P (MAP) Pulse Ox O2 Delivery O2 Flow Rate FiO2 10/21/19 09:00 Room Air 10/21/19 08:00 97.8 82 20 102/54 (70) 99 82 10/21/19 04:00 80 97 10/21/19 04:00 98.6 80 20 108/57 (74) 97 10/21/19 00:00 99.2 84 18 112/60 (77) 97 10/21/19 00:00 84 98 10/20/19 21:00 Room Air 10/20/19 20:00 100.2 83 18 113/60 (77) 97 10/20/19 20:00 83 97 10/20/19 19:28 98.1 10/20/19 16:00 98.1 90 18 110/70 (83) 98 10/20/19 16:00 93 98 10/20/19 12:00 93 98 10/20/19 12:00 98.0 94 20 105/61 (76) 98 10/20/19 09:00 Room Air 10/20/19 08:00 93 98 10/20/19 08:00 98.8 93 18 105/58 (74) 98 10/20/19 04:00 98.4 99 20 108/61 (77) 100 10/20/19 00:57 57 14 98 10/20/19 00:00 98.0 91 18 113/62 (79) 100 10/19/19 21:00 Room Air 10/19/19 20:00 98.1 70 18 104/60 (75) 100 10/19/19 19:17 100 Nasal Cannula 2.0 28 10/19/19 16:00 97.6 71 105/60 (75) 10/19/19 15:45 67 17 133/64 100 Nasal Cannula 3 10/19/19 15:36 97.6 10/19/19 15:35 68 18 125/61 100 Nasal Cannula 3 10/19/19 15:25 68 17 130/65 100 Nasal Cannula 3 10/19/19 15:15 87 16 140/72 100 Nasal Cannula 3 10/19/19 15:00 81 18 147/79 100 Simple Mask 6 10/19/19 14:45 74 17 147/74 100 Simple Mask 6 10/19/19 14:45 68 20 99 10/19/19 14:43 72 20 99 10/19/19 14:40 78 15 149/87 100 Simple Mask 6 10/19/19 14:35 79 16 147/87 100 Simple Mask 6 10/19/19 14:32 97.4 97 18 142/84 100 Simple Mask 6 Intake and Output 10/20/19 10/21/19 19:00 07:00 Intake Total 240 ml Output Total 1300 ml 1400 ml Balance -1300 ml -1160 ml Intake Oral 240 ml Output Urine Total 1300 ml 1400 ml # Bowel Movements 1 Labs Test 10/18/19 23:00 10/19/19 05:25 10/20/19 05:10 10/21/19 11:22 Vancomycin Level Trough 12.8 ug/mL (5.0-12.0) White Blood Count 14.3 K/UL (4.8-10.8) 18.1 K/UL (4.8-10.8) 15.3 K/UL (4.8-10.8) Red Blood Count 3.73 M/UL (4.70-6.10) 3.76 M/UL (4.70-6.10) 3.66 M/UL (4.70-6.10) Hemoglobin 9.7 G/DL (14.2-18.0) 9.8 G/DL (14.2-18.0) 9.6 G/DL (14.2-18.0) Hematocrit 31.2 % (42.0-52.0) 31.1 % (42.0-52.0) 30.4 % (42.0-52.0) Mean Corpuscular Volume 84 FL (80-99) 83 FL (80-99) 83 FL (80-99) Mean Corpuscular Hemoglobin 26.0 PG (27.0-31.0) 26.2 PG (27.0-31.0) 26.3 PG (27.0-31.0) Mean Corpuscular Hemoglobin Concent 31.1 G/DL (32.0-36.0) 31.6 G/DL (32.0-36.0) 31.6 G/DL (32.0-36.0) Red Cell Distribution Width 17.8 % (11.6-14.8) 17.6 % (11.6-14.8) 17.6 % (11.6-14.8) Platelet Count 455 K/UL (150-450) 449 K/UL (150-450) 421 K/UL (150-450) Mean Platelet Volume 7.5 FL (6.5-10.1) 7.1 FL (6.5-10.1) 7.5 FL (6.5-10.1) Neutrophils (%) (Auto) 74.2 % (45.0-75.0) % (45.0-75.0) 78.1 % (45.0-75.0) Lymphocytes (%) (Auto) 16.0 % (20.0-45.0) % (20.0-45.0) 12.0 % (20.0-45.0) Monocytes (%) (Auto) 6.4 % (1.0-10.0) % (1.0-10.0) 4.9 % (1.0-10.0) Eosinophils (%) (Auto) 3.1 % (0.0-3.0) % (0.0-3.0) 4.4 % (0.0-3.0) Basophils (%) (Auto) 0.3 % (0.0-2.0) % (0.0-2.0) 0.5 % (0.0-2.0) Sodium Level 137 MMOL/L (136-145) 133 MMOL/L (136-145) Potassium Level 4.2 MMOL/L (3.5-5.1) 4.0 MMOL/L (3.5-5.1) Chloride Level 102 MMOL/L (98-107) 98 MMOL/L (98-107) Carbon Dioxide Level 31 MMOL/L (21-32) 32 MMOL/L (21-32) Anion Gap 4 mmol/L (5-15) 3 mmol/L (5-15) Blood Urea Nitrogen 7 mg/dL (7-18) 6 mg/dL (7-18) Creatinine 0.8 MG/DL (0.55-1.30) 0.8 MG/DL (0.55-1.30) Estimat Glomerular Filtration Rate > 60 mL/min (>60) > 60 mL/min (>60) Glucose Level 92 MG/DL (74-106) 101 MG/DL (74-106) Calcium Level 8.4 MG/DL (8.5-10.1) 8.5 MG/DL (8.5-10.1) Differential Total Cells Counted 100 Neutrophils % (Manual) 82 % (45-75) Lymphocytes % (Manual) 8 % (20-45) Monocytes % (Manual) 9 % (1-10) Eosinophils % (Manual) 0 % (0-3) Basophils % (Manual) 1 % (0-2) Band Neutrophils 0 % (0-8) Platelet Estimate Adequate Platelet Morphology Normal Hypochromasia 2+ Anisocytosis 1+ Height (Feet): 5 Height (Inches): 11.00 Weight (Pounds): 158 Objective Physical Exam: Vitals: reviewed General: NAD HEENT: nc, at Neck: supple Chest: clear breath sounds bilaterally Cardiovascular: RRR, no s3, s4 Abdomen: soft, nontender, nd Extremities: no cce, normal range of motion Skin: normal pigmentation, warm/dry, other - surgical sites dressings in place and clean, intact Neuro: alert and oriented Juan Alberto John MD Oct 21, 2019 12:33
--- NOTE | 2019-10-21 12:40 | NUR ---
NURSE NOTES: Flores taken out per MD order. Urinal placed at bedside. Will continue to monitor.
--- NOTE | 2019-10-21 12:50 | General Progress Note ---
Assessment/Plan Status: doing well, stable, progressing Assessment/Plan: 24 year old gentleman with no significant PMH presents with acute blood loss anemia after surgery for hydradenitis #Sepsis, resolved #Hydradenitis s/p surgical intervention #Fever -resolved #Leukocytosis - improving #Post surgical wound drainage - Continue Fluconazole, Meropenem, Vancomycin per ID recommendations - Hematology Dr. John consulted for leukocytosis, appreciate recommendations. Likely stress reaction, flow cytometry without monoclonal cells - Wound care per surgery - Pain control - Surgery following, appreciate recommendations - PT/OT - discussed with Case Management regarding plan for placement in rehab, plan for discharge to [facility] tomorrow #Acute blood loss anemia - S/P 2 units pRBC 10/04/2019 - Transfused 1 unit pRBC 10/07 - Transfused 1 unit pRBC 10/11/2019 in anticipation for possible surgery 2019 with appropriate rise - Iron studies reviewed - monitor CBC periodically #Severe protein deficiency malnutrition #Hypoalbuminemia -Encourage high protein diet to promote wound healing -Nutrition consult for supplementation #Hyperglycemia - resolved -HgA1c 5.7 -DC ISS -Tight glycemic control for wound healing #Post surgical hypoxia - RESOLVED - Incentive spirometry - Early ambulation with assist -CXR reviewed #FEN/GI - resume regular diet after returns from OR - resume subQ heparin after returns from OR #Dispo:. Goal discharge to rehab on 10/22/2019 I spent 35 min on this patient with 20 minutes face to face time which included direct counseling and discussion with patient.Coordinating with Surgery and Infectious Diseases as well as Hematology-Oncology. Discussed plan of care with nursing Subjective Date patient seen: Oct 21, 2019 Time patient seen: 12:16 Constitutional: Denies: chills, fever Cardiovascular: Denies: chest pain Gastrointestinal/Abdominal: Denies: abdomen distended, abdominal pain Allergies: Coded Allergies: PEANUT (Verified Allergy, Severe, anaphylactic, 10/04/19) HYDROMORPHONE (Verified Allergy, Intermediate, severe nausea, 10/04/19) Subjective Follow up for hidradenitis suppurativa - no new complaints today WBC improved today to 15K Seen by Plastic Surgery, dressings changed, Flores out, PARK ACTIVITIES COORDINATOR stopped Plan for discharge to ARU tomorrow Objective Last 24 Hour Vital Signs Date Time Temp Pulse Resp B/P (MAP) Pulse Ox O2 Delivery O2 Flow Rate FiO2 10/21/19 09:00 Room Air 10/21/19 08:00 97.8 82 20 102/54 (70) 99 82 10/21/19 04:00 80 97 10/21/19 04:00 98.6 80 20 108/57 (74) 97 10/21/19 00:00 99.2 84 18 112/60 (77) 97 10/21/19 00:00 84 98 10/20/19 21:00 Room Air 10/20/19 20:00 100.2 83 18 113/60 (77) 97 10/20/19 20:00 83 97 10/20/19 19:28 98.1 10/20/19 16:00 98.1 90 18 110/70 (83) 98 10/20/19 16:00 93 98 Intake and Output 10/20/19 10/21/19 19:00 07:00 Intake Total 240 ml Output Total 1300 ml 1400 ml Balance -1300 ml -1160 ml Intake Oral 240 ml Output Urine Total 1300 ml 1400 ml # Bowel Movements 1 Laboratory Tests 10/21/19 11:22: White Blood Count 15.3H, Red Blood Count 3.66L, Hemoglobin 9.6L, Hematocrit 30.4L, Mean Corpuscular Volume 83, Mean Corpuscular Hemoglobin 26.3L, Mean Corpuscular Hemoglobin Concent 31.6L, Red Cell Distribution Width 17.6H, Platelet Count 421, Mean Platelet Volume 7.5, Neutrophils (%) (Auto) 78.1H, Lymphocytes (%) (Auto) 12.0L, Monocytes (%) (Auto) 4.9, Eosinophils (%) (Auto) 4.4H, Basophils (%) (Auto) 0.5 Height (Feet): 5 Height (Inches): 11.00 Weight (Pounds): 158 General Appearance: no apparent distress, alert Neck: supple Cardiovascular: normal rate, regular rhythm Respiratory/Chest: lungs clear, normal breath sounds Abdomen: non tender, soft Adair Mederos MD Oct 21, 2019 12:50
--- NOTE | 2019-10-21 14:24 | NUR ---
CASE MANAGEMENT:REVIEW 10/19/19 SI: ACUTE BLOOD LOSS ANEMIA . POLYMICROBIAL INFECTION S/P REVISION AND PARTIAL CLOSURE OF BILATERAL GROIN WOUND SKIN GRAFTING S/P RADICAL INCISIONS OF BILATERAL GROINS AND PERINEAL HYDRADENITIS S/P RADICAL INCISION OF AXILLARY HYDRADENITIS 97.8 82 20 102/54 99% ON RA WBC 15.3 H/H 9.6/30.4 IS: IV VANCOMYCIN TID IV MEROPENEM TID IV DIFLUCAN QD HEPARIN SQ BID WOUND CARE - EUA \: MED/SURG STATUS 3 EASY DCP: ARU >> scheduled for transfer to rehab facility on Tuesday, if cleared medically
--- NOTE | 2019-10-21 14:30 | NUR ---
NURSE NOTES: Removed old dressing and applied new dressings on ender. groins, ender. axillas and right thigh as ordered. Pt cooperative and tolerated well.
--- NOTE | 2019-10-21 14:32 | NUR ---
*-* INSURANCE *-* UPDATED CLINICALS AND REVIEWS HAVE BEEN FAXED TO: Carlyle gustafson out [facility] Edie FAX: [phone] AND FAX: [phone] [facility]# [id number]
[2019-10-21] MEDS ORDERED: PCA shift volume MISC SCH (19:00)
--- NOTE | 2019-10-21 19:30 | NUR ---
NURSE NOTES: Received report & pt from ADDIE Mojica. Pt laying in bed, a&ox4, in room air. No s/s of acute distress & c/o 4/10 pain at this time. B/L groin, B/L axilla, & right thigh dressings intact. Buttock drsg intact with optifoam. IV site intact with IVF running as ordered. Plan of care discussed.
--- NOTE | 2019-10-21 19:33 | Infectious Diseases Prog Note ---
Assessment/Plan Assessment/Plan ASSESSMENT AND PLAN: 1. bilateral axilla/groin/thigh wound infection/hidradenitis suppurativa, leukocytosis, ? sepsis - polymicrobial infection - meropenem, vancomycin, diflucan - can transition to oral augmentin plus cipro plus diflucan x 5 days - leukocytosis overall improved - monitor - blood cultures negative - s/p excision and debridement - s/p wound closure and reconstruction - monitor creatinine on abx 2. The patient has history of hidradenitis suppurativa with history of surgery. 3. Anemia. 4. No diabetes or hypertension. 5. Blood sugars have been elevated, hyperglycemia. 6. Allergies to hydromorphone and peanuts. 7. Social history is negative. 8. Family history is noncontributory. 9. MAR was noted. 10. Case was discussed with RN. 11. Case was discussed with Dr. Vazquez. 12. Case was communicated with Dr. Metzger. 13. Continue treatment as per primary consultants. 14. Wound care protocol per Dr. Vazquez. 15. Orders were noted and entered. Subjective Constitutional: Denies: fever HEENT: Denies: congestion Respiratory: Denies: shortness of breath Cardiovascular: Denies: chest pain Gastrointestinal/Abdominal: Denies: nausea, vomiting, diarrhea Genitourinary: Reports: other - no benavidez Neurologic: Denies: headache Psychiatric: Denies: depression Skin: Denies: rash Hematologic: Denies: bleeding Musculoskeletal: Denies: pain Allergies: Coded Allergies: PEANUT (Verified Allergy, Severe, anaphylactic, 10/04/19) HYDROMORPHONE (Verified Allergy, Intermediate, severe nausea, 10/04/19) Objective Last 24 Hour Vital Signs Date Time Temp Pulse Resp B/P (MAP) Pulse Ox O2 Delivery O2 Flow Rate FiO2 10/21/19 16:00 98.7 80 18 98/55 (69) 99 80 10/21/19 12:00 85 98 10/21/19 12:00 97.8 85 18 105/58 (74) 99 85 10/21/19 09:00 Room Air 10/21/19 08:00 97.8 82 20 102/54 (70) 99 82 10/21/19 08:00 80 97 10/21/19 07:00 99 Room Air 21 10/21/19 04:00 80 97 10/21/19 04:00 98.6 80 20 108/57 (74) 97 10/21/19 00:00 99.2 84 18 112/60 (77) 97 10/21/19 00:00 84 98 10/20/19 21:00 Room Air 10/20/19 20:00 100.2 83 18 113/60 (77) 97 10/20/19 20:00 83 97 10/20/19 19:28 98.1 Height (Feet): 5 Height (Inches): 11.00 Weight (Pounds): 158 General Appearance: no acute distress HEENT: normocephalic, atraumatic, anicteric, mucous membranes moist Respiratory/Chest: lungs clear, normal breath sounds, no respiratory distress, no accessory muscle use Cardiovascular: normal rate, regular rhythm, no gallop/murmur, no JVD Abdomen: normal bowel sounds, soft, non tender, no organomegaly, non distended Genitourinary: other - no benavidez Extremities: no cyanosis Skin: no rash Neurologic/Psychiatric: academic support director II-XII 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 The heart size is normal. There is no significant interim change Impression: Negative Microbiology Date/Time Source Procedure Growth Status 10/10/19 10:15 Blood Blood Culture - Final NO GROWTH AFTER 5 DAYS Complete 10/02/19 12:00 Nasopharynx Coronavirus COVID-19 PCR ([facility]) - Final Complete 10/04/19 10:26 Groin Gram Stain - Final Complete 10/04/19 10:26 Aerobic Culture - Final Citrobacter Diversus Proteus Mirabilis Usual Skin Pinky Complete 10/04/19 10:26 Anaerobic Culture - Final Bacteroides Merdae Fusobacterium Varium Complete Labs Test 10/18/19 23:00 10/19/19 05:25 10/20/19 05:10 10/21/19 11:22 Vancomycin Level Trough 12.8 ug/mL (5.0-12.0) White Blood Count 14.3 K/UL (4.8-10.8) 18.1 K/UL (4.8-10.8) 15.3 K/UL (4.8-10.8) Red Blood Count 3.73 M/UL (4.70-6.10) 3.76 M/UL (4.70-6.10) 3.66 M/UL (4.70-6.10) Hemoglobin 9.7 G/DL (14.2-18.0) 9.8 G/DL (14.2-18.0) 9.6 G/DL (14.2-18.0) Hematocrit 31.2 % (42.0-52.0) 31.1 % (42.0-52.0) 30.4 % (42.0-52.0) Mean Corpuscular Volume 84 FL (80-99) 83 FL (80-99) 83 FL (80-99) Mean Corpuscular Hemoglobin 26.0 PG (27.0-31.0) 26.2 PG (27.0-31.0) 26.3 PG (27.0-31.0) Mean Corpuscular Hemoglobin Concent 31.1 G/DL (32.0-36.0) 31.6 G/DL (32.0-36.0) 31.6 G/DL (32.0-36.0) Red Cell Distribution Width 17.8 % (11.6-14.8) 17.6 % (11.6-14.8) 17.6 % (11.6-14.8) Platelet Count 455 K/UL (150-450) 449 K/UL (150-450) 421 K/UL (150-450) Mean Platelet Volume 7.5 FL (6.5-10.1) 7.1 FL (6.5-10.1) 7.5 FL (6.5-10.1) Neutrophils (%) (Auto) 74.2 % (45.0-75.0) % (45.0-75.0) 78.1 % (45.0-75.0) Lymphocytes (%) (Auto) 16.0 % (20.0-45.0) % (20.0-45.0) 12.0 % (20.0-45.0) Monocytes (%) (Auto) 6.4 % (1.0-10.0) % (1.0-10.0) 4.9 % (1.0-10.0) Eosinophils (%) (Auto) 3.1 % (0.0-3.0) % (0.0-3.0) 4.4 % (0.0-3.0) Basophils (%) (Auto) 0.3 % (0.0-2.0) % (0.0-2.0) 0.5 % (0.0-2.0) Sodium Level 137 MMOL/L (136-145) 133 MMOL/L (136-145) Potassium Level 4.2 MMOL/L (3.5-5.1) 4.0 MMOL/L (3.5-5.1) Chloride Level 102 MMOL/L (98-107) 98 MMOL/L (98-107) Carbon Dioxide Level 31 MMOL/L (21-32) 32 MMOL/L (21-32) Anion Gap 4 mmol/L (5-15) 3 mmol/L (5-15) Blood Urea Nitrogen 7 mg/dL (7-18) 6 mg/dL (7-18) Creatinine 0.8 MG/DL (0.55-1.30) 0.8 MG/DL (0.55-1.30) Estimat Glomerular Filtration Rate > 60 mL/min (>60) > 60 mL/min (>60) Glucose Level 92 MG/DL (74-106) 101 MG/DL (74-106) Calcium Level 8.4 MG/DL (8.5-10.1) 8.5 MG/DL (8.5-10.1) Differential Total Cells Counted 100 Neutrophils % (Manual) 82 % (45-75) Lymphocytes % (Manual) 8 % (20-45) Monocytes % (Manual) 9 % (1-10) Eosinophils % (Manual) 0 % (0-3) Basophils % (Manual) 1 % (0-2) Band Neutrophils 0 % (0-8) Platelet Estimate Adequate Platelet Morphology Normal Hypochromasia 2+ Anisocytosis 1+ Laboratory Tests Test 10/21/19 11:22 White Blood Count 15.3 K/UL (4.8-10.8) H Red Blood Count 3.66 M/UL (4.70-6.10) L Hemoglobin 9.6 G/DL (14.2-18.0) L Hematocrit 30.4 % (42.0-52.0) L Mean Corpuscular Volume 83 FL (80-99) Mean Corpuscular Hemoglobin 26.3 PG (27.0-31.0) L Mean Corpuscular Hemoglobin Concent 31.6 G/DL (32.0-36.0) L Red Cell Distribution Width 17.6 % (11.6-14.8) H Platelet Count 421 K/UL (150-450) Mean Platelet Volume 7.5 FL (6.5-10.1) Neutrophils (%) (Auto) 78.1 % (45.0-75.0) H Lymphocytes (%) (Auto) 12.0 % (20.0-45.0) L Monocytes (%) (Auto) 4.9 % (1.0-10.0) Eosinophils (%) (Auto) 4.4 % (0.0-3.0) H Basophils (%) (Auto) 0.5 % (0.0-2.0) Current Medications Medications (Trade) Dose Ordered Sig/Flavia Route PRN Reason Start Time Stop Time Status Last Admin Dose Admin Acetaminophen (Tylenol) 650 mg Q4H PRN ORAL Mild Pain (Pain Scale 1-3) 10/04/19 12:30 11/03/19 12:29 Acetaminophen (Tylenol) 650 mg Q4H PRN ORAL FEVER 10/19/19 16:30 11/18/19 16:29 Acetaminophen/ Hydrocodone Bitart ([place] 10/325) 1 tab Q4H PRN ORAL Pain Scale (6-10) 10/21/19 11:00 10/28/19 10:59 Acetaminophen/ Hydrocodone Bitart ([place] 5/325) 1 tab Q4H PRN ORAL Moderate Pain (Pain Scale 4-6) 10/21/19 11:00 10/28/19 10:59 Bisacodyl (Dulcolax) 10 mg HSPRN PRN RECTAL Constipation 10/04/19 15:45 01/02/20 12:29 Dextrose (Dextrose 50%) 25 ml Q30M PRN IV Hypoglycemia 10/04/19 15:45 01/02/20 15:44 Dextrose (Dextrose 50%) 50 ml Q30M PRN IV Hypoglycemia 10/04/19 15:45 01/02/20 15:44 Famotidine (Pepcid) 40 mg DAILY ORAL 10/05/19 09:00 01/03/20 08:59 10/21/19 08:42 Fluconazole/ Sodium Chloride 100 ml @ 100 mls/hr Q24H IV 10/16/19 16:00 10/23/19 15:59 10/21/19 18:32 Heparin Sodium (Porcine) (Heparin 5000 units/ml) 5,000 units EVERY 12 HOURS SUBQ 10/19/19 21:00 12/03/19 20:59 10/21/19 08:43 Magnesium Hydroxide (Mom) 30 ml HSPRN PRN ORAL Constipation 10/04/19 12:30 11/03/19 12:29 10/11/19 22:25 Meropenem 1 gm/ Sodium Chloride 100 ml @ 200 mls/hr Q8H IVPB 10/17/19 23:00 10/23/19 22:59 10/21/19 16:30 Metoclopramide HCl (Reglan) 10 mg Q6H PRN IVP Nausea & Vomiting 10/21/19 09:00 11/18/19 16:29 Naloxone HCl (Narcan) 0.1 mg Q1M PRN IV RR<10/min OR SBP<90 mmHg 10/19/19 16:30 01/17/20 16:29 Ondansetron HCl (Zofran) 4 mg Q6H PRN IVP Nausea & Vomiting 10/15/19 07:15 11/14/19 07:14 Polyethylene Glycol (Miralax) 17 gm DAILY ORAL 10/13/19 09:00 11/12/19 08:59 10/16/19 09:04 Temazepam (RestoriL) 7.5 mg DAILYPRN PRN ORAL Insomnia 10/15/19 07:15 10/22/19 07:14 Vancomycin HCl (Vanco pharmacy to dose) 1 ea DAILY PRN MISC Per rx protocol 10/08/19 11:00 11/07/19 10:59 Vancomycin HCl 1 gm/Sodium Chloride 275 ml @ 183.708 mls/hr Q8H IVPB 10/18/19 00:00 10/23/19 00:00 10/21/19 16:30 Zolpidem Tartrate (Ambien) 5 mg DAILYPRN PRN ORAL Insomnia 10/19/19 16:30 10/26/19 16:29 Cale Tsai MD Oct 21, 2019 19:33
[2019-10-22] MEDS: Vancomycin 1 GM in NS 275 ML IVPB SCH ×3 (00:10→15:41)
[2019-10-22 04:00] VITALS: BP 106/60
[2019-10-22 07:10] LABS: ALANINE AMINOTRANSFERASE 13 U/L (12-78); ALBUMIN 1.5 G/DL (3.4-5.0); ALBUMIN/GLOBULIN RATIO 0.3 (1.0-2.7); ALKALINE PHOSPHATASE 67 U/L (46-116); ANION GAP 5 mmol/L (5-15); ASPARTATE AMINO TRANSFERASE 18 U/L (15-37); BILIRUBIN,TOTAL 0.1 MG/DL (0.2-1.0); BLOOD UREA NITROGEN 7 mg/dL (7-18); CALCIUM 8.8 MG/DL (8.5-10.1); CARBON DIOXIDE 30 MMOL/L (21-32); CHLORIDE 101 MMOL/L (98-107); CREATININE 0.7 MG/DL (0.55-1.30); POTASSIUM 3.8 MMOL/L (3.5-5.1); SODIUM 136 MMOL/L (136-145)
--- NOTE | 2019-10-22 07:25 | NUR ---
HAND-OFF: Report given to ADDIE Verdugo. Pt in stable condition.
[2019-10-22 08:00] VITALS: BP 100/49
--- NOTE | 2019-10-22 08:00 | NUR ---
NURSE NOTES: Received report from Em RN, pt a/a/o x4 laying in bed with no signs of distress or other issues at this time. dressing dry and intact. IV on the right FA gauge #22 TKO. call light within reach, bed in lowest position. side rales up x2. I will f/u as needed. PLAN: to transfer to [facility] today.
[2019-10-22] MEDS: Heparin 5000 units/ml inj SUBQ SCH (09:00)
[2019-10-22] MEDS: Miralax 17gm pkt ORAL SCH (09:00)
[2019-10-22] MEDS ORDERED: AUGMENTIN 875-1 EAC1 ORAL (10:31)
[2019-10-22] MEDS ORDERED: FLUCONAZOLE100 MG ORAL (10:31)
[2019-10-22] MEDS ORDERED: CIPROFLOXACIN500 M2 ORAL (10:31)
[2019-10-22] MEDS ORDERED: HYDROCODON-ACE1 EA15 ORAL (10:31)
[2019-10-22 12:00] VITALS: BP 107/61
--- NOTE | 2019-10-22 12:25 | Discharge Summary ---
Discharge Summary Hospital Course Date of Admission Oct 04, 2019 at 08:21 Date of Discharge 10/22/2019 Admitting Diagnosis HPI 24 year old gentleman with no significant PMH present today with acute blood loss anemia after surgery with Dr. Vazquez for excision of bilateral hydradenitis with flap elevation. Estimated blood loss during the surgery was 200cc. CBC after surgery showed and a hemiglobin of 7.3 and a Hct of 23.7. Currently patient is in post of recovery resting comfortably and pain is well controlled. Pateint victor manuel be admitted to med surg floor for close monitoring of H/ H, pain control and IV antibiotics for SSTI s/p surgical intervention. Hospital Course 24 year old gentleman with no significant PMH presents with acute blood loss anemia after surgery for hydradenitis. Pateint was nemi during his stay and was evaluted by hematology was transfused 10/03 and 10/07. Leauokcytosis improved afet ID evaluation and was on meropenem, vanco and Diflucan. Last surgery done , 7 days of antibiotics to be completed 10/21/2019. Will go to acute rehab for PT and continume 5 more days of antibiotics of Ciprofloxacin, Diflucan and Augmentin. Patient is urinating and havening BMs. His pain in controlled. He will be closely followed at [facility] by current MD. Discharge Medications New Medications: Amoxicillin/Potassium Clav 875-125* (Augmentin 875-125 Tablet*) 1 Each Tablet 1 TAB ORAL TWICE A DAY for 5 Days, #10 TAB Ciprofloxacin Hcl* (Ciprofloxacin Hcl*) 500 Mg Tablet 500 MG ORAL Q12H for 5 Days, #10 TAB 0 Refills Fluconazole (Fluconazole) 100 Mg Tablet 100 MG ORAL DAILY for 5 Days, #5 TAB 0 Refills Hydrocodone/Acetaminophen 5-325* (Hydrocodone/Acetaminophen 5-325*) 1 Each Tablet 1 TAB ORAL Q4H PRN for 30 Days, #30 TAB Discontinued Medications: Hydrocodone Bit/Acetaminophen 7.5-325* ([place] 7.5-325*) 1 Each Tablet 1 TAB ORAL Q6H PRN for For Pain, #10 TAB 0 Refills Discharge Condition Upon Discharge: improving, stable Discharge Vital Signs Last Vital Signs Date Time Temp Pulse Resp B/P (MAP) Pulse Ox O2 Delivery O2 Flow Rate FiO2 10/22/19 12:00 98.2 87 16 107/61 (76) 100 10/22/19 09:00 Room Air 10/22/19 07:56 21 10/19/19 19:17 2.0 Discharge Disposition Patient was discharged to Discharge Diagnoses: (1) Hidradenitis suppurativa (2) Acute blood loss anemia Dangelo Metzger M.D. Oct 22, 2019 12:25
--- NOTE | 2019-10-22 13:35 | NUR ---
Discharge planning: Patient is clear to discharge [facility] has accepted patient Waiting for insurance to give authorization to facility T: [phone] CM called and only able to leave a vm to see if authorization could be expedited Addendum: 10/22/19 at 1534 by RAYNA MORENO LVN Patient authorized to discharge to [facility]; [facility], [facility] if no call by 430pm; patient will dc in am
--- NOTE | 2019-10-22 14:23 | Hematology/Onc Progress Note ---
Assessment/Plan Assessment/Plan Assessment and Recs # Leukocytosis/elevated white blood cell count, unspecified likely related to underlying stress reaction, smoking v more likely is from surgery and may take 2 -3 weeks to resolve, par for the course --> have reviewed peripheral smear and bandemia/neutrophilia noted --> continue antibiotics if they have been started by ID team --> monitor for resolution --> inflammatory markers are elevated, esr 101, crp 19!! --> ID recs noted --> flow cytometry has been ordered-->is negative for monoclonal population of cells --> wbc 17->17->16-->14->15 --> heme end cleared for surgery--> has been completed # Anemia with Acute blood loss anemia ---> Trend CBC closely --> S/P 2 units pRBC 10/04/2019 --> Transfused 1 unit pRBC 10/07, 10/10 --> Iron studies reviewed --> hgb 9.5-->9.7-->9.6 # Hydradenitis s/p surgical intervention --> per surgery ==> Fever -resolved, and cleared by heme # Post surgical wound drainage --> abx per id --> wound care --> Pain control with PCN pump --> may need reconstruction 10/14 # Severe protein deficiency malnutrition # Hypoalbuminemia # Hyperglycemia - resolved # Post surgical hypoxia - RESOLVED # Dvt ppx ambulation The timing of this note does not necessarily reflect the time of the patient was seen. Greatly appreciate consultation. Subjective Constitutional: Denies: no symptoms, chills, fever, malaise, weakness, other HEENT: Denies: no symptoms, eye pain, blurred vision, tearing, double vision, ear pain, ear discharge, nose pain, nose congestion, throat pain, throat swelling, mouth pain, mouth swelling, other Gastrointestinal/Abdominal: Denies: no symptoms, abdomen distended, abdominal pain, black stools, tarry stools, blood in stool, constipated, diarrhea, difficulty swallowing, nausea, poor appetite, poor fluid intake, rectal bleeding , vomiting, other Genitourinary: Denies: no symptoms, burning, discharge, frequency, flank pain, hematuria, incontinence, pain, urgency, other Neurologic/Psychiatric: Denies: no symptoms, anxiety, depressed, emotional problems, headache, numbness, paresthesia, pre-existing deficit, seizure, tingling, tremors, weakness, other Endocrine: Denies: no symptoms, excessive sweating, flushing, intolerance to cold, intolerance to heat, increased hunger, increased thirst, increased urine, unexplained weight gain, unexplained weight loss, other Allergies: Coded Allergies: PEANUT (Verified Allergy, Severe, anaphylactic, 10/04/19) HYDROMORPHONE (Verified Allergy, Intermediate, severe nausea, 10/04/19) Subjective 10/12 labs noted, clear for surgery from heme end, seen by Taylor 10/13 labs noted, no bleeding, meds noted, no hemolysis for surgery shortly 10/14 for surgery today, cleared by hematology, no bleeding comfortable 10/15 labs noted, no bleeding, wbc 16, hgb 10.3, no hemolysis 10/16 meds are noted, no bleeding, labs reviewed, no night sweats 10/17 labs are noted, no bleeding, meds reviewed, no hemolysis 10/18 meds reviewed, no bleeding, labs noted, no night sweats 10/20 labs are noted, no bleeding, dw rn, no hemolysis 10/21 labs have been reviewed, no bleeding, wbc 15, for rehab placement Objective Objective Current Medications Medications (Trade) Dose Ordered Sig/Flavia Route PRN Reason Start Time Stop Time Status Last Admin Dose Admin Acetaminophen (Tylenol) 650 mg Q4H PRN ORAL Mild Pain (Pain Scale 1-3) 10/04/19 12:30 11/03/19 12:29 Acetaminophen (Tylenol) 650 mg Q4H PRN ORAL FEVER 10/19/19 16:30 11/18/19 16:29 Acetaminophen/ Hydrocodone Bitart ([place] 10/325) 1 tab Q4H PRN ORAL Pain Scale (6-10) 10/21/19 11:00 10/28/19 10:59 Acetaminophen/ Hydrocodone Bitart ([place] 5/325) 1 tab Q4H PRN ORAL Moderate Pain (Pain Scale 4-6) 10/21/19 11:00 10/28/19 10:59 10/22/19 00:41 Bisacodyl (Dulcolax) 10 mg HSPRN PRN RECTAL Constipation 10/04/19 15:45 01/02/20 12:29 Dextrose (Dextrose 50%) 25 ml Q30M PRN IV Hypoglycemia 10/04/19 15:45 01/02/20 15:44 Dextrose (Dextrose 50%) 50 ml Q30M PRN IV Hypoglycemia 10/04/19 15:45 01/02/20 15:44 Famotidine (Pepcid) 40 mg DAILY ORAL 10/05/19 09:00 01/03/20 08:59 10/22/19 08:22 Fluconazole/ Sodium Chloride 100 ml @ 100 mls/hr Q24H IV 10/16/19 16:00 10/23/19 15:59 10/21/19 18:32 Heparin Sodium (Porcine) (Heparin 5000 units/ml) 5,000 units EVERY 12 HOURS SUBQ 10/19/19 21:00 12/03/19 20:59 10/21/19 20:30 Magnesium Hydroxide (Mom) 30 ml HSPRN PRN ORAL Constipation 10/04/19 12:30 11/03/19 12:29 10/11/19 22:25 Meropenem 1 gm/ Sodium Chloride 100 ml @ 200 mls/hr Q8H IVPB 10/17/19 23:00 10/23/19 22:59 10/22/19 06:04 Metoclopramide HCl (Reglan) 10 mg Q6H PRN IVP Nausea & Vomiting 10/21/19 09:00 11/18/19 16:29 Naloxone HCl (Narcan) 0.1 mg Q1M PRN IV RR<10/min OR SBP<90 mmHg 10/19/19 16:30 01/17/20 16:29 Ondansetron HCl (Zofran) 4 mg Q6H PRN IVP Nausea & Vomiting 10/15/19 07:15 11/14/19 07:14 Polyethylene Glycol (Miralax) 17 gm DAILY ORAL 10/13/19 09:00 11/12/19 08:59 10/16/19 09:04 Vancomycin HCl (Vanco pharmacy to dose) 1 ea DAILY PRN MISC Per rx protocol 10/08/19 11:00 11/07/19 10:59 Vancomycin HCl 1 gm/Sodium Chloride 275 ml @ 183.708 mls/hr Q8H IVPB 10/18/19 00:00 10/23/19 00:00 10/22/19 08:21 Zolpidem Tartrate (Ambien) 5 mg DAILYPRN PRN ORAL Insomnia 10/19/19 16:30 10/26/19 16:29 Last 24 Hour Vital Signs Date Time Temp Pulse Resp B/P (MAP) Pulse Ox O2 Delivery O2 Flow Rate FiO2 10/22/19 12:00 98.2 87 16 107/61 (76) 100 10/22/19 09:00 Room Air 10/22/19 08:00 97.9 72 16 100/49 (66) 99 10/22/19 07:56 98 Room Air 10/22/19 04:00 97.2 76 18 106/60 (75) 99 10/21/19 23:47 98.0 81 17 107/61 (76) 98 10/21/19 21:00 Room Air 10/21/19 20:00 98.3 70 16 96/59 (71) 98 10/21/19 19:53 97 Room Air 10/21/19 16:00 98.7 80 18 98/55 (69) 99 80 10/21/19 12:00 85 98 10/21/19 12:00 97.8 85 18 105/58 (74) 99 85 10/21/19 09:00 Room Air 10/21/19 08:00 97.8 82 20 102/54 (70) 99 82 10/21/19 08:00 80 97 10/21/19 07:00 99 Room Air 10/21/19 04:00 80 97 10/21/19 04:00 98.6 80 20 108/57 (74) 97 10/21/19 00:00 99.2 84 18 112/60 (77) 97 10/21/19 00:00 84 98 10/20/19 21:00 Room Air 10/20/19 20:00 100.2 83 18 113/60 (77) 97 10/20/19 20:00 83 97 10/20/19 19:28 98.1 10/20/19 16:00 98.1 90 18 110/70 (83) 98 10/20/19 16:00 93 98 Intake and Output 10/21/19 10/22/19 19:00 07:00 Intake Total 480 ml Output Total 1500 ml 1200 ml Balance -1500 ml -720 ml Intake Oral 480 ml Output Urine Total 1500 ml 1200 ml # Bowel Movements 2 Labs Test 10/20/19 05:10 10/21/19 11:22 8/3/20 05:00 White Blood Count 18.1 K/UL (4.8-10.8) 15.3 K/UL (4.8-10.8) Red Blood Count 3.76 M/UL (4.70-6.10) 3.66 M/UL (4.70-6.10) Hemoglobin 9.8 G/DL (14.2-18.0) 9.6 G/DL (14.2-18.0) Hematocrit 31.1 % (42.0-52.0) 30.4 % (42.0-52.0) Mean Corpuscular Volume 83 FL (80-99) 83 FL (80-99) Mean Corpuscular Hemoglobin 26.2 PG (27.0-31.0) 26.3 PG (27.0-31.0) Mean Corpuscular Hemoglobin Concent 31.6 G/DL (32.0-36.0) 31.6 G/DL (32.0-36.0) Red Cell Distribution Width 17.6 % (11.6-14.8) 17.6 % (11.6-14.8) Platelet Count 449 K/UL (150-450) 421 K/UL (150-450) Mean Platelet Volume 7.1 FL (6.5-10.1) 7.5 FL (6.5-10.1) Neutrophils (%) (Auto) % (45.0-75.0) 78.1 % (45.0-75.0) Lymphocytes (%) (Auto) % (20.0-45.0) 12.0 % (20.0-45.0) Monocytes (%) (Auto) % (1.0-10.0) 4.9 % (1.0-10.0) Eosinophils (%) (Auto) % (0.0-3.0) 4.4 % (0.0-3.0) Basophils (%) (Auto) % (0.0-2.0) 0.5 % (0.0-2.0) Differential Total Cells Counted 100 Neutrophils % (Manual) 82 % (45-75) Lymphocytes % (Manual) 8 % (20-45) Monocytes % (Manual) 9 % (1-10) Eosinophils % (Manual) 0 % (0-3) Basophils % (Manual) 1 % (0-2) Band Neutrophils 0 % (0-8) Platelet Estimate Adequate Platelet Morphology Normal Hypochromasia 2+ Anisocytosis 1+ Sodium Level 133 MMOL/L (136-145) 136 MMOL/L (136-145) Potassium Level 4.0 MMOL/L (3.5-5.1) 3.8 MMOL/L (3.5-5.1) Chloride Level 98 MMOL/L (98-107) 101 MMOL/L (98-107) Carbon Dioxide Level 32 MMOL/L (21-32) 30 MMOL/L (21-32) Anion Gap 3 mmol/L (5-15) 5 mmol/L (5-15) Blood Urea Nitrogen 6 mg/dL (7-18) 7 mg/dL (7-18) Creatinine 0.8 MG/DL (0.55-1.30) 0.7 MG/DL (0.55-1.30) Estimat Glomerular Filtration Rate > 60 mL/min (>60) > 60 mL/min (>60) Glucose Level 101 MG/DL (74-106) 94 MG/DL (74-106) Calcium Level 8.5 MG/DL (8.5-10.1) 8.8 MG/DL (8.5-10.1) Total Bilirubin 0.1 MG/DL (0.2-1.0) Aspartate Amino Transf (AST/SGOT) 18 U/L (15-37) Alanine Aminotransferase (ALT/SGPT) 13 U/L (12-78) Alkaline Phosphatase 67 U/L (46-116) Total Protein 7.1 G/DL (6.4-8.2) Albumin 1.5 G/DL (3.4-5.0) Globulin 5.6 g/dL Albumin/Globulin Ratio 0.3 (1.0-2.7) Height (Feet): 5 Height (Inches): 11.00 Weight (Pounds): 158 Objective Physical Exam: Vitals: reviewed General: NAD HEENT: nc, at Neck: supple Chest: clear breath sounds bilaterally Cardiovascular: RRR, no s3, s4 Abdomen: soft, nontender, nd Extremities: no cce, normal range of motion Skin: normal pigmentation, warm/dry, other - surgical sites dressings in place and clean, intact Neuro: alert and oriented Juan Alberto John MD Oct 22, 2019 14:23
--- NOTE | 2019-10-22 16:06 | NUR ---
Discharge Planned Patient accepted to [facility] Room# 201 T: [phone]~ for nurse to nurse report [facility] ambulance poultry picker time 6pm Addendum: 10/22/19 at 1614 by RAYNA MORENO LVN accepting at facility Dr Navneet Aguirre t:[phone]
--- NOTE | 2019-10-22 19:04 | NUR ---
NURSE NOTES: Received order to transfer [facility] called at [phone] given report to Ryan REAL. also given report to ambulance crew. pt left the floor with no signs of distress or other issues at this time. prior to d/c surgical dressings were change and IV was removed. belongings list given to patient to signs and ambulance crew will take belonging to the new facility. I will f/u as needed.
== END 2019-10-22 19:21 | disposition short-term general hospital (02) | DRG 802 ==
LOC: SDSOVERFLO 08:21 → EDSTATUS 10:00 → 3E 15:33
PROC: 0HB9XZZ Excision of Perineum Skin, External Approach (ICD-10-PCS; principal; 2019-10-04 10:00)
PROC: 0J8M0ZZ Division of Left Upper Leg Subcutaneous Tissue and Fascia, Open Approach (ICD-10-PCS; principal; 2019-10-04 10:00)
PROC: 0HBJXZZ Excision of Left Upper Leg Skin, External Approach (ICD-10-PCS; principal; 2019-10-04 10:00)
PROC: 0J8 Subcutaneous Tissue and Fascia, Division (ICD-10-PCS; principal; 2019-10-04 10:00)
PROC: 0HBHXZZ Excision of Right Upper Leg Skin, External Approach (ICD-10-PCS; principal; 2019-10-04 10:00)
PROC: 0HBAXZZ Excision of Inguinal Skin, External Approach (ICD-10-PCS; principal; 2019-10-04 10:00)
PROC: 0J8L0ZZ Division of Right Upper Leg Subcutaneous Tissue and Fascia, Open Approach (ICD-10-PCS; principal; 2019-10-04 10:00)
PROC: 0J8 Subcutaneous Tissue and Fascia, Division (ICD-10-PCS; principal; 2019-10-04 10:00)
PROC: 0JBD0ZZ Excision of Right Upper Arm Subcutaneous Tissue and Fascia, Open Approach (ICD-10-PCS; 2019-10-09)
PROC: 0JBF0ZZ Excision of Left Upper Arm Subcutaneous Tissue and Fascia, Open Approach (ICD-10-PCS; 2019-10-09)
PROC: 0HQ9XZZ Repair Perineum Skin, External Approach (ICD-10-PCS; 2019-10-15)
PROC: 0HBHXZZ Excision of Right Upper Leg Skin, External Approach (ICD-10-PCS; 2019-10-15)
PROC: 0JXC0ZC Transfer Pelvic Region Subcutaneous Tissue and Fascia with Skin, Subcutaneous Tissue and Fascia, Open Approach (ICD-10-PCS; 2019-10-15)
PROC: 0JDC0ZZ Extraction of Pelvic Region Subcutaneous Tissue and Fascia, Open Approach (ICD-10-PCS; 2019-10-15)
PROC: 0HRHX74 Replacement of Right Upper Leg Skin with Autologous Tissue Substitute, Partial Thickness, External Approach (ICD-10-PCS; 2019-10-15)
PROC: 0HBJXZZ Excision of Left Upper Leg Skin, External Approach (ICD-10-PCS; 2019-10-15)
PROC: 0HRJX74 Replacement of Left Upper Leg Skin with Autologous Tissue Substitute, Partial Thickness, External Approach (ICD-10-PCS; 2019-10-15)
PROC: 2W0NX6Z Change Pressure Dressing on Right Upper Leg (ICD-10-PCS; 2019-10-19)
PROC: 2W0PX6Z Change Pressure Dressing on Left Upper Leg (ICD-10-PCS; 2019-10-19)
DX: D62 Acute posthemorrhagic anemia (principal); E43 Unspecified severe protein-calorie malnutrition; A41.9 Sepsis, unspecified organism; T81.41XA Infection following a procedure, superficial incisional surgical site, initial encounter; L73.2 Hidradenitis suppurativa; R73.9 Hyperglycemia, unspecified; R09.02 Hypoxemia; G89.18 Other acute postprocedural pain; Z03.818 Encounter for observation for suspected exposure to other biological agents ruled out; Z68.22 Body mass index [BMI] 22.0-22.9, adult
CPT/HCPCS: 36415; 71045; 80048; 80053; 80202; 81003; 82728; 82962; 83036; 83540; 83550; 83735; 85007; 85025; 85610; 85651; 85730; 86140; 86850; 86900; 86901; 86920; 87040; 87070; 87075; 87181; 87205; 94003; 94150; J1815; J2180; J2250; J2405; J2710; J2765; J7030

== ENCOUNTER 2019-12-06 07:52 | Inpatient (IN) | payer BC ==
--- NOTE | 2019-12-05 12:03 | Anethesia Preoperative Eval ---
Anesthesia Pre-op PMH/ROS General Date of Evaluation: Dec 05, 2019 Time of Evaluation: 12:01 Anesthesiologist: mary ASA Score: ASA 2 Mallampati Score Class I : Soft palate, uvula, fauces, pillars visible Class II: Soft palate, uvula, fauces visible Class III: Soft palate, base of uvula visible Class IV: Only hard plate visible Mallampati Classification: Class II Surgeon: Taylor Diagnosis: Hydradenitis Surgical Procedure: Excision of hydradenitits Anesthesia History: none Family History: no anesthesia problems Allergies: Coded Allergies: PEANUT (Verified Allergy, Severe, anaphylactic, 10/04/19) HYDROMORPHONE (Verified Allergy, Intermediate, severe nausea, 10/04/19) Medications: see eMAR Patient NPO?: Yes NPO Date: Dec 05, 2019 NPO Time: 00:01 Past Medical History Cardiovascular: Denies: HTN, CAD, [place], valve dz, arrhythmia, other Pulmonary: Denies: asthma, COPD, DEBBIE, other Gastrointestinal/Genitourinary: Reports: GERD; Denies: CRI, ESRD, other Neurologic/Psychiatric: Reports: depression/anxiety; Denies: dementia, CVA, TIA, other Endocrine: Denies: DM, hypothyroidism, steroids, other HEENT: Denies: cataract (L), cataract (R), glaucoma, RINCON (L), RINCON (R), other Hematology/Immune: Reports: anemia; Denies: DVT, bleeding disorder, other Musculoskeletal/Integumentary: Denies: OA, RA, DJD, DDD, edema, other Other: other - malnutrition PSxH Narrative: multiple surgery for hydrdenitis in September Anesthesia Pre-op Phys. Exam Physician Exam Constitutional: NAD Neurologic: CN 2-12 intact Cardiovascular: RRR Respiratory: CTA Gastrointestinal: S/NT/ND Airway Exam Mallampati Classification 2 Mallampati Score: Class II ROM: full Dentures: no upper, no lower Anesthesia Pre-op A/P Studies Pre-op Studies: EKG - sr Risk Assessment & Plan Assessment: reassess the day of surgery Plan: general Pre-Antibiotics Drug: see chart Kamilla Lemus CRNA Dec 05, 2019 12:03
[2019-12-06] VITALS (13 sets, daily range): BP systolic 123–165; BP diastolic 55–85
[~2019-12-06] VITALS: Ht 182.9 cm; Wt 78.2 kg
[~2019-12-06 07:52] MED LIST: AUGMENTIN 875-1 EAC1 ORAL; CIPROFLOXACIN500 M2 ORAL; FLUCONAZOLE100 MG ORAL; HYDROCODON-ACE1 EA15 ORAL; NORCO 7.5-3251 EACH ORAL
[2019-12-06] MEDS ORDERED: Lidocaine 1% 10mg/ml/Epi 0.005mg/ml 30ml vial INJ ONE (08:34)
[2019-12-06] MEDS ORDERED: NeoSporin Gu Irrig 1ml Amp IRRIG ONE (08:35)
[2019-12-06] MEDS ORDERED: Bacitracin 50000 Units Vial ONE (08:35)
[2019-12-06] MEDS ORDERED: Rocuronium Bromide 50mg/5ml Inj IV ONE (08:52)
[2019-12-06] MEDS ORDERED: Succinylcholine 20mg/ml 10ml vial ONE (08:52)
[2019-12-06] MEDS ORDERED: Midazolam 2mg/2ml Inj ONE (08:57)
[2019-12-06] MEDS ORDERED: fentaNYL 100 mcg/2 mL IV ONE ×2 (08:57→12:11)
[2019-12-06] MEDS ORDERED: Lidocaine 1% MPF 10mg/ml 5ml ONE (09:00)
--- NOTE | 2019-12-06 09:09 | Pre-Procedure Note/Attestation ---
Pre-Procedure Note/Attestation Complete Prior to Procedure Planned Procedure: bilateral Procedure Narrative: Bilateral axillary flap wound closure and groin wound debridement Attestation I attest that I discussed the nature of the procedure; its benefits; risks and complications; and alternatives (and the risks and benefits of such alternatives), prior to the procedure, with the patient (or the patient's legal architectural representative). I attest that, if there was a reasonable possibility of needing a blood transfusion, the patient (or the patient's legal architectural representative) was given the [facility] standardized written summary, pursuant to the [place] Blood Safety Act ([place] Health and Safety Code # 1645, as amended). I attest that I re-evaluated the patient just prior to the surgery and that there has been no change in the patient's H&P, except as documented below: Jl Vazquez MD Dec 06, 2019 09:09
[2019-12-06] MEDS ORDERED: PCA Education Pamphlet MISC ONE ×2 (09:15→10:45)
[2019-12-06] MEDS ORDERED: Rate Change PCA 1 Each MISC PRN ×2 (09:15→10:45)
[2019-12-06] MEDS ORDERED: Zolpidem 5mg tab ORAL PRN (09:15)
[2019-12-06] MEDS ORDERED: Silver Nitrate Stick TOPIC ONE (10:13)
[2019-12-06] MEDS ORDERED: Morphine Sulfate 10mg/ml Inj ONE (10:14)
[2019-12-06] MEDS ORDERED: Glycopyrrolate 0.2mg/ml 1ml Vial ONE (10:14)
[2019-12-06] MEDS ORDERED: Sodium Chloride 10ml vial INJ ONE (10:14)
[2019-12-06] MEDS ORDERED: Ketorolac 30mg Inj ONE (10:14)
[2019-12-06 10:25] LABS: BASOPHILS % (AUTO) 1.8 % (0.0-2.0); EOSINOPHILS % (AUTO) 8.4 % (0.0-3.0); HEMATOCRIT 39.1 % (42.0-52.0); HEMOGLOBIN 12.4 G/DL (14.2-18.0); LYMPHOCYTES % (AUTO) 30.5 % (20.0-45.0); MEAN CORPUSCULAR VOLUME 81 FL (80-99); MONOCYTES % (AUTO) 5.3 % (1.0-10.0); NEUTROPHILS % (AUTO) 54.1 % (45.0-75.0); PLATELET COUNT 248 K/UL (150-450); RED BLOOD COUNT 4.84 M/UL (4.70-6.10); RED CELL DISTRIBUTION WIDTH 15.4 % (11.6-14.8); WHITE BLOOD COUNT 6.1 K/UL (4.8-10.8)
[2019-12-06] MEDS ORDERED: LR 1000ml 1,000 ML IVLG SCH (10:30)
[2019-12-06] MEDS ORDERED: Ketorolac 30mg Inj IV PRN (10:30)
[2019-12-06] MEDS ORDERED: Acetaminophen (Non formulary) 100 ML IV ONE (10:30)
[2019-12-06] MEDS ORDERED: Metoclopramide 10mg/2ml Inj IVP PRN (10:30)
[2019-12-06] MEDS ORDERED: Midazolam 2mg/2ml Inj IVP PRN (10:30)
[2019-12-06] MEDS ORDERED: DiphenhydrAMINE 50mg/ml Inj IVP PRN ×2 (10:30→10:45)
[2019-12-06] MEDS ORDERED: Meperidine 25mg/0.5ml Inj (FOR RIGORS ONLY) IV PRN (10:30)
[2019-12-06] MEDS ORDERED: Naloxone 0.4mg/ml Inj IVP PRN (10:45)
--- NOTE | 2019-12-06 13:15 | Operative Note - PDOC ---
Operative Note Operative Note Pre-op Diagnosis: Bilateral open axillary wounds Procedure: Flap closure and adjancent tissue transfer closure of bilateral axillary wounds Post-op Diagnosis: same as pre-op Surgeon: Taylor Resolution Manager: Jodee Anesthesia: general Specimen: none Complications: none Condition: stable Estimated Blood Loss: minimal Drains: MARILUZ Implant(s) used?: No Jl Vazquez MD Dec 06, 2019 13:15
--- NOTE | 2019-12-06 13:43 | Immediate Post-Op Evaluation ---
Immediate Post-Op Evalulation Immediate Post-Op Evalulation Procedure: Revision and closure of bilateral axillary wounds Date of Evaluation: Dec 06, 2019 Time of Evaluation: 13:42 IV Fluids: 1600 Blood Products: none Estimated Blood Loss: 100 Urinary Output: 100 Blood Pressure Systolic: 146 Blood Pressure Diastolic: 68 Pulse Rate: 87 Respiratory Rate: 18 O2 Sat by Pulse Oximetry: 99 Temperature (Fahrenheit): 98.5 Pain Score (1-10): 1 Nausea: No Vomiting: No Complications none Patient Status: reacts, patent, extubated, none Hydration Status: adequate Jordon Souza MD Dec 06, 2019 13:43
--- NOTE | 2019-12-06 13:52 | History and Physical ---
History of Present Illness General Date patient seen: Dec 06, 2019 Time patient seen: 16:30 Reason for Hospitalization: Ost op pain, wound drainage Present Illness HPI 24 year old gentleman with no significant PMH present today with post op pain, wound drainage and acute blood loss anemia after surgery with Dr. Vazquez for Flap closure and adjacent tissue transfer closure of bilateral axillary wounds. MARILUZ drain in situ. Estimated blood loss during the surgery was minimal. CBC prior to surgery showed a Hg of 12.4 and a Hct 39.1 of. Currently patient is in postop recovery resting comfortably and pain is well controlled. Patient will be admi tted to med surg floor for close monitoring of H/H, pain control and IV antibiotics for SSTI s/p surgical intervention. Allergies: Coded Allergies: PEANUT (Verified Allergy, Severe, anaphylactic, 10/04/19) HYDROMORPHONE (Verified Allergy, Intermediate, severe nausea, 10/04/19) COVID-19 Screening Contact w/high risk pt: No Recent Travel to affected area: No Experienced COVID-19 symptoms?: No Medication History No Active Prescriptions or Reported Meds Patient History History Provided By: Patient, Medical Record, PMD Healthcare decision maker Resuscitation status Full code Advanced Directive on File yes Past Medical/Surgical History Past Medical/Surgical History: (1) Hidradenitis suppurativa (2) Acute blood loss anemia (3) Uncontrolled pain (4) Hypoalbuminemia Family History Family History: FH: HTN (hypertension) 33 FATHER 32 MOTHER Social History Social History: (1) Non-smoker Review of Systems Constitutional: Denies: chills, sweats, fever, malaise, weakness Eye: Denies: eye pain, blurred vision, tearing, double vision ENT: Denies: ear pain, ear discharge, nose pain, nose congestion Respiratory: Reports: shortness of breath; Denies: cough, orthopnea, wheezing, BOYD Cardiovascular: Denies: chest pain, edema, syncope Gastrointestinal: Denies: abdominal pain, constipation, nausea Genitourinary: Denies: discharge, dysuria, frequency, hematuria, pain Musculoskeletal: Denies: gout, joint pain, joint swelling, muscle pain Skin: Reports: lesions, other - hydradentis; Denies: change in color, change in hair/nails, dryness Psychiatric: Denies: anxiety, emotional problems, SI Neurological: Denies: paresthesia, seizure, tingling, tremors Endocrine: Denies: intolerance to temperature, increased thirst, increased urine Hematologic/Lymphatic: Reports: anemia; Denies: blood clots Physical Exam General Appearance: no apparent distress, lethargic, thin, alert oriented x3 Lines, tubes and drains: peripheral HEENT: normocephalic, atraumatic, anicteric Neck: normal alignment, supple, normal inspection Respiratory/Chest: chest wall non-tender, lungs clear, no respiratory distress, no accessory muscle use, decreased breath sounds Cardiovascular/Chest: normal peripheral pulses, normal rate, regular rhythm, no gallop/murmur Abdomen: non tender, soft, no organomegaly, no mass Extremities: non-tender, other - ROM limited due to surgical pain Skin Exam: normal pigmentation, warm/dry, no diaphoresis, other - post op wounds Neurologic: assistant director of admissions II-XII grossly normal, alert, oriented x 3, responsive, normal mood/affect Last 24 Hour Vital Signs Date Time Temp Pulse Resp B/P (MAP) Pulse Ox O2 Delivery O2 Flow Rate FiO2 12/06/19 08:43 Room Air 12/06/19 08:31 98.0 72 18 123/59 (80) 99 Laboratory Tests Test 12/06/19 10:08 White Blood Count 6.1 K/UL (4.8-10.8) Red Blood Count 4.84 M/UL (4.70-6.10) Hemoglobin 12.4 G/DL (14.2-18.0) L Hematocrit 39.1 % (42.0-52.0) L Mean Corpuscular Volume 81 FL (80-99) Mean Corpuscular Hemoglobin 25.6 PG (27.0-31.0) L Mean Corpuscular Hemoglobin Concent 31.8 G/DL (32.0-36.0) L Red Cell Distribution Width 15.4 % (11.6-14.8) H Platelet Count 248 K/UL (150-450) Mean Platelet Volume 8.9 FL (6.5-10.1) Neutrophils (%) (Auto) 54.1 % (45.0-75.0) Lymphocytes (%) (Auto) 30.5 % (20.0-45.0) Monocytes (%) (Auto) 5.3 % (1.0-10.0) Eosinophils (%) (Auto) 8.4 % (0.0-3.0) H Basophils (%) (Auto) 1.8 % (0.0-2.0) Height (Feet): 6 Height (Inches): 0.00 Weight (Pounds): 155 Medications Current Medications Medications (Trade) Dose Ordered Sig/Flavia Route PRN Reason Start Time Stop Time Status Last Admin Dose Admin Diphenhydramine HCl (Benadryl) 25 mg Q15M PRN IVP Itching 12/06/19 10:30 12/06/19 18:30 Diphenhydramine HCl (Benadryl) 25 mg Q6H PRN IVP Itching/Pruritis 12/06/19 10:45 12/08/19 10:44 Docusate Sodium (Colace) 100 mg TWICE A DAY ORAL 12/06/19 18:00 01/05/20 17:59 Heparin Sodium (Porcine) (Heparin 5000 units/ml) 5,000 units EVERY 12 HOURS SUBQ 12/06/19 21:00 01/20/20 20:59 Ketorolac Tromethamine (Toradol 30mg) 30 mg Q1H PRN IV Severe Breakthru Pain (>7) 12/06/19 10:30 12/06/19 18:00 Meperidine HCl (Demerol) 25 mg Q15M PRN IV Shivering 12/06/19 10:30 12/06/19 18:30 Metoclopramide HCl (Reglan) 10 mg Q1H PRN IVP Nausea & Vomiting 12/06/19 10:30 12/06/19 18:30 Midazolam HCl (Versed 2mg/2ml vial) 1 mg Q15M PRN IVP For Anxiety 12/06/19 10:30 12/06/19 18:30 Miscellaneous Medication (FRETTED INSTRUMENT INSPECTOR Rate Change) 1 ea DAILY PRN MISC rate change 12/06/19 10:45 12/08/19 10:44 Miscellaneous Medication (FRETTED INSTRUMENT INSPECTOR shift volume) 1 ea Q12HR@0700,1900 MISC 12/06/19 19:00 12/08/19 18:59 Morphine Sulfate 30 ml @ 0 mls/hr Q24H PRN IV For Pain 12/06/19 10:45 12/08/19 10:44 Naloxone HCl (Narcan) 0.1 mg Q1M PRN IVP RR<10/min OR SBP<90 mmHg 12/06/19 10:45 12/08/19 10:44 Ondansetron HCl (Zofran) 4 mg Q6H PRN IVP Nausea & Vomiting 12/06/19 09:15 01/05/20 09:14 Zolpidem Tartrate (Ambien) 5 mg DAILYPRN PRN ORAL Insomnia 12/06/19 09:15 12/13/19 09:14 Assessment/Plan Problem List: (1) Hidradenitis suppurativa ICD Codes: L73.2 - Hidradenitis suppurativa SNOMED: 00734288 (2) Acute blood loss anemia ICD Codes: D62 - Acute posthemorrhagic anemia SNOMED: 870268030 (3) Hypoxia ICD Codes: R09.02 - Hypoxemia SNOMED: 247552431 (4) Uncontrolled pain ICD Codes: R52 - Pain, unspecified SNOMED: 71585953647636387 (5) Hypoalbuminemia ICD Codes: E88.09 - Other disorders of plasma-protein metabolism, not elsewhere classified SNOMED: 748391713 (6) Wound drainage ICD Codes: T14.8XXA - Other injury of unspecified body region, initial encounter SNOMED: 53808454, 306775005 Status: stable Assessment/Plan: 24 year old gentleman with no significant PMH presents with post op pain, wound drainage and acute blood loss anemia after surgery for hydradenitis. #Hydradenitis s/p surgical intervention #Post op pain #Post op wound drainage with MARILUZ drain in situ -Cefepime 1gm q24 given previous pseudomonas cultures at [facility] -f/u intra op cultures -Wound care -Pain control with PCN pump -Surgical recommendations #Acute blood loss anemia -Trend CBC closely - Transfuse for Hg less than 7 - Iron studies review on pervious admit #Post surgical hypoxia - likely lung atelectasis - O2 NC to keep sat above 92% - Incentive spirometry - Early ambulation with assist heparin subQ - hold for anemia Regular diet PT Bowel regiment I spent 76 min on this patient with 45 min face to face time and coordinating with the surgeon. Discussed plan of care with nursing and charge nurse. View and interpreted previous imaging. Literature review on Hydradenitis and SSTI. Discussed with pharmacy. I also id previous chart review for 37 min summarizing pervious records. Dangelo Metzger M.D. Dec 06, 2019 13:52
[2019-12-06] MEDS: D5 1/2NS 1,000 ML IV SCH (14:15)
[2019-12-06] MEDS: PCA Morphine 1mg/ml 30 ML IV PRN (14:18)
[2019-12-06] MEDS: Docusate 100mg cap ORAL SCH (18:00)
[2019-12-06] MEDS: PCA shift volume MISC SCH (19:00)
[2019-12-06] MEDS ORDERED: PCA shift volume MISC SCH (19:00)
[2019-12-06] MEDS: Heparin 5000 units/ml inj SUBQ SCH (20:03)
[2019-12-07] VITALS (7 sets, daily range): BP systolic 105–125; BP diastolic 54–77
[2019-12-07] MEDS: D5 1/2NS 1,000 ML IV SCH ×3 (00:23→20:10)
[2019-12-07] MEDS: PCA shift volume MISC SCH ×2 (07:10→19:22)
[2019-12-07 07:13] LABS: BASOPHILS % (AUTO) 1.4 % (0.0-2.0); EOSINOPHILS % (AUTO) 7.8 % (0.0-3.0); HEMATOCRIT 35.2 % (42.0-52.0); HEMOGLOBIN 11.1 G/DL (14.2-18.0); LYMPHOCYTES % (AUTO) 25.2 % (20.0-45.0); MEAN CORPUSCULAR VOLUME 82 FL (80-99); MONOCYTES % (AUTO) 8.4 % (1.0-10.0); NEUTROPHILS % (AUTO) 57.3 % (45.0-75.0); PLATELET COUNT 216 K/UL (150-450); RED BLOOD COUNT 4.31 M/UL (4.70-6.10); RED CELL DISTRIBUTION WIDTH 15.9 % (11.6-14.8); WHITE BLOOD COUNT 7.4 K/UL (4.8-10.8)
[2019-12-07 07:15] LABS: ALANINE AMINOTRANSFERASE 22 U/L (12-78); ALBUMIN 2.7 G/DL (3.4-5.0); ALBUMIN/GLOBULIN RATIO 0.6 (1.0-2.7); ALKALINE PHOSPHATASE 56 U/L (46-116); ANION GAP 8 mmol/L (5-15); ASPARTATE AMINO TRANSFERASE 28 U/L (15-37); BILIRUBIN,TOTAL 0.3 MG/DL (0.2-1.0); BLOOD UREA NITROGEN 8 mg/dL (7-18); CALCIUM 8.2 MG/DL (8.5-10.1); CARBON DIOXIDE 28 MMOL/L (21-32); CHLORIDE 104 MMOL/L (98-107); CREATININE 0.8 MG/DL (0.55-1.30); POTASSIUM 3.8 MMOL/L (3.5-5.1); SODIUM 140 MMOL/L (136-145)
[2019-12-07] MEDS: Docusate 100mg cap ORAL SCH ×3 (09:00→18:00)
[2019-12-07] MEDS: Cefepime HCl 1 GM in D5W 55 ML IVPB SCH (09:17)
[2019-12-07] MEDS: Heparin 5000 units/ml inj SUBQ SCH ×2 (09:18→20:10)
--- NOTE | 2019-12-07 09:28 | General Progress Note ---
Subjective Date patient seen: Dec 07, 2019 Time patient seen: 09:18 Constitutional: Denies: diaphoresis, fever, malaise, weakness HEENT: Denies: blurred vision, double vision, ear pain, ear discharge Cardiovascular: Denies: chest pain, edema, irregular heart rate, lightheadedness Respiratory: Reports: SOB with excertion; Denies: cough, stridor, wheezing Gastrointestinal/Abdominal: Reports: constipated; Denies: abdomen distended, black stools, tarry stools, blood in stool Neurologic/Psychiatric: Denies: anxiety, depressed, emotional problems, pre- existing deficit, seizure, tingling, tremors Endocrine: Denies: excessive sweating Hematologic/Lymphatic: Reports: anemia; Denies: easy bleeding, easy bruising Allergies: Coded Allergies: PEANUT (Verified Allergy, Severe, anaphylactic, 10/04/19) HYDROMORPHONE (Verified Allergy, Intermediate, severe nausea, 10/04/19) Subjective No complaints. Pain is well controlled. Objective Last 24 Hour Vital Signs Date Time Temp Pulse Resp B/P (MAP) Pulse Ox O2 Delivery O2 Flow Rate FiO2 12/07/19 08:00 97.8 76 18 105/54 (71) 97 12/07/19 04:00 69 16 100 12/07/19 04:00 98.1 69 16 119/71 (87) 100 12/07/19 00:00 64 18 100 12/07/19 00:00 98.3 66 18 122/68 (86) 100 12/06/19 21:00 Room Air 12/06/19 20:00 98.4 71 16 125/69 (87) 99 12/06/19 20:00 20 99 12/06/19 16:00 98.8 81 18 133/81 (98) 100 12/06/19 16:00 18 100 12/06/19 15:30 98.8 68 18 123/75 (91) 100 12/06/19 15:00 98.8 79 18 131/79 (96) 100 12/06/19 14:40 98.7 79 18 132/79 (96) 100 12/06/19 14:40 98.9 12/06/19 14:33 15 12/06/19 14:30 98.9 88 15 149/80 100 Nasal Cannula 3 9/17/20 14:19 91 16 152/77 100 Nasal Cannula 3 12/06/19 14:18 11 12/06/19 14:04 99 12 142/77 100 Simple Mask 6 12/06/19 13:54 108 16 139/85 100 Simple Mask 6 12/06/19 13:44 105 15 165/68 100 Simple Mask 6 12/06/19 13:43 87 18 99 12/06/19 13:39 97 11 148/55 100 Simple Mask 6 12/06/19 13:34 98.0 92 23 146/68 100 Simple Mask 6 Intake and Output 12/06/19 12/07/19 19:00 07:00 Intake Total 1700 ml 1500 ml Output Total 250 ml 510 ml Balance 1450 ml 990 ml Intake Oral 400 ml IV Total 1700 ml 1100 ml Output Urine Total 100 ml 450 ml Drainage Total 50 ml 60 ml Estimated Blood Loss 100 ml # Voids 1 2 Laboratory Tests 12/06/19 10:08: White Blood Count 6.1, Red Blood Count 4.84, Hemoglobin 12.4L, Hematocrit 39.1L, Mean Corpuscular Volume 81, Mean Corpuscular Hemoglobin 25.6L, Mean Corpuscular Hemoglobin Concent 31.8L, Red Cell Distribution Width 15.4H, Platelet Count 248, Mean Platelet Volume 8.9, Neutrophils (%) (Auto) 54.1, Lymphocytes (%) (Auto) 30.5, Monocytes (%) (Auto) 5.3, Eosinophils (%) (Auto) 8.4H, Basophils (%) (A uto) 1.8 12/07/19 05:20: White Blood Count 7.4, Red Blood Count 4.31L, Hemoglobin 11.1L, Hematocrit 35.2L , Mean Corpuscular Volume 82, Mean Corpuscular Hemoglobin 25.8L, Mean Corpuscular Hemoglobin Concent 31.7L, Red Cell Distribution Width 15.9H, Platelet Count 216, Mean Platelet Volume 8.4, Neutrophils (%) (Auto) 57.3, Lymphocytes (%) (Auto) 25.2, Monocytes (%) (Auto) 8.4, Eosinophils (%) (Auto) 7.8H, Basophils (%) (Auto) 1.4, Sodium Level 140, Potassium Level 3.8, Chloride Level 104, Carbon Dioxide Level 28, Anion Gap 8, Blood Urea Nitrogen 8, Creatinine 0.8, Estimat Glomerular Filtration Rate > 60, Glucose Level 90, Calcium Level 8.2L, Total Bilirubin 0.3, Aspartate Amino Transf (AST/SGOT) 28, Alanine Aminotransferase (ALT/SGPT) 22, Alkaline Phosphatase 56, Total Protein 7.0, Albumin 2.7L, Globulin 4.3, Albumin/Globulin Ratio 0.6L Height (Feet): 6 Height (Inches): 0.00 Weight (Pounds): 155 General Appearance: no apparent distress, alert, lethargic, thin, alert ariella ented x3 EENT: normal ENT inspection, TMs normal Neck: normal alignment, supple, normal inspection Cardiovascular: normal peripheral pulses, normal rate, regular rhythm, no gallop/murmur, no JVD Respiratory/Chest: chest wall non-tender, lungs clear, no accessory muscle use, decreased breath sounds Abdomen: non tender, soft, no organomegaly, no mass, hypoactive bowel sounds Extremities: other - rom limted due to surgery Edema: no edema noted Arm (L), no edema noted Arm (R), no edema noted Leg (L), no edema noted Leg (R), no edema noted Pedal (L), no edema noted Pedal (R), no edema noted Generalized Neurologic: element setter II-XII grossly normal, oriented x 3, responsive, normal mood/affect Skin: normal pigmentation, warm/dry, no diaphoresis Assessment/Plan Problem List: (1) Hidradenitis suppurativa ICD Codes: L73.2 - Hidradenitis suppurativa SNOMED: 62912278 (2) Acute blood loss anemia ICD Codes: D62 - Acute posthemorrhagic anemia SNOMED: 669548202 (3) Hypoxia ICD Codes: R09.02 - Hypoxemia SNOMED: 367781315 (4) Uncontrolled pain ICD Codes: R52 - Pain, unspecified SNOMED: 12727017745539526 (5) Hypoalbuminemia ICD Codes: E88.09 - Other disorders of plasma-protein metabolism, not elsewhere classified SNOMED: 001053170 (6) Wound drainage ICD Codes: T14.8XXA - Other injury of unspecified body region, initial encounter SNOMED: 70094404, 111645063 (7) Pilonidal cyst ICD Codes: L05.91 - Pilonidal cyst without abscess SNOMED: 73860285 Status: stable Assessment/Plan: 24 year old gentleman with no significant PMH presents with post op pain, wound drainage and acute blood loss anemia after surgery for hydradenitis. #Hydradenitis s/p surgical intervention #Post op pain #Post op wound drainage with MARILUZ drain in situ -Cefepime 1gm q24 given previous pseudomonas cultures at [facility] -f/u intra op cultures -Wound care -Pain control with PCN pump -Surgical recommendations #Acute blood loss anemia -Trend CBC closely - Transfuse for Hg less than 7 - Iron studies review on pervious admit #Post surgical hypoxia - likely lung atelectasis - O2 NC to keep sat above 92% - Incentive spirometry - Early ambulation with assist #Pilonidal cyst -Surgical intervention on Tuesday heparin subQ - hold for anemia Regular diet PT Bowel regiment I spent 36 min on this patient with 30 min face to face time and coordinating with the surgeon. Discussed plan of care with nursing and charge nurse. Discussed with pharmacy. Dangelo Metzger M.D. Dec 07, 2019 09:28
--- NOTE | 2019-12-07 13:04 | General Progress Note ---
Progress Note Progress Note Pt seen and examined. POD# 1 from bilateral axillary reconstruction. Doing well and pain well controlled. Will remove dressings on Tuesday. Plan for pilonidal excision and reconstruction on Tuesday as well. MD Taylor Briceño Amir MD Dec 07, 2019 13:04
[2019-12-07] MEDS ORDERED: ASCORBIC ACID500 MG ORAL (13:22)
[2019-12-07] MEDS ORDERED: ZINC50 M1 ORAL (13:23)
[2019-12-07] MEDS ORDERED: NORCO 5-325 TA1 EAC1 ORAL (13:25)
[2019-12-07] MEDS: PCA Morphine 1mg/ml 30 ML IV PRN (16:02)
--- NOTE | 2019-12-07 16:30 | Operative Note - Dictated ---
DATE OF OPERATION: 12/06/2019 PREOPERATIVE DIAGNOSIS: Bilateral open axillary wounds, status post excision of recurrent hidradenitis suppurativa. POSTOPERATIVE DIAGNOSIS: Bilateral open axillary wounds, status post excision of recurrent hidradenitis suppurativa. PROCEDURES: 1. Preparation of left axillary wound for flap closure as well as adjacent tissue transfer closure. 2. Preparation of right axillary wound for flap closure and adjacent tissue transfer closure. 3. Elevation of fasciocutaneous flap for closure of left axillary wound, flap dimensions were 11 x 6 cm. 4. Elevation of fasciocutaneous flap/lateral chest wall flap on the right measuring 12 x 8 cm for closure of right axillary wound. 5. Adjacent tissue transfer closure of left axillary wound measuring 160 squared cm, 10 x 16 cm. 6. Adjacent tissue transfer closure of right axillary wound measuring 140 squared cm. SURGEON: Jl Vazquez MD HOME ORGANIZER: Alicia Ellsworth MD ANESTHESIA: General. COMPLICATIONS: None. ESTIMATED BLOOD LOSS: 50 mL. DRAINS: Included bilateral size 15 MARILUZ drain. DISPOSITION: Stable to the recovery room. INDICATIONS FOR SURGERY: This is a 24-year-old male with a prolonged history of hidradenitis suppurativa, who has previously undergone excision and reconstruction of his groin and perineal disease by me approximately 2 months ago as well as radical excision of recurrent hidradenitis suppurativa in his axilla, who had been undergoing wound care and now is ready for definitive closure of his axillary wounds. Since his groin reconstruction, the patient went to rehabilitation for 1 month to gain strength and optimize his nutrition as well as getting local wound care to his axillary wounds. Upon my most recent exam, he had been doing remarkably well with respect to activity and had gained significant mobility in his arms as compared to before and was ready for definitive closure of his wounds. Given the anticipated wound dimensions as a result following preparation of the wounds, I anticipated needing flap elevations with closure of the wounds partially achieved by the flap as well as the need for adjacent tissue transfer of the surrounding tissues to complement the flap for definitive soft tissue coverage of each axillary wounds. The patient understood the risks and benefits of the surgery and agreed to proceed. DETAILS OF THE OPERATION: The patient was brought to the operating room and laid in the supine position on the operating room table. We first started on the left side. The left axillary wound, chest, and arm were prepped and draped in a sterile and usual fashion. A marking pen was used to delineate the extents of the axillary wound and preparation for our debridement and preparation of the wound. Once the markings were done, a #15 blade was then used to make the incision to include the old scar as well as the granulation tissue. Electrocautery was used to definitively remove the scar in preparation for flap transfer and adjacent tissue transfer closure. With the scar removed and the wound prepared, the left axillary wound that resulted measured 10 x 16 cm. A corresponding flap was designed just to allow for closure of the wound; however, given the wound geometry from release of the scar, it was evident that the flap alone would not be able to definitively close the wound and so adjacent tissue transfer of the surrounding tissue was also necessary. The flap was designed on this side and this was designed over the latissimus muscle in the U-shaped fashion. The incision was made using a 15 blade. The flap was then elevated all the way down to the level of the latissimus muscle fascia with the thoracodorsal artery being the blood supply to this flap. The flap was elevated and then inset into the wound. There appeared to be a significant amount of tissue laterally that required coverage, which would not be achieved by the flap itself, although the flap did provide optimal major wound coverage. As such, the adjacent tissue transfer of the medial arm as well as the skin over the deltoid were mobilized by releasing the scar and its attachment to the muscle fascia to allow for adjacent tissue transfer advancement of this tissue. This required significant undermining as well as mobilization of this tissue to be able to definitively close the wound on this side. Once the surrounding adjacent tissue was ready to transfer, the flap was then retracted again to assess its viability and perfusion, and it was noted to be very good. The wound was then copiously irrigated with pulse lavage. Hemostasis was achieved. Surgicel was then placed in the wound bed. A flap was then inset into the defect. The donor site was closed using a layered closure of 0 and 2-0 Vicryl sutures. The flap was inset in a similar fashion with 0 and 2-0 Vicryl sutures and the surrounding lateral tissue that was mobilized was then advanced for adjacent tissue transfer closure of the lateral remaining defect. This was all done using 0 and 2-0 Vicryl sutures in the skin, so all the incisions were closed with running 3-0 Prolene with interrupted 2-0 Prolene used to reinforce the closure. A compression dressing was then applied. We then turned our attention to the contralateral side. In a similar fashion, the wound in the right axilla was marked using a marking pen. A 15 blade was then used to excise the old scar and the wound dimensions were then defined. This wound was quite large as well, as the other side. The wound dimensions following wound preparation and scar removal was [id number]. With the dimensions noted, we then proceeded to raise a flap with larger dimensions on this side; however, it was still not possible given the geometry to achieve complete wound closure with just the flap alone and it was understood that adjacent tissue transfer of the medial brachial tissue as well as some of the tissue of the deltoid muscle would be necessary to achieve complete soft tissue coverage. Therefore, the flap was elevated as we had done on the other side. A U-shaped incision was made over the latissimus muscle fascia. A flap was elevated based off of the perforators of the thoracodorsal artery and the flap was then inset and then it was noted to cover the wound well medially as was seen on the other side; however, adjacent tissue transfer was necessary with mobilization of the medial brachial tissue as well as the skin over the deltoid to definitively close the lateral aspect of the wound. Given the complex geometry of the wound and the two dimensional aspects of this area, it was important to perform both the flap inset as well as mobilization of the adjacent tissues to allow for a complete soft tissue coverage. Once it was determined that the soft tissues that were mobilized were of adequate viability and similar tissue, we then proceeded to retract the flap back and performed pulse lavage irrigation. Hemostasis was achieved. Surgicel was then placed in the wound bed and the flap was then inset into the wound laterally and the donor site of the flap was also closed in a layered fashion as was done on the other side with 0, 2-0, and 3-0 Vicryl sutures and the flap was inset with multiple Vicryl layers of closure and then the adjacent tissues that were also mobilized over the deltoid and the medial brachial tissue were then coapted to the flap medially using a layered closure of 0 and 2-0 Vicryl sutures. The entire incision was closed with running 3-0 Prolene suture reinforced with 2-0 Prolene suture. Both wounds then had Dermabond applied to the incision. Compressive dressing was then applied on this side. This thus completed the bilateral axillary wound preparation for flap closure and adjacent tissue transfer closure. The patient tolerated the procedure well. There were no complications. Jl Vazquez M.D. DR: OLGA JOB#: [id number] CC: JONATHON
[2019-12-08 04:00] VITALS: BP 118/74
[2019-12-08] MEDS: D5 1/2NS 1,000 ML IV SCH ×2 (05:10→16:15)
[2019-12-08 06:22] LABS: EOSINOPHILS % (AUTO) 9.9 % (0.0-3.0); HEMATOCRIT 34.2 % (42.0-52.0); HEMOGLOBIN 10.9 G/DL (14.2-18.0); LYMPHOCYTES % (AUTO) 29.3 % (20.0-45.0); MEAN CORPUSCULAR VOLUME 82 FL (80-99); MONOCYTES % (AUTO) 8.5 % (1.0-10.0); NEUTROPHILS % (AUTO) 51.3 % (45.0-75.0); PLATELET COUNT 214 K/UL (150-450); RED BLOOD COUNT 4.19 M/UL (4.70-6.10); RED CELL DISTRIBUTION WIDTH 15.3 % (11.6-14.8); WHITE BLOOD COUNT 6.8 K/UL (4.8-10.8)
[2019-12-08 06:59] LABS: ALANINE AMINOTRANSFERASE 21 U/L (12-78); ALBUMIN 2.5 G/DL (3.4-5.0); ALBUMIN/GLOBULIN RATIO 0.6 (1.0-2.7); ALKALINE PHOSPHATASE 58 U/L (46-116); ANION GAP 7 mmol/L (5-15); ASPARTATE AMINO TRANSFERASE 22 U/L (15-37); BILIRUBIN,TOTAL 0.2 MG/DL (0.2-1.0); BLOOD UREA NITROGEN 6 mg/dL (7-18); CALCIUM 8.2 MG/DL (8.5-10.1); CARBON DIOXIDE 28 MMOL/L (21-32); CHLORIDE 106 MMOL/L (98-107); CREATININE 0.8 MG/DL (0.55-1.30); POTASSIUM 4.2 MMOL/L (3.5-5.1); SODIUM 141 MMOL/L (136-145)
[2019-12-08] MEDS: PCA shift volume MISC SCH ×2 (07:20→19:28)
[2019-12-08 08:00] VITALS: BP 121/70
--- NOTE | 2019-12-08 09:15 | 48 Hour Post Anesthesia Eval ---
Post Anesthesia Evaluation Procedure: Revision and closure of bilateral axillary wounds Date of Evaluation: Dec 08, 2019 Time of Evaluation: 09:13 Blood Pressure Systolic: 116 0: 72 Pulse Rate: 68 Respiratory Rate: 22 Temperature (Fahrenheit): 97.6 O2 Sat by Pulse Oximetry: 98 Airway: patent Nausea: No Vomiting: No Pain Intensity: 2 Hydration Status: adequate Cardiopulmonary Status: stable Mental Status/LOC: patient returned to baseline Follow-up Care/Observations: n/a Post-Anesthesia Complications: none Follow-up care needed: N/A Jordon Souza MD Dec 08, 2019 09:15
[2019-12-08] MEDS: Cefepime HCl 1 GM in D5W 55 ML IVPB SCH (09:37)
[2019-12-08] MEDS: Heparin 5000 units/ml inj SUBQ SCH ×2 (09:38→21:03)
[2019-12-08] MEDS: Docusate 100mg cap ORAL SCH ×2 (09:38→16:58)
[2019-12-08] MEDS ORDERED: Naloxone 0.4mg/ml Inj IVP PRN (10:22)
--- NOTE | 2019-12-08 10:23 | General Progress Note ---
Progress Note Progress Note Pt seen and examined. POD# 2 and doing well. Will go to OR on Tuesday for pilonidal cyst excision with flap closure. OOB and ambulate today. MD Taylor Briceño Amir MD Dec 08, 2019 10:23
[2019-12-08] MEDS ORDERED: Rate Change PCA 1 Each MISC PRN (10:30)
--- NOTE | 2019-12-08 10:34 | General Progress Note ---
Assessment/Plan Problem List: (1) Hidradenitis suppurativa ICD Codes: L73.2 - Hidradenitis suppurativa SNOMED: 05304391 (2) Acute blood loss anemia ICD Codes: D62 - Acute posthemorrhagic anemia SNOMED: 365141564 (3) Hypoxia ICD Codes: R09.02 - Hypoxemia SNOMED: 787971003 (4) Uncontrolled pain ICD Codes: R52 - Pain, unspecified SNOMED: 81867009921338395 (5) Hypoalbuminemia ICD Codes: E88.09 - Other disorders of plasma-protein metabolism, not elsewhere classified SNOMED: 802885325 (6) Wound drainage ICD Codes: T14.8XXA - Other injury of unspecified body region, initial encounter SNOMED: 01186077, 685015371 (7) Pilonidal cyst ICD Codes: L05.91 - Pilonidal cyst without abscess SNOMED: 99953452 Status: stable Assessment/Plan: 24 year old gentleman with no significant PMH presents with post op pain, wound drainage and acute blood loss anemia after surgery for hydradenitis. #Hydradenitis s/p surgical intervention #Post op pain #Post op wound drainage with MARILUZ drain in situ -Cefepime 1gm q24 given previous pseudomonas cultures at [facility] -f/u intra op cultures -Wound care -Pain control with PCN pump -Surgical recommendations #Acute blood loss anemia -Trend CBC closely - Transfuse for Hg less than 7 - Iron studies review on pervious admit #Post surgical hypoxia - resolved - O2 NC to keep sat above 92% - Incentive spirometry - Early ambulation with assist #Pilonidal cyst -Surgical intervention on Tuesday heparin subQ Regular diet PT Bowel regiment I spent 37 min on this patient with 30 min face to face time and coordinating with the surgeon. Discussed plan of care with nursing and charge nurse. Discussed with pharmacy. Subjective Date patient seen: Dec 08, 2019 Time patient seen: 08:00 ROS Limited/Unobtainable: No Constitutional: Denies: diaphoresis, fever, malaise HEENT: Denies: blurred vision, tearing, double vision, ear pain Cardiovascular: Denies: edema, irregular heart rate, lightheadedness Respiratory: Denies: shortness of breath, SOB with excertion, SOB at rest, sputum Gastrointestinal/Abdominal: Denies: abdominal pain, black stools, tarry stools, blood in stool Genitourinary: Denies: discharge, frequency, flank pain, hematuria Neurologic/Psychiatric: Denies: depressed, headache, numbness, paresthesia Endocrine: Denies: flushing, intolerance to cold, intolerance to heat, increased hunger Hematologic/Lymphatic: Denies: easy bleeding, easy bruising Allergies: Coded Allergies: PEANUT (Verified Allergy, Severe, anaphylactic, 10/04/19) HYDROMORPHONE (Verified Allergy, Intermediate, severe nausea, 10/04/19) Subjective No complaints. Pain is well controlled. Has not had BM yet. Objective Last 24 Hour Vital Signs Date Time Temp Pulse Resp B/P (MAP) Pulse Ox O2 Delivery O2 Flow Rate FiO2 12/08/19 09:15 68 22 98 12/08/19 09:00 Room Air 12/08/19 08:00 75 19 100 12/08/19 08:00 98.8 75 16 121/70 (87) 100 12/08/19 04:00 98.2 70 16 118/74 (89) 100 12/08/19 04:00 70 16 100 12/07/19 23:42 99.2 71 16 125/74 (91) 100 12/07/19 23:39 71 16 100 12/07/19 20:29 Room Air 12/07/19 20:00 99.3 78 16 122/70 (87) 100 12/07/19 20:00 78 16 100 12/07/19 16:32 98.5 12/07/19 16:00 98.9 71 18 121/71 (88) 97 12/07/19 12:00 98.5 77 16 124/77 (93) 98 Intake and Output 12/07/19 12/08/19 19:00 07:00 Intake Total 600 ml 1900 ml Output Total 790 ml 1500 ml Balance -190 ml 400 ml Intake Oral 600 ml 800 ml IV Total 1100 ml Output Urine Total 750 ml 1475 ml Drainage Total 40 ml 25 ml # Voids 3 5 Laboratory Tests 12/08/19 04:45: White Blood Count 6.8, Red Blood Count 4.19L, Hemoglobin 10.9L, Hematocrit 34.2L , Mean Corpuscular Volume 82, Mean Corpuscular Hemoglobin 26.1L, Mean Corpuscular Hemoglobin Concent 31.9L, Red Cell Distribution Width 15.3H, Platelet Count 214, Mean Platelet Volume 8.8, Neutrophils (%) (Auto) 51.3, Lymphocytes (%) (Auto) 29.3, Monocytes (%) (Auto) 8.5, Eosinophils (%) (Auto) 9.9H, Basophils (%) (Auto) 1.0, Sodium Level 141, Potassium Level 4.2, Chloride Level 106, Carbon Dioxide Level 28, Anion Gap 7, Blood Urea Nitrogen 6L, Creatinine 0.8, Estimat Glomerular Filtration Rate > 60, Glucose Level 93, Calcium Level 8.2L, Total Bilirubin 0.2, Aspartate Amino Transf (AST/SGOT) 22, Alanine Aminotransferase (ALT/SGPT) 21, Alkaline Phosphatase 58, Total Protein 6.8, Albumin 2.5L, Globulin 4.3, Albumin/Globulin Ratio 0.6L Height (Feet): 6 Height (Inches): 0.00 Weight (Pounds): 155 General Appearance: no apparent distress, alert, alert oriented x3 EENT: normal ENT inspection Neck: normal alignment, supple, normal inspection Cardiovascular: normal peripheral pulses, normal rate, regular rhythm, no gallop/murmur, no JVD Respiratory/Chest: chest wall non-tender, lungs clear, normal breath sounds Abdomen: normal bowel sounds, non tender, soft, no organomegaly, no mass Extremities: other - limtied ROM due to surgery Edema: no edema noted Arm (L), no edema noted Arm (R), no edema noted Leg (L), no edema noted Leg (R), no edema noted Pedal (L), no edema noted Pedal (R), no edema noted 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 Dec 08, 2019 10:34
[2019-12-08] MEDS ORDERED: DiphenhydrAMINE 50mg/ml Inj IVP PRN (10:45)
[2019-12-08] MEDS ORDERED: PCA Morphine 1mg/ml 30 ML IV PRN (10:45)
[2019-12-08 12:00] VITALS: BP 136/74
[2019-12-08 16:00] VITALS: BP 132/70
[2019-12-08 20:00] VITALS: BP 120/67
[2019-12-09] VITALS (7 sets, daily range): BP systolic 100–128; BP diastolic 52–78
[2019-12-09] MEDS: D5 1/2NS 1,000 ML IV SCH ×3 (02:40→21:14)
[2019-12-09] MEDS: PCA shift volume MISC SCH ×2 (07:08→19:00)
[2019-12-09] MEDS: Cefepime HCl 1 GM in D5W 55 ML IVPB SCH (08:27)
[2019-12-09] MEDS: Heparin 5000 units/ml inj SUBQ SCH ×2 (08:30→21:08)
[2019-12-09] MEDS: Docusate 100mg cap ORAL SCH ×2 (08:30→18:00)
--- NOTE | 2019-12-09 12:34 | General Progress Note ---
Subjective Date patient seen: Dec 09, 2019 Time patient seen: 08:45 ROS Limited/Unobtainable: No Constitutional: Denies: diaphoresis, fever, malaise, weakness HEENT: Denies: eye pain, blurred vision, tearing, mouth swelling Cardiovascular: Denies: chest pain, irregular heart rate, lightheadedness Respiratory: Denies: orthopnea, shortness of breath, SOB with excertion, SOB at rest, sputum Gastrointestinal/Abdominal: Reports: constipated; Denies: abdominal pain, black stools, tarry stools, blood in stool Genitourinary: Denies: discharge, frequency, hematuria, incontinence Neurologic/Psychiatric: Denies: depressed, emotional problems, headache, numbness Endocrine: Denies: excessive sweating, flushing, intolerance to cold, intolerance to heat, increased hunger Hematologic/Lymphatic: Reports: anemia; Denies: easy bruising Allergies: Coded Allergies: PEANUT (Verified Allergy, Severe, anaphylactic, 10/04/19) HYDROMORPHONE (Verified Allergy, Intermediate, severe nausea, 10/04/19) Subjective No complaints. Pain is well controlled. Has not had BM yet. Objective Last 24 Hour Vital Signs Date Time Temp Pulse Resp B/P (MAP) Pulse Ox O2 Delivery O2 Flow Rate FiO2 12/09/19 09:00 Room Air 12/09/19 08:01 98.6 75 16 128/74 (92) 100 12/09/19 08:00 85 16 12/09/19 04:00 97.7 85 18 100/52 (68) 100 12/09/19 04:00 85 18 100 12/09/19 00:00 80 18 100 12/09/19 00:00 97.8 80 18 104/53 (70) 100 12/08/19 21:00 Room Air 12/08/19 20:00 83 18 100 12/08/19 20:00 98.6 83 18 120/67 (84) 100 12/08/19 19:05 98.6 12/08/19 16:00 88 16 100 12/08/19 16:00 98.6 88 16 132/70 (90) 99 Intake and Output 12/08/19 12/09/19 19:00 07:00 Intake Total 750 ml 250 ml Output Total 1210 ml 1005 ml Balance -460 ml -755 ml Intake Oral 750 ml 250 ml Output Urine Total 1200 ml 1000 ml Drainage Total 10 ml 5 ml # Voids 4 Height (Feet): 6 Height (Inches): 0.00 Weight (Pounds): 155 General Appearance: no apparent distress, alert, alert oriented x3 EENT: normal ENT inspection, TMs normal Neck: normal alignment, supple, normal inspection Cardiovascular: normal rate, regular rhythm, no gallop/murmur, no JVD Respiratory/Chest: chest wall non-tender, lungs clear, normal breath sounds, no respiratory distress, no accessory muscle use Abdomen: non tender, soft, no organomegaly, no mass Extremities: other - ROM decrease due to surgery Edema: no edema noted Arm (L), no edema noted Arm (R), no edema noted Leg (L), no edema noted Leg (R), no edema noted Pedal (L), no edema noted Pedal (R), no edema noted 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, abnormal gait, alert, oriented x 3 Assessment/Plan Problem List: (1) Hidradenitis suppurativa ICD Codes: L73.2 - Hidradenitis suppurativa SNOMED: 78616823 (2) Acute blood loss anemia ICD Codes: D62 - Acute posthemorrhagic anemia SNOMED: 171294846 (3) Hypoxia ICD Codes: R09.02 - Hypoxemia SNOMED: 925321704 (4) Uncontrolled pain ICD Codes: R52 - Pain, unspecified SNOMED: 04509179849276179 (5) Hypoalbuminemia ICD Codes: E88.09 - Other disorders of plasma-protein metabolism, not elsewhere classified SNOMED: 637554429 (6) Wound drainage ICD Codes: T14.8XXA - Other injury of unspecified body region, initial encounter SNOMED: 02112485, 375162380 (7) Pilonidal cyst ICD Codes: L05.91 - Pilonidal cyst without abscess SNOMED: 33123619 Status: stable Assessment/Plan: 24 year old gentleman with no significant PMH presents with post op pain, wound drainage and acute blood loss anemia after surgery for hydradenitis. #Hydradenitis s/p surgical intervention #Post op pain #Post op wound drainage with MARILUZ drain in situ -Cefepime 1gm q24 given previous pseudomonas cultures at [facility] -f/u intra op cultures -Wound care -Pain control with PCN pump -Surgical recommendations #Acute blood loss anemia -Trend CBC closely - Transfuse for Hg less than 7 - Iron studies review on pervious admit #Post surgical hypoxia - resolved - O2 NC to keep sat above 92% - Incentive spirometry - Early ambulation with assist #Pilonidal cyst -Surgical intervention on Tuesday heparin subQ Regular diet PT Bowel regiment I spent 38 min on this patient with 30 min face to face time and coordinating with the surgeon. Discussed plan of care with nursing and charge nurse. Discussed with pharmacy. Dangelo Metzger M.D. Dec 09, 2019 12:34
[2019-12-09] MEDS ORDERED: Polyethylene Glycol 238gm bottle ORAL SCH (13:30)
[2019-12-09] MEDS ORDERED: D5 1/2NS 1000ml IV ONE (14:48)
[2019-12-10] VITALS (16 sets, daily range): BP systolic 109–157; BP diastolic 55–82
[2019-12-10 06:33] LABS: BASOPHILS % (AUTO) 1.5 % (0.0-2.0); EOSINOPHILS % (AUTO) 7.8 % (0.0-3.0); HEMATOCRIT 34.5 % (42.0-52.0); LYMPHOCYTES % (AUTO) 35.5 % (20.0-45.0); MEAN CORPUSCULAR VOLUME 81 FL (80-99); MONOCYTES % (AUTO) 8.4 % (1.0-10.0); NEUTROPHILS % (AUTO) 46.7 % (45.0-75.0); PLATELET COUNT 219 K/UL (150-450); RED BLOOD COUNT 4.25 M/UL (4.70-6.10); RED CELL DISTRIBUTION WIDTH 15.5 % (11.6-14.8); WHITE BLOOD COUNT 5.9 K/UL (4.8-10.8)
[2019-12-10] MEDS: D5 1/2NS 1,000 ML IV SCH ×2 (06:54→15:40)
[2019-12-10] MEDS: PCA shift volume MISC SCH ×2 (07:00→19:00)
[2019-12-10 07:02] LABS: ALANINE AMINOTRANSFERASE 22 U/L (12-78); ALBUMIN 2.7 G/DL (3.4-5.0); ALBUMIN/GLOBULIN RATIO 0.6 (1.0-2.7); ALKALINE PHOSPHATASE 60 U/L (46-116); ANION GAP 5 mmol/L (5-15); ASPARTATE AMINO TRANSFERASE 20 U/L (15-37); BILIRUBIN,TOTAL 0.2 MG/DL (0.2-1.0); BLOOD UREA NITROGEN 6 mg/dL (7-18); CALCIUM 9.2 MG/DL (8.5-10.1); CARBON DIOXIDE 31 MMOL/L (21-32); CHLORIDE 104 MMOL/L (98-107); CREATININE 0.7 MG/DL (0.55-1.30); POTASSIUM 4.2 MMOL/L (3.5-5.1); SODIUM 140 MMOL/L (136-145)
[2019-12-10] MEDS: Heparin 5000 units/ml inj SUBQ SCH ×2 (08:47→21:52)
[2019-12-10] MEDS: Docusate 100mg cap ORAL SCH ×2 (08:48→17:26)
[2019-12-10] MEDS: Cefepime HCl 1 GM in D5W 55 ML IVPB SCH (08:49)
[2019-12-10] MEDS ORDERED: fentaNYL 100 mcg/2 mL IV ONE (10:14)
[2019-12-10] MEDS ORDERED: Midazolam 2mg/2ml Inj ONE (10:14)
[2019-12-10] MEDS ORDERED: Lidocaine 1% MPF 10mg/ml 5ml ONE (10:18)
[2019-12-10] MEDS ORDERED: Rocuronium Bromide 50mg/5ml Inj IV ONE (10:29)
[2019-12-10] MEDS ORDERED: Succinylcholine 20mg/ml 10ml vial ONE (10:29)
--- NOTE | 2019-12-10 10:29 | General Progress Note ---
Subjective Date patient seen: Dec 10, 2019 Time patient seen: 08:45 ROS Limited/Unobtainable: No Constitutional: Denies: fever, malaise, weakness HEENT: Denies: tearing, double vision, ear pain, ear discharge, nose pain Cardiovascular: Denies: irregular heart rate, lightheadedness, palpitations, syncope Respiratory: Denies: shortness of breath, SOB with excertion, SOB at rest Gastrointestinal/Abdominal: Reports: constipated; Denies: black stools, tarry stools, blood in stool Genitourinary: Denies: frequency, flank pain, hematuria, incontinence Neurologic/Psychiatric: Denies: depressed, emotional problems, headache, numbness Endocrine: Denies: intolerance to cold, intolerance to heat, increased hunger, increased thirst Hematologic/Lymphatic: Reports: anemia; Denies: easy bleeding, easy bruising Allergies: Coded Allergies: PEANUT (Verified Allergy, Severe, anaphylactic, 10/04/19) HYDROMORPHONE (Verified Allergy, Intermediate, severe nausea, 10/04/19) Subjective No complaints. Pain is well controlled. Has not had BM yet. Excited for surgery today. Objective Last 24 Hour Vital Signs Date Time Temp Pulse Resp B/P (MAP) Pulse Ox O2 Delivery O2 Flow Rate FiO2 12/10/19 09:00 Room Air 12/10/19 08:00 97.8 70 20 112/61 (78) 99 12/10/19 08:00 70 14 99 12/10/19 04:00 97.8 70 14 122/69 (86) 99 12/10/19 04:00 70 14 99 12/10/19 00:00 98.0 76 14 110/55 (73) 99 12/10/19 00:00 76 14 99 12/09/19 21:00 Room Air 12/09/19 20:00 97.8 81 18 127/62 (83) 98 12/09/19 20:00 81 18 98 12/09/19 16:00 97.9 82 16 126/78 (94) 100 12/09/19 16:00 82 16 99 12/09/19 12:00 98.6 79 16 119/71 (87) 100 12/09/19 12:00 85 16 Intake and Output 12/09/19 12/10/19 19:00 07:00 Intake Total 900 ml 800 ml Output Total 1507 ml 1406 ml Balance -607 ml -606 ml Intake Oral 900 ml IV Total 800 ml Output Urine Total 1500 ml 1400 ml Drainage Total 7 ml 6 ml # Voids 6 3 Laboratory Tests 12/10/19 05:45: White Blood Count 5.9, Red Blood Count 4.25L, Hemoglobin 11.0L, Hematocrit 34.5L , Mean Corpuscular Volume 81, Mean Corpuscular Hemoglobin 25.9L, Mean Corpuscular Hemoglobin Concent 31.9L, Red Cell Distribution Width 15.5H, Platele t Count 219, Mean Platelet Volume 8.3, Neutrophils (%) (Auto) 46.7, Lymphocytes (%) (Auto) 35.5, Monocytes (%) (Auto) 8.4, Eosinophils (%) (Auto) 7.8H, Basophils (%) (Auto) 1.5, Sodium Level 140, Potassium Level 4.2, Chloride Level 104, Carbon Dioxide Level 31, Anion Gap 5, Blood Urea Nitrogen 6L, Creatinine 0.7, Estimat Glomerular Filtration Rate > 60, Glucose Level 87, Calcium Level 9.2, Total Bilirubin 0.2, Aspartate Amino Transf (AST/SGOT) 20, Alanine Aminotransferase (ALT/SGPT) 22, Alkaline Phosphatase 60, Total Protein 7.4, Albumin 2.7L, Globulin 4.7, Albumin/Globulin Ratio 0.6L Height (Feet): 6 Height (Inches): 0.00 Weight (Pounds): 155 General Appearance: WD/WN, no apparent distress, alert, thin EENT: normal ENT inspection Neck: normal alignment, supple, normal inspection Cardiovascular: normal peripheral pulses, normal rate, regular rhythm, no gallop/murmur, no JVD Respiratory/Chest: chest wall non-tender, lungs clear, normal breath sounds, no respiratory distress, no accessory muscle use Abdomen: non tender, soft, no organomegaly, no mass, hypoactive bowel sounds Extremities: other - ROM limeted due to surgery Edema: no edema noted Arm (L), no edema noted Arm (R), no edema noted Leg (L), no edema noted Leg (R), no edema noted Pedal (L), no edema noted Pedal (R), no edema noted 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, alert, oriented x 3, responsive, normal mood/affect Skin: normal pigmentation, warm/dry, no diaphoresis Assessment/Plan Problem List: (1) Hidradenitis suppurativa ICD Codes: L73.2 - Hidradenitis suppurativa SNOMED: 43688136 (2) Acute blood loss anemia ICD Codes: D62 - Acute posthemorrhagic anemia SNOMED: 533812796 (3) Hypoxia ICD Codes: R09.02 - Hypoxemia SNOMED: 730612909 (4) Uncontrolled pain ICD Codes: R52 - Pain, unspecified SNOMED: 30679941378312296 (5) Hypoalbuminemia ICD Codes: E88.09 - Other disorders of plasma-protein metabolism, not elsewhere classified SNOMED: 448567610 (6) Wound drainage ICD Codes: T14.8XXA - Other injury of unspecified body region, initial encounter SNOMED: 32645619, 918317952 (7) Pilonidal cyst ICD Codes: L05.91 - Pilonidal cyst without abscess SNOMED: 92370674 Status: stable Assessment/Plan: 24 year old gentleman with no significant PMH presents with post op pain, wound drainage and acute blood loss anemia after surgery for hydradenitis. #Hydradenitis s/p surgical intervention #Post op pain #Post op wound drainage with MARILUZ drain in situ -Cefepime 1gm q24 given previous pseudomonas cultures at [facility] -f/u intra op cultures -Wound care -Pain control with PCN pump -Surgical recommendations #Acute blood loss anemia -Trend CBC closely - Transfuse for Hg less than 7 - Iron studies review on pervious admit #Post surgical hypoxia - resolved - O2 NC to keep sat above 92% - Incentive spirometry - Early ambulation with assist #Pilonidal cyst -Surgical intervention on 12/09 heparin subQ Regular diet PT Bowel regiment Dipo DC to [facility] on I spent 39 min on this patient with 30 min face to face time and coordinating with the surgeon. Discussed plan of care with nursing and charge nurse. Discussed with pharmacy. Dangelo Metzger M.D. Dec 10, 2019 10:28
[2019-12-10] MEDS ORDERED: Lidocaine 1% 10mg/ml/Epi 0.005mg/ml 30ml vial INJ ONE (10:31)
[2019-12-10] MEDS ORDERED: Bacitracin 50000 Units Vial ONE (10:31)
[2019-12-10] MEDS ORDERED: NeoSporin Gu Irrig 1ml Amp IRRIG ONE (10:31)
--- NOTE | 2019-12-10 10:35 | Pre-Procedure Note/Attestation ---
Pre-Procedure Note/Attestation Complete Prior to Procedure Planned Procedure: not applicable Procedure Narrative: Excision of pilonidal cyst with flap closure Indications for Procedure Pre-Operative Diagnosis: Bilateral open axillary wounds Attestation I attest that I discussed the nature of the procedure; its benefits; risks and complications; and alternatives (and the risks and benefits of such alternatives), prior to the procedure, with the patient (or the patient's legal customer engagement representative). I attest that, if there was a reasonable possibility of needing a blood transfusion, the patient (or the patient's legal customer engagement representative) was given the [facility] standardized written summary, pursuant to the [place] Blood Safety Act ([place] Health and Safety Code # 1645, as amended). I attest that I re-evaluated the patient just prior to the surgery and that there has been no change in the patient's H&P, except as documented below: Jl Vazquez MD Dec 10, 2019 10:35
[2019-12-10] MEDS ORDERED: PCA Education Pamphlet MISC ONE ×2 (10:45→11:45)
[2019-12-10] MEDS ORDERED: Rate Change PCA 1 Each MISC PRN ×2 (10:45→11:45)
[2019-12-10] MEDS ORDERED: Metoclopramide 10mg/2ml Inj IVP PRN ×2 (10:45→11:45)
[2019-12-10] MEDS ORDERED: LR 1000ml ONE (11:00)
[2019-12-10] MEDS ORDERED: Neostigmine 1mg/ml 10ml Inj ONE (11:00)
[2019-12-10] MEDS ORDERED: Sterile Water Irrig 1000ml IRRIG ONE (11:00)
[2019-12-10] MEDS ORDERED: NS Irrig 1000ml ONE (11:00)
[2019-12-10] MEDS ORDERED: Morphine Sulfate 10mg/ml Inj ONE (11:29)
[2019-12-10] MEDS ORDERED: Glycopyrrolate 0.2mg/ml 1ml Vial ONE (11:30)
[2019-12-10] MEDS ORDERED: Sodium Chloride 10ml vial INJ ONE (11:30)
[2019-12-10] MEDS ORDERED: LR 1000ml 1,000 ML IVLG SCH (11:45)
[2019-12-10] MEDS ORDERED: DiphenhydrAMINE 50mg/ml Inj IVP PRN ×2 (11:45)
[2019-12-10] MEDS ORDERED: Acetaminophen (Non formulary) 100 ML IV ONE (11:45)
[2019-12-10] MEDS ORDERED: Naloxone 0.4mg/ml Inj IVP PRN (11:45)
[2019-12-10] MEDS ORDERED: Ketorolac 30mg Inj IV PRN (11:45)
[2019-12-10] MEDS ORDERED: Midazolam 2mg/2ml Inj IVP PRN (11:45)
[2019-12-10] MEDS ORDERED: Meperidine 25mg/0.5ml Inj (FOR RIGORS ONLY) IV PRN (11:45)
--- NOTE | 2019-12-10 12:24 | Operative Note - PDOC ---
Operative Note Operative Note Pre-op Diagnosis: Pilonidal wound Procedure: Flap closure of pilonidal wound Post-op Diagnosis: same as pre-op Surgeon: Taylor Research Staff Member: Jodee Anesthesia: general Specimen: none Complications: none Condition: stable Estimated Blood Loss: minimal Drains: MARILUZ Implant(s) used?: No Jl Vazquez MD Dec 10, 2019 12:24
--- NOTE | 2019-12-10 12:42 | Immediate Post-Op Evaluation ---
Immediate Post-Op Evalulation Immediate Post-Op Evalulation Procedure: Excision and closure of pilonidal cyst Date of Evaluation: Dec 10, 2019 Time of Evaluation: 12:40 IV Fluids: 500 Blood Products: none Estimated Blood Loss: <50 Urinary Output: none Blood Pressure Systolic: 152 Blood Pressure Diastolic: 86 Pulse Rate: 88 Respiratory Rate: 20 O2 Sat by Pulse Oximetry: 100 Temperature (Fahrenheit): 97.8 Pain Score (1-10): 1 Nausea: No Vomiting: No Complications none Patient Status: reacts, patent, extubated, none Jordon Souza MD Dec 10, 2019 12:42
--- NOTE | 2019-12-10 13:13 | Anethesia Preoperative Eval ---
Anesthesia Pre-op PMH/ROS General Date of Evaluation: Dec 10, 2019 Time of Evaluation: 10:40 Anesthesiologist: Kyler ASA Score: ASA 2 Mallampati Score Class I : Soft palate, uvula, fauces, pillars visible Class II: Soft palate, uvula, fauces visible Class III: Soft palate, base of uvula visible Class IV: Only hard plate visible Mallampati Classification: Class II Surgeon: Taylor Diagnosis: Pilonidal cyst Surgical Procedure: Pilonidal cyst excision Allergies: Coded Allergies: PEANUT (Verified Allergy, Severe, anaphylactic, 10/04/19) HYDROMORPHONE (Verified Allergy, Intermediate, severe nausea, 10/04/19) Patient NPO?: Yes NPO Date: Dec 05, 2019 NPO Time: 00:01 Past Medical History Cardiovascular: Denies: HTN, CAD, [place], valve dz, arrhythmia, other Pulmonary: Denies: asthma, COPD, DEBBIE, other Gastrointestinal/Genitourinary: Reports: GERD; Denies: CRI, ESRD, other Neurologic/Psychiatric: Reports: depression/anxiety; Denies: dementia, CVA, TIA, other Endocrine: Denies: DM, hypothyroidism, steroids, other HEENT: Denies: cataract (L), cataract (R), glaucoma, [place] (L), [place] (R), other Hematology/Immune: Reports: anemia - mild Musculoskeletal/Integumentary: Reports: other - REcurent HS PMH Narrative: as above PSxH Narrative: See H&P Anesthesia Pre-op Phys. Exam Physician Exam Last Vital Signs Date Time Temp Pulse Resp B/P (MAP) Pulse Ox O2 Delivery O2 Flow Rate FiO2 12/10/19 12:45 78 15 144/59 100 Simple Mask 6 12/10/19 12:28 97.2 Constitutional: NAD Neurologic: CN 2-12 intact Cardiovascular: RRR, no M/R/G Respiratory: CTA Gastrointestinal: S/NT/ND Airway Exam Mallampati Score: Class II MO: full Neck: flexible ROM: full Teeth: intact Dentures: no upper, no lower Anesthesia Pre-op A/P Labs Hematology Test 12/10/19 05:45 White Blood Count 5.9 K/UL (4.8-10.8) Red Blood Count 4.25 M/UL (4.70-6.10) L Hemoglobin 11.0 G/DL (14.2-18.0) L Hematocrit 34.5 % (42.0-52.0) L Mean Corpuscular Volume 81 FL (80-99) Mean Corpuscular Hemoglobin 25.9 PG (27.0-31.0) L Mean Corpuscular Hemoglobin Concent 31.9 G/DL (32.0-36.0) L Red Cell Distribution Width 15.5 % (11.6-14.8) H Platelet Count 219 K/UL (150-450) Mean Platelet Volume 8.3 FL (6.5-10.1) Neutrophils (%) (Auto) 46.7 % (45.0-75.0) Lymphocytes (%) (Auto) 35.5 % (20.0-45.0) Monocytes (%) (Auto) 8.4 % (1.0-10.0) Eosinophils (%) (Auto) 7.8 % (0.0-3.0) H Basophils (%) (Auto) 1.5 % (0.0-2.0) Chemistry Test 12/10/19 05:45 Sodium Level 140 MMOL/L (136-145) Potassium Level 4.2 MMOL/L (3.5-5.1) Chloride Level 104 MMOL/L (98-107) Carbon Dioxide Level 31 MMOL/L (21-32) Anion Gap 5 mmol/L (5-15) Blood Urea Nitrogen 6 mg/dL (7-18) L Creatinine 0.7 MG/DL (0.55-1.30) Estimat Glomerular Filtration Rate > 60 mL/min (>60) Glucose Level 87 MG/DL (74-106) Calcium Level 9.2 MG/DL (8.5-10.1) Total Bilirubin 0.2 MG/DL (0.2-1.0) Aspartate Amino Transf (AST/SGOT) 20 U/L (15-37) Alanine Aminotransferase (ALT/SGPT) 22 U/L (12-78) Alkaline Phosphatase 60 U/L (46-116) Total Protein 7.4 G/DL (6.4-8.2) Albumin 2.7 G/DL (3.4-5.0) L Globulin 4.7 g/dL Albumin/Globulin Ratio 0.6 (1.0-2.7) L Risk Assessment & Plan Assessment: ASA 2 Plan: GA with ETT prone position Status Change Before Surgery: No Pre-Antibiotics Drug: Acef 1gr Given Within 1 Hr of Incision: Yes Time Given: 11:10 Jordon Souza MD Dec 10, 2019 13:13
[2019-12-10] MEDS: PCA Morphine 1mg/ml 30 ML IV PRN (13:30)
--- NOTE | 2019-12-10 14:00 | Operative Note - Dictated ---
DATE OF OPERATION: 12/10/2019 PREOPERATIVE DIAGNOSIS: Open pilonidal wound. POSTOPERATIVE DIAGNOSIS: Open pilonidal wound. PROCEDURES: 1. Excision of pilonidal disease. 2. Elevation of a right-sided V-Y flap for closure of pilonidal wound. 3. Elevation of a left-sided V-Y flap for closure of pilonidal wound. SURGEON: Jl Vazquez MD. PNEUMATIC PRESS HAND: Alicia Ellsworth MD. ANESTHESIA: General. COMPLICATIONS: None. DRAINS: Included a size 7 MARILUZ drain. DISPOSITION: Stable to the recovery room. ESTIMATED BLOOD LOSS: 15 mL. INDICATIONS FOR SURGERY: This is a 24-year-old male with a longstanding history of hidradenitis suppurativa, who over the past several months developed an unremitting pilonidal cyst. This continued to drain and caused him significant pain and discomfort and was not responding to local management. Upon my evaluation, I felt that he was an appropriate candidate for radical excision of the disease with flap closure. He understood the risks and benefits of surgery and agreed to proceed. DETAILS OF THE OPERATION: The patient was brought to the operating room and after induction of anesthesia, was placed in the prone position on the operating room table. The buttock and lower back regions were prepped and draped in a sterile and usual fashion. We first began by delineating the area of disease using a marking pen and in a circular design, we proceeded to use a #15 blade to excise the disease. Upon cutting the skin, we came across significant scar tissue, which is consistent with a recurrent or a long-standing pilonidal cyst. We dissected through the scar tissue all the way to healthy fat where there was no evidence of further disease. Once this disease was excised, there was a large defect that resulted that measured approximately 7 x 6 cm and was clearly not amenable to primary closure both for dimensions reasons as well as the tension on the wound if a primary closure was pursued. As such, bilateral V-Y flaps were designed to allow for a tension-free repair. We first began by making the right-sided flap incision. Dissection of the flap was carried all the way down to the level of the fascia to allow for elevation of the fasciocutaneous flap. This was a flap that was the based on perforators coming through the gluteus muscle from the inferior gluteal artery. In a similar fashion, a contralateral V-Y flap was elevated using a #15 blade to cut through the skin. Dissection was carried down to the level of the fascia. The flap was then elevated and again the perforators through the gluteus muscle from the inferior gluteal artery was the source of the perfusion of this flap. Once the flaps were fully mobilized and noted to be brought together without any tension in the midline, the wound was then copiously irrigated with pulse lavage. The flaps were then inset in the midline in the layered closure fashion of #0 and 2-0 Vicryl sutures. The donor sites were closed in a Y fashion with #0 and 2-0 Vicryl sutures and the remaining portion of the skin was closed with a combination of running as well as interrupted Prolene sutures. A MARILUZ drain also was placed into the base of the wound. The patient tolerated the procedure well. There were no complications. Jl Vazquez M.D. DR: MIGUEL JOB#: [id number] CC: JONATHON
[2019-12-10] MEDS ORDERED: PCA shift volume MISC SCH (19:00)
[2019-12-10] MEDS ORDERED: Heparin 5000 units/ml inj SUBQ SCH (21:00)
[2019-12-11] VITALS: BP_SYST 104; BP_SYST 111; BP_DIAS 50; BP_DIAS 64
[2019-12-11] MEDS: D5 1/2NS 1,000 ML IV SCH ×3 (01:00→20:45)
[2019-12-11 06:35] LABS: BASOPHILS % (AUTO) 1.8 % (0.0-2.0); EOSINOPHILS % (AUTO) 7.7 % (0.0-3.0); HEMATOCRIT 31.9 % (42.0-52.0); HEMOGLOBIN 10.3 G/DL (14.2-18.0); LYMPHOCYTES % (AUTO) 28.7 % (20.0-45.0); MEAN CORPUSCULAR VOLUME 81 FL (80-99); MONOCYTES % (AUTO) 4.7 % (1.0-10.0); NEUTROPHILS % (AUTO) 57.2 % (45.0-75.0); PLATELET COUNT 216 K/UL (150-450); RED BLOOD COUNT 3.96 M/UL (4.70-6.10); RED CELL DISTRIBUTION WIDTH 14.7 % (11.6-14.8); WHITE BLOOD COUNT 5.2 K/UL (4.8-10.8)
[2019-12-11] MEDS: PCA shift volume MISC SCH ×2 (07:00→19:00)
[2019-12-11 07:09] LABS: ALANINE AMINOTRANSFERASE 18 U/L (12-78); ALBUMIN 2.3 G/DL (3.4-5.0); ALBUMIN/GLOBULIN RATIO 0.5 (1.0-2.7); ALKALINE PHOSPHATASE 49 U/L (46-116); ANION GAP 5 mmol/L (5-15); ASPARTATE AMINO TRANSFERASE 17 U/L (15-37); BILIRUBIN,TOTAL 0.2 MG/DL (0.2-1.0); BLOOD UREA NITROGEN 5 mg/dL (7-18); CALCIUM 8.5 MG/DL (8.5-10.1); CARBON DIOXIDE 31 MMOL/L (21-32); CHLORIDE 103 MMOL/L (98-107); CREATININE 0.7 MG/DL (0.55-1.30); POTASSIUM 3.9 MMOL/L (3.5-5.1); SODIUM 139 MMOL/L (136-145)
[2019-12-11 08:00] VITALS: BP 114/64
[2019-12-11] MEDS: Cefepime HCl 1 GM in D5W 55 ML IVPB SCH (09:07)
[2019-12-11] MEDS: Heparin 5000 units/ml inj SUBQ SCH ×2 (09:08→20:45)
[2019-12-11] MEDS: Docusate 100mg cap ORAL SCH ×2 (09:08→18:00)
[2019-12-11] MEDS: Sennosides 8.6mg tab ORAL SCH ×2 (10:30→10:59)
[2019-12-11 12:00] VITALS: BP 125/72
--- NOTE | 2019-12-11 12:48 | 48 Hour Post Anesthesia Eval ---
Post Anesthesia Evaluation Procedure: Excision and closure of pilonidal cyst Date of Evaluation: Dec 11, 2019 Time of Evaluation: 12:47 Blood Pressure Systolic: 124 0: 56 Pulse Rate: 72 Respiratory Rate: 20 Temperature (Fahrenheit): 97.6 O2 Sat by Pulse Oximetry: 98 Airway: patent Nausea: No Vomiting: No Pain Intensity: 3 Hydration Status: adequate Cardiopulmonary Status: stable Mental Status/LOC: patient returned to baseline Follow-up Care/Observations: n/a Post-Anesthesia Complications: none Follow-up care needed: N/A Jordon Souza MD Dec 11, 2019 12:48
--- NOTE | 2019-12-11 13:06 | General Progress Note ---
Progress Note Progress Note Pt seen and examined. POD# 1 from closure of pilonidal wound and POD# 5 from flap closure of axillary wounds Doing well. Plan for dc to rehab on . MD Taylor Briceño Amir MD Dec 11, 2019 13:06
--- NOTE | 2019-12-11 13:16 | General Progress Note ---
Subjective Date patient seen: Dec 11, 2019 Constitutional: Reports: chills, diaphoresis, fever HEENT: Reports: no symptoms, eye pain, blurred vision Cardiovascular: Reports: chest pain, edema, irregular heart rate Respiratory: Reports: cough, orthopnea, shortness of breath Gastrointestinal/Abdominal: Reports: abdomen distended, abdominal pain Genitourinary: Reports: burning Neurologic/Psychiatric: Reports: anxiety, headache Endocrine: Reports: intolerance to cold Allergies: Coded Allergies: PEANUT (Verified Allergy, Severe, anaphylactic, 10/04/19) HYDROMORPHONE (Verified Allergy, Intermediate, severe nausea, 10/04/19) Subjective no acute events overnight. s/p day 1 pilondial cyst and flap wound closure. No fevers or chills. MARILUZ with minimal output. Still using high frequency morphine pump. Has not had a BM in a few days. Objective Last 24 Hour Vital Signs Date Time Temp Pulse Resp B/P (MAP) Pulse Ox O2 Delivery O2 Flow Rate FiO2 12/11/19 12:48 72 20 98 12/11/19 12:00 99.3 93 21 125/72 (89) 97 12/11/19 12:00 93 21 97 12/11/19 09:00 Room Air 12/11/19 08:00 85 20 99 12/11/19 08:00 98.0 20 114/64 (81) 99 12/11/19 00:00 98.3 17 104/50 (68) 100 12/11/19 00:00 88 17 97 12/10/19 21:00 Room Air 12/10/19 20:00 98.2 17 114/57 (76) 100 12/10/19 20:00 70 16 99 12/10/19 16:00 70 16 99 12/10/19 15:00 98.2 17 124/61 (82) 99 12/10/19 14:30 98.0 16 122/56 (78) 98 12/10/19 14:04 97.6 12/10/19 14:00 97.7 16 118/59 (78) 98 12/10/19 13:55 14 12/10/19 13:45 97.9 16 109/61 (77) 99 12/10/19 13:45 13 12/10/19 13:30 15 12/10/19 13:30 97.6 72 14 157/71 100 Nasal Cannula 3 12/10/19 13:15 75 13 156/65 100 Nasal Cannula 3 12/10/19 13:10 97.6 12/10/19 13:00 80 15 147/70 100 Nasal Cannula 3 Intake and Output 12/10/19 12/11/19 19:00 07:00 Intake Total 940 ml 480 ml Output Total 1055 ml 10 ml Balance -115 ml 470 ml Intake Oral 240 ml 480 ml IV Total 700 ml Output Urine Total 1000 ml Drainage Total 5 ml 10 ml Estimated Blood Loss 50 ml # Voids 3 5 Laboratory Tests 12/11/19 05:10: White Blood Count 5.2, Red Blood Count 3.96L, Hemoglobin 10.3L, Hematocrit 31.9L , Mean Corpuscular Volume 81, Mean Corpuscular Hemoglobin 26.0L, Mean Corpuscular Hemoglobin Concent 32.2, Red Cell Distribution Width 14.7, Platelet Count 216, Mean Platelet Volume 8.4, Neutrophils (%) (Auto) 57.2, Lymphocytes (%) (Auto) 28.7, Monocytes (%) (Auto) 4.7, Eosinophils (%) (Auto) 7.7H, Basophils (%) (Auto) 1.8, Sodium Level 139, Potassium Level 3.9, Chloride Level 103, Carbon Dioxide Level 31, Anion Gap 5, Blood Urea Nitrogen 5L, Creatinine 0.7, Estimat Glomerular Filtration Rate > 60, Glucose Level 85, Calcium Level 8.5, Total Bilirubin 0.2, Aspartate Amino Transf (AST/SGOT) 17, Alanine Aminotransferase (ALT/SGPT) 18, Alkaline Phosphatase 49, Total Protein 6.6, Albumin 2.3L, Globulin 4.3, Albumin/Globulin Ratio 0.5L Height (Feet): 6 Height (Inches): 0.00 Weight (Pounds): 171 General Appearance: no apparent distress, alert EENT: PERRL/EOMI Neck: supple Cardiovascular: normal rate, regular rhythm Respiratory/Chest: lungs clear, normal breath sounds Abdomen: normal bowel sounds, non tender, soft Extremities: other - bilateral axillary wound closure, dressing intack clean dry, MARILUZ drainages minimal output Edema: no edema noted Arm (L), no edema noted Arm (R), no edema noted Leg (L), no edema noted Leg (R), no edema noted Pedal (L) 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 #Hydradenitis s/p surgical intervention #Post op pain #Post op wound drainage with MARILUZ drain in situ -Cefepime 1gm q24 given previous pseudomonas cultures at [facility] -f/u intra op cultures -Wound care -Pain control with PCN pump -Surgical recommendations #Acute blood loss anemia -Trend CBC closely - Transfuse for Hg less than 7 - Iron studies review on pervious admit #Post surgical hypoxia - resolved - O2 NC to keep sat above 92% - Incentive spirometry - Early ambulation with assist #Pilonidal cyst -Surgical intervention on 12/09 - PT DVT ppx: heparin 5000U BID subQ Diet: Regular diet Fluids: D5 1/2 NS 100 GI: none Abx: cefepime Dipo DC to [facility] likely on I spent 35 min on this patient with 30 min coordinating with the surgeon, RN and patient at bedside. Time of note may not reflect time patient was seen. Wilder Thompson D.O Dec 11, 2019 13:16
[2019-12-11] MEDS: PCA Morphine 1mg/ml 30 ML IV PRN (14:50)
[2019-12-11 14:58] VITALS: BP 124/56
[2019-12-11 16:00] VITALS: BP 135/79
[2019-12-11 20:00] VITALS: BP 116/70
[2019-12-12 04:00] VITALS: BP 107/63
[2019-12-12] MEDS: PCA Morphine 1mg/ml 30 ML IV PRN (04:37)
[2019-12-12 05:46] LABS: BASOPHILS % (AUTO) 1.4 % (0.0-2.0); EOSINOPHILS % (AUTO) 7.9 % (0.0-3.0); HEMATOCRIT 34.5 % (42.0-52.0); HEMOGLOBIN 11.1 G/DL (14.2-18.0); LYMPHOCYTES % (AUTO) 37.6 % (20.0-45.0); MEAN CORPUSCULAR VOLUME 81 FL (80-99); MONOCYTES % (AUTO) 6.2 % (1.0-10.0); NEUTROPHILS % (AUTO) 46.9 % (45.0-75.0); PLATELET COUNT 230 K/UL (150-450); RED BLOOD COUNT 4.27 M/UL (4.70-6.10); RED CELL DISTRIBUTION WIDTH 15.2 % (11.6-14.8); WHITE BLOOD COUNT 6.5 K/UL (4.8-10.8)
[2019-12-12 05:52] LABS: ANION GAP 3 mmol/L (5-15); BLOOD UREA NITROGEN 7 mg/dL (7-18); CARBON DIOXIDE 33 MMOL/L (21-32); CHLORIDE 102 MMOL/L (98-107); CREATININE 0.7 MG/DL (0.55-1.30); PHOSPHORUS 4.3 MG/DL (2.5-4.9); POTASSIUM 4.2 MMOL/L (3.5-5.1); SODIUM 138 MMOL/L (136-145)
[2019-12-12] MEDS: PCA shift volume MISC SCH (07:00)
[2019-12-12 08:00] VITALS: BP 120/62
[2019-12-12] MEDS: Docusate 100mg cap ORAL SCH ×2 (09:18→18:00)
[2019-12-12] MEDS: Cefepime HCl 1 GM in D5W 55 ML IVPB SCH (09:18)
[2019-12-12] MEDS: Sennosides 8.6mg tab ORAL SCH (09:18)
[2019-12-12] MEDS: Heparin 5000 units/ml inj SUBQ SCH ×2 (09:19→20:41)
--- NOTE | 2019-12-12 11:07 | General Progress Note ---
Subjective Date patient seen: Dec 12, 2019 Constitutional: Denies: no symptoms, chills, diaphoresis, fever, malaise, weakness, other HEENT: Denies: no symptoms, eye pain, blurred vision, tearing, double vision, ear pain, ear discharge, nose pain, nose congestion, throat pain, throat swelling, mouth pain, mouth swelling, other Cardiovascular: Reports: no symptoms; Denies: chest pain, edema, irregular heart rate, lightheadedness, palpitations, syncope, other Respiratory: Denies: no symptoms, cough, orthopnea, shortness of breath, SOB with excertion, SOB at rest, sputum, stridor, wheezing, other Gastrointestinal/Abdominal: Denies: no symptoms, abdomen distended, abdominal pain, black stools, tarry stools, blood in stool, constipated, diarrhea, difficulty swallowing, nausea, poor appetite, poor fluid intake, rectal bleeding, vomiting, other Genitourinary: Denies: no symptoms, burning, discharge, frequency Neurologic/Psychiatric: Denies: no symptoms, anxiety, depressed, emotional problems, headache, numbness, paresthesia, pre-existing deficit, seizure, tingling, tremors, weakness, other Endocrine: Denies: no symptoms, excessive sweating, flushing, intolerance to c old, intolerance to heat, increased hunger, increased thirst, increased urine, unexplained weight gain, unexplained weight loss, other Allergies: Coded Allergies: PEANUT (Verified Allergy, Severe, anaphylactic, 10/04/19) HYDROMORPHONE (Verified Allergy, Intermediate, severe nausea, 10/04/19) Subjective no acute events overnight. s/p day2 pilondial cyst and flap wound closure. Decreasing the amount of morphine used. Has not had a BM in a few days. [facility] eduled for discharge tomorrow. Objective Last 24 Hour Vital Signs Date Time Temp Pulse Resp B/P (MAP) Pulse Ox O2 Delivery O2 Flow Rate FiO2 12/12/19 08:00 98.0 82 19 120/62 (81) 100 12/12/19 07:45 82 16 100 Room Air 21 12/12/19 04:00 98.2 80 19 107/63 (78) 98 12/11/19 21:00 Room Air 12/11/19 20:00 98.9 95 19 116/70 (85) 95 12/11/19 20:00 95 18 96 12/11/19 16:00 98.9 89 21 135/79 (97) 99 12/11/19 16:00 89 21 99 12/11/19 14:58 72 20 98 12/11/19 12:48 72 20 98 12/11/19 12:00 99.3 93 21 125/72 (89) 97 12/11/19 12:00 93 21 97 Intake and Output 12/11/19 12/12/19 19:00 07:00 Intake Total 2455 ml 500 ml Output Total 2601 ml 906 ml Balance -146 ml -406 ml Intake Oral 600 ml 500 ml IV Total 1855 ml Output Urine Total 2590 ml 900 ml Drainage Total 11 ml 6 ml # Voids 8 4 Laboratory Tests 12/12/19 04:45: White Blood Count 6.5, Red Blood Count 4.27L, Hemoglobin 11.1L, Hematocrit 34.5L , Mean Corpuscular Volume 81, Mean Corpuscular Hemoglobin 26.1L, Mean Corpuscular Hemoglobin Concent 32.2, Red Cell Distribution Width 15.2H, Platelet Count 230, Mean Platelet Volume 7.7, Neutrophils (%) (Auto) 46.9, Lymphocytes (%) (Auto) 37.6, Monocytes (%) (Auto) 6.2, Eosinophils (%) (Auto) 7.9H, Basophils (%) (Auto) 1.4, Sodium Level 138, Potassium Level 4.2, Chloride Level 102, Carbon Dioxide Level 33H, Anion Gap 3L, Blood Urea Nitrogen 7, Creatinine 0.7, Estimat Glomerular Filtration Rate > 60, Glucose Level 84, Calcium Level 9.0, Phosphorus Level 4.3, Magnesium Level 1.9 Height (Feet): 6 Height (Inches): 0.00 Weight (Pounds): 171 General Appearance: no apparent distress, alert EENT: PERRL/EOMI Neck: supple, normal inspection Cardiovascular: normal rate, regular rhythm, no JVD Respiratory/Chest: lungs clear, normal breath sounds, no respiratory distress Abdomen: normal bowel sounds, non tender, soft Extremities: normal range of motion, non-tender Edema: no edema noted Arm (L), no edema noted Arm (R), no edema noted Leg (L), no edema noted Leg (R), no edema noted Pedal (L), no edema noted Pedal (R), no edema noted 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 Assessment/Plan Status: stable Assessment/Plan: 24 year old gentleman with no significant PMH presents with post op pain, wound drainage and acute blood loss anemia after surgery for hydradenitis. #Hydradenitis s/p surgical intervention #Post op pain #Post op wound drainage with MARILUZ drain in situ -Cefepime 1gm q24 given previous pseudomonas cultures at [facility] -cultures shows acute and chronic Pilondial cyst changes, no malignancy -Wound care -Pain control with PCN pump -Surgical recommendations #Acute blood loss anemia -Trend CBC closely - Transfuse for Hg less than 7 - Iron studies review on pervious admit #Post surgical hypoxia - resolved - O2 NC to keep sat above 92% - Incentive spirometry - Early ambulation with assist #Pilonidal cyst -Surgical intervention on 12/09 - PT DVT ppx: heparin 5000U BID subQ Diet: Regular diet Fluids: none GI: none Abx: cefepime Dipo DC to [facility] likely on I spent 34 min on this patient with 20 min coordinating with the surgeon, RN and patient at bedside. Time of note may not reflect time patient was seen. Wilder Thompson D.O Dec 12, 2019 11:06
[2019-12-12] MEDS ORDERED: Meperidine 25mg/0.5ml Inj (FOR RIGORS ONLY) IV PRN (11:45)
[2019-12-12 12:00] VITALS: BP 142/92
--- NOTE | 2019-12-12 13:23 | General Progress Note ---
Progress Note Progress Note Pt seen and examined. Doing well. Wounds are healing well. Small open area on the left arm. Will redress wounds. Will dc drains in am and change buttocks dressings then. DC to rehab tomorrow. MD Taylor Briceño Amir MD Dec 12, 2019 13:23
[2019-12-12 16:00] VITALS: BP 115/60
[2019-12-12 20:00] VITALS: BP 129/74
[2019-12-12] MEDS: Morphine Sulfate 2mg/ml Inj(IV/IM USE ONLY) IVP PRN ×2 (20:30→23:49)
[2019-12-13] VITALS: BP 104/52
[2019-12-13 04:00] VITALS: BP 96/52
[2019-12-13 08:00] VITALS: BP 107/59
[2019-12-13] MEDS: Cefepime HCl 1 GM in D5W 55 ML IVPB SCH (08:19)
[2019-12-13] MEDS: Docusate 100mg cap ORAL SCH ×2 (08:19→18:00)
[2019-12-13] MEDS: Sennosides 8.6mg tab ORAL SCH (08:19)
[2019-12-13] MEDS: Heparin 5000 units/ml inj SUBQ SCH ×2 (08:20→20:44)
--- NOTE | 2019-12-13 10:09 | Discharge Summary ---
Discharge Summary Hospital Course Date of Admission Dec 06, 2019 at 07:52 Date of Discharge december 13, 2019 Admitting Diagnosis HPI 24 year old gentleman with no significant PMH present today with post op pain, wound drainage and acute blood loss anemia after surgery with Dr. Vazquez for Flap closure and adjacent tissue transfer closure of bilateral axillary wounds. MARILUZ drain in situ. Estimated blood loss during the surgery was minimal. CBC prior to surgery showed a Hg of 12.4 and a Hct 39.1 of. Currently patient is in postop recovery resting comfortably and pain is well controlled. Patient will be admitted to med surg floor for close monitoring of H/H, pain control and IV antibiotics for SSTI s/p surgical intervention. Hospital Course 24 year old gentleman with no significant PMH presented for bilateral axillary recurrent hidradenitis suppurativa resection (12/06) with subsequent exision of pilonidal disease and flap closure (12/09). Patient has had multiple surgeries for his hidradenitis suppurativa. No post-op complications or transfusions required. Post op pain has been controlled with morphine pump and titrated down throughout his hospital course. Patient admitted on cefepime from previous pseudomonas cultures at [facility] and continued per surgeon Dr. Vazquez. Patient tolerating oral feeds and PT. He remains hemodynamically stable and cleared for discharge to [facility] today. #Hydradenitis s/p surgical intervention 12/07/2019 and 12/10/2019 (flap closure) -Cefepime 1gm q24 given previous pseudomonas cultures at [facility] -cultures shows acute and chronic Pilondial cyst changes, no malignancy - Mariluz drains removed -continue Wound care - surgeon Dr. Vazquez #Pilonidal cyst -Surgical intervention on 12/09 I spent 35 min on this patient with 21 min coordinating with the Dr. Vazquez, RN and patient at bedside. Time of note may not reflect time patient was seen. Discharge Discharge Vital Signs Last Vital Signs Date Time Temp Pulse Resp B/P (MAP) Pulse Ox O2 Delivery O2 Flow Rate FiO2 12/13/19 09:00 Room Air 12/13/19 08:00 98.6 76 20 107/59 (75) 99 12/13/19 07:32 21 12/10/19 13:30 3 Discharge Disposition Patient was discharged to Wilder Thompson D.O Dec 13, 2019 10:09
[2019-12-13 12:00] VITALS: BP 117/65
--- NOTE | 2019-12-13 13:38 | General Progress Note ---
Subjective Date patient seen: Dec 13, 2019 Constitutional: Denies: no symptoms, chills, diaphoresis, fever, malaise, weakness, other HEENT: Denies: no symptoms, eye pain, blurred vision, tearing, double vision, ear pain, ear discharge, nose pain, nose congestion, throat pain, throat swelling, mouth pain, mouth swelling, other Cardiovascular: Denies: no symptoms, chest pain, edema, irregular heart rate, lightheadedness, palpitations, syncope, other Respiratory: Denies: no symptoms, cough, orthopnea, shortness of breath, SOB with excertion, SOB at rest, sputum, stridor, wheezing, other Gastrointestinal/Abdominal: Denies: no symptoms, abdomen distended, abdominal pain, black stools, tarry stools, blood in stool, constipated, diarrhea, difficulty swallowing, nausea, poor appetite, poor fluid intake, rectal bleeding, vomiting, other Genitourinary: Denies: no symptoms, burning, discharge, frequency, flank pain, hematuria, incontinence, pain, urgency, other Neurologic/Psychiatric: Denies: no symptoms, anxiety, depressed, emotional problems, headache, numbness, paresthesia, pre-existing deficit, seizure, tingling, tremors, weakness, other Endocrine: Denies: no symptoms, excessive sweating, flushing, intolerance to cold, intolerance to heat, increased hunger, increased thirst, increased urine, unexplained weight gain, unexplained weight loss, other Hematologic/Lymphatic: Denies: no symptoms, anemia, easy bleeding, easy bruising, other Allergies: Coded Allergies: PEANUT (Verified Allergy, Severe, anaphylactic, 10/04/19) HYDROMORPHONE (Verified Allergy, Intermediate, severe nausea, 10/04/19) Subjective no acute events overnight. s/p day3 pilondial cyst and flap wound closure. Still having UE pain with significant contractures, unable to fully extend UE. Pending d/c today to [facility]. Objective Last 24 Hour Vital Signs Date Time Temp Pulse Resp B/P (MAP) Pulse Ox O2 Delivery O2 Flow Rate FiO2 12/13/19 12:00 98.2 79 20 117/65 (82) 98 12/13/19 09:00 Room Air 12/13/19 08:00 98.6 76 20 107/59 (75) 99 9/24/20 07:32 80 18 100 Room Air 21 12/13/19 04:00 98.0 98 16 96/52 (67) 97 12/13/19 00:00 98.1 79 17 104/52 (69) 98 12/12/19 21:00 Room Air 12/12/19 20:00 98.6 92 18 129/74 (92) 96 12/12/19 19:08 80 16 100 Room Air 21 12/12/19 16:00 98.4 81 18 115/60 (78) 98 Intake and Output 12/12/19 12/13/19 19:00 07:00 Intake Total 960 ml 300 ml Output Total 806 ml 553 ml Balance 154 ml -253 ml Intake Oral 960 ml 300 ml Output Urine Total 800 ml 550 ml Drainage Total 6 ml 3 ml Height (Feet): 6 Height (Inches): 0.00 Weight (Pounds): 171 General Appearance: no apparent distress, alert EENT: PERRL/EOMI Neck: supple, normal inspection Cardiovascular: normal rate, regular rhythm Respiratory/Chest: lungs clear, normal breath sounds, no respiratory distress Abdomen: normal bowel sounds, non tender, soft Extremities: other - Limited ROM of UE, unable to fully extend with decreased strength, Edema: no edema noted Arm (L), no edema noted Arm (R), no edema noted Leg (L), no edema noted Leg (R), no edema noted Pedal (L), no edema noted Pedal (R), no edema noted 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 Assessment/Plan Status: stable Assessment/Plan: 24 year old gentleman with no significant PMH presented for bilateral axillary recurrent hidradenitis suppurativa resection (12/06) with subsequent exision of pilonidal disease and flap closure (12/09). Patient has had multiple surgeries for his hidradenitis suppurativa. No post-op complications or transfusions required. Post op pain has been controlled with morphine pump and titrated down throughout his hospital course. Patient admitted on cefepime from previous pseudomonas cultures at [facility] and continued per surgeon Dr. Vazquez. Patient tolerating oral feeds and PT. He remains hemodynamically stable and cleared for discharge to [facility] today. #Hydradenitis s/p surgical intervention 12/07/2019 and 12/10/2019 (flap closure) -Cefepime 1gm q24 given previous pseudomonas cultures at [facility] -cultures shows acute and chronic Pilondial cyst changes, no malignancy - Mariluz drains removed -continue Wound care - has signigicant UE weakness and contractures, will benefit from further rehab care. - surgeon Dr. Vazquez #Pilonidal cyst -Surgical intervention on 12/[address] Ponce from [facility] for acceptance at facility for continued rehab. I spent 31 min on this patient with 25 min coordinating with the Dr. Vazquez, RN and patient at bedside. Time of note may not reflect time patient was seen. Wilder Thompson D.O Dec 13, 2019 13:38
[2019-12-13 16:00] VITALS: BP 132/75
[2019-12-13 20:00] VITALS: BP 109/60
[2019-12-13] MEDS: Morphine Sulfate 2mg/ml Inj(IV/IM USE ONLY) IVP PRN (22:07)
[2019-12-14] VITALS: BP 116/71
[2019-12-14 04:00] VITALS: BP 132/70
[2019-12-14] MEDS: Morphine Sulfate 2mg/ml Inj(IV/IM USE ONLY) IVP PRN ×2 (07:20→20:25)
[2019-12-14 08:00] VITALS: BP 121/64
[2019-12-14] MEDS: Docusate 100mg cap ORAL SCH ×2 (09:20→18:14)
[2019-12-14] MEDS: Heparin 5000 units/ml inj SUBQ SCH ×2 (09:20→20:26)
[2019-12-14] MEDS: Sennosides 8.6mg tab ORAL SCH (09:21)
--- NOTE | 2019-12-14 09:36 | General Progress Note ---
Subjective Date patient seen: Dec 14, 2019 Constitutional: Denies: no symptoms, chills, diaphoresis, fever, malaise, weakness, other HEENT: Denies: no symptoms, eye pain, blurred vision, tearing, double vision, ear pain, ear discharge, nose pain, nose congestion, throat pain, throat swelling, mouth pain, mouth swelling, other Cardiovascular: Denies: no symptoms, chest pain, edema, irregular heart rate, lightheadedness, palpitations, syncope, other Respiratory: Denies: no symptoms, cough, orthopnea, shortness of breath, SOB with excertion, SOB at rest, sputum, stridor, wheezing, other Gastrointestinal/Abdominal: Denies: no symptoms, abdomen distended, abdominal pain, black stools, tarry stools, blood in stool, constipated, diarrhea, difficulty swallowing, nausea, poor appetite, poor fluid intake, rectal bleeding, vomiting, other Genitourinary: Denies: no symptoms, burning, discharge, frequency, flank pain, hematuria, incontinence, pain, urgency, other Neurologic/Psychiatric: Denies: no symptoms, anxiety, depressed, emotional problems, headache, numbness, paresthesia, pre-existing deficit, seizure, tingling, tremors, weakness, other Endocrine: Denies: no symptoms, excessive sweating, flushing, intolerance to cold, intolerance to heat, increased hunger, increased thirst, increased urine, unexplained weight gain, unexplained weight loss, other Hematologic/Lymphatic: Denies: no symptoms, anemia, easy bleeding, easy bruising, other Allergies: Coded Allergies: PEANUT (Verified Allergy, Severe, anaphylactic, 10/04/19) HYDROMORPHONE (Verified Allergy, Intermediate, severe nausea, 10/04/19) Subjective no acute events overnight. s/p day4 pilondial cyst and flap wound closure. Still requiring significant help for ADL's like eating. Working with PT well. Pending [facility] placement. Objective Last 24 Hour Vital Signs Date Time Temp Pulse Resp B/P (MAP) Pulse Ox O2 Delivery O2 Flow Rate FiO2 12/14/19 04:00 98.2 69 20 132/70 (90) 96 12/14/19 00:00 98.0 75 19 116/71 (86) 97 12/13/19 21:00 Room Air 12/13/19 20:00 98.1 73 18 109/60 (76) 98 12/13/19 18:53 83 18 100 Room Air 21 12/13/19 16:00 98.2 88 20 132/75 (94) 99 12/13/19 12:00 98.2 79 20 117/65 (82) 98 Intake and Output 12/13/19 12/14/19 19:00 07:00 Intake Total 600 ml 400 ml Output Total 1000 ml 980 ml Balance -400 ml -580 ml Intake Oral 600 ml 400 ml Output Urine Total 1000 ml 980 ml # Voids 3 Height (Feet): 6 Height (Inches): 0.00 Weight (Pounds): 171 General Appearance: no apparent distress, alert EENT: PERRL/EOMI Neck: normal alignment, normal inspection Cardiovascular: normal rate, regular rhythm Respiratory/Chest: lungs clear, normal breath sounds, no respiratory distress Abdomen: normal bowel sounds, non tender, soft Extremities: other - UE decreased ROM, pain, with contractures Edema: no edema noted Arm (L), no edema noted Arm (R), no edema noted Leg (L), no edema noted Leg (R), no edema noted Pedal (L), no edema noted Pedal (R), no edema noted 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 Assessment/Plan Status: stable Assessment/Plan: 24 year old gentleman with no significant PMH presented for bilateral axillary recurrent hidradenitis suppurativa resection (12/06) with subsequent exision of pilonidal disease and flap closure (12/09). Patient has had multiple surgeries for his hidradenitis suppurativa. No post-op complications or transfusions required. Post op pain has been controlled with morphine pump and titrated down throughout his hospital course. Patient admitted on cefepime from previous pseudomonas cultures at [facility] and continued per surgeon Dr. Vazquez. Patient tolerating oral feeds and PT. He remains hemodynamically stable and cleared for discharge to [facility] today. #Hydradenitis s/p surgical intervention 12/07/2019 and 12/10/2019 (flap closure) -Cefepime 1gm q24 given previous pseudomonas cultures at [facility] -cultures shows acute and chronic Pilondial cyst changes, no malignancy - Mariluz drains removed -continue Wound care - has significant UE weakness and contractures, will benefit from further acute rehab care. Discussed care with Dr. Vazquez whom also agrees with acute rehab care. - surgeon Dr. Vazquez #Pilonidal cyst -Surgical intervention on 12/09 I discussed at length yesterday with Dr Ponce from [facility] [employer] [facility] insurance as to why patient was initially denied CRI, stating he needs both OT and PT evaluations. [facility] does not have a OT department and therefore PT has been providing both therapies; we will resend therapy notes for clearance. I spent 35 min on this patient with 21 min coordinating with the Dr. Vazquez, RN and CM. Time of note may not reflect time patient was seen. Wilder Thompson D.O Dec 14, 2019 09:36
[2019-12-14 12:00] VITALS: BP 123/77
[2019-12-14] MEDS: Cefepime HCl 1 GM in D5W 55 ML IVPB SCH (15:51)
[2019-12-14 15:56] VITALS: BP 124/68
[2019-12-14 20:00] VITALS: BP 106/54
[2019-12-15] VITALS: BP 115/50
[2019-12-15 04:00] VITALS: BP 117/51
[2019-12-15 08:00] VITALS: BP 107/69
[2019-12-15] MEDS: Heparin 5000 units/ml inj SUBQ SCH ×2 (09:00→21:25)
[2019-12-15] MEDS: Docusate 100mg cap ORAL SCH ×2 (09:00→18:00)
[2019-12-15] MEDS: Sennosides 8.6mg tab ORAL SCH (09:00)
[2019-12-15] MEDS: Cefepime HCl 1 GM in D5W 55 ML IVPB SCH (09:00)
[2019-12-15] MEDS ORDERED: HYDROcodone/Acetamin 10/325 tab ORAL PRN (09:15)
[2019-12-15] MEDS ORDERED: Zolpidem 5mg tab ORAL PRN (09:15)
[2019-12-15] MEDS ORDERED: HYDROcodone/Acetamin 5/325 tab ORAL PRN (09:15)
--- NOTE | 2019-12-15 10:16 | General Progress Note ---
Subjective Date patient seen: Dec 15, 2019 Constitutional: Denies: no symptoms, chills, diaphoresis, fever, malaise, weakness, other HEENT: Denies: no symptoms, eye pain, blurred vision, tearing, double vision, ear pain, ear discharge, nose pain, nose congestion, throat pain, throat swelling, mouth pain, mouth swelling, other Cardiovascular: Denies: no symptoms, chest pain, edema, irregular heart rate, lightheadedness, palpitations, syncope, other Respiratory: Denies: no symptoms, cough, orthopnea, shortness of breath, SOB with excertion, SOB at rest, sputum, stridor, wheezing, other Gastrointestinal/Abdominal: Denies: no symptoms, abdomen distended, abdominal pain, black stools, tarry stools, blood in stool, constipated, diarrhea, difficulty swallowing, nausea, poor appetite, poor fluid intake, rectal bleeding, vomiting, other Genitourinary: Denies: no symptoms, burning, discharge, frequency, flank pain, hematuria, incontinence, pain, urgency, other Neurologic/Psychiatric: Denies: no symptoms, anxiety, depressed, emotional problems, headache, numbness, paresthesia, pre-existing deficit, seizure, tingling, tremors, weakness, other Endocrine: Denies: no symptoms, excessive sweating, flushing, intolerance to cold, intolerance to heat, increased hunger, increased thirst, increased urine, unexplained weight gain, unexplained weight loss, other Hematologic/Lymphatic: Denies: no symptoms, anemia, easy bleeding, easy bruising, other Allergies: Coded Allergies: PEANUT (Verified Allergy, Severe, anaphylactic, 10/04/19) HYDROMORPHONE (Verified Allergy, Intermediate, severe nausea, 10/04/19) Subjective no acute events overnight. Still requiring significant help for ADL's like eating. Working with PT well. Pending CRI placement. d/c demo coordinator pump. Objective Last 24 Hour Vital Signs Date Time Temp Pulse Resp B/P (MAP) Pulse Ox O2 Delivery O2 Flow Rate FiO2 12/15/19 09:00 Room Air 12/15/19 08:00 97.8 76 19 107/69 (82) 97 12/15/19 04:00 97.7 80 14 117/51 (73) 99 12/15/19 00:00 97.6 71 16 115/50 (71) 98 12/14/19 21:00 Room Air 12/14/19 20:00 97.9 70 15 106/54 (71) 98 12/14/19 19:08 82 18 97 Room Air 21 12/14/19 15:56 97.9 79 16 124/68 (86) 100 12/14/19 12:00 98.1 77 18 123/77 (92) 100 Intake and Output 12/14/19 12/15/19 19:00 07:00 Intake Total 711 ml 100 ml Output Total 350 ml Balance 711 ml -250 ml Intake Oral 711 ml 100 ml Output Urine Total 350 ml Drainage Total 0 ml # Voids 3 1 Height (Feet): 6 Height (Inches): 0.00 Weight (Pounds): 171 General Appearance: no apparent distress, alert EENT: PERRL/EOMI Neck: non-tender, supple Cardiovascular: normal rate, regular rhythm Respiratory/Chest: lungs clear, normal breath sounds, no respiratory distress Abdomen: normal bowel sounds, non tender, soft Extremities: other - limited UE ROM, axilliary bandages in placed, sacral MARILUZ drain Edema: no edema noted Arm (L), no edema noted Arm (R), no edema noted Leg (L), no edema noted Leg (R), no edema noted Pedal (L), no edema noted Pedal (R), no edema noted 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 Assessment/Plan Status: stable Assessment/Plan: 24 year old gentleman with no significant PMH presented for bilateral axillary recurrent hidradenitis suppurativa resection (12/06) with subsequent exision of pilonidal disease and flap closure (12/09). Patient has had multiple surgeries for his hidradenitis suppurativa. No post-op complications or transfusions required. Post op pain has been controlled with morphine pump and titrated down throughout his hospital course. Patient admitted on cefepime from previous pseudomonas cultures at [facility] and continued per surgeon Dr. Vazquez. Patient tolerating oral feeds and PT. He remains hemodynamically stable and cleared for discharge to [facility] today. #Hydradenitis s/p surgical intervention 12/07/2019 and 12/10/2019 (flap closure) -Cefepime 1gm q24 given previous pseudomonas cultures at [facility] -cultures shows acute and chronic Pilondial cyst changes, no malignancy - Mariluz drains removed -continue Wound care - has significant UE weakness and contractures, will benefit from further acute rehab care. Discussed care with Dr. Vazquez whom also agrees with acute rehab care. - surgeon Dr. Vazquez #Pilonidal cyst -Surgical intervention on 12/09 We are still awaiting reevaluation from insurance regarding acceptance for acute rehab placement. Patient was recently discharged from here to [facility] w/o "OT" note las time. I spent 31 min on this patient with 16 min coordinating with the Dr. Vazquez, RN and CM. Time of note may not reflect time patient was seen. Wilder Thompson D.O Dec 15, 2019 10:16
[2019-12-15 12:00] VITALS: BP 129/85
[2019-12-15 16:00] VITALS: BP 111/68
[2019-12-15 20:00] VITALS: BP 108/61
[2019-12-16 04:00] VITALS: BP 106/60
[2019-12-16 06:08] LABS: BASOPHILS % (AUTO) 1.1 % (0.0-2.0); EOSINOPHILS % (AUTO) 7.2 % (0.0-3.0); HEMOGLOBIN 11.7 G/DL (14.2-18.0); LYMPHOCYTES % (AUTO) 34.1 % (20.0-45.0); MEAN CORPUSCULAR VOLUME 79 FL (80-99); NEUTROPHILS % (AUTO) 49.6 % (45.0-75.0); PLATELET COUNT 270 K/UL (150-450); RED BLOOD COUNT 4.55 M/UL (4.70-6.10); RED CELL DISTRIBUTION WIDTH 14.8 % (11.6-14.8)
[2019-12-16 06:42] LABS: ANION GAP 7 mmol/L (5-15); BLOOD UREA NITROGEN 13 mg/dL (7-18); CALCIUM 9.4 MG/DL (8.5-10.1); CARBON DIOXIDE 27 MMOL/L (21-32); CHLORIDE 102 MMOL/L (98-107); CREATININE 0.7 MG/DL (0.55-1.30); PHOSPHORUS 4.5 MG/DL (2.5-4.9); POTASSIUM 3.9 MMOL/L (3.5-5.1); SODIUM 136 MMOL/L (136-145)
[2019-12-16 08:00] VITALS: BP 114/75
[2019-12-16] MEDS: Sennosides 8.6mg tab ORAL SCH (09:00)
[2019-12-16] MEDS: Docusate 100mg cap ORAL SCH ×2 (09:00→18:00)
[2019-12-16] MEDS: Heparin 5000 units/ml inj SUBQ SCH ×2 (09:03→20:18)
[2019-12-16] MEDS: Cefepime HCl 1 GM in D5W 55 ML IVPB SCH (09:04)
--- NOTE | 2019-12-16 10:49 | General Progress Note ---
Progress Note Progress Note Pt doing well. Flaps viable and small open areas on the arms are clean. Will need daily dressing changes. Ready for discharge. Waiting on placement vs home health. MD Taylor Briceño Amir MD Dec 16, 2019 10:49
[2019-12-16 12:00] VITALS: BP 129/71
--- NOTE | 2019-12-16 12:41 | General Progress Note ---
Subjective Date patient seen: Dec 16, 2019 Constitutional: Denies: no symptoms, chills, diaphoresis, fever, malaise, weakness, other HEENT: Denies: no symptoms, eye pain, blurred vision, tearing, double vision, ear pain, ear discharge, nose pain, nose congestion, throat pain, throat swelling, mouth pain, mouth swelling, other Cardiovascular: Denies: no symptoms, chest pain, edema, irregular heart rate, lightheadedness, palpitations, syncope, other Respiratory: Denies: no symptoms, cough, orthopnea, shortness of breath, SOB with excertion, SOB at rest, sputum, stridor, wheezing, other Gastrointestinal/Abdominal: Denies: no symptoms, abdomen distended, abdominal pain, black stools, tarry stools, blood in stool, constipated, diarrhea, difficulty swallowing, nausea, poor appetite, poor fluid intake, rectal bleeding, vomiting, other Genitourinary: Denies: no symptoms, burning, discharge, frequency, flank pain, hematuria, incontinence, pain, urgency, other Neurologic/Psychiatric: Denies: no symptoms, anxiety, depressed, emotional problems, headache, numbness, paresthesia, pre-existing deficit, seizure, tingling, tremors, weakness, other Endocrine: Denies: no symptoms, excessive sweating, flushing, intolerance to cold, intolerance to heat, increased hunger, increased thirst, increased urine, unexplained weight gain, unexplained weight loss, other Hematologic/Lymphatic: Denies: no symptoms, anemia, easy bleeding, easy bruising, other Allergies: Coded Allergies: PEANUT (Verified Allergy, Severe, anaphylactic, 10/04/19) HYDROMORPHONE (Verified Allergy, Intermediate, severe nausea, 10/04/19) Subjective no acute events overnight. Working with PT well. Pending CRI placement. Use ambien last night for sleep which helped. Objective Last 24 Hour Vital Signs Date Time Temp Pulse Resp B/P (MAP) Pulse Ox O2 Delivery O2 Flow Rate FiO2 12/16/19 08:00 97.8 87 20 114/75 (88) 97 12/16/19 06:45 80 18 99 Room Air 21 12/16/19 04:00 97.7 80 18 106/60 (75) 99 12/15/19 21:00 Room Air 12/15/19 20:21 84 18 98 Room Air 21 12/15/19 20:00 98.1 79 18 108/61 (77) 99 12/15/19 16:00 98.3 84 18 111/68 (82) 98 Intake and Output 12/15/19 12/16/19 19:00 07:00 Intake Total 600 ml 500 ml Output Total 475 ml 350 ml Balance 125 ml 150 ml Intake Oral 600 ml 500 ml Output Urine Total 475 ml 350 ml # Voids 3 2 Laboratory Tests 12/16/19 05:44: White Blood Count 5.0, Red Blood Count 4.55L, Hemoglobin 11.7L, Hematocrit 36.0L , Mean Corpuscular Volume 79L, Mean Corpuscular Hemoglobin 25.7L, Mean Corpuscular Hemoglobin Concent 32.5, Red Cell Distribution Width 14.8, Platelet Count 270, Mean Platelet Volume 6.9, Neutrophils (%) (Auto) 49.6, Lymphocytes (% ) (Auto) 34.1, Monocytes (%) (Auto) 8.0, Eosinophils (%) (Auto) 7.2H, Basophils (%) (Auto) 1.1, Sodium Level 136, Potassium Level 3.9, Chloride Level 102, Carbon Dioxide Level 27, Anion Gap 7, Blood Urea Nitrogen 13, Creatinine 0.7, Es timat Glomerular Filtration Rate > 60, Glucose Level 88, Calcium Level 9.4, Phosphorus Level 4.5, Magnesium Level 1.8 Height (Feet): 6 Height (Inches): 0.00 Weight (Pounds): 171 General Appearance: no apparent distress, alert, alert oriented x3 EENT: PERRL/EOMI Neck: normal alignment, normal inspection Cardiovascular: normal rate, regular rhythm, no JVD Respiratory/Chest: lungs clear, normal breath sounds, no respiratory distress Abdomen: normal bowel sounds, non tender, soft Extremities: other - limited UE ROM, axilliary bandages clean and dry Edema: no edema noted Arm (L), no edema noted Arm (R), no edema noted Leg (L), no edema noted Leg (R), no edema noted Pedal (L), no edema noted Pedal (R), no edema noted 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 Assessment/Plan Status: stable Assessment/Plan: 24 year old gentleman with no significant PMH presented for bilateral axillary recurrent hidradenitis suppurativa resection (12/06) with subsequent exision of pilonidal disease and flap closure (12/09). Patient has had multiple surgeries for his hidradenitis suppurativa. No post-op complications or transfusions required. Post op pain has been controlled with morphine pump and titrated down throughout his hospital course. Patient admitted on cefepime from previous pseudomonas cultures at [facility] and continued per surgeon Dr. Vazquez. Patient tolerating oral feeds and PT. He remains hemodynamically stable and cleared for discharge to [facility] today. #Hydradenitis s/p surgical intervention 12/07/2019 and 12/10/2019 (flap closure) -Cefepime 1gm q24 given previous pseudomonas cultures at [facility] -cultures shows acute and chronic Pilondial cyst changes, no malignancy - Mariluz drains removed -continue Wound care - has significant UE weakness and contractures, will benefit from further acute rehab care. Discussed care with Dr. Vazquez whom also agrees with acute rehab care. - surgeon Dr. Vazquez #Pilonidal cyst -Surgical intervention on 12/09 We are still awaiting reevaluation from insurance regarding acceptance for acute rehab placement. Patient was recently discharged from here to [facility] w/o "OT" note las time. May discharge with home health per Dr. Vazquez note should rehab deny. I spent 32 min on this patient with 17 min coordinating with the Dr. Vazquez, RN and CM. Time of note may not reflect time patient was seen. iWlder Thompson D.O Dec 16, 2019 12:41
[2019-12-16 16:00] VITALS: BP 120/74
[2019-12-16 20:00] VITALS: BP 113/67
[2019-12-16] MEDS ORDERED: NS Irrig 1000ml ONE (21:07)
[2019-12-17] VITALS: BP 107/65
[2019-12-17 08:00] VITALS: BP 105/63
[2019-12-17] MEDS: Heparin 5000 units/ml inj SUBQ SCH (08:48)
[2019-12-17] MEDS: Sennosides 8.6mg tab ORAL SCH (08:48)
[2019-12-17] MEDS: Docusate 100mg cap ORAL SCH (08:48)
[2019-12-17] MEDS: Cefepime HCl 1 GM in D5W 55 ML IVPB SCH (08:49)
[2019-12-17 12:00] VITALS: BP 128/77
[2019-12-17] MEDS ORDERED: AUGMENTIN 875-1 EAC1 ORAL (14:55)
[2019-12-17] MEDS ORDERED: COLACE100 MG ORAL (14:55)
[2019-12-17] MEDS ORDERED: SENNA8.6 M2 ORAL (14:55)
[2019-12-17] MEDS ORDERED: NORCO 5-325 TA1 EAC1 ORAL (14:55)
--- NOTE | 2019-12-17 15:04 | Discharge Instructions ---
Discharge Instructions Discharge Instructions Services at Discharge: home health services Diet: regular Resume Normal Activity?: No - slowly increase activity level, work with outpatient PT as needed Activity: light activity, as tolerated, okay to shower Follow Up Orders Please follow up with Dr. Vazquez on Jan 01, 2020 as you have scheduled. Finish 5 day antibiotic course. For Surgical Patients Clean and Dry: surgical site Dressing Care: may change - daily dressing changes, wet to dry May shower: Yes Contact your physician for: bleeding, swelling Wilder Thompson D.O Dec 17, 2019 15:04
--- NOTE | 2019-12-17 15:12 | Discharge Summary ---
Discharge Summary Hospital Course Date of Admission Dec 06, 2019 at 07:52 Date of Discharge Dec 17, 2019 Admitting Diagnosis HPI 24 year old gentleman with no significant PMH present today with post op pain, wound drainage and acute blood loss anemia after surgery with Dr. Vazquez for Flap closure and adjacent tissue transfer closure of bilateral axillary wounds. MARILUZ drain in situ. Estimated blood loss during the surgery was minimal. CBC prior to surgery showed a Hg of 12.4 and a Hct 39.1 of. Currently patient is in postop recovery resting comfortably and pain is well controlled. Patient will be admitted to med surg floor for close monitoring of H/H, pain control and IV antibiotics for SSTI s/p surgical intervention. Hospital Course 24 year old gentleman with no significant PMH presented for bilateral axillary recurrent hidradenitis suppurativa resection (12/06) with subsequent exision of pilonidal disease and flap closure (12/09). Patient has had multiple surgeries for his hidradenitis suppurativa. No post-op complications or transfusions required. Post op pain has been controlled with morphine pump and titrated off while switching to orals. Patient admitted on cefepime from previous pseudomonas cultures at [facility]. Patient tolerating oral feeds and PT. He was denies [facility] by insurance due to "no official OT" noted. He otherwise remains hemodynamically stable and cleared for discharge today with home health and wound care. #Hydradenitis s/p surgical intervention 12/07/2019 and 12/10/2019 (flap closure) #Pilonidal cyst -cultures shows acute and chronic Pilondial cyst changes, no malignancy - Mariluz drains removed -continue Wound care, daily dressing changes wet to dry - outpatient PT as tolerated - instructed patient to slowly increase activity level as tolerated - will finish course of Augmentin 850 mg BID for 5 days for SSS infection - [place] 5/325 qh6 for pain, #10 total count - will send for Colace and senna - f/u with Dr. Vazquez on Jan 01, 2020 as patient has already scheduled appointment - discussed cased with his surgeon Dr. Vazquez whom also agrees I spent 32 min on this patient with 17 min coordinating with the Dr. Vazquez, RN and CM. Time of note may not reflect time patient was seen. Discharge Condition Upon Discharge: stable Discharge Vital Signs Last Vital Signs Date Time Temp Pulse Resp B/P (MAP) Pulse Ox O2 Delivery O2 Flow Rate FiO2 12/17/19 12:00 98.4 95 20 128/77 (94) 95 12/17/19 09:00 Room Air 12/16/19 19:26 21 12/10/19 13:30 3 Discharge Disposition Patient was discharged to Discharge Diagnoses: (1) Hidradenitis suppurativa (2) Pilonidal cyst Discharge Instructions Discharge Instructions Services Upon Discharge: home health services Activity: light activity, as tolerated, okay to shower For Surgical Patients Clean and Dry: surgical site Dressing Care: may change - daily dressing changes, wet to dry May shower: Yes Contact your physician for: bleeding, swelling Wilder Thompson D.O Dec 17, 2019 15:12
[2019-12-17 16:00] VITALS: BP 122/71
== END 2019-12-17 18:30 | disposition home or self-care (01) | DRG 577 ==
LOC: SDSOVERFLO 07:52 → EDSTATUS 09:30 → 3E 15:25
PROC: 0JXF0ZC Transfer Left Upper Arm Subcutaneous Tissue and Fascia with Skin, Subcutaneous Tissue and Fascia, Open Approach (ICD-10-PCS; principal; 2019-12-06 09:30)
PROC: 0JDD0ZZ Extraction of Right Upper Arm Subcutaneous Tissue and Fascia, Open Approach (ICD-10-PCS; principal; 2019-12-06 09:30)
PROC: 0JXL0ZC Transfer Right Upper Leg Subcutaneous Tissue and Fascia with Skin, Subcutaneous Tissue and Fascia, Open Approach (ICD-10-PCS; principal; 2019-12-06 09:30)
PROC: 0JDF0ZZ Extraction of Left Upper Arm Subcutaneous Tissue and Fascia, Open Approach (ICD-10-PCS; principal; 2019-12-06 09:30)
PROC: 0JB90ZZ Excision of Buttock Subcutaneous Tissue and Fascia, Open Approach (ICD-10-PCS; 2019-12-10)
PROC: 0HX8XZZ Transfer Buttock Skin, External Approach (ICD-10-PCS; 2019-12-10)
DX: L73.2 Hidradenitis suppurativa (principal); D62 Acute posthemorrhagic anemia; J98.11 Atelectasis; L05.91 Pilonidal cyst without abscess; G89.18 Other acute postprocedural pain; Z20.828 Contact with and (suspected) exposure to other viral communicable diseases; E88.09 Other disorders of plasma-protein metabolism, not elsewhere classified
CPT/HCPCS: 36415; 80048; 80053; 83735; 84100; 85025; 87081; 94003; 94150; 94664; J2180; J2250; J2405; J2710; U0002

== ENCOUNTER 2020-05-12 08:04 | Inpatient (IN) | payer BC ==
[~2020-05-12] VITALS: Ht 182.9 cm; Wt 72.6 kg
[2020-05-12] VITALS (14 sets, daily range): BP systolic 109–144; BP diastolic 54–89
[~2020-05-12 08:04] MED LIST changes: +ASCORBIC ACID500 MG ORAL; +COLACE100 MG ORAL; +NORCO 5-325 TA1 EAC1 ORAL; +SENNA8.6 M2 ORAL; +ZINC50 M1 ORAL
[2020-05-12] MEDS ORDERED: Midazolam 2mg/2ml Inj ONE (09:25)
[2020-05-12] MEDS ORDERED: fentaNYL 100 mcg/2 mL IV ONE ×2 (09:25→12:34)
[2020-05-12] MEDS ORDERED: Rate Change PCA 1 Each MISC PRN ×4 (09:30→16:00)
[2020-05-12] MEDS ORDERED: PCA Education Pamphlet MISC ONE ×3 (09:30→15:45)
[2020-05-12] MEDS ORDERED: DiphenhydrAMINE 50mg/ml Inj IVP PRN ×5 (09:30→16:00)
--- NOTE | 2020-05-12 09:30 | Pre-Procedure Note/Attestation ---
Pre-Procedure Note/Attestation Complete Prior to Procedure Planned Procedure: bilateral Procedure Narrative: Left axillary skin graft, bilateral groin debridement, posterior neck excision of HS with wound closure. Attestation I attest that I discussed the nature of the procedure; its benefits; risks and complications; and alternatives (and the risks and benefits of such alternatives), prior to the procedure, with the patient (or the patient's legal mortician supplies sales representative). I attest that, if there was a reasonable possibility of needing a blood transfusion, the patient (or the patient's legal mortician supplies sales representative) was given the [facility] standardized written summary, pursuant to the [employer] Hor[employer] Blood Safety Act ([place] Health and Safety Code # 1645, as amended). I attest that I re-evaluated the patient just prior to the surgery and that there has been no change in the patient's H&P, except as documented below: Jl Vazquez MD May 12, 2020 09:30
[2020-05-12] MEDS ORDERED: Lidocaine 1% MPF 10mg/ml 5ml ONE (09:33)
[2020-05-12] MEDS ORDERED: Lidocaine 1%/ 10mg/ml/EPI 0.01mg/ml 20ml INJ ONE (09:35)
[2020-05-12] MEDS ORDERED: EPINEPHrine 1mg/1ml Amp ONE (09:35)
[2020-05-12] MEDS ORDERED: Bacitracin 50000 Units Vial ONE ×2 (09:36→09:44)
[2020-05-12] MEDS ORDERED: NeoSporin Gu Irrig 1ml Amp IRRIG ONE ×2 (09:36→09:44)
[2020-05-12] MEDS ORDERED: Muri-Lube ONE (09:43)
[2020-05-12] MEDS ORDERED: NS Irrig 1000ml IRRIG ONE ×4 (09:55→12:25)
[2020-05-12] MEDS ORDERED: Rocuronium Bromide 50mg/5ml Inj IV ONE ×2 (09:58→13:01)
[2020-05-12] MEDS ORDERED: Succinylcholine 20mg/ml 10ml vial ONE ×2 (09:58→13:01)
[2020-05-12] MEDS ORDERED: Acetaminophen (Non formulary) 100 ML IV ONE (11:15)
--- NOTE | 2020-05-12 11:15 | Anethesia Preoperative Eval ---
Anesthesia Pre-op PMH/ROS General Date of Evaluation: May 12, 2020 Time of Evaluation: 10:08 Anesthesiologist: Libby ASA Score: ASA 2 Mallampati Score Class I : Soft palate, uvula, fauces, pillars visible Class II: Soft palate, uvula, fauces visible Class III: Soft palate, base of uvula visible Class IV: Only hard plate visible Mallampati Classification: Class II Surgeon: Taylor Diagnosis: Recurrent HS Surgical Procedure: Debridement and skin graft closure of L axillary wound Anesthesia History: none Family History: no anesthesia problems Allergies: Coded Allergies: PEANUT (Verified Allergy, Severe, anaphylactic, 05/08/20) HYDROMORPHONE (Verified Allergy, Intermediate, severe nausea, 05/08/20) Medications: see eMAR Patient NPO?: Yes Past Medical History Cardiovascular: Denies: HTN, CAD, [place], valve dz, arrhythmia, other Pulmonary: Denies: asthma, COPD, DEBBIE, other Gastrointestinal/Genitourinary: Denies: GERD, [facility], ESRD, other Neurologic/Psychiatric: Reports: depression/anxiety; Denies: dementia, CVA, TIA, other Endocrine: Denies: DM, hypothyroidism, steroids, other HEENT: Denies: cataract (L), cataract (R), glaucoma, [place] (L), [place] (R), other Hematology/Immune: Denies: anemia, DVT, bleeding disorder, other Musculoskeletal/Integumentary: Reports: other - Recurrent HS; Denies: OA, RA, DJD, DDD, edema PMH Narrative: as above PSxH Narrative: Multiple for HS treatment Anesthesia Pre-op Phys. Exam Physician Exam Last Vital Signs Date Time Temp Pulse Resp B/P (MAP) Pulse Ox O2 Delivery O2 Flow Rate FiO2 05/12/20 08:40 Room Air 05/12/20 08:34 99.0 80 18 120/71 (87) 100 Constitutional: NAD Neurologic: CN 2-12 intact Cardiovascular: RRR, no M/R/G Respiratory: CTA Gastrointestinal: S/NT/ND Airway Exam Mallampati Score: Class II MO: limited Neck: stiff ROM: limited Teeth: intact Dentures: no upper, no lower Anesthesia Pre-op A/P Studies Pre-op Studies: EKG - SR Risk Assessment & Plan Assessment: ASA 2 Plan: GA with ETT Status Change Before Surgery: No Pre-Antibiotics Drug: Ancef 1gr. Given Within 1 Hr of Incision: Yes Time Given: 10:50 Jordon Souza MD May 12, 2020 11:15
[2020-05-12] MEDS ORDERED: Morphine Sulfate 10mg/ml Inj ONE (11:25)
[2020-05-12] MEDS ORDERED: Sodium Chloride 10ml vial INJ ONE (11:26)
[2020-05-12] MEDS ORDERED: Neostigmine 1mg/ml 10ml Inj ONE (11:26)
[2020-05-12] MEDS ORDERED: Glycopyrrolate 0.2mg/ml 1ml Vial ONE (11:26)
[2020-05-12] MEDS ORDERED: Metoclopramide 10mg/2ml Inj IVP PRN (11:30)
[2020-05-12] MEDS ORDERED: Meperidine 25mg/1ml Inj (FOR RIGORS ONLY) IV PRN (11:30)
[2020-05-12] MEDS ORDERED: Midazolam 2mg/2ml Inj IVP PRN (11:30)
[2020-05-12] MEDS ORDERED: Ketorolac 30mg Inj IV PRN (11:30)
[2020-05-12] MEDS ORDERED: PCA Morphine 1mg/ml 30 ML IV PRN ×2 (11:30→16:00)
[2020-05-12] MEDS ORDERED: Naloxone 0.4mg/ml Inj IVP PRN ×3 (11:30→16:00)
[2020-05-12] MEDS ORDERED: LR 1000ml 1,000 ML IVLG SCH (11:30)
[2020-05-12] MEDS ORDERED: Silver Nitrate Stick TOPIC ONE (11:49)
[2020-05-12] MEDS ORDERED: Ketorolac 30mg Inj ONE (12:10)
[2020-05-12] MEDS ORDERED: TransDerm Scop 1.5mg/72HR Patch TDERMAL ONE (13:01)
[2020-05-12] MEDS ORDERED: Bacitracin Oint 15gm Tube TOPIC ONE (13:38)
--- NOTE | 2020-05-12 13:59 | Operative Note - PDOC ---
Operative Note Operative Note Pre-op Diagnosis: Left axillary wound and neck Hidradenitis Procedure: STSG to left axillary wound and excision of neck HS with adjacent tissue transfer closure Post-op Diagnosis: Same Post-op Diagnosis: same as pre-op Surgeon: Taylor Printing Worker Supervisor: Jodee Anesthesia: general Specimen: yes Complications: none Condition: stable Estimated Blood Loss: minimal Drains: MARILUZ Implant(s) used?: No Jl Vazquez MD May 12, 2020 13:59
--- NOTE | 2020-05-12 14:11 | Immediate Post-Op Evaluation ---
Immediate Post-Op Evalulation Immediate Post-Op Evalulation Procedure: Skin graft closure of L axillary wound, excision of posterior neck HS Date of Evaluation: May 12, 2020 Time of Evaluation: 14:09 IV Fluids: 1400 Blood Products: Albumin 250 Estimated Blood Loss: 150 Urinary Output: 350 Blood Pressure Systolic: 134 Blood Pressure Diastolic: 76 Pulse Rate: 78 Respiratory Rate: 20 O2 Sat by Pulse Oximetry: 99 Temperature (Fahrenheit): 97.6 Pain Score (1-10): 2 Nausea: No Vomiting: No Complications none Patient Status: reacts, patent, extubated, none Hydration Status: adequate Jordon Souza MD May 12, 2020 14:11
[2020-05-12 14:59] LABS: BASOPHILS % (AUTO) 0.5 % (0.0-2.0); EOSINOPHILS % (AUTO) 2.9 % (0.0-3.0); HEMATOCRIT 34.2 % (42.0-52.0); HEMOGLOBIN 10.4 G/DL (14.2-18.0); LYMPHOCYTES % (AUTO) 30.8 % (20.0-45.0); MEAN CORPUSCULAR VOLUME 77 FL (80-99); NEUTROPHILS % (AUTO) 60.8 % (45.0-75.0); PLATELET COUNT 280 K/UL (150-450); RED BLOOD COUNT 4.45 M/UL (4.70-6.10); RED CELL DISTRIBUTION WIDTH 15.6 % (11.6-14.8); WHITE BLOOD COUNT 17.4 K/UL (4.8-10.8)
--- NOTE | 2020-05-12 15:30 | NUR ---
NURSE NOTES: Pt came up to unit via hospital bed in stable condition; on 3L NC; and w/all belongings accounted for. Pt A&Ox4; VSS; on FISH FROG OR OYSTER FARMER morphine; and surgical dressings C/D/I w/MARILUZ drain to bulb suction. Will continue to monitor.
--- NOTE | 2020-05-12 15:43 | History and Physical ---
History of Present Illness General Date patient seen: May 12, 2020 Time patient seen: 15:40 Reason for Hospitalization: Axillary wound, neck hidradenitis Present Illness HPI 24 year old man with history bilateral axillary recurrent hidradenitis suppu rativa s/p resection (12/06) with subsequent excision of pilonidal disease and flap closure (12/09) Who underwent STSG to left axillary wound and excision of neck HS with adjacent tissue transfer closure, patient had been experiencing severe pain and discomfort from the axillary wound in addition to drainage and pain from the neck HS. Denies any fever or chills. Patient seen post-op is sedated but able to answer my questions. Patient currently on morphine FIRE MANAGEMENT TECHNICIAN, pain appears to be controlled. Allergies: Coded Allergies: PEANUT (Verified Allergy, Severe, anaphylactic, 05/08/20) HYDROMORPHONE (Verified Allergy, Intermediate, severe nausea, 05/08/20) COVID-19 Screening Contact w/high risk pt: No Recent Travel to affected area: No Experienced COVID-19 symptoms?: No Medication History No Active Prescriptions or Reported Meds Patient History Healthcare decision maker Resuscitation status Advanced Directive on File Family History Family History: FH: HTN (hypertension) 33 FATHER 32 MOTHER Review of Systems Constitutional: Denies: chills, fever Respiratory: Denies: cough Cardiovascular: Denies: chest pain Gastrointestinal: Denies: abdominal pain Genitourinary: Denies: discharge Musculoskeletal: Denies: back pain Skin: Reports: other ROS Narrative Limited due to sedation Physical Exam General Appearance: alert, other - Drowsy Lines, tubes and drains: other - Neck MARILUZ drain HEENT: anicteric Neck: supple Respiratory/Chest: lungs clear, normal breath sounds Cardiovascular/Chest: normal rate, regular rhythm Abdomen: non tender, soft Extremities: non-tender, normal inspection Neurologic: alert, oriented x 3 Last 24 Hour Vital Signs Date Time Temp Pulse Resp B/P (MAP) Pulse Ox O2 Delivery O2 Flow Rate FiO2 05/12/20 15:05 68 15 124/59 100 Nasal Cannula 3 05/12/20 15:00 97.7 05/12/20 15:00 97.6 67 14 127/67 100 Nasal Cannula 3 05/12/20 14:45 68 15 123/60 100 Nasal Cannula 3 05/12/20 14:45 15 2/22/21 14:40 70 14 125/68 100 Nasal Cannula 3 05/12/20 14:30 17 05/12/20 14:30 78 17 128/71 100 Simple Mask 6 05/12/20 14:20 80 14 144/89 100 Simple Mask 6 05/12/20 14:20 16 05/12/20 14:15 82 15 136/74 100 Simple Mask 6 05/12/20 14:11 78 20 99 05/12/20 14:10 86 16 128/63 100 Simple Mask 6 05/12/20 14:05 97.2 92 14 131/55 100 Simple Mask 6 05/12/20 08:40 Room Air 05/12/20 08:34 99.0 80 18 120/71 (87) 100 Laboratory Tests Test 05/12/20 14:50 White Blood Count 17.4 K/UL (4.8-10.8) H Red Blood Count 4.45 M/UL (4.70-6.10) L Hemoglobin 10.4 G/DL (14.2-18.0) L Hematocrit 34.2 % (42.0-52.0) L Mean Corpuscular Volume 77 FL (80-99) L Mean Corpuscular Hemoglobin 23.3 PG (27.0-31.0) L Mean Corpuscular Hemoglobin Concent 30.4 G/DL (32.0-36.0) L Red Cell Distribution Width 15.6 % (11.6-14.8) H Platelet Count 280 K/UL (150-450) Mean Platelet Volume 9.4 FL (6.5-10.1) Neutrophils (%) (Auto) 60.8 % (45.0-75.0) Lymphocytes (%) (Auto) 30.8 % (20.0-45.0) Monocytes (%) (Auto) 5.0 % (1.0-10.0) Eosinophils (%) (Auto) 2.9 % (0.0-3.0) Basophils (%) (Auto) 0.5 % (0.0-2.0) Height (Feet): 6 Height (Inches): 0.00 Weight (Pounds): 160 Medications Current Medications Medications (Trade) Dose Ordered Sig/Flavia Route PRN Reason Start Time Stop Time Status Last Admin Dose Admin Acetaminophen (Tylenol) 650 mg Q4H PRN ORAL FEVER 05/12/20 09:30 06/11/20 09:29 Acetaminophen (Tylenol) 650 mg Q4H PRN ORAL Mild Pain (Pain Scale 1-3) 05/12/20 14:15 06/11/20 14:14 Bisacodyl (Dulcolax) 10 mg HSPRN PRN RECTAL Constipation 05/12/20 14:15 08/10/20 14:14 Dextrose (Dextrose 50%) 25 ml Q30M PRN IV Hypoglycemia 05/12/20 14:15 08/10/20 14:14 Dextrose (Dextrose 50%) 50 ml Q30M PRN IV Hypoglycemia 05/12/20 14:15 08/10/20 14:14 Diphenhydramine HCl (Benadryl) 25 mg Q6H PRN ORAL Itching/Pruritis 05/12/20 14:15 06/11/20 14:14 Docusate Sodium (Colace) 100 mg EVERY 12 HOURS ORAL 05/12/20 21:00 06/11/20 20:59 Famotidine (Pepcid) 20 mg BID ORAL 05/12/20 18:00 08/10/20 17:59 Heparin Sodium (Porcine) (Heparin 5000 units/ml) 5,000 units EVERY 12 HOURS SUBQ 05/12/20 21:00 06/26/20 20:59 Ondansetron HCl (Zofran) 4 mg Q4H PRN IVP Nausea & Vomiting 05/12/20 14:15 06/11/20 14:14 Assessment/Plan Assessment/Plan: 24 year old man with history bilateral axillary recurrent hidradenitis suppurativa s/p resection (12/06) with subsequent excision of pilonidal disease and flap closure (12/09) Who underwent STSG to left axillary wound and excision of neck HS with adjacent tissue transfer closure today #Neck hidradenitis suppurativa with drainage causing severe pain and discomfort, s/p resection and closure (05/12/20) #S/p STSG to left axillary wound (05/12/20) -admit to medical service -Continue excellent postoperative care -Encourage mobilization/ambulation -Encourage incentive spirometry to optimize pulmonary hygiene -DVT/GI prophylaxis as appropriate -Pain control with FIRE MANAGEMENT TECHNICIAN and supportive care -Ancef 1 gram IV q8h Adair Mederos MD May 12, 2020 15:43
[2020-05-12] MEDS: PCA Morphine 1mg/ml 30 ML IV PRN (16:17)
[2020-05-12] MEDS: LR 1000ml 1,000 ML IV SCH (18:29)
[2020-05-12] MEDS: PCA shift volume MISC SCH (19:00)
[2020-05-12] MEDS ORDERED: PCA shift volume MISC SCH ×3 (19:00)
--- NOTE | 2020-05-12 19:30 | NUR ---
NURSE NOTES: Patient awake in bed, alert and oriented x4, on nasal cannula 3LPM oxygen. No complaints at this time. IV access on the right hand running LR@75ml/hr and DATA TRANSCRIBER morphine. MARILUZ drain on left axilla, other dressings are dry and intact. Instructed to use call light for assistance. Bed in lowest, lock engaged and alarm on. Will continue to monitor.
--- NOTE | 2020-05-12 20:00 | NUR ---
NURSE HAND-OFF: Important Events on Shift: Pt arrived to unit from PACU; pt has yet to void since arriving to unit. Patient Status: Stable Diet: Regular Pending Orders: None Pending Results/Labs: None Pending MD notification: None Latest Vital Signs: Temperature 97.7 , Pulse 68 , B/P 124 /59 , Respiratory Rate 15 , O2 SAT 100 , Nasal Cannula, O2 Flow Rate 3.0 . Vital Sign Comment: Stable Latest Grigsby Fall Score: 55 Fall Risk: High Risk Safety Measures: Call light Within Reach, Bed Alarm , Side Rails Side Rails x2, Bed position Low and Locked. Fall Precautions: Report given to ADDIE Reardon.
[2020-05-12] MEDS: ceFAZolin sod 1 GM in D5W 55 ML IVPB SCH (20:27)
[2020-05-12] MEDS: Docusate 100mg cap ORAL SCH (20:32)
[2020-05-12] MEDS: Heparin 5000 units/ml inj SUBQ SCH (20:32)
[2020-05-13] VITALS (7 sets, daily range): BP systolic 94–119; BP diastolic 38–84
[2020-05-13] MEDS: ceFAZolin sod 1 GM in D5W 55 ML IVPB SCH ×3 (04:08→20:23)
[2020-05-13 06:43] LABS: BASOPHILS % (AUTO) 0.4 % (0.0-2.0); EOSINOPHILS % (AUTO) 3.1 % (0.0-3.0); HEMATOCRIT 33.8 % (42.0-52.0); HEMOGLOBIN 10.4 G/DL (14.2-18.0); LYMPHOCYTES % (AUTO) 19.7 % (20.0-45.0); MEAN CORPUSCULAR VOLUME 77 FL (80-99); MONOCYTES % (AUTO) 5.8 % (1.0-10.0); PLATELET COUNT 239 K/UL (150-450); RED CELL DISTRIBUTION WIDTH 15.5 % (11.6-14.8); WHITE BLOOD COUNT 9.6 K/UL (4.8-10.8)
[2020-05-13 06:52] LABS: ANION GAP 5 mmol/L (5-15); CARBON DIOXIDE 30 MMOL/L (21-32); CHLORIDE 102 MMOL/L (98-107); CREATININE 0.9 MG/DL (0.55-1.30); POTASSIUM 3.9 MMOL/L (3.5-5.1); SODIUM 137 MMOL/L (136-145)
[2020-05-13] MEDS: PCA shift volume MISC SCH ×2 (07:00→19:29)
[2020-05-13 07:02] LABS: CALCIUM 8.5 MG/DL (8.5-10.1)
[2020-05-13 07:18] LABS: BLOOD UREA NITROGEN 9 mg/dL (7-18)
--- NOTE | 2020-05-13 07:45 | NUR ---
NURSE NOTES: Received pt in bed, awake, alert and oriented x4, on NC 2L, breathing even and unlabored. No acute distress noted. Pain is control with CNC SET UP OPERATOR per pt. IV access on the right hand running IVF and CNC SET UP OPERATOR morphine. MARILUZ drain on left axilla, surgical dressings are dry and intact. Bed in lowest, lock engaged and alarm on. Call light within reach. Will continue to monitor.
--- NOTE | 2020-05-13 08:00 | NUR ---
NURSE HAND-OFF: Important Events on Shift: dice person, monitoring Patient Status: Diet: Pending Orders: Pending Results/Labs: Pending MD notification: Latest Vital Signs: Temperature 98.1 , Pulse 60 , B/P 104 /42 , Respiratory Rate 18 , O2 SAT 96 , Nasal Cannula, O2 Flow Rate 2.0 . Vital Sign Comment: Latest Grigsby Fall Score: 55 Fall Risk: High Risk Safety Measures: Call light Within Reach, Bed Alarm Zone 1, Side Rails Side Rails x2, Bed position Low and Locked. Fall Precautions: Report given to ADDIE Mojica.
[2020-05-13] MEDS: Docusate 100mg cap ORAL SCH ×2 (09:07→20:30)
[2020-05-13] MEDS: LR 1000ml 1,000 ML IV SCH ×2 (09:07→22:48)
[2020-05-13] MEDS: Heparin 5000 units/ml inj SUBQ SCH ×2 (09:14→20:24)
[2020-05-13] MEDS ORDERED: NS Irrig 1000ml ONE (10:00)
[2020-05-13] MEDS ORDERED: Sterile Water Irrig 1000ml IRRIG ONE (10:00)
[2020-05-13] MEDS ORDERED: LR 1000ml ONE (10:00)
--- NOTE | 2020-05-13 10:10 | 48 Hour Post Anesthesia Eval ---
Post Anesthesia Evaluation Procedure: Skin graft closure of L axillary wound, excision of posterior neck HS Date of Evaluation: May 13, 2020 Time of Evaluation: 10:09 Blood Pressure Systolic: 108 0: 64 Pulse Rate: 68 Respiratory Rate: 20 Temperature (Fahrenheit): 97.8 O2 Sat by Pulse Oximetry: 98 Airway: patent Nausea: No Vomiting: No Pain Intensity: 2 Hydration Status: adequate Cardiopulmonary Status: stable Mental Status/LOC: patient returned to baseline Follow-up Care/Observations: n/a Post-Anesthesia Complications: none Follow-up care needed: N/A Jordon Souza MD May 13, 2020 10:10
--- NOTE | 2020-05-13 10:12 | General Progress Note ---
Subjective Date patient seen: May 13, 2020 Time patient seen: 07:30 ROS Limited/Unobtainable: No Constitutional: Denies: chills, fever Cardiovascular: Denies: chest pain Respiratory: Denies: cough Gastrointestinal/Abdominal: Denies: abdominal pain Genitourinary: Denies: burning Neurologic/Psychiatric: Denies: anxiety, depressed Allergies: Coded Allergies: PEANUT (Verified Allergy, Severe, anaphylactic, 05/08/20) HYDROMORPHONE (Verified Allergy, Intermediate, severe nausea, 05/08/20) Subjective Follow up for post-op medical management Patient feels well this AM but tired and drowsy. Pain controlled CBC and BMP this AM stable Objective Last 24 Hour Vital Signs Date Time Temp Pulse Resp B/P (MAP) Pulse Ox O2 Delivery O2 Flow Rate FiO2 05/13/20 04:00 96 05/13/20 04:00 98.1 60 18 104/42 (62) 96 05/13/20 01:00 113/57 (75) 05/13/20 00:00 96 05/13/20 00:00 97.9 59 16 94/38 (56) 96 05/12/20 20:00 99 05/12/20 20:00 99 Nasal Cannula 2.0 28 05/12/20 20:00 98.7 63 20 109/58 (75) 99 05/12/20 18:52 Nasal Cannula 3.0 05/12/20 17:00 97.7 66 18 114/54 (74) 99 05/12/20 16:00 98.6 57 18 120/55 (76) 100 05/12/20 16:00 100 05/12/20 15:30 97.5 62 18 122/55 (77) 100 05/12/20 15:05 68 15 124/59 100 Nasal Cannula 3 05/12/20 15:00 97.7 05/12/20 15:00 97.6 67 14 127/67 100 Nasal Cannula 3 05/12/20 14:45 68 15 123/60 100 Nasal Cannula 3 05/12/20 14:45 15 05/12/20 14:40 70 14 125/68 100 Nasal Cannula 3 05/12/20 14:30 17 05/12/20 14:30 78 17 128/71 100 Simple Mask 6 05/12/20 14:20 80 14 144/89 100 Simple Mask 6 05/12/20 14:20 16 05/12/20 14:15 82 15 136/74 100 Simple Mask 6 05/12/20 14:11 78 20 99 05/12/20 14:10 86 16 128/63 100 Simple Mask 6 05/12/20 14:05 97.2 92 14 131/55 100 Simple Mask 6 Intake and Output 05/12/20 05/13/20 19:00 07:00 Intake Total 2070 ml 355 ml Output Total 512 ml 610 ml Balance 1558 ml -255 ml Intake Oral 120 ml IV Total 1950 ml 355 ml Output Urine Total 350 ml 580 ml Drainage Total 12 ml 30 ml Estimated Blood Loss 150 ml # Voids 1 2 # Bowel Movements 1 Laboratory Tests 05/12/20 14:50: White Blood Count 17.4H, Red Blood Count 4.45L, Hemoglobin 10.4L, Hematocrit 3 4.2L, Mean Corpuscular Volume 77L, Mean Corpuscular Hemoglobin 23.3L, Mean Corpuscular Hemoglobin Concent 30.4L, Red Cell Distribution Width 15.6H, Platelet Count 280, Mean Platelet Volume 9.4, Neutrophils (%) (Auto) 60.8, Lymphocytes (%) (Auto) 30.8, Monocytes (%) (Auto) 5.0, Eosinophils (%) (Auto) 2.9, Basophils (%) (Auto) 0.5 05/13/20 05:15: White Blood Count 9.6, Red Blood Count 4.40L, Hemoglobin 10.4L, Hematocrit 33.8L , Mean Corpuscular Volume 77L, Mean Corpuscular Hemoglobin 23.6L, Mean Corpuscular Hemoglobin Concent 30.6L, Red Cell Distribution Width 15.5H, Platelet Count 239, Mean Platelet Volume 9.6, Neutrophils (%) (Auto) 71.0, Lymphocytes (%) (Auto) 19.7L, Monocytes (%) (Auto) 5.8, Eosinophils (%) (Auto) 3.1H, Basophils (%) (Auto) 0.4, Sodium Level 137, Potassium Level 3.9, Chloride Level 102, Carbon Dioxide Level 30, Anion Gap 5, Blood Urea Nitrogen 9, Creatinine 0.9, Estimat Glomerular Filtration Rate > 60, Glucose Level 76, Calcium Level 8.5 Height (Feet): 6 Height (Inches): 0.00 Weight (Pounds): 160 General Appearance: alert, other - Drowsy Neck: supple Cardiovascular: normal rate, regular rhythm Respiratory/Chest: lungs clear, normal breath sounds Abdomen: non tender, soft Assessment/Plan Assessment/Plan: 24 year old man with history bilateral axillary recurrent hidradenitis suppurativa s/p resection (12/06) with subsequent excision of pilonidal disease and flap closure (12/09) Who underwent STSG to left axillary wound and excision of neck HS with adjacent tissue transfer closure today #Neck hidradenitis suppurativa with drainage causing severe pain and discomfort, s/p resection and closure (05/12/20) #S/p STSG to left axillary wound (05/12/20) -cont inpatient medical care -Continue excellent postoperative care -Encourage mobilization/ambulation -Encourage incentive spirometry to optimize pulmonary hygiene -DVT/GI prophylaxis as appropriate -Pain control with CLEAN ENERGY POLICY ANALYST morphine and supportive care -Ancef 1 gram IV q8h Adair Mederos MD May 13, 2020 10:12
[2020-05-13] MEDS: PCA Morphine 1mg/ml 30 ML IV PRN (12:18)
--- NOTE | 2020-05-13 12:55 | General Progress Note ---
Progress Note Progress Note Pt seen and examined. POD#1 and doing well. Pain well controlled. WBC is down Needs PT and will take down dressing over skin graft in 3/4 days. MD Taylor Briceño Amir MD May 13, 2020 12:55
--- NOTE | 2020-05-13 14:14 | Operative Note - Dictated ---
DATE OF OPERATION: 05/12/2020 PREOPERATIVE DIAGNOSES: 1. Extensive hidradenitis of the posterior neck and scalp. 2. Left axillary wound opening measuring in total 15 x 8 cm. 3. Active hidradenitis disease in the buttock region. POSTOPERATIVE DIAGNOSES: 1. Extensive hidradenitis of the posterior neck and scalp. 2. Left axillary wound opening measuring in total 15 x 8 cm. 3. Active hidradenitis disease in the buttock region. PROCEDURES: 1. Excision of hidradenitis in the left buttock region with closure of buttock wound. 2. Split-thickness skin graft harvested from the right anterior thigh for subsequent placement into the left axillary defect. 3. Preparation of left axillary defect for skin grafting. 4. Skin graft placed into the left axillary defect measuring 15 x 8 cm. 5. Radical excision of extensive posterior scalp and neck, hidradenitis suppurativa with resulting wound measuring 20 x 6 cm. 6. Adjacent tissue transfer closure of complex wound following a radical excision of hidradenitis wound measuring 20 x 6 cm. SURGEON: Jl Vazquez M.D. ROCK SPLITTER: Alicia Ellsworth M.D. ANESTHESIA: General. OPERATIVE TIME: Three hours. COMPLICATIONS: None. DRAINS: Included a size 15 MARILUZ drain into posterior scalp. INDICATIONS FOR SURGERY: This is a 24-year-old male who is a established patient of mine, who has had previous extensive surgeries for hidradenitis suppurativa in his bilateral axilla and groin regions. He has done well from those however he continues to have new areas and persistent areas of disease in different parts specifically he has a very large area of disease in his left posterior scalp as well as some new areas of disease in his buttock region. In addition, following the reconstruction of his bilateral axillary defect with flaps there was a dehiscence which resulted in a chronic wound opening in the left axilla which was large and required soft tissue coverage. We discussed the procedures to include a radical excision of the large areas of disease in the neck with adjacent tissue transfer closure of those wounds as well as skin grafting of the left axillary disease open area as well as removal of the new diseased areas in the buttock. He understood the risks and benefits of surgery and agreed to proceed. DETAILS OF THE OPERATION: The patient was brought to the operating room and initially placed in the lithotomy position on the operating table. His bilateral lower extremities and perineum as well as his left axilla and arm were prepped and draped in a sterile and usual fashion. There were two distinct areas that appeared to be of new onset of disease, this was in the left buttock as well as the right groin. Both areas were explored. It appeared that the right groin mass was more of a scar tissue from the previous surgery so it was left untouched however the left buttock wound appeared to be consistent with hidradenitis as such this area of disease was excised in an elliptical fashion resulting in a defect that required definitive closure. Once the wound was irrigated and hemostasis was achieved, the wound was closed in a layered fashion using 2-0 Vicryl sutures and 3-0 chromic for the skin. We then turned our attention to the left axillary wound which was hypergranulated in its open areas, this was sharply debrided down to punctate bleeding to prepare for skin grafting. The wound measured 15 x 6 cm and a corresponding skin graft was designed over the right anterior thigh adjacent to the old skin grafting site. The dermatome was then set to 14, 1000 of an inch. An appropriate size plate was then used to harvest the skin graft. The skin graft was then meshed on the back table and then it was divided appropriately to allow for definitive inset into the defect. The skin graft was placed and secured in place with a running and interrupted 3-0 chromic sutures. We then turned our attention to the very large tear in the posterior scalp that had disease. An elliptical type of incision was designed to encompass this entire area of disease, total of 10 mL of lidocaine with epinephrine was injected into the base of the diseased area prior to definitive excision. A #10 blade was used to make elliptical incision and dissection was then carried down carefully down to the galea to remove the diseased tissue on block and upon removal of this diseased tissue the defect that resulted was quite large and measured 20 x 6 cm. This was clearly not amenable to primary closure. As such, adjacent tissue transfer had to be employed by elevating flaps from the posterior neck as well as the superior scalp. The posterior neck flap was supplied by perforators emanating through the trapezius muscle based off of the transverse cervical artery. This flap was elevated to allow for significant mobilization and a corresponding posterior scalp flap was elevated also based off of perforators of the occipital artery as well as the superficial temporal artery being profuse blood supply and this was elevated over the galea to allow for definitive adjacent tissue transfer. Once the flaps were fully elevated, adjacent tissue transfer was completed by reapproximating these two flaps of tissue and these were closed in a layered fashion using 0, 2-0, and 3-0 Vicryl sutures with 3-0 Monocryl used to close the skin that was further reinforced with 3-0 Prolene sutures and Dermabond for further reinforcement. Bulky dressings were applied to this area. A skin graft bolster had also been applied to the axillary skin graft and this will be taken down in 4 to 5 days. The patient tolerated the procedure well. There were no complications. Jl Vazquez M.D. DR: [place] JOB#: [id number] CC: JONATHON
--- NOTE | 2020-05-13 14:15 | NUR ---
PT EVALUATION NOTE Patient seen for initial evaluation and treatment initiated. Patient presents with impaired functional mobility and pain post-op. Patient requires min assist for bed mobility and transfers without assistive device. Patient able to ambulate 125 ft with CGA. Patient will benefit from skilled inpatient PT intervention to increase postural stability for improved level of functional mobility, safety and activity tolerance. Recommend discharge home once medically cleared by MD. Addendum: 05/13/20 at 1440 by SAFIA ROD PT Amended: Links added.
--- NOTE | 2020-05-13 14:59 | NUR ---
[employer] FAXED TO [employer] [facility] [facility] [phone]
--- NOTE | 2020-05-13 19:29 | NUR ---
NURSE HAND-OFF: Important Events on Shift:[Pt out of bed with physical therapist, reinforced dressing on the posterior neck] Patient Status: [] Diet: [reg] Pending Orders: [] Pending Results/Labs:[] Pending MD notification:[] Latest Vital Signs: Temperature 97.4 , Pulse 79 , B/P 110 /69 , Respiratory Rate 18 , O2 SAT 100 , Nasal Cannula, O2 Flow Rate 2.0 . Vital Sign Comment: [stable] Latest Grigsby Fall Score: 55 Fall Risk: High Risk Safety Measures: Call light Within Reach, Bed Alarm Zone 1, Side Rails Side Rails x2, Bed position Low and Locked. Fall Precautions: Report given to [ADDIE Saleh].
[2020-05-14] VITALS: BP_SYST 101; BP_SYST 102; BP_DIAS 54; BP_DIAS 84
[2020-05-14 04:00] VITALS: BP_SYST 101; BP_SYST 102; BP_DIAS 54; BP_DIAS 84
[2020-05-14] MEDS: ceFAZolin sod 1 GM in D5W 55 ML IVPB SCH ×3 (04:27→20:49)
--- NOTE | 2020-05-14 04:39 | NUR ---
NURSE NOTES: Patient in bed, IV access on right hand connected to LR @ 75 and PRINTING ENGINEER Dilaudid. Dressings intact. MARILUZ drain intact. Call light in reach. Bed in lowest and lock engaged. Will continue plan of care.
[2020-05-14] MEDS: PCA Morphine 1mg/ml 30 ML IV PRN (06:39)
[2020-05-14] MEDS: PCA shift volume MISC SCH (07:21)
--- NOTE | 2020-05-14 07:33 | NUR ---
NURSE HAND-OFF: Important Events on Shift: service electrician syringe changed Patient Status: Diet: Pending Orders: Pending Results/Labs: Pending MD notification Latest Vital Signs: Temperature 97.2 , Pulse 71 , B/P 102 /84 , Respiratory Rate 18 , O2 SAT 96 , Nasal Cannula, O2 Flow Rate 2.0 . Vital Sign Comment: Latest Grigsby Fall Score: 55 Fall Risk: High Risk Safety Measures: Call light Within Reach, Bed Alarm Zone 1, Side Rails Side Rails x2, Bed position Low and Locked. Fall Precautions: Report given to ADDIE Locke.
--- NOTE | 2020-05-14 07:44 | NUR ---
NURSE NOTES: Patient awake, alert x4; on room air, no sing of distress and shortness of breath; no sing of chest pain; MARILUZ drain connected to the neck; IV Left-Hand fluid running; Urinal within reach; side rails up x2, breaks engaged, bed at lowest position; call light within reach; will keep monitoring.
[2020-05-14 08:00] VITALS: BP_SYST 100; BP_SYST 102; BP_DIAS 59; BP_DIAS 84
[2020-05-14] MEDS: Docusate 100mg cap ORAL SCH ×2 (09:34→20:49)
[2020-05-14] MEDS: Heparin 5000 units/ml inj SUBQ SCH ×2 (09:34→20:50)
[2020-05-14 12:00] VITALS: BP_SYST 101; BP_SYST 102; BP_DIAS 52; BP_DIAS 84
--- NOTE | 2020-05-14 12:02 | General Progress Note ---
Subjective Date patient seen: May 14, 2020 Time patient seen: 12:00 ROS Limited/Unobtainable: No Constitutional: Denies: chills, fever Cardiovascular: Denies: chest pain Respiratory: Denies: cough Gastrointestinal/Abdominal: Denies: abdomen distended, abdominal pain Neurologic/Psychiatric: Denies: depressed Allergies: Coded Allergies: PEANUT (Verified Allergy, Severe, anaphylactic, 05/08/20) HYDROMORPHONE (Verified Allergy, Intermediate, severe nausea, 05/08/20) Subjective Follow up for post-op medical management Patient feels well this AM, less drowsy Passing flatus but no BMs yet, feels like he will need to defecate soon Objective Last 24 Hour Vital Signs Date Time Temp Pulse Resp B/P (MAP) Pulse Ox O2 Delivery O2 Flow Rate FiO2 05/14/20 08:05 98 Nasal Cannula 2.0 28 05/14/20 08:00 71 18 96 05/14/20 08:00 98.1 81 17 100/59 (73) 98 05/14/20 04:00 97.2 71 18 101/54 (70) 96 05/14/20 04:00 71 18 96 05/14/20 00:00 88 19 97 05/14/20 00:00 97.7 84 18 101/54 (70) 98 05/13/20 20:00 99.8 88 19 102/54 (70) 97 05/13/20 20:00 88 19 97 05/13/20 19:42 95 Nasal Cannula 2.0 28 05/13/20 16:00 97.4 84 18 110/69 (83) 100 05/13/20 16:00 79 18 100 05/13/20 12:48 97.8 Intake and Output 05/13/20 05/14/20 19:00 07:00 Intake Total 525 ml 710 ml Output Total 20 ml Balance 525 ml 690 ml IV Total 75 ml 710 ml Other 450 ml Drainage Total 20 ml # Voids 2 Height (Feet): 6 Height (Inches): 0.00 Weight (Pounds): 160 General Appearance: no apparent distress, alert Cardiovascular: normal rate, regular rhythm Respiratory/Chest: lungs clear, normal breath sounds Abdomen: non tender, soft Assessment/Plan Assessment/Plan: 24 year old man with history bilateral axillary recurrent hidradenitis suppurativa s/p resection (12/06) with subsequent excision of pilonidal disease and flap closure (12/09) Who underwent STSG to left axillary wound and excision of neck HS with adjacent tissue transfer closure today #Neck hidradenitis suppurativa with drainage causing severe pain and discomfort, s/p resection and closure (05/12/20) #S/p STSG to left axillary wound (05/12/20) -cont inpatient medical care -Continue excellent postoperative care -Encourage mobilization/ambulation, PT ordered -Encourage incentive spirometry to optimize pulmonary hygiene -DVT/GI prophylaxis as appropriate -Pain control with COATER BRAKE LININGS morphine and supportive care -Cont bowel regimen -Ancef 1 gram IV q8h -Case management consulted to arrange home health for dressing changes/wound care Adair Mederos MD May 14, 2020 12:02
--- NOTE | 2020-05-14 12:26 | NUR ---
[employer] FAXED TO [facility] FOR ACCEPTANCE. WILL FOLLOW UP WITH ACCEPTANCE.
[2020-05-14] MEDS: LR 1000ml 1,000 ML IV SCH (12:44)
[2020-05-14 16:00] VITALS: BP_SYST 102; BP_SYST 120; BP_SYST 143; BP_DIAS 63; BP_DIAS 84; BP_DIAS 90
--- NOTE | 2020-05-14 18:29 | NUR ---
NURSE NOTES: MARILUZ drain 15cc removed;
--- NOTE | 2020-05-14 19:30 | NUR ---
NURSE NOTES: Patient in bed, awake, alert x 4. Able to make needs known. 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 Iv site noted, iv fluid is infusing as ordered. Skin is warm and dry to touch. REspriation is even and unlabored. Noted with MARILUZ drain behind the neck draining. Bed in low and locked position. provided safe environment. Call light is at bedside.
--- NOTE | 2020-05-14 19:42 | NUR ---
NURSE HAND-OFF: Important Events on Shift:MARILUZ drain in place; Hydration; works with PT; Patient Status: Diet: Pending Orders: Pending Results/Labs: Pending MD notification: Latest Vital Signs: Temperature 98.2 , Pulse 78 , B/P 120 /63 , Respiratory Rate 18 , O2 SAT 99 , Nasal Cannula, O2 Flow Rate 2.0 . Vital Sign Comment: Latest Grigsby Fall Score: 55 Fall Risk: High Risk Safety Measures: Call light Within Reach, Bed Alarm Zone 1, Side Rails Side Rails x2, Bed position Low and Locked. Fall Precautions: Report given to .
[2020-05-14 20:00] VITALS: BP_SYST 117; BP_SYST 120; BP_DIAS 66; BP_DIAS 67
[2020-05-15] VITALS: BP 105/68
[2020-05-15] MEDS: LR 1000ml 1,000 ML IV SCH ×2 (00:01→14:49)
[2020-05-15 04:00] VITALS: BP 111/69
[2020-05-15] MEDS: ceFAZolin sod 1 GM in D5W 55 ML IVPB SCH ×3 (04:03→21:13)
[2020-05-15] MEDS ORDERED: PCA Morphine 1mg/ml 30 ML IV PRN (04:45)
--- NOTE | 2020-05-15 06:49 | NUR ---
NURSE NOTES: Antoine drain output <5
--- NOTE | 2020-05-15 07:06 | NUR ---
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 Vital Sign Comment: WNL Latest Grigsby Fall Score: 55 Fall Risk: High Risk Safety Measures: Call light Within Reach, Bed Alarm Zone 1, Side Rails Side Rails x2, Bed position Low and Locked. Fall Precautions: Report given to ADDIE Munoz.
[2020-05-15 08:00] VITALS: BP 94/57
--- NOTE | 2020-05-15 08:00 | NUR ---
NURSE NOTES: Patient alert and oriented.IV fluids infusing as ordered.EXCAVATING SUPERVISOR as ordered.J/P drain noted to back of neck with small amount of drainage noted.Patient eating breakfast.Call light within reach.
[2020-05-15] MEDS: Docusate 100mg cap ORAL SCH ×2 (09:00→21:00)
[2020-05-15] MEDS: Heparin 5000 units/ml inj SUBQ SCH ×2 (10:20→21:21)
[2020-05-15 12:00] VITALS: BP 114/63
[2020-05-15] MEDS ORDERED: Miralax 17gm pkt ORAL PRN (15:30)
[2020-05-15] MEDS ORDERED: HYDROcodone/Acetamin 10/325 tab ORAL PRN (15:30)
--- NOTE | 2020-05-15 15:30 | General Progress Note ---
Subjective Date patient seen: May 15, 2020 Time patient seen: 15:27 Constitutional: Denies: chills, fever Cardiovascular: Denies: chest pain Respiratory: Denies: cough Gastrointestinal/Abdominal: Denies: abdominal pain Genitourinary: Denies: burning Allergies: Coded Allergies: PEANUT (Verified Allergy, Severe, anaphylactic, 05/08/20) HYDROMORPHONE (Verified Allergy, Intermediate, severe nausea, 05/08/20) Subjective Follow up for post-op medical management Feels well, still no BM but passing flatus Objective Last 24 Hour Vital Signs Date Time Temp Pulse Resp B/P (MAP) Pulse Ox O2 Delivery O2 Flow Rate FiO2 05/15/20 12:00 98.0 79 18 114/63 (80) 98 05/15/20 08:10 98 Nasal Cannula 2.0 28 05/15/20 08:00 98.1 68 17 94/57 (69) 97 05/15/20 04:00 97.6 70 16 111/69 (83) 95 05/15/20 04:00 70 16 95 05/15/20 00:00 98.1 71 18 105/68 (80) 98 05/15/20 00:00 71 18 98 05/14/20 21:00 98 Nasal Cannula 2.0 28 05/14/20 20:00 74 18 98 05/14/20 20:00 98.5 74 20 120/66 (84) 98 05/14/20 16:00 71 18 96 05/14/20 16:00 98.2 78 18 120/63 (82) 99 Intake and Output 05/14/20 05/15/20 19:00 07:00 Intake Total 1655 ml 780 ml Output Total 915 ml 655 ml Balance 740 ml 125 ml Intake Oral 720 ml 500 ml IV Total 935 ml 280 ml Output Urine Total 900 ml 650 ml Drainage Total 15 ml 5 ml Height (Feet): 6 Height (Inches): 0.00 Weight (Pounds): 160 General Appearance: alert Neck: supple Cardiovascular: normal rate, regular rhythm Respiratory/Chest: lungs clear, normal breath sounds Abdomen: non tender, soft Assessment/Plan Assessment/Plan: 24 year old man with history bilateral axillary recurrent hidradenitis suppurativa s/p resection (12/06) with subsequent excision of pilonidal disease and flap closure (12/09) Who underwent STSG to left axillary wound and excision of neck HS with adjacent tissue transfer closure today #Neck hidradenitis suppurativa with drainage causing severe pain and discomfort, s/p resection and closure (05/12/20) #S/p STSG to left axillary wound (05/12/20) -cont inpatient medical care -Continue excellent postoperative care -Encourage mobilization/ambulation, PT/OT -Encourage incentive spirometry to optimize pulmonary hygiene -DVT/GI prophylaxis as appropriate -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
--- NOTE | 2020-05-15 15:47 | NUR ---
INSURANCE [employer]INICALS FAXED TO [facility] FX [phone]
[2020-05-15 16:00] VITALS: BP 107/63
[2020-05-15] MEDS ORDERED: BENZOYL PEROXI TP (17:21)
[2020-05-15] MEDS ORDERED: TRETIN-X 0.0251 EAC1 TP (17:21)
[2020-05-15] MEDS ORDERED: ALBUTEROL SULF8.5 G1 INH (17:21)
[2020-05-15] MEDS ORDERED: VIBRAMYCIN100 MG ORAL (17:21)
--- NOTE | 2020-05-15 18:00 | NUR ---
NURSE NOTES: Patient resting,no complaints at this time..J/Pdrain remains intact.Call light within reach.
--- NOTE | 2020-05-15 19:45 | NUR ---
NURSE HAND-OFF: juanito REAL Important Events on Shift:[J/P drain.CA discontinued.IV fluids discontinued as ordered.] Patient Status: [stable] Diet: [Regular] Pending Orders: [] Pending Results/Labs:[] Pending MD notification:[] Latest Vital Signs: Temperature 98.1 , Pulse 72 , B/P 107 /63 , Respiratory Rate 17 , O2 SAT 97 , Nasal Cannula, O2 Flow Rate 2.0 . Vital Sign Comment: [] Latest Grigsby Fall Score: 55 Fall Risk: High Risk Safety Measures: Call light Within Reach, Bed Alarm Zone 1, Side Rails Side Rails x2, Bed position Low and Locked. Fall Precautions: Report given to [].
[2020-05-15 20:00] VITALS: BP 130/72
--- NOTE | 2020-05-15 20:00 | NUR ---
NURSE NOTES: Patient awake in bed, on room air, no sob noted. Complained of moderate pain on head area. Will medicate as ordered. IV access on left forearm saline locked. Call light in reach. Bed in lowest and lock engaged. Will continue plan of care.
[2020-05-15] MEDS: HYDROcodone/Acetamin 5/325 tab ORAL PRN (21:23)
[2020-05-16] VITALS: BP 103/47
[2020-05-16 04:00] VITALS: BP 103/55
[2020-05-16] MEDS: ceFAZolin sod 1 GM in D5W 55 ML IVPB SCH ×3 (04:06→20:07)
[2020-05-16] MEDS: HYDROcodone/Acetamin 5/325 tab ORAL PRN ×2 (06:16→17:26)
--- NOTE | 2020-05-16 06:49 | NUR ---
NURSE NOTES: Patient just had a large loose BM. Addendum: 05/16/20 at 0702 by SARKIS MCCORD RN wrong patient
--- NOTE | 2020-05-16 07:02 | NUR ---
NURSE HAND-OFF: Important Events on Shift: pain mgt Patient Status: stable Diet: Pending Orders: Pending Results/Labs: Pending MD notification: Latest Vital Signs: Temperature 97.9 , Pulse 71 , B/P 103 /55 , Respiratory Rate 20 , O2 SAT 97 , Nasal Cannula, O2 Flow Rate 2.0 . Vital Sign Comment: Latest Grigsby Fall Score: 55 Fall Risk: High Risk Safety Measures: Call light Within Reach, Bed Alarm Zone 1, Side Rails Side Rails x2, Bed position Low and Locked. Fall Precautions: Report given to ADDIE Alvarez.
--- NOTE | 2020-05-16 07:51 | NUR ---
NURSE NOTES: Patient seen in bed in supine position asleep with no acute signs of distress. The patient is on room air with oxygen saturation within normal limits. The patient has a L FA 22G that is clean patent and intact saline locked. The patients bed is in lowest position,locked, side rails x3, call light within reach.
[2020-05-16 08:00] VITALS: BP 100/55
[2020-05-16] MEDS: Docusate 100mg cap ORAL SCH ×2 (09:00→20:07)
[2020-05-16] MEDS: Heparin 5000 units/ml inj SUBQ SCH ×2 (09:12→20:09)
[2020-05-16 12:00] VITALS: BP 127/68
--- NOTE | 2020-05-16 12:32 | General Progress Note ---
Progress Note Progress Note Pt seen and examined. POD# 4 and doing well. Will take down the dressings in AM and discharge tomorrow. MD Taylor Briceño Amir MD May 16, 2020 12:32
[2020-05-16] MEDS ORDERED: Sennosides 8.6mg tab ORAL SCH (13:30)
--- NOTE | 2020-05-16 13:43 | NUR ---
INSURANCE [employer]INICALS FAXED TO [facility] PH#[phone] FX [phone]
--- NOTE | 2020-05-16 13:50 | General Progress Note ---
Subjective Date patient seen: May 16, 2020 Time patient seen: 13:48 ROS Limited/Unobtainable: No Constitutional: Denies: chills, fever Cardiovascular: Denies: chest pain Respiratory: Denies: cough Gastrointestinal/Abdominal: Reports: constipated; Denies: abdomen distended, abdominal pain Allergies: Coded Allergies: PEANUT (Verified Allergy, Severe, anaphylactic, 05/08/20) HYDROMORPHONE (Verified Allergy, Intermediate, severe nausea, 05/08/20) Subjective Follow up for post-op medical management Feels well, still no BM but passing flatus, states he wants to wait until he goes home. Importance of intestinal motility explained to patient, especially in the setting of narcotic use Objective Last 24 Hour Vital Signs Date Time Temp Pulse Resp B/P (MAP) Pulse Ox O2 Delivery O2 Flow Rate FiO2 05/16/20 12:00 98.2 73 20 127/68 (87) 97 05/16/20 08:00 97.9 73 18 100/55 (70) 97 05/16/20 04:00 97.9 71 20 103/55 (71) 97 05/16/20 00:00 98.0 79 20 103/47 (65) 97 05/15/20 20:09 97 Nasal Cannula 2.0 28 05/15/20 20:00 98.8 85 20 130/72 (91) 98 05/15/20 16:00 98.1 72 18 107/63 (78) 97 05/15/20 16:00 72 17 97 Intake and Output 05/15/20 05/16/20 19:00 07:00 Intake Total 1440 ml 455 ml Output Total 1352 ml 750 ml Balance 88 ml -295 ml Intake Oral 840 ml 400 ml IV Total 600 ml 55 ml Output Urine Total 1350 ml 750 ml Drainage Total 2 ml # Bowel Movements 1 Height (Feet): 6 Height (Inches): 0.00 Weight (Pounds): 160 General Appearance: no apparent distress, alert Neck: supple Cardiovascular: normal rate Respiratory/Chest: lungs clear Abdomen: non tender, soft Assessment/Plan Assessment/Plan: 24 year old man with history bilateral axillary recurrent hidradenitis suppurativa s/p resection (12/06) with subsequent excision of pilonidal disease and flap closure (12/09) Who underwent STSG to left axillary wound and excision of neck HS with adjacent tissue transfer closure today #Neck hidradenitis suppurativa with drainage causing severe pain and discomfort, s/p resection and closure (05/12/20) #S/p STSG to left axillary wound (05/12/20) #Constipation -cont inpatient medical care -Continue excellent postoperative care -Encourage mobilization/ambulation, PT/OT -Encourage incentive spirometry to optimize pulmonary hygiene -DVT/GI prophylaxis as appropriate -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
--- NOTE | 2020-05-16 14:20 | NUR ---
ROAD CONDUCTOR NOTES SPOKE WITH GRACE FROM [facility], PT ACCEPTED UPON DISCHARGE. [facility] MADE AWARE OF DC FOR TUESDAY. PER GRACE THE START OF CARE WILL BE ON TUESDAY. [facility] [phone] (P) [phone] (F)
[2020-05-16 16:00] VITALS: BP 114/65
--- NOTE | 2020-05-16 19:45 | NUR ---
NURSE NOTES: Received report from Ivan REAL. Patient is awake, alert and oriented x4. On room air, breathing is even and unlabored. No complains of pain or distress noted. IV right FA intact and patent with no bleeding noted. Bed low and locked. Call light within reach.
--- NOTE | 2020-05-16 19:53 | NUR ---
NURSE HAND-OFF: Important Events on Shift:[pain management,Suppository dulcolax, D/C planning with 05/17] Patient Status: [full code] Diet: [Regular] Pending Orders: [N/A] Pending Results/Labs:[N/A] Pending MD notification:[N/A] Latest Vital Signs: Temperature 98.1 , Pulse 82 , B/P 114 /65 , Respiratory Rate 20 , O2 SAT 98 , Nasal Cannula, O2 Flow Rate 2.0 . Vital Sign Comment: [] Latest Grigsby Fall Score: 55 Fall Risk: High Risk Safety Measures: Call light Within Reach, Bed Alarm Zone 1, Side Rails Side Rails x2, Bed position Low and Locked. Fall Precautions: Report given to [ADDIE Summers].
[2020-05-16 20:00] VITALS: BP 107/61
[2020-05-17] VITALS: BP 96/47
[2020-05-17] MEDS: ceFAZolin sod 1 GM in D5W 55 ML IVPB SCH ×2 (03:27→13:55)
[2020-05-17 04:00] VITALS: BP 98/58
--- NOTE | 2020-05-17 07:08 | NUR ---
NURSE HAND-OFF: Important Events on Shift: Pain management, no BM Patient Status: Stable Diet: Regular Pending Orders: [] Pending Results/Labs:[] Pending MD notification:[] Latest Vital Signs: Temperature 97.8 , Pulse 82 , B/P 98 /58 , Respiratory Rate 16 , O2 SAT 99 , Nasal Cannula, O2 Flow Rate 2.0 . Vital Sign Comment: VS stable Latest Grigsby Fall Score: 55 Fall Risk: High Risk Safety Measures: Call light Within Reach, Bed Alarm Zone 1, Side Rails Side Rails x2, Bed position Low and Locked. Fall Precautions: Report given to Milli REAL.
[2020-05-17 08:00] VITALS: BP 128/88
--- NOTE | 2020-05-17 08:06 | NUR ---
NURSE NOTES: Patient awake, alert x4; on room air, no sign of shortness of breath; IV flushes well; surgical site dy and intact on posterior of the neck; MARILUZ drain also note; side rails up x2, breaks engaged, bed at lowest position; call light within reach; will keep monitoring;
--- NOTE | 2020-05-17 09:23 | Discharge Summary ---
Discharge Summary Hospital Course Date of Admission May 12, 2020 at 14:09 Date of Discharge 05/17/20 Admitting Diagnosis Hidradenitis suppurativa PAIGE Hutchinson is a 24 year old male who was admitted on May 12, 2020 at 14:09 for Hidradenitis Suppurativa Hospital Course 24 year old man with history bilateral axillary recurrent hidradenitis suppurativa s/p resection (12/06) with subsequent excision of pilonidal disease and flap closure (12/09) Who underwent STSG to left axillary wound and excision of neck HS with adjacent tissue transfer closure. Patient admitted for post op monitoring, pain control and IV antibiotics. 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 Will be discharged home today, scripts for [place] 5/325 #30, Colace and Keflex x 7 days provided. Home health was arranged for [facility] as per Dr. Vazquez's instuction #Neck hidradenitis suppurativa with drainage causing severe pain and discomfort, s/p resection and closure (05/12/20) #S/p STSG to left axillary wound (05/12/20) #Constipation [facility]: Daily xeroform to axilla, dry dressing to neck Discharge Discharge Vital Signs Last Vital Signs Date Time Temp Pulse Resp B/P (MAP) Pulse Ox O2 Delivery O2 Flow Rate FiO2 05/17/20 04:00 97.8 82 16 98/58 (71) 99 05/16/20 21:00 Room Air 05/15/20 20:09 2.0 28 Discharge Disposition Patient was discharged to Home Discharge Diagnoses: (1) Hidradenitis suppurativa (2) Leukocytosis Adair Mederos MD May 17, 2020 09:23
[2020-05-17] MEDS: Heparin 5000 units/ml inj SUBQ SCH (10:16)
[2020-05-17] MEDS: Docusate 100mg cap ORAL SCH (10:16)
[2020-05-17 12:00] VITALS: BP 117/65
--- NOTE | 2020-05-17 14:02 | NUR ---
NURSE NOTES: Per MD Turpin, surgical wound dressing provided to this patient; also medium size sling, Adaptives, Xeroform, 4x4, ABD provided to patient so that he can take it home for wound care;
--- NOTE | 2020-05-17 14:40 | NUR ---
NURSE NOTES: Patient discharge to Home; IV and name tag removed upon discharge; patient belongings counted and signed by patient and primary nurse; wound care supplies provided to patient; original medication prescription given to patient and copy on patient's file; surgical dressing all changed; patient able take shower with assist; patient left the floor via wheelchair; patient stable upon discharge. patient informed to follow up with MD Camp next ;
== END 2020-05-17 14:50 | disposition home or self-care (01) | DRG 578 ==
LOC: SUR 08:04 → 4E 14:09
DX: L73.2 Hidradenitis suppurativa (principal); Z88.6 Allergy status to analgesic agent; S41.102A Unspecified open wound of left upper arm, initial encounter; X58.XXXA Exposure to other specified factors, initial encounter; K59.00 Constipation, unspecified
CPT/HCPCS: 36415; 80048; 85025; 94003; 94150; J2250; J2405; J2710; J2765

== ENCOUNTER 2020-05-30 08:08 | Observation (INO) | payer BC ==
[2020-05-30] VITALS (19 sets, daily range): BP systolic 104–161; BP diastolic 60–92
[~2020-05-30] VITALS: Ht 185.4 cm; Wt 68.0 kg
[~2020-05-30 08:08] MED LIST changes: +ALBUTEROL SULF8.5 G1 INH; +BENZOYL PEROXI TP; +TRETIN-X 0.0251 EAC1 TP; +VIBRAMYCIN100 MG ORAL
[2020-05-30] MEDS ORDERED: EPINEPHrine 1mg/1ml Amp ONE (08:29)
[2020-05-30] MEDS ORDERED: Lidocaine 1% 10mg/ml/Epi 0.005mg/ml 30ml vial INJ ONE (08:30)
[2020-05-30] MEDS ORDERED: Bacitracin 50000 Units Vial ONE (08:30)
[2020-05-30] MEDS ORDERED: NeoSporin Gu Irrig 1ml Amp IRRIG ONE (08:30)
[2020-05-30] MEDS ORDERED: antibiotic PO (08:31)
[2020-05-30] MEDS ORDERED: Succinylcholine 20mg/ml 10ml vial ONE (08:59)
[2020-05-30] MEDS ORDERED: Rocuronium Bromide 50mg/5ml Inj IV ONE (08:59)
[2020-05-30] MEDS ORDERED: fentaNYL 100 mcg/2 mL IV ONE (09:00)
[2020-05-30] MEDS ORDERED: Midazolam 2mg/2ml Inj ONE (09:00)
[2020-05-30] MEDS ORDERED: Lidocaine 1% MPF 10mg/ml 5ml ONE (09:01)
[2020-05-30] MEDS ORDERED: NS Irrig 1000ml IRRIG ONE ×2 (09:05→09:58)
[2020-05-30] MEDS ORDERED: Lacri-Lube Opth Oint 3.5gm ONE (09:05)
--- NOTE | 2020-05-30 09:28 | Anethesia Preoperative Eval ---
Anesthesia Pre-op PMH/ROS General Date of Evaluation: May 30, 2020 Time of Evaluation: 09:24 Anesthesiologist: Libby ASA Score: ASA 2 Mallampati Score Class I : Soft palate, uvula, fauces, pillars visible Class II: Soft palate, uvula, fauces visible Class III: Soft palate, base of uvula visible Class IV: Only hard plate visible Mallampati Classification: Class II Surgeon: Taylor Diagnosis: Recurrent HS Surgical Procedure: Closure of posterior neck wound Anesthesia History: none Family History: no anesthesia problems Allergies: Coded Allergies: PEANUT (Verified Allergy, Severe, anaphylactic, 05/08/20) HYDROMORPHONE (Verified Allergy, Intermediate, severe nausea, 05/08/20) Medications: see eMAR Patient NPO?: Yes Past Medical History Cardiovascular: Denies: HTN, CAD, NH, valve dz, arrhythmia, other Pulmonary: Reports: asthma - mild; Denies: COPD, DEBBIE, other Gastrointestinal/Genitourinary: Denies: GERD, CRI, ESRD, other Neurologic/Psychiatric: Reports: depression/anxiety; Denies: dementia, CVA, TIA, other Endocrine: Denies: DM, hypothyroidism, steroids, other HEENT: Denies: cataract (L), cataract (R), glaucoma, [place] BAND (L), [place] BAND (R), other Hematology/Immune: Reports: anemia - mild; Denies: DVT, bleeding disorder, other Musculoskeletal/Integumentary: Reports: other - recurrent HS; Denies: OA, RA, DJD, DDD, edema PMH Narrative: as above PSxH Narrative: Multiple Sx for treatment of hydradenitis Anesthesia Pre-op Phys. Exam Physician Exam Last Vital Signs Date Time Temp Pulse Resp B/P (MAP) Pulse Ox O2 Delivery O2 Flow Rate FiO2 05/30/20 08:43 Room Air 05/30/20 08:34 97.6 20 131/78 (95) 99 Constitutional: NAD Neurologic: CN 2-12 intact Cardiovascular: RRR, no M/R/G Respiratory: CTA Gastrointestinal: S/NT/ND Airway Exam Mallampati Score: Class II MO: full Neck: stiff, painfull ROM: limited Teeth: intact Dentures: no upper, no lower Anesthesia Pre-op A/P Labs see chart Studies Pre-op Studies: EKG - SR Risk Assessment & Plan Assessment: ASA 2 Plan: GA with ETT prone position PONV prevention Status Change Before Surgery: No Pre-Antibiotics Drug: Ancef 2 gr. Given Within 1 Hr of Incision: Yes Time Given: 10:28 Jordon Souza MD May 30, 2020 09:28
[2020-05-30] MEDS ORDERED: LR 1000ml ONE (09:34)
[2020-05-30] MEDS ORDERED: NS Irrig 1000ml ONE (09:34)
[2020-05-30] MEDS ORDERED: Sterile Water Irrig 1000ml IRRIG ONE (09:34)
[2020-05-30] MEDS ORDERED: Acetaminophen (Non formulary) 100 ML IV ONE (09:45)
--- NOTE | 2020-05-30 09:47 | Pre-Procedure Note/Attestation ---
Pre-Procedure Note/Attestation Complete Prior to Procedure Planned Procedure: not applicable Procedure Narrative: Neck wound closure Attestation I attest that I discussed the nature of the procedure; its benefits; risks and complications; and alternatives (and the risks and benefits of such alte rnatives), prior to the procedure, with the patient (or the patient's legal resources representative). I attest that, if there was a reasonable possibility of needing a blood transfusion, the patient (or the patient's legal resources representative) was given the [facility] standardized written summary, pursuant to the Pedro Luis Horacio Blood Safety Act ([place] Health and Safety Code # 1645, as amended). I attest that I re-evaluated the patient just prior to the surgery and that there has been no change in the patient's H&P, except as documented below: Jl Vazquez MD May 30, 2020 09:47
[2020-05-30] MEDS ORDERED: Morphine Sulfate 10mg/ml Inj ONE (10:30)
[2020-05-30] MEDS ORDERED: Glycopyrrolate 0.2mg/ml 1ml Vial ONE (10:31)
[2020-05-30] MEDS ORDERED: Ketorolac 30mg Inj ONE (10:31)
[2020-05-30] MEDS ORDERED: Sodium Chloride 10ml vial INJ ONE (10:31)
[2020-05-30] MEDS ORDERED: Metoclopramide 10mg/2ml Inj IVP PRN (10:45)
[2020-05-30] MEDS ORDERED: LR 1000ml 1,000 ML IVLG SCH (10:45)
[2020-05-30] MEDS ORDERED: Midazolam 2mg/2ml Inj IVP PRN (10:45)
[2020-05-30] MEDS: PCA shift volume MISC SCH ×2 (10:45→19:16)
[2020-05-30] MEDS ORDERED: Naloxone 0.4mg/ml Inj IVP PRN (10:45)
[2020-05-30] MEDS ORDERED: PCA Education Pamphlet MISC ONE (10:45)
[2020-05-30] MEDS ORDERED: DiphenhydrAMINE 50mg/ml Inj IVP PRN ×2 (10:45)
[2020-05-30] MEDS ORDERED: Ketorolac 30mg Inj IV PRN (10:45)
[2020-05-30] MEDS ORDERED: Rate Change PCA 1 Each MISC PRN (10:45)
[2020-05-30] MEDS ORDERED: Meperidine 25mg/1ml Inj (FOR RIGORS ONLY) IV PRN (10:45)
--- NOTE | 2020-05-30 11:35 | Operative Note - PDOC ---
Operative Note Operative Note Pre-op Diagnosis: Neck wound dehiscence closure Post-op Diagnosis: Posterior Neck Wound Dehiscence Surgeon: Taylor Acting Instructor: Jodee Anesthesia: general Specimen: none Complications: none Condition: stable Estimated Blood Loss: minimal Drains: none Implant(s) used?: No Jl Vazquez MD May 30, 2020 11:35
[2020-05-30] MEDS: PCA Morphine 1mg/ml 30 ML IV PRN (11:53)
--- NOTE | 2020-05-30 11:53 | Immediate Post-Op Evaluation ---
Immediate Post-Op Evalulation Immediate Post-Op Evalulation Procedure: Revision and closure of posterior neck wound Date of Evaluation: May 30, 2020 Time of Evaluation: 11:51 IV Fluids: 600 Blood Products: none Estimated Blood Loss: 50 Urinary Output: none Blood Pressure Systolic: 134 Blood Pressure Diastolic: 82 Pulse Rate: 84 Respiratory Rate: 20 O2 Sat by Pulse Oximetry: 99 Temperature (Fahrenheit): 97.8 Pain Score (1-10): 1 Nausea: No Vomiting: No Complications none Patient Status: reacts, patent, extubated, none Hydration Status: adequate Jordon Souza MD May 30, 2020 11:52
--- NOTE | 2020-05-30 12:25 | 48 Hour Post Anesthesia Eval ---
Post Anesthesia Evaluation Procedure: Revision and closure of posterior neck wound Date of Evaluation: May 30, 2020 Time of Evaluation: 12:24 Blood Pressure Systolic: 128 0: 76 Pulse Rate: 82 Respiratory Rate: 18 Temperature (Fahrenheit): 97.6 O2 Sat by Pulse Oximetry: 99 Airway: patent Nausea: No Vomiting: No Pain Intensity: 1 Hydration Status: adequate Cardiopulmonary Status: stable Mental Status/LOC: patient returned to baseline Follow-up Care/Observations: n/a Post-Anesthesia Complications: none Follow-up care needed: N/A Jordon Souza MD May 30, 2020 12:25
--- NOTE | 2020-05-30 13:14 | Operative Note - Dictated ---
DATE OF OPERATION: 05/30/2020 PREOPERATIVE DIAGNOSIS: Posterior neck wound dehiscence, status post excision of hidradenitis. POSTOPERATIVE DIAGNOSIS: Posterior neck wound dehiscence, status post excision of hidradenitis. PROCEDURES: 1. Debridement and preparation of neck, wound closure for adjacent tissue transfer. 2. Adjacent tissue transfer closure of dehisced posterior neck wound, measurements are 20 x 5 cm. (100 sq cm). SURGEON: Jl Vazquez MD. CIRCULATION WORKER: Alicia Ellsworth MD. ANESTHESIA: General. COMPLICATIONS: None. DRAINS: None. DISPOSITION: Stable to the recovery room. INDICATIONS FOR SURGERY: This is a 24-year-old male with advanced hidradenitis in multiple parts of his body, who has undergone previous excisions and reconstructions by me, who approximately three weeks ago underwent radical excision of posterior neck hidradenitis with adjacent tissue transfer closure. The patient was doing well postoperatively, but approximately two weeks postop, there was evidence of dehiscence of his neck wound, which seemed to be progressing and given the appearance of the wound and concern for possible infection, I felt that he would need to undergo debridement and re-closure of the wound. He understood the risks and benefits of surgery and agreed to proceed. DETAILS OF THE OPERATION: The patient was brought to the operating room and laid in the prone position on the operating table following induction of anesthesia. The patient's wound dehiscence was more pronounced on the lateral aspect of the wound, but there was some dehiscence centrally as well. Regardless though the plan was to perform a debridement of the entire previous incision with re-elevation of the flaps to allow for definitive re-closure of the wound with adjacent tissue transfer. So, a #15 blade was used to re-excise the skin edges around the periphery of the wound and this then resulted in a wound that measured 20 x 5 cm. The loose sutures from the previous closure were all removed. Given the large size of the wound, primary closure could not be achieved. The flaps had to be re-elevated from the previous operation. We mobilized the superior, inferior scalp and neck flaps for additional centimeter on each side to get another 2 cm total of flap advancement. So once the flaps were readvanced and further mobilized, the wound was irrigated and hemostasis was achieved. Surgicel was then placed in the wound and 20 x 5 cm wound was then closed by re-advancing the flaps to allow for adjacent tissue transfer closure of the wound. A 0 Vicryl sutures were used for the deep layer followed by 2-0 Vicryl sutures as well as a running 3-0 Prolene suture to close the skin. This time around however given the previous dehiscence, which I think may have extended do with patient mobility, mobility of the neck, retaining sutures of #0 Prolene were used along the entire length of the incision to further reinforce the wound closure and take tension off the incision. Dermabond was then also applied. A compressive dressing was applied and the patient was also placed in a soft C-collar to help minimize movement of his neck. The patient tolerated the procedure well. All needle and sponge counts were correct. There were no complications. Jl Vazquez M.D. DR: MIGUEL JOB#: [id number] CC: JONATHON
--- NOTE | 2020-05-30 13:46 | History and Physical ---
History of Present Illness General Date patient seen: May 30, 2020 Time patient seen: 13:45 Present Illness HPI 24 year old man with history bilateral axillary recurrent hidradenitis suppurativa s/p resection (12/06) with subsequent excision of pilonidal disease and flap closure (12/09) Who underwent recent STSG to left axillary wound and excision of neck HS with adjacent tissue transfer closure who presented with wound dehiscence. Today the patient underwent debridement and preparation of neck, wound closure for adjacent tissue transfer + Adjacent tissue transfer closure of dehisced posterior neck wound. 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 Allergies: Coded Allergies: PEANUT (Verified Allergy, Severe, anaphylactic, 05/08/20) HYDROMORPHONE (Verified Allergy, Intermediate, severe nausea, 05/08/20) COVID-19 Screening Contact w/high risk pt: No Recent Travel to affected area: No Experienced COVID-19 symptoms?: No Medication History Scheduled Albuterol Sulfate* (Albuterol Sulfate Hfa*), 2 PUFF INH Q6H, (Reported) Benzoyl Peroxide (Benzoyl Peroxide), 142 GM TP DAILY, (Reported) Tretinoin/Emol Cmb9/Skin Cln1 (Tretin-X 0.025% Cream Comb Pck), 1 EACH TP QHS, (Reported) [antibiotic], 1 TAB PO FOUR TIMES A DAY, (Reported) Patient History Healthcare decision maker Resuscitation status Advanced Directive on File Family History Family History: FH: HTN (hypertension) 33 FATHER 32 MOTHER Review of Systems Constitutional: Denies: chills, fever Respiratory: Denies: cough Cardiovascular: Denies: chest pain Gastrointestinal: Denies: abdominal pain Musculoskeletal: Denies: back pain Skin: Denies: rash Physical Exam General Appearance: no apparent distress, alert HEENT: anicteric Neck: normal alignment, supple, other - Surgical dressing/soft brace in place Respiratory/Chest: lungs clear, normal breath sounds Cardiovascular/Chest: normal rate, regular rhythm Abdomen: non tender, soft Last 24 Hour Vital Signs Date Time Temp Pulse Resp B/P (MAP) Pulse Ox O2 Delivery O2 Flow Rate FiO2 05/30/20 13:15 97.3 99 16 121/69 (86) 98 05/30/20 13:00 16 05/30/20 12:50 97.6 05/30/20 12:45 14 05/30/20 12:45 97.6 66 14 125/70 100 Nasal Cannula 3 05/30/20 12:35 72 11 121/76 100 Nasal Cannula 3 05/30/20 12:25 84 18 134/66 100 Nasal Cannula 3 05/30/20 12:25 18 05/30/20 12:25 82 18 99 05/30/20 12:15 12 05/30/20 12:15 73 12 132/75 100 Nasal Cannula 3 05/30/20 12:10 78 11 132/80 100 Simple Mask 6 05/30/20 12:00 84 13 133/73 100 Simple Mask 6 05/30/20 12:00 11 05/30/20 11:55 86 15 130/74 100 Simple Mask 6 05/30/20 11:53 13 05/30/20 11:52 84 20 99 05/30/20 11:50 103 16 134/82 100 Simple Mask 6 05/30/20 11:47 97.2 108 14 161/92 100 Simple Mask 6 05/30/20 08:43 Room Air 05/30/20 08:34 97.6 20 131/78 (95) 99 Height (Feet): 6 Height (Inches): 1.00 Weight (Pounds): 160 Medications Current Medications Medications (Trade) Dose Ordered Sig/Flavia Route PRN Reason Start Time Stop Time Status Last Admin Dose Admin Acetaminophen (Tylenol) 650 mg Q4H PRN ORAL FEVER 05/30/20 10:00 06/29/20 09:59 Diphenhydramine HCl (Benadryl) 25 mg Q6H PRN IVP Itching/Pruritis 05/30/20 10:45 05/30/20 16:45 Heparin Sodium (Porcine) (Heparin 5000 units/ml) 5,000 units EVERY 12 HOURS SUBQ 05/30/20 21:00 07/14/20 20:59 Miscellaneous Medication (DATABASE SPECIALIST Rate Change) 1 ea DAILY PRN MISC rate change 05/30/20 10:45 06/01/20 10:44 Miscellaneous Medication (DATABASE SPECIALIST shift volume) 1 ea Q12HR@0700,1900 MISC 05/30/20 10:45 06/01/20 10:44 Morphine Sulfate 30 ml @ 0 mls/hr Q24H PRN IV For Pain 05/30/20 10:45 06/01/20 10:44 05/30/20 11:53 Naloxone HCl (Narcan) 0.1 mg Q1M PRN IVP RR<10/min OR SBP<90 mmHg 05/30/20 10:45 06/01/20 10:44 Ondansetron HCl (Zofran) 4 mg Q6H PRN IVP Nausea & Vomiting 05/30/20 10:00 06/29/20 09:59 UNV Ondansetron HCl (Zofran) 4 mg Q6H PRN IVP Nausea & Vomiting 05/30/20 10:45 05/30/20 16:45 Temazepam (RestoriL) 7.5 mg HSPRN PRN ORAL Insomnia 05/30/20 10:45 05/30/20 16:45 Zolpidem Tartrate (Ambien) 5 mg DAILYPRN PRN ORAL Insomnia 05/30/20 10:00 06/06/20 09:59 UNV Assessment/Plan Assessment/Plan: 24 year old man with history bilateral axillary recurrent hidradenitis suppurativa s/p resection (12/06) with subsequent excision of pilonidal disease and flap closure (12/09) Who underwent debridement and preparation of neck, wound closure for adjacent tissue transfer + Adjacent tissue transfer closure of dehisced posterior neck wound #Neck hidradenitis suppurativa with drainage causing severe pain and discomfort, s/p resection and closure (05/12/20) #S/p STSG to left axillary wound (05/12/20) #Wound dehiscence #S/p debridement and preparation of neck, wound closure for adjacent tissue transfer + Adjacent tissue transfer closure of dehisced posterior neck wound (05/30/20) -admit to inpatient -Continue excellent postoperative care -Encourage mobilization/ambulation, PT/OT -Encourage incentive spirometry to optimize pulmonary hygiene -DVT/GI prophylaxis as appropriate -Cont morphine DATABASE SPECIALIST -bowel regimen -Ancef 1 gram IV q8h Adair Mederos MD May 30, 2020 13:46
[2020-05-30] MEDS ORDERED: Sennosides 8.6mg tab ORAL PRN (14:00)
[2020-05-30] MEDS: ceFAZolin sod 1 GM in D5W 55 ML IVPB SCH (16:47)
[2020-05-30] MEDS: Docusate 100mg cap ORAL SCH (17:56)
[2020-05-30] MEDS: Heparin 5000 units/ml inj SUBQ SCH (21:00)
[2020-05-30] MEDS ORDERED: Zolpidem 5mg tab ORAL PRN (21:00)
[2020-05-31] VITALS: BP 112/67
[2020-05-31] MEDS: ceFAZolin sod 1 GM in D5W 55 ML IVPB SCH ×2 (00:30→08:19)
[2020-05-31] MEDS: PCA Morphine 1mg/ml 30 ML IV PRN (03:34)
[2020-05-31 04:00] VITALS: BP 106/60
[2020-05-31] MEDS: PCA shift volume MISC SCH (07:15)
[2020-05-31 08:00] VITALS: BP 110/69
[2020-05-31] MEDS: Docusate 100mg cap ORAL SCH (08:18)
[2020-05-31] MEDS: Heparin 5000 units/ml inj SUBQ SCH (08:20)
--- NOTE | 2020-05-31 11:52 | Discharge Summary ---
Discharge Summary Hospital Course Date of Admission May 30, 2020 at 11:54 Date of Discharge 05/31/20 Admitting Diagnosis Wound dehiscence PAIGE Hutchinson is a 24 year old male who was admitted on May 30, 2020 at 11:54 for Flap Closure Of Neck Wound Consultations Plastic Surgery Hospital Course 24 year old man with history bilateral axillary recurrent hidradenitis suppurativa s/p resection (12/06) with subsequent excision of pilonidal disease and flap closure (12/09) Who underwent debridement and preparation of neck, wound closure for adjacent tissue transfer + Adjacent tissue transfer closure of dehisced posterior neck wound - patient did well post-op no complaints, cleared for discharge home by surgery, will be on Keflex x 7 days. To keep soft collar on x 2 weeks and follow up with Dr. Vazquez as outpatient #Neck hidradenitis suppurativa with drainage causing severe pain and discomfort, s/p resection and closure (05/12/20) #S/p STSG to left axillary wound (05/12/20) #Wound dehiscence #S/p debridement and preparation of neck, wound closure for adjacent tissue transfer + Adjacent tissue transfer closure of dehisced posterior neck wound (05/30/20) Discharge Condition Upon Discharge: stable Discharge Vital Signs Last Vital Signs Date Time Temp Pulse Resp B/P (MAP) Pulse Ox O2 Delivery O2 Flow Rate FiO2 05/31/20 09:00 Room Air 05/31/20 08:00 72 17 99 05/31/20 08:00 98.6 110/69 (83) 05/30/20 12:45 3 Discharge Disposition Patient was discharged to home Discharge Diagnoses: (1) Wound dehiscence Adair Mederos MD May 31, 2020 11:52
[2020-05-31 12:00] VITALS: BP 119/66
[2020-05-31] MEDS ORDERED: CEPHALEXIN500 MG ORAL (13:36)
[2020-05-31 16:00] VITALS: BP 125/64
== END 2020-05-31 17:26 | disposition home or self-care (01) ==
LOC: SUR 08:08 → 4E 11:54
DX: T81.30XA Disruption of wound, unspecified, initial encounter (principal); X58.XXXA Exposure to other specified factors, initial encounter; Y92.9 Unspecified place or not applicable; Z88.6 Allergy status to analgesic agent; Z91.010 Allergy to peanuts; J45.909 Unspecified asthma, uncomplicated; F32.9 Major depressive disorder, single episode, unspecified; F41.9 Anxiety disorder, unspecified; D64.9 Anemia, unspecified
CPT/HCPCS: 94003; 94150; 96365; G0378; J2180; J2250; J2405